=== PATIENT | female | born 1940 | race Caucasian/White ===

== ENCOUNTER 2018-11-25 14:11 | Emergency (ER) | payer OTHER ==
--- OUTSIDE RECORDS SUMMARY | 2018-11-25 14:13 | XMS REPORT | Clinical Summary ---
:1940 Author Organization [facility] Address [address] [place] [address] Care Team Providers Name Role Phone Luis Arreola Primary Care Provider Allergies Active Allergy Reactions Severity Noted Date Comments Hydralazine Analogues Nausea And Vomiting, Low 04/30/2017 "Feels hot" when Other (See Comments) medication given Medications Medication Sig Dispensed Refills Start Date End Date Status aspirin 81 MG EC Take 81 mg by 0 Active tablet mouth daily. folic acid (FOLVITE) Take 400 mcg by 0 Active 800 MCG tablet mouth daily. omeprazole Take 40 mg by 0 Active (PRILOSEC) 40 MG mouth daily. capsule losartan (COZAAR) Take 1 tablet 30 tablet 1 05/06/2017 Active 100 MG tablet (100 mg total) by mouth daily. clopidogrel (PLAVIX) Take 1 tablet (75 30 tablet 1 05/06/2017 Active 75 mg tablet mg total) by mouth daily. amLODIPine (NORVASC) Take 1 tablet (10 30 tablet 1 05/06/2017 05/06/2018 10 MG tablet mg total) by mouth daily. atorvastatin Take 1 tablet (40 30 tablet 1 05/06/2017 05/06/2018 (LIPITOR) 40 MG mg total) by tablet mouth nightly. carvedilol (COREG) Take 1 tablet (25 60 tablet 1 05/06/2017 05/06/2018 25 MG tablet mg total) by mouth 2 (two) times daily. ferrous sulfate 325 Take 1 tablet 60 tablet 1 05/06/2017 05/06/2018 (65 FE) MG tablet (325 mg total) by mouth 2 (two) times daily. ranolazine (RANEXA) Take 1 tablet 60 tablet 1 05/06/2017 05/06/2018 500 MG 12 hr tablet (500 mg total) by mouth 2 (two) times daily. nitroglycerin 1 pill under 90 tablet 1 05/06/2017 05/06/2018 (NITROSTAT) 0.4 MG tongue every 5min SL tablet prn chest pain.No more than 3 doses in 15min.Call 911 if pain is unrelieved 5min after 1st dose. 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 Last Filed Vital Signs Not on file Plan of Treatment Not on file Implants Implanted Type Area Dope Mixer Device Identifier Shelf Model / Expiration Serial / Date Lot [employer] Synergy Stents- N/A: [employer] 09/29/2017 [id number] / Implanted: Qty: 1 on 04/30/2017 by Arleen Olivia MD [employer] / y [id number] [employer] Synergy Stents- N/A: [employer] [id number] 09/29/2017 [id number] / Implanted: Qty: 1 on 04/30/2017 by Alreen Olivia MD [employer] / y [id number] [employer] Synergy Stents- N/A: [employer] [id number] 09/25/2017 [id number] / Implanted: Qty: 1 on 04/30/2017 by Arleen Olivia MD [employer] / y [id number] Results Not on fileafter 11/24/2017 Insurance Payer Benefit Plan / Group Subscriber ID Type Phone Address MEDICARE MEDICARE A B xxxxxxxxxx Medicare MCR GENERIC MEDICARE xxxxxxxxxxxx Medigap SUPPLEMENT/INDIVIDUAL SUPPLEMENT Advance Directives For more information, please contact:[address] [phone] Code Status Date Activated Date Inactivated Comments Full Code 04/30/2017 11:17 AM 05/06/2017 4:36 PM This code status was determined by: Patient Full Code 04/28/2017 5:16 PM 04/30/2017 11:17 AM This code status was determined by: Patient
--- OUTSIDE RECORDS SUMMARY | 2018-11-25 14:14 | XMS REPORT ---
:1940 [facility] Address [address] [place] [address] Care Team Providers Name Role Phone ANN-MARIEBEATRICE Unavailable Unavailable Problems This patient has no known problems. Allergies, Adverse Reactions, Alerts This patient has no known allergies or adverse reactions. Medications This patient has no known medications. Results Test Description Test Time Test Comments Text Results Atomic Results Result Comments MAGNESIUM 2017-05-04 06:53:00 Test Item Value Reference Range Comments MAGNESIUM (BEAKER) (test yurq=274) 2.1 mg/dL 1.6-2.6 BASIC METABOLIC [id number] 06:53:00 Test Item Value Reference Range Comments SODIUM (BEAKER) (test 140 meq/L 136-145 efkl=706) POTASSIUM (BEAKER) (test 3.5 meq/L 3.5-5.1 zoiq=845) CHLORIDE (BEAKER) (test 107 meq/L 98-107 dvco=933) CO2 (BEAKER) (test 26 meq/L 22-29 hagy=970) BLOOD UREA NITROGEN 11 mg/dL 7-21 (BEAKER) (test posy=714) CREATININE (BEAKER) (test 0.58 mg/dL 0.57-1.25 pfaz=450) GLUCOSE RANDOM (BEAKER) 98 mg/dL 70-105 (test urxn=549) CALCIUM (BEAKER) (test 8.5 mg/dL 8.4-10.2 bxhq=117) EGFR (BEAKER) (test 101 mL/min/1.73 sq m ESTIMATED GFR IS NOT ctci=2983) ACCURATE CREATININE CLEARANCE IN PREDICTING GLOMERULAR FILTRATION RATE. ESTIMATED GFR IS NOT APPLICABLE FOR DIALYSIS PATIENTS. CBC (HEMOGRAM ONLY)2017-05-04 06:15:00 Test Item Value Reference Range Comments WHITE BLOOD CELL COUNT (BEAKER) (test ewgz=905) 5.1 K/ L 3.5-10.5 RED BLOOD CELL COUNT (BEAKER) (test znwt=173) 2.94 M/ L 3.93-5.22 HEMOGLOBIN (BEAKER) (test deax=785) 8.9 GM/DL 11.2-15.7 HEMATOCRIT (BEAKER) (test mvaz=894) 25.9 % 34.1-44.9 MEAN CORPUSCULAR VOLUME (BEAKER) (test mcga=659) 88.1 fL 79.4-94.8 MEAN CORPUSCULAR HEMOGLOBIN (BEAKER) (test 30.3 pg 25.6-32.2 rfwb=535) MEAN CORPUSCULAR HEMOGLOBIN CONC (BEAKER) (test 34.4 GM/DL 32.2-35.5 dvim=753) RED CELL DISTRIBUTION WIDTH (BEAKER) (test 13.1 % 11.7-14.4 bivq=954) PLATELET COUNT (BEAKER) (test tlnw=396) 232 K/CU MM 150-450 MEAN PLATELET VOLUME (BEAKER) (test lsem=008) 10.7 fL 9.4-12.3 NUCLEATED RED BLOOD CELLS (BEAKER) (test 0 /100 WBC 0-0 oxcq=496) TROPONIN [id number] 15:33:00 Test Item Value Reference Range Comments TROPONIN I (BEAKER) (test tozo=872) 5.88 ng/mL 0.00-0.03 Effective 08/08/2014: Reference Range ChangeNew: 0.00-0.03 Previous 0.00- 0.15Troponin I (TnI) levels must be interpreted in the context of the presenting symptoms and the clinical findings. Elevated TnI levels indicate myocardial damage, but are not specific for ischemic heart disease. Elevated TnI levels are seen in patients with other cardiac conditions (including myocarditis and congestive heartfailure), and slight TnI elevations occur in patients with other conditions, including sepsis, renalfailure, acidosis, acute neurological disease, and persistent tachyarrhythmia.BASIC METABOLIC [id number] 15:31:00 Test Item Value Reference Range Comments SODIUM (BEAKER) (test 136 meq/L 136-145 uhod=542) POTASSIUM (BEAKER) (test 3.4 meq/L 3.5-5.1 tjeb=712) CHLORIDE (BEAKER) (test 103 meq/L 98-107 eewk=491) CO2 (BEAKER) (test 26 meq/L 22-29 fhbf=498) BLOOD UREA NITROGEN 19 mg/dL 7-21 (BEAKER) (test ybxj=175) CREATININE (BEAKER) (test 0.64 mg/dL 0.57-1.25 trid=831) GLUCOSE RANDOM (BEAKER) 106 mg/dL 70-105 (test zlgy=744) CALCIUM (BEAKER) (test 8.4 mg/dL 8.4-10.2 tazn=687) EGFR (BEAKER) (test 90 mL/min/1.73 sq m ESTIMATED GFR IS NOT ocgv=7168) ACCURATE CREATININE CLEARANCE IN PREDICTING GLOMERULAR FILTRATION RATE. ESTIMATED GFR IS NOT APPLICABLE FOR DIALYSIS PATIENTS. CREATINE KINASE (CK), TOTAL AND [id number] 15:31:00 Test Item Value Reference Range Comments CREATINE KINASE TOTAL (BEAKER) (test zssu=848) 228 U/L 29-200 CREATINE KINASE-MB (BEAKER) (test onpq=061) 4.0 ng/mL 0.0-6.6 CREATINE KINASE-MB INDEX (BEAKER) (test nuip=024) 1.8 % Effective 08/08/2014: CK-MB Reference Range ChangeNew: 0.0-6.6 Previous: 0.0- 4.9CK-MB Reference Range:<6.7 Normal6.7-10.0 Borderline>10.0 AbnormalPLATELET AGGREGATION: DRUG [id number] 14:43:00 Test Item Value Reference Range Comments STRONG ADP RESULT(BEAKER) (test 9 % 70-94 xopk=1399) WEAK ADP RESULT(BEAKER) (test 13 % 60-91 awro=6056) ARACHADONIC ACID RESULT(BEAKER) 6 % 63-89 (test mcgl=4004) PLATELET AGG DRUG INTERPRETATION Decreased response to (BEAKER) (test tene=9242) arachidonic acid suggests aspirin-like effect. PLATELET AGG DRUG INTERPRETATION Decreased response to ADP (BEAKER) (test kqbm=822236) suggest a V6W04-fxsxhidvt drug effect. [id number] (BEAKER) Beka Whyte MD (electronic (test joqe=4034) signature) PLATELET COUNT AGG (BEAKER) 203 K/CU MM 150-450 (test kvnc=4302) TROPONIN [id number] 00:49:00 Test Item Value Reference Range Comments TROPONIN I (BEAKER) (test xlaz=307) 9.43 ng/mL 0.00-0.03 Effective 08/08/2014: Reference Range ChangeNew: 0.00-0.03 Previous 0.00- 0.15Troponin I (TnI) levels must be interpreted in the context of the presenting symptoms and the clinical findings. Elevated TnI levels indicate myocardial damage, but are not specific for ischemic heart disease. Elevated TnI levels are seen in patients with other cardiac conditions (including myocarditis and congestive heartfailure), and slight TnI elevations occur in patients with other conditions, including sepsis, renalfailure, acidosis, acute neurological disease, and persistent tachyarrhythmia.CREATINE KINASE (CK), TOTAL AND [id number] 00:42:00 Test Item Value Reference Range Comments CREATINE KINASE TOTAL (THELMAAKER) (test kapc=467) 416 U/L 29-200 CREATINE KINASE-MB (BEAKER) (test dlpa=060) 22.6 ng/mL 0.0-6.6 CREATINE KINASE-MB INDEX (BEAKER) (test jefj=986) 5.4 % Effective 08/08/2014: CK-MB Reference Range ChangeNew: 0.0-6.6 Previous: 0.0- 4.9CK-MB Reference Range:<6.7 Normal6.7-10.0 Borderline>10.0 AbnormalTROPONIN [id number] 17:51:00 Test Item Value Reference Range Comments TROPONIN I (THELMAAKER) (test ykyu=160) 10.38 ng/mL 0.00-0.03 Effective 08/08/2014: Reference Range ChangeNew: 0.00-0.03 Previous 0.00- 0.15Troponin I (TnI) levels must be interpreted in the context of the presenting symptoms and the clinical findings. Elevated TnI levels indicate myocardial damage, but are not specific for ischemic heart disease. Elevated TnI levels are seen in patients with other cardiac conditions (including myocarditis and congestive heartfailure), and slight TnI elevations occur in patients with other conditions, including sepsis, renalfailure, acidosis, acute neurological disease, and persistent tachyarrhythmia.CREATINE KINASE (CK), TOTAL AND [id number] 17:50:00 Test Item Value Reference Range Comments CREATINE KINASE TOTAL (BEAKER) (test howo=184) 696 U/L 29-200 CREATINE KINASE-MB (BEAKER) (test flra=272) 52.7 ng/mL 0.0-6.6 CREATINE KINASE-MB INDEX (BEAKER) (test ynbs=362) 7.6 % Effective 08/08/2014: CK-MB Reference Range ChangeNew: 0.0-6.6 Previous: 0.0- 4.9CK-MB Reference Range:<6.7 Normal6.7-10.0 Borderline>10.0 AbnormalPLATELET AGGREGATION: DRUG [id number] 15:59:00 Test Item Value Reference Range Comments STRONG ADP RESULT(BEAKER) (test 35 % 70-94 vccb=0172) WEAK ADP RESULT(BEAKER) (test 33 % 60-91 empa=1318) ARACHADONIC ACID RESULT(BEAKER) 14 % 63-89 (test uxbn=1220) PLATELET AGG DRUG INTERPRETATION Decreased response to (BEAKER) (test bgkl=7789) arachidonic acid suggests aspirin-like effect. PLATELET AGG DRUG INTERPRETATION Decreased response to ADP (BEAKER) (test hxrm=003793) suggest a N6I14-cubldjztv drug effect. [id number] [facility] Beka Whyte MD (electronic (test iuxr=0675) signature) PLATELET COUNT AGG (BEAKER) 288 K/CU MM 150-450 (test itsv=0134) PLATELET AGGREGATION: DRUG [id number] 15:58:00 Test Item Value Reference Range Comments STRONG ADP RESULT(BEAKER) (test 23 % 70-94 yeyz=2375) WEAK ADP RESULT(BEAKER) (test 20 % 60-91 jkwu=0232) ARACHADONIC ACID RESULT(BEAKER) 15 % 63-89 (test xupz=8832) PLATELET AGG DRUG INTERPRETATION Decreased response to (BEAKER) (test pdqy=0449) arachidonic acid suggests aspirin-like effect. PLATELET AGG DRUG INTERPRETATION Decreased response to ADP (BEAKER) (test wpzq=910090) suggest a Y4Z93-zaltekuoe drug effect. [id number] (BEAKER) Beka Whyte MD (electronic (test spig=8359) signature) PLATELET COUNT AGG (BEAKER) 235 K/CU MM 150-450 (test moif=3061) POCT-GLUCOSE [id number] 11:52:00 Test Item Value Reference Range Comments POC-GLUCOSE METER (BEAKER) 90 mg/dL 70-110 TESTED AT [facility] [address] (test uzjj=3726) [facility] [address] TROPONIN [id number] 09:56:00 Test Item Value Reference Range Comments TROPONIN I (BEAKER) (test mwhg=429) 15.16 ng/mL 0.00-0.03 Effective 08/08/2014: Reference Range ChangeNew: 0.00-0.03 Previous 0.00- 0.15Troponin I (TnI) levels must be interpreted in the context of the presenting symptoms and the clinical findings. Elevated TnI levels indicate myocardial damage, but are not specific for ischemic heart disease. Elevated TnI levels are seen in patients with other cardiac conditions (including myocarditis and congestive heartfailure), and slight TnI elevations occur in patients with other conditions, including sepsis, renalfailure, acidosis, acute neurological disease, and persistent tachyarrhythmia.CREATINE KINASE (CK), TOTAL AND [id number] 09:56:00 Test Item Value Reference Range Comments CREATINE KINASE TOTAL (BEAKER) (test qxcb=808) 1205 U/L 29-200 CREATINE KINASE-MB (BEAKER) (test uppa=947) 98.4 ng/mL 0.0-6.6 CREATINE KINASE-MB INDEX (BEAKER) (test qwcg=181) 8.2 % Effective 08/08/2014: CK-MB Reference Range ChangeNew: 0.0-6.6 Previous: 0.0- 4.9CK-MB Reference Range:<6.7 Normal6.7-10.0 Borderline>10.0 AbnormalCOMPREHENSIVE METABOLIC [id number] 09:04:00 Test Item Value Reference Range Comments TOTAL PROTEIN (BEAKER) 6.2 gm/dL 6.0-8.3 (test wygi=567) ALBUMIN (BEAKER) (test 3.5 g/dL 3.5-5.0 bamf=7304) ALKALINE PHOSPHATASE 49 U/L 40-150 (BEAKER) (test zkui=559) BILIRUBIN TOTAL (BEAKER) 0.8 mg/dL 0.2-1.2 (test vhjw=688) SODIUM (BEAKER) (test 136 meq/L 136-145 ivlj=258) POTASSIUM (BEAKER) (test 3.5 meq/L 3.5-5.1 kqqs=604) CHLORIDE (BEAKER) (test 107 meq/L 98-107 dwow=564) CO2 (BEAKER) (test 23 meq/L 22-29 zchf=698) BLOOD UREA NITROGEN 22 mg/dL 7-21 (BEAKER) (test gxlk=482) CREATININE (BEAKER) (test 0.75 mg/dL 0.57-1.25 shub=989) GLUCOSE RANDOM (BEAKER) 95 mg/dL 70-105 (test bvtm=803) CALCIUM (BEAKER) (test 8.5 mg/dL 8.4-10.2 vutm=743) AST (SGOT) (BEAKER) (test 133 U/L 5-34 ikrl=451) ALT (SGPT) (BEAKER) (test 35 U/L 6-55 mcxy=201) EGFR (BEAKER) (test 75 mL/min/1.73 sq m ESTIMATED GFR IS NOT nmua=0651) ACCURATE CREATININE CLEARANCE IN PREDICTING GLOMERULAR FILTRATION RATE. ESTIMATED GFR IS NOT APPLICABLE FOR DIALYSIS PATIENTS. CBC (HEMOGRAM ONLY)2017-05-01 06:45:00 Test Item Value Reference Range Comments WHITE BLOOD CELL COUNT (BEAKER) (test gmtx=962) 9.4 K/ L 3.5-10.5 RED BLOOD CELL COUNT (BEAKER) (test dzys=442) 3.17 M/ L 3.93-5.22 HEMOGLOBIN (BEAKER) (test cjcj=878) 9.4 GM/DL 11.2-15.7 HEMATOCRIT (BEAKER) (test nbhh=323) 28.4 % 34.1-44.9 MEAN CORPUSCULAR VOLUME (BEAKER) (test iswr=470) 89.6 fL 79.4-94.8 MEAN CORPUSCULAR HEMOGLOBIN (BEAKER) (test 29.7 pg 25.6-32.2 perv=798) MEAN CORPUSCULAR HEMOGLOBIN CONC (BEAKER) (test 33.1 GM/DL 32.2-35.5 juty=603) RED CELL DISTRIBUTION WIDTH (BEAKER) (test 13.2 % 11.7-14.4 ucef=533) PLATELET COUNT (BEAKER) (test zgbs=961) 228 K/CU MM 150-450 MEAN PLATELET VOLUME (BEAKER) (test xcjf=542) 10.9 fL 9.4-12.3 NUCLEATED RED BLOOD CELLS (BEAKER) (test 0 /100 WBC 0-0 htva=927) TROPONIN [id number] 02:16:00 Test Item Value Reference Range Comments TROPONIN I (BEAKER) (test bugd=984) 17.09 ng/mL 0.00-0.03 Effective 08/08/2014: Reference Range ChangeNew: 0.00-0.03 Previous 0.00- 0.15Troponin I (TnI) levels must be interpreted in the context of the presenting symptoms and the clinical findings. Elevated TnI levels indicate myocardial damage, but are not specific for ischemic heart disease. Elevated TnI levels are seen in patients with other cardiac conditions (including myocarditis and congestive heartfailure), and slight TnI elevations occur in patients with other conditions, including sepsis, renalfailure, acidosis, acute neurological disease, and persistent tachyarrhythmia.CREATINE KINASE (CK), TOTAL AND [id number] 02:04:00 Test Item Value Reference Range Comments CREATINE KINASE TOTAL (BEAKER) (test prxo=741) 1515 U/L 29-200 CREATINE KINASE-MB (BEAKER) (test pimt=839) 132.5 ng/mL 0.0-6.6 CREATINE KINASE-MB INDEX (BEAKER) (test 8.7 % huhp=873) Effective 08/08/2014: CK-MB Reference Range ChangeNew: 0.0-6.6 Previous: 0.0- 4.9CK-MB Reference Range:<6.7 Normal6.7-10.0 Borderline>10.0 AbnormalTROPONIN [id number] 18:37:00 Test Item Value Reference Range Comments TROPONIN I (BEAKER) (test siqe=533) 5.50 ng/mL 0.00-0.03 Effective 08/08/2014: Reference Range ChangeNew: 0.00-0.03 Previous 0.00- 0.15Troponin I (TnI) levels must be interpreted in the context of the presenting symptoms and the clinical findings. Elevated TnI levels indicate myocardial damage, but are not specific for ischemic heart disease. Elevated TnI levels are seen in patients with other cardiac conditions (including myocarditis and congestive heartfailure), and slight TnI elevations occur in patients with other conditions, including sepsis, renalfailure, acidosis, acute neurological disease, and persistent tachyarrhythmia.CREATINE KINASE (CK), TOTAL AND [id number] 18:33:00 Test Item Value Reference Range Comments CREATINE KINASE TOTAL (BEAKER) (test heax=833) 782 U/L 29-200 CREATINE KINASE-MB (BEAKER) (test xqhv=357) 60.3 ng/mL 0.0-6.6 CREATINE KINASE-MB INDEX (BEAKER) (test aesk=051) 7.7 % Effective 08/08/2014: CK-MB Reference Range ChangeNew: 0.0-6.6 Previous: 0.0- 4.9CK-MB Reference Range:<6.7 Normal6.7-10.0 Borderline>10.0 [id number] 18:28:00 Test Item Value Reference Range Comments ACTIVATED CLOTTING TIME 125 sec TESTED AT [address] (BEAKER) (test xvvm=317) [place] [address] [id number] 16:13:00 Test Item Value Reference Range Comments ACTIVATED CLOTTING TIME 153 sec TESTED AT [address] (BEAKER) (test zaoq=116) [place] [address] CREATINE KINASE (CK), TOTAL AND [id number] 13:57:00 Test Item Value Reference Range Comments CREATINE KINASE TOTAL (BEAKER) (test ojnj=679) 88 U/L 29-200 CREATINE KINASE-MB (BEAKER) (test bszo=908) 5.2 ng/mL 0.0-6.6 CREATINE KINASE-MB INDEX (BEAKER) (test ekle=339) 5.9 % Effective 08/08/2014: CK-MB Reference Range ChangeNew: 0.0-6.6 Previous: 0.0- 4.9CK-MB Reference Range:<6.7 Normal6.7-10.0 Borderline>10.0 [id number] 13:43:00 Test Item Value Reference Range Comments ACTIVATED CLOTTING TIME 197 sec TESTED AT [address] (BANNER) (test tnez=633) [place] [address] [id number] 10:51:00 Test Item Value Reference Range Comments ACTIVATED CLOTTING TIME 296 sec TESTED AT [address] [facility] (test llgz=485) [place] [address] [id number] 10:03:00 Test Item Value Reference Range Comments ACTIVATED CLOTTING TIME 252 sec TESTED AT [address] (BANNER) (test ckha=259) [place] [address] [id number] 10:03:00 Test Item Value Reference Range Comments ACTIVATED CLOTTING TIME 709 sec TESTED AT [address] (BANNER) (test bdlb=817) [place] [address] [id number] 09:43:00 Test Item Value Reference Range Comments ACTIVATED CLOTTING TIME 202 sec TESTED AT [address] (BANNER) (test bpnq=189) [place] [address] [id number] 09:04:00 Test Item Value Reference Range Comments ACTIVATED CLOTTING TIME 257 sec TESTED AT [address] (BANNER) (test obbe=653) [place] [address] TROPONIN [id number] 08:02:00 Test Item Value Reference Range Comments TROPONIN I (BANNER) (test kalf=624) 0.16 ng/mL 0.00-0.03 Effective 08/08/2014: Reference Range ChangeNew: 0.00-0.03 Previous 0.00- 0.15Troponin I (TnI) levels must be interpreted in the context of the presenting symptoms and the clinical findings. Elevated TnI levels indicate myocardial damage, but are not specific for ischemic heart disease. Elevated TnI levels are seen in patients with other cardiac conditions (including myocarditis and congestive heartfailure), and slight TnI elevations occur in patients with other conditions, including sepsis, renalfailure, acidosis, acute neurological disease, and persistent tachyarrhythmia.[id number] 07:53:00 Test Item Value Reference Range Comments PARTIAL THROMBOPLASTIN TIME (BANNER) (test 81.9 seconds 22.5-36.0 gohu=199) LACTIC ACID, VENOUS, WHOLE [id number] 07:51:00 Test Item Value Reference Range Comments LACTATE BLOOD VENOUS (2) (BEAKER) (test 1.0 mmol/L 0.5-2.2 uhiu=4623) Effective 01/23/2016: Units/Reference Range ChangeNew: 0.5-2.2 mmol/L Previous: 5 -20 mg/dLCOMPREHENSIVE METABOLIC [id number] 05:16:00 Test Item Value Reference Range Comments TOTAL PROTEIN (BEAKER) 6.5 gm/dL 6.0-8.3 (test hpyu=553) ALBUMIN (BEAKER) (test 3.7 g/dL 3.5-5.0 eftr=1496) ALKALINE PHOSPHATASE 56 U/L 40-150 (BEAKER) (test ddmj=848) BILIRUBIN TOTAL (BEAKER) 1.0 mg/dL 0.2-1.2 (test utqq=195) SODIUM (BEAKER) (test 134 meq/L 136-145 mjgu=292) POTASSIUM (BEAKER) (test 3.6 meq/L 3.5-5.1 ibst=778) CHLORIDE (BEAKER) (test 102 meq/L 98-107 gszy=283) CO2 (BEAKER) (test 22 meq/L 22-29 qxwq=222) BLOOD UREA NITROGEN 21 mg/dL 7-21 (BEAKER) (test vvmv=195) CREATININE (BEAKER) (test 0.85 mg/dL 0.57-1.25 thzj=013) GLUCOSE RANDOM (BEAKER) 94 mg/dL 70-105 (test ophw=522) CALCIUM (BEAKER) (test 8.9 mg/dL 8.4-10.2 shlb=943) AST (SGOT) (BEAKER) (test 37 U/L 5-34 tkpk=880) ALT (SGPT) (BEAKER) (test 29 U/L 6-55 zkuz=094) EGFR (BEAKER) (test 65 mL/min/1.73 sq m ESTIMATED GFR IS NOT mwyr=0107) ACCURATE CREATININE CLEARANCE IN PREDICTING GLOMERULAR FILTRATION RATE. ESTIMATED GFR IS NOT APPLICABLE FOR DIALYSIS PATIENTS. CBC (HEMOGRAM ONLY)2017-04-30 04:51:00 Test Item Value Reference Range Comments WHITE BLOOD CELL COUNT (BEAKER) (test nmpu=037) 8.8 K/ L 3.5-10.5 RED BLOOD CELL COUNT (BEAKER) (test nrkh=878) 3.81 M/ L 3.93-5.22 HEMOGLOBIN (BEAKER) (test qghp=580) 11.3 GM/DL 11.2-15.7 HEMATOCRIT (BEAKER) (test duyh=988) 33.6 % 34.1-44.9 MEAN CORPUSCULAR VOLUME (BEAKER) (test vpdo=814) 88.2 fL 79.4-94.8 MEAN CORPUSCULAR HEMOGLOBIN (BEAKER) (test 29.7 pg 25.6-32.2 lzrw=775) MEAN CORPUSCULAR HEMOGLOBIN CONC (BEAKER) (test 33.6 GM/DL 32.2-35.5 uvhd=825) RED CELL DISTRIBUTION WIDTH (BEAKER) (test 12.7 % 11.7-14.4 jwwb=902) PLATELET COUNT (BEAKER) (test uppr=433) 265 K/CU MM 150-450 MEAN PLATELET VOLUME (BEAKER) (test eswv=236) 10.9 fL 9.4-12.3 NUCLEATED RED BLOOD CELLS (BEAKER) (test 0 /100 WBC 0-0 jspu=839) TROPONIN [id number] 03:12:00 Test Item Value Reference Range Comments TROPONIN I (BEAKER) (test qifo=409) 0.25 ng/mL 0.00-0.03 Effective 08/08/2014: Reference Range ChangeNew: 0.00-0.03 Previous 0.00- 0.15Troponin I (TnI) levels must be interpreted in the context of the presenting symptoms and the clinical findings. Elevated TnI levels indicate myocardial damage, but are not specific for ischemic heart disease. Elevated TnI levels are seen in patients with other cardiac conditions (including myocarditis and congestive heartfailure), and slight TnI elevations occur in patients with other conditions, including sepsis, renalfailure, acidosis, acute neurological disease, and persistent tachyarrhythmia.CREATINE KINASE (CK), TOTAL AND [id number] 03:07:00 Test Item Value Reference Range Comments CREATINE KINASE TOTAL (BEAKER) (test pfcv=104) 46 U/L 29-200 CREATINE KINASE-MB (BEAKER) (test jlgv=020) 2.7 ng/mL 0.0-6.6 CREATINE KINASE-MB INDEX (BEAKER) (test hmho=435) 5.9 % Effective 08/08/2014: CK-MB Reference Range ChangeNew: 0.0-6.6 Previous: 0.0- 4.9CK-MB Reference Range:<6.7 Normal6.7-10.0 Borderline>10.0 [id number] 21:56:00 Test Item Value Reference Range Comments PARTIAL THROMBOPLASTIN TIME (BEAKER) (test 32.4 seconds 22.5-36.0 uane=578) Prior to initiating heparinCREATINE KINASE (CK), TOTAL AND [id number] 14:11:00 Test Item Value Reference Range Comments CREATINE KINASE TOTAL (BEAKER) (test gjsv=512) 35 U/L 29-200 CREATINE KINASE-MB (BEAKER) (test yqsy=000) 1.3 ng/mL 0.0-6.6 CREATINE KINASE-MB INDEX (BEAKER) (test ogyr=971) 3.7 % Effective 08/08/2014: CK-MB Reference Range ChangeNew: 0.0-6.6 Previous: 0.0- 4.9CK-MB Reference Range:<6.7 Normal6.7-10.0 Borderline>10.0 AbnormalTROPONIN [id number] 14:11:00 Test Item Value Reference Range Comments TROPONIN I (BEAKER) (test rjte=744) 0.05 ng/mL 0.00-0.03 Effective 08/08/2014: Reference Range ChangeNew: 0.00-0.03 Previous 0.00- 0.15Troponin I (TnI) levels must be interpreted in the context of the presenting symptoms and the clinical findings. Elevated TnI levels indicate myocardial damage, but are not specific for ischemic heart disease. Elevated TnI levels are seen in patients with other cardiac conditions (including myocarditis and congestive heartfailure), and slight TnI elevations occur in patients with other conditions, including sepsis, renalfailure, acidosis, acute neurological disease, and persistent tachyarrhythmia.[id number] 13:56:00 Test Item Value Reference Range Comments PARTIAL THROMBOPLASTIN TIME (BEAKER) (test 28.2 seconds 22.5-36.0 vtoc=761) Prior to initiating heparinPLATELET [id number] 13:50:00 Test Item Value Reference Range Comments PLATELET COUNT (BEAKER) (test uwnx=253) 297 K/CU MM 150-450 HEMOGLOBIN [id number] 13:50:00 Test Item Value Reference Range Comments HEMOGLOBIN A1C (BEAKER) (test aqsb=400) 4.9 % 4.3-6.1 PLATELET AGGREGATION: FUNCTION [id number] 09:03:00 Test Item Value Reference Range Comments WEAK ADP RESULT(BEAKER) (test 24 % 60-91 qzyi=4096) PLATELET FUNCTION SCREEN 0-39% indicates marked platelet INTERP (BEAKER) (test dysfunction sowu=1207) [id number] Beka Whyte MD (electronic (BEAKER) (test omyu=1128) signature) PLATELET COUNT AGG (BEAKER) 273 K/CU MM 150-450 (test ixpr=1384) PLATELET AGGREGATION: FUNCTION [id number] 08:44:00 Test Item Value Reference Range Comments WEAK ADP RESULT(BEAKER) (test 23 % 60-91 yghx=3192) PLATELET FUNCTION SCREEN 0-39% indicates marked platelet INTERP (BEAKER) (test dysfunction vnne=9668) [id number] Beka Whyte MD (electronic (BEAKER) (test ciru=9746) signature) PLATELET COUNT AGG (BEAKER) 277 K/CU MM 150-450 (test cihg=0642) for patients on clopidogrel in past two weeksCOMPREHENSIVE METABOLIC [id number] 06:10:00 Test Item Value Reference Range Comments TOTAL PROTEIN (BEAKER) 7.0 gm/dL 6.0-8.3 (test nawt=131) ALBUMIN (BEAKER) (test 3.9 g/dL 3.5-5.0 ptjt=7573) ALKALINE PHOSPHATASE 62 U/L 40-150 (BEAKER) (test krds=446) BILIRUBIN TOTAL (BEAKER) 1.2 mg/dL 0.2-1.2 (test gxnd=059) SODIUM (BEAKER) (test 134 meq/L 136-145 uwxm=403) POTASSIUM (BEAKER) (test 3.5 meq/L 3.5-5.1 crlj=973) CHLORIDE (BEAKER) (test 99 meq/L 98-107 oaud=201) CO2 (BEAKER) (test 26 meq/L 22-29 iacf=728) BLOOD UREA NITROGEN 17 mg/dL 7-21 (BEAKER) (test fnlh=402) CREATININE (BEAKER) (test 0.69 mg/dL 0.57-1.25 ohkl=763) GLUCOSE RANDOM (BEAKER) 83 mg/dL 70-105 (test mada=767) CALCIUM (BEAKER) (test 9.1 mg/dL 8.4-10.2 ovym=027) AST (SGOT) (BEAKER) (test 20 U/L 5-34 egdr=118) ALT (SGPT) (BEAKER) (test 15 U/L 6-55 yawo=219) EGFR (BEAKER) (test 82 mL/min/1.73 sq m ESTIMATED GFR IS NOT gwfa=7575) ACCURATE CREATININE CLEARANCE IN PREDICTING GLOMERULAR FILTRATION RATE. ESTIMATED GFR IS NOT APPLICABLE FOR DIALYSIS PATIENTS. PROTHROMBIN [id number] 06:00:00 Test Item Value Reference Range Comments PROTIME (BEAKER) (test hpxs=980) 13.6 seconds 11.7-14.7 INR (BEAKER) (test jqkj=575) 1.1 <=5.9 RECOMMENDED COUMADIN/WARFARIN INR THERAPY RANGESSTANDARD DOSE: 2.0 - 3.0 Includes: PROPHYLAXIS forvenous thrombosis, systemic embolization; TREATMENT for venous thrombosis and/or pulmonary embolus.HIGH RISK: Target INR is 2.5-3.5 for patients with mechanical heart valves.CBC (HEMOGRAM ONLY)2017-04-29 05:55:00 Test Item Value Reference Range Comments WHITE BLOOD CELL COUNT (BEAKER) (test ecde=330) 5.5 K/ L 3.5-10.5 RED BLOOD CELL COUNT (BEAKER) (test ovsa=742) 4.14 M/ L 3.93-5.22 HEMOGLOBIN (BEAKER) (test puwx=840) 12.4 GM/DL 11.2-15.7 HEMATOCRIT (BEAKER) (test vbeu=094) 36.1 % 34.1-44.9 MEAN CORPUSCULAR VOLUME (BEAKER) (test bvgf=990) 87.2 fL 79.4-94.8 MEAN CORPUSCULAR HEMOGLOBIN (BEAKER) (test 30.0 pg 25.6-32.2 nlmr=153) MEAN CORPUSCULAR HEMOGLOBIN CONC (BEAKER) (test 34.3 GM/DL 32.2-35.5 ylir=735) RED CELL DISTRIBUTION WIDTH (BEAKER) (test 12.4 % 11.7-14.4 oawr=893) PLATELET COUNT (BEAKER) (test xdbu=283) 249 K/CU MM 150-450 MEAN PLATELET VOLUME (BEAKER) (test jyui=809) 10.7 fL 9.4-12.3 NUCLEATED RED BLOOD CELLS (BEAKER) (test 0 /100 WBC 0-0 etgl=609) BASIC METABOLIC [id number] 18:22:00 Test Item Value Reference Range Comments SODIUM (BEAKER) (test 134 meq/L 136-145 gqsh=788) POTASSIUM (BEAKER) (test 3.7 meq/L 3.5-5.1 wwra=375) CHLORIDE (BEAKER) (test 98 meq/L 98-107 hxkv=870) CO2 (BEAKER) (test 31 meq/L 22-29 edtd=930) BLOOD UREA NITROGEN 13 mg/dL 7-21 (BEAKER) (test qtoa=514) CREATININE (BEAKER) (test 0.68 mg/dL 0.57-1.25 soyn=704) GLUCOSE RANDOM (BEAKER) 89 mg/dL 70-105 (test beut=056) CALCIUM (BEAKER) (test 9.2 mg/dL 8.4-10.2 kgxn=785) EGFR (BEAKER) (test 84 mL/min/1.73 sq m ESTIMATED GFR IS NOT cdrx=2374) ACCURATE CREATININE CLEARANCE IN PREDICTING GLOMERULAR FILTRATION RATE. ESTIMATED GFR IS NOT APPLICABLE FOR DIALYSIS PATIENTS. PROTHROMBIN TIME/[id number] 18:06:00 Test Item Value Reference Range Comments PROTIME (BEAKER) (test avdb=808) 13.0 seconds 11.7-14.7 INR (BEAKER) (test djei=382) 1.0 <=5.9 RECOMMENDED COUMADIN/WARFARIN INR THERAPY RANGESSTANDARD DOSE: 2.0 - 3.0 Includes: PROPHYLAXIS forvenous thrombosis, systemic embolization; TREATMENT for venous thrombosis and/or pulmonary embolus.HIGH RISK: Target INR is 2.5-3.5 for patients with mechanical heart valves.[id number] 18:06:00 Test Item Value Reference Range Comments PARTIAL THROMBOPLASTIN TIME (BEAKER) (test 30.2 seconds 22.5-36.0 ufby=447) CBC W/PLT COUNT & AUTO [id number] 17:58:00 Test Item Value Reference Range Comments WHITE BLOOD CELL COUNT (BEAKER) (test uezn=164) 6.3 K/ L 3.5-10.5 RED BLOOD CELL COUNT (BEAKER) (test ymbp=167) 3.98 M/ L 3.93-5.22 HEMOGLOBIN (BEAKER) (test owmu=055) 11.9 GM/DL 11.2-15.7 HEMATOCRIT (BEAKER) (test pdpu=390) 34.6 % 34.1-44.9 MEAN CORPUSCULAR VOLUME (BEAKER) (test xgml=982) 86.9 fL 79.4-94.8 MEAN CORPUSCULAR HEMOGLOBIN (BEAKER) (test 29.9 pg 25.6-32.2 yubz=141) MEAN CORPUSCULAR HEMOGLOBIN CONC (BEAKER) (test 34.4 GM/DL 32.2-35.5 tmfc=408) RED CELL DISTRIBUTION WIDTH (BEAKER) (test 12.2 % 11.7-14.4 ftma=451) PLATELET COUNT (BEAKER) (test kuwv=750) 260 K/CU MM 150-450 MEAN PLATELET VOLUME (BEAKER) (test ppee=400) 10.4 fL 9.4-12.3 NUCLEATED RED BLOOD CELLS (BEAKER) (test 0 /100 WBC 0-0 frto=996) NEUTROPHILS RELATIVE PERCENT (BEAKER) (test 58 % vdpd=305) LYMPHOCYTES RELATIVE PERCENT (BEAKER) (test 33 % wzwj=528) MONOCYTES RELATIVE PERCENT (BEAKER) (test 7 % ytnp=557) EOSINOPHILS RELATIVE PERCENT (BEAKER) (test 1 % cetm=310) BASOPHILS RELATIVE PERCENT (BEAKER) (test 0 % rixh=219) NEUTROPHILS ABSOLUTE COUNT (BEAKER) (test 3.62 K/ L 1.56-6.13 pleh=047) LYMPHOCYTES ABSOLUTE COUNT (BEAKER) (test 2.08 K/ L 1.18-3.74 ldrw=919) MONOCYTES ABSOLUTE COUNT (BEAKER) (test 0.44 K/ L 0.24-0.36 gksp=127) EOSINOPHILS ABSOLUTE COUNT (BEAKER) (test 0.09 K/ L 0.04-0.36 juwp=907) BASOPHILS ABSOLUTE COUNT (BEAKER) (test 0.02 K/ L 0.01-0.08 dciw=428) IMMATURE GRANULOCYTES-RELATIVE PERCENT (BEAKER) 0 % 0-1 (test nrnq=0297)
--- NOTE | 2018-11-25 17:19 | RAD REPORT ---
EXAM DESCRIPTION: Demond Parker (2 Views)11/25/2018 4:38 pm CLINICAL HISTORY: Cough COMPARISON: 2017 FINDINGS: The lungs are hyperaerated. The lungs appear clear of acute infiltrate. The heart is normal size IMPRESSION: No acute abnormalities displayed
--- NOTE | 2018-11-25 19:00 | ER ---
Nurse's Notes [facility] Name: Teresa Aguilar Age: 78 yrs Sex: Female : 1940 Arrival Date: 11/25/2018 Time: 14:13 Bed 16 Private MD: Luis Arreola Diagnosis: Bronchitis, not specified as acute or chronic;Acute upper respiratory infection, unspecified Presentation: 11/25 14:22 Presenting complaint: Productive cough, SOB, body aches, SOB, chills, and N/V. Not hb tolerating fluids. Transition of care: patient was not received from another setting of care. Onset of symptoms was November 24, 2018. Risk Assessment: Do you want to hurt yourself or someone else? Patient reports no desire to harm self or others. Care prior to arrival: None. 14:22 Method Of Arrival: Ambulatory hb 14:22 Acuity: HUSEYIN 3 hb 18:25 Initial Sepsis Screen: Does the patient meet any 2 criteria? No. Patient's initial aj1 sepsis screen is negative. Does the patient have a suspected source of infection? No. Patient's initial sepsis screen is negative. Historical: - Allergies: 14:24 No Known Allergies; hb - Home Meds: 14:24 losartan Oral [Active]; Metoprolol Tartrate Oral [Active]; hb - PMHx: 14:24 Hypertension; Myocardial infarction; hb - PSHx: 14:24 Heart stents; hb - Immunization history:: Adult Immunizations up to date. - Social history:: Smoking status: Patient/guardian denies using tobacco. - Ebola Screening: : No symptoms or risks identified at this time. Screenin:30 Abuse screen: Denies threats or abuse. Denies injuries from another. Nutritional aj1 screening: No deficits noted. Tuberculosis screening: No symptoms or risk factors identified. 19:15 Fall Risk None identified. rr5 Assessment: 16:30 General: Appears in no apparent distress. uncomfortable, Behavior is calm, cooperative, aj1 appropriate for age. Pain: Denies pain. Neuro: Level of Consciousness is awake, alert, obeys commands, Oriented to person, place, time, situation. Cardiovascular: Patient's skin is warm and dry. Respiratory: Reports shortness of breath cough that is productive, Airway is patent Respiratory effort is even, unlabored, Respiratory pattern is regular, symmetrical. GI: Abdomen is non-distended, Reports nausea, vomiting. : No signs and/or symptoms were reported regarding the genitourinary system. EENT: No signs and/or symptoms were reported regarding the EENT system. Derm: No signs and/or symptoms reported regarding the dermatologic system. Skin is pink, warm \T\ dry. normal. Musculoskeletal: No signs and/or symptoms reported regarding the musculoskeletal system. Circulation, motion, and sensation intact. 17:21 Reassessment: Patient appears in no apparent distress at this time. No changes from aj1 previously documented assessment. Patient and/or family updated on plan of care and expected duration. Pain level reassessed. Patient is alert, oriented x 3, equal unlabored respirations, skin warm/dry/pink. 18:25 Reassessment: Patient appears in no apparent distress at this time. No changes from aj1 previously documented assessment. Patient and/or family updated on plan of care and expected duration. Pain level reassessed. Patient is alert, oriented x 3, equal unlabored respirations, skin warm/dry/pink. 19:15 Reassessment: Patient appears in no apparent distress at this time. Patient is alert, rr5 oriented x 3, equal unlabored respirations, skin warm/dry/pink. received patient from arcenio DUMONT, patient is for discharge, dr. hastings at bedside explaining the plan.discharge instruction given and explained without complaints made. Patient states symptoms have improved. Vital Signs: 14:23 BP 162 / 77; Pulse 70; Resp 16; Temp 99.3(TE); Pulse Ox 96% on R/A; Pain 3/10; hb 17:18 BP 143 / 58; Pulse 65; Resp 18; Pulse Ox 97% on R/A; aj1 18:25 BP 147 / 68; Pulse 68; Resp 18; Pulse Ox 97% on R/A; aj1 19:00 BP 159 / 76; Pulse 65; Resp 19; Pulse Ox 99% ; rr5 ED Course: 14:13 Patient arrived in ED. rg4 14:13 Luis Arreola MD is Private Physician. rg4 14:23 Triage completed. hb 14:24 Arm band placed on. hb 15:56 Nishant Hastings MD is Attending Physician. kdr 16:24 Lupe Aiken, JULIA is Primary Nurse. aj1 16:30 Patient has correct armband on for positive identification. Bed in low position. Call aj1 light in reach. Side rails up X 1. 16:30 No provider procedures requiring assistance completed. aj1 16:37 Chest Pa And Lat (2 Views) XRAY In Process Unspecified. EDMS 18:59 Luis Arreola MD is Referral Physician. kdr 19:15 Patient did not have IV access during this emergency room visit. rr5 Administered Medications: No medications were administered Outcome: 18:59 Discharge ordered by MD. kdr 19:18 Discharged to home ambulatory, with family. rr5 19:18 Discharge instructions given to patient, Instructed on discharge instructions, follow up and referral plans. medication usage, Demonstrated understanding of instructions, follow-up care, medications, Prescriptions given X 4. 19:18 Condition: stable rr5 19:20 Patient left the ED. aa1 Signatures: Dispatcher [employer] EDMD Lupe Aiken RN RN aj1 Zunilda Vasquez RN RN aa1 Nishant Hastings MD MD [facility] Latha Oviedo RN RN hb Garcia, Rubi rg4 Moses Shipman RN RN rr5
--- NOTE | 2018-11-25 19:00 | EDPHYS ---
Physician Documentation [facility] Name: Teresa Aguilar Age: 78 yrs Sex: Female : 1940 Arrival Date: 11/25/2018 Time: 14:13 Bed 16 Private MD: Luis Arreola ED Physician Nishant Alvarez HPI: 11/26 06:53 This 78 yrs old Female presents to ER via Ambulatory with complaints of kdr Cough, Vomiting. 06:53 The patient or guardian reports cough, that is intermittent, described as mild, kdr difficulty breathing. Onset: The symptoms/episode began/occurred gradually, 2 day(s) ago. Severity of symptoms: At their worst the symptoms were mild, moderate, just prior to arrival, in the emergency department the symptoms are unchanged. Modifying factors: The symptoms are alleviated by nothing, the symptoms are aggravated by exertion. Associated signs and symptoms: Pertinent positives: earache, General malaise and nausea. The patient has experienced similar episodes in the past, a few times, Normally her doctor gives her Amoxicillin and cough medication. The patient has not recently seen a physician. Historical: - Allergies: 11/25 14:24 No Known Allergies; hb - Home Meds: 14:24 losartan Oral [Active]; Metoprolol Tartrate Oral [Active]; hb - PMHx: 14:24 Hypertension; Myocardial infarction; hb - PSHx: 14:24 Heart stents; hb - Immunization history:: Adult Immunizations up to date. - Social history:: Smoking status: Patient/guardian denies using tobacco. - Ebola Screening: : No symptoms or risks identified at this time. ROS: 11/26 06:53 Constitutional: Negative for fever, chills, and weight loss, Eyes: Negative for injury, kdr pain, redness, and discharge, ENT: Negative for injury, pain, and discharge, Neck: Negative for injury, pain, and swelling, Cardiovascular: Negative for chest pain, palpitations, and edema, Abdomen/GI: Negative for abdominal pain, nausea, vomiting, diarrhea, and constipation, Back: Negative for injury and pain, : Negative for injury, bleeding, discharge, and swelling, MS/Extremity: Negative for injury and deformity, Skin: Negative for injury, rash, and discoloration, Neuro: Negative for headache, weakness, numbness, tingling, and seizure activity. Respiratory: Positive for cough, with no reported sputum, dyspnea on exertion, shortness of breath, wheezing. Abdomen/GI: Positive for nausea, Negative for vomiting, diarrhea, constipation, abdominal cramps, abdominal distension. Exam: 06:53 Constitutional: This is a well developed, well nourished patient who is awake, alert, kdr and in no acute distress. Head/Face: Normocephalic, atraumatic. Eyes: Pupils equal round and reactive to light, extra-ocular motions intact. Lids and lashes normal. Conjunctiva and sclera are non-icteric and not injected. Cornea within normal limits. Periorbital areas with no swelling, redness, or edema. Neck: Trachea midline, no thyromegaly or masses palpated, and no cervical lymphadenopathy. Supple, full range of motion without nuchal rigidity, or vertebral point tenderness. No Meningismus. Chest/axilla: Normal chest wall appearance and motion. Nontender with no deformity. No lesions are appreciated. Cardiovascular: Regular rate and rhythm with a normal S1 and S2. No gallops, murmurs, or rubs. Normal PMI, no JVD. No pulse deficits. Respiratory: Lungs have equal breath sounds bilaterally, clear to auscultation and percussion. No rales, rhonchi or wheezes noted. No increased work of breathing, no retractions or nasal flaring. Abdomen/GI: Soft, non-tender, with normal bowel sounds. No distension or tympany. No guarding or rebound. No evidence of tenderness throughout. Back: No spinal tenderness. No costovertebral tenderness. Full range of motion. Skin: Warm, dry with normal turgor. Normal color with no rashes, no lesions, and no evidence of cellulitis. MS/ Extremity: Pulses equal, no cyanosis. Neurovascular intact. Full, normal range of motion. Neuro: Awake and alert, GCS 15, oriented to person, place, time, and situation. Cranial nerves II-XII grossly intact. Motor strength 5/5 in all extremities. Sensory grossly intact. Cerebellar exam normal. Normal gait. Psych: Awake, alert, with orientation to person, place and time. Behavior, mood, and affect are within normal limits. Vital Signs: 11/25 14:23 BP 162 / 77; Pulse 70; Resp 16; Temp 99.3(TE); Pulse Ox 96% on R/A; Pain 3/10; hb 17:18 BP 143 / 58; Pulse 65; Resp 18; Pulse Ox 97% on R/A; aj1 18:25 BP 147 / 68; Pulse 68; Resp 18; Pulse Ox 97% on R/A; aj1 19:00 BP 159 / 76; Pulse 65; Resp 19; Pulse Ox 99% ; rr5 MDM: 18:59 Patient medically screened. kdr 11/26 06:53 Data reviewed: vital signs, nurses notes, lab test result(s), radiologic studies. kdr Counseling: I had a detailed discussion with the patient and/or guardian regarding: the historical points, exam findings, and any diagnostic results supporting the discharge/admit diagnosis, lab results, radiology results, the need for outpatient follow up. ED course: The patient was taking PO without problem. 11/25 14:22 Order name: Flu hb 11/25 14:22 Order name: Influenza Screen (A ; Complete Time: 15:14 EDMS 11/25 15:14 Order name: Chest Pa And Lat (2 Views) XRAY; Complete Time: 17:33 snw Administered Medications: No medications were administered Disposition: 11/25/18 18:59 Discharged to Home. Impression: Bronchitis, not specified as acute or chronic, Acute upper respiratory infection, unspecified. - Condition is Stable. - Discharge Instructions: How to Use an Inhaler, Upper Respiratory Infection, Adult, Acute Bronchitis, [id number]. - Prescriptions for Amoxicillin 500 mg Oral Capsule - take 1 capsule by ORAL route every 8 hours for 10 days; 30 tablet. Zofran 4 mg Oral Tablet - take 1 tablet by ORAL route every 12 hours As needed; 16 tablet. Tessalon Perles 100 mg Oral Capsule - take 1 capsule by ORAL route every 8 hours As needed; 20 capsule. Albuterol Sulfate 90 mcg/actuation - inhale 1-2 puff by INHALATION route every 4-6 hours; 1 Inhaler. - Medication Reconciliation Form, Thank You Letter, Antibiotic Education form. - Follow up: Luis Arreola MD; When: 2 - 3 days; Reason: If symptoms return, Further diagnostic work-up, Recheck today's complaints, Continuance of care, Re-evaluation by your physician. - Problem is new. - Symptoms have improved. Signatures: Dispatcher [employer] EDSC Zunilda Vasquez RN RN aa1 Nishant Alvarez MD MD kdr Divya Chung, BIOINFORMATICS RESEARCH TECHNICIAN-C BIOINFORMATICS RESEARCH TECHNICIAN-Csnw Latha Oviedo, RN RN Corrections: (The following items were deleted from the chart) 11/25 19:20 18:59 11/25/2018 18:59 Discharged to Home. Impression: Bronchitis, not specified as aa1 acute or chronic; Acute upper respiratory infection, unspecified. Condition is Stable. Forms are Medication Reconciliation Form, Thank You Letter, Antibiotic Education, Prescription Opioid Use. Follow up: Luis Arreola; When: 2 - 3 days; Reason: If symptoms return, Further diagnostic work-up, Recheck today's complaints, Continuance of care, Re-evaluation by your physician. Problem is new. Symptoms have improved. kdr
[2018-11-25 20:36] VITALS: TEMP 99.3
[2018-11-25 20:37] VITALS: O2SAT 97
[2018-11-25 20:39] VITALS: BP 147/68
== END 2018-11-25 19:20 | disposition home or self-care (01) ==
LOC: ER 14:11
DX: J40 Bronchitis, not specified as acute or chronic (principal); J06.9 Acute upper respiratory infection, unspecified; I10 Essential (primary) hypertension; I25.2 Old myocardial infarction; Z95.818 Presence of other cardiac implants and grafts
CPT/HCPCS: 71046; 87804; 99283

== ENCOUNTER 2020-12-18 11:06 | Emergency (ER) | payer OTHER ==
--- OUTSIDE RECORDS SUMMARY | 2020-12-18 11:10 | XMS REPORT | Continuity of Care Document ---
:1940 Author Organization [facility] t Address [address] [place] [address] Care Team Providers Name Role Phone Elba PAIGE Primary Care Physician LUCIANA JACOBSEN Attending Clinician Unavailable LUCIANA JACOBSEN Admitting Clinician Unavailable Problems Condition Condition Condition Status Onset Resolution Last Treating Co mments Source Name Details Category Date Date Treatment Clinician Date NSTEMI NSTEMI Disease Active [facility] - elevated elevated 00:00: Medica l myocardial myocardial 00 Ce nter infarction infarction ) ) Hypertensi Hypertensi Disease Active [facility]-29 - 00:00: Medical 00 Center 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 Coronary Coronary Disease [facility] - disease disease 00:00: Medical Center Allergies, Adverse Reactions, Alerts Allergy Allergy Status Severity Reaction(s) Onset Inactive Treating Comm ents Source Name Type Date Date Clinician Hydralaz Drug Active Nausea And "Feels [facility] Vomiting, 8-10 hot" when Megan kes - Analogue nce Other (See 00:00: medicatio M lizet s Comments) 00 n given Center Social History Social Habit Start Date Stop Date Quantity Comments Source Sex Assigned At [facility] Alcohol intake 2017-05-01 2017-05-01 [facility]:00 non-drinker of Medical Ce nter alcohol (finding) Smoking Status Start Date Stop Date Source Former smoker 2017-05-01 00:00:00 2017-05-01 00:00:[address] [facility] Center Medications Ordered Filled Start Stop Current Ordering Indication Dosage Frequency Signature Comments Components Source Medication Medication Date Date Medication? Clinician (SIG) Name Name aspirin 81 Yes 81mg QD Take [address] MG EC 8-16 by mouth [facility] - tablet 14:36: daily. [place] [address] Center folic acid Yes 400ug QD Take [address] (FOLVITE) 8-16 mcg by [facility] - 800 MCG 14:36: mouth Medical tablet 37 daily. Center omeprazole Yes 40mg QD Take [address] (PRILOSEC) 8-16 by mouth [facility] - 40 MG 14:36: daily. Medical capsule 37 Center losartan Yes 100mg QD Take [address] [facility] [address] (COZAAR) 8-16 tablet [facility] - 100 MG 00:00: (100 mg Medical tablet 00 total) by Center mouth daily. clopidogrel Yes 75mg QD Take [address] [address] (PLAVIX) 75 8-16 tablet (75 Megan kes - mg tablet 00:00: mg total) Med ical 00 by mouth Center daily. Procedures This patient has no known procedures. Results Test Description Test Time Test Comments Results Result Comments Source MAGNESIUM 2017-05-04 06:53:00 Test Item Value Reference Range Interpretation Comme nts MAGNESIUM (BEAKER) (test code = 627) 2.1 mg/dL 1.6-2.6 BASIC METABOLIC [id number] 06:53:00 Test Item Value Reference Range Interpretation Comments SODIUM (BEAKER) 140 meq/L 136-145 (test code = 381) POTASSIUM (BEAKER) 3.5 meq/L 3.5-5.1 (test code = 379) CHLORIDE (BEAKER) 107 meq/L 98-107 (test code = 382) CO2 (BEAKER) (test 26 meq/L 22-29 code = 355) BLOOD UREA NITROGEN 11 mg/dL 7-21 (BEAKER) (test code = 354) CREATININE (BEAKER) 0.58 mg/dL 0.57-1.25 (test code = 358) GLUCOSE RANDOM 98 mg/dL 70-105 (BEAKER) (test code = 652) CALCIUM (BEAKER) 8.5 mg/dL 8.4-10.2 (test code = 697) EGFR (BEAKER) (test 101 mL/min/1.73 ESTIM ATED GFR IS code = 1092) sq m NOT ACCURATE CREATININE CLEARANCE IN PREDICTING GLOMERULAR FILTRATION RATE . ESTIMATED GFR I S NOT APPLICABLE FOR DIALYSIS PATIEN TS. CBC (HEMOGRAM ONLY)2017-05-04 06:15:00 Test Item Value Reference Range Interpretation Comments WHITE BLOOD CELL COUNT (BEAKER) 5.1 K/ L 3.5-10.5 (test code = 775) RED BLOOD CELL COUNT (BEAKER) 2.94 M/ L 3.93-5.22 L (test code = 761) HEMOGLOBIN (BEAKER) (test code = 8.9 GM/DL 11.2-15.7 L 410) HEMATOCRIT (BEAKER) (test code = 25.9 % 34.1-44.9 L 411) MEAN CORPUSCULAR VOLUME (BEAKER) 88.1 fL 79.4-94.8 (test code = 753) MEAN CORPUSCULAR HEMOGLOBIN 30.3 pg 25.6-32.2 (BEAKER) (test code = 751) MEAN CORPUSCULAR HEMOGLOBIN CONC 34.4 GM/DL 32.2-35.5 (BEAKER) (test code = 752) RED CELL DISTRIBUTION WIDTH 13.1 % 11.7-14.4 (BEAKER) (test code = 412) PLATELET COUNT (BEAKER) (test 232 K/CU MM 150-450 code = 756) MEAN PLATELET VOLUME (BEAKER) 10.7 fL 9.4-12.3 (test code = 754) NUCLEATED RED BLOOD CELLS 0 /100 WBC 0-0 (BEAKER) (test code = 413) TROPONIN [id number] 15:33:00 Test Item Value Reference Range Interpretation Comments TROPONIN I (BEAKER) (test code = 5.88 ng/mL 0.00-0.03 HH 397) Effective 08/08/2014: Reference Range ChangeNew: 0.00-0.03 Previous [...] acute neurological disease, and persistent tachyarrhythmia.BASIC METABOLIC [id number] 15:31:00 Test Item Value Reference Range Interpretation Comments SODIUM (BEAKER) 136 meq/L 136-145 (test code = 381) POTASSIUM (BEAKER) 3.4 meq/L 3.5-5.1 L (test code = 379) CHLORIDE (BEAKER) 103 meq/L 98-107 (test code = 382) CO2 (BEAKER) (test 26 meq/L 22-29 code = 355) BLOOD UREA NITROGEN 19 mg/dL 7-21 (BEAKER) (test code = 354) CREATININE (BEAKER) 0.64 mg/dL 0.57-1.25 (test code = 358) GLUCOSE RANDOM 106 mg/dL 70-105 H (BEAKER) (test code = 652) CALCIUM (BEAKER) 8.4 mg/dL 8.4-10.2 (test code = 697) EGFR (BEAKER) (test 90 mL/min/1.73 ESTIMA WILSON GFR IS code = 1092) sq m NOT ACCURATE CREATININE CLEARANCE IN PREDICTING GLOMERULAR FILTRATION RATE . ESTIMATED GFR I S NOT APPLICABLE FOR DIALYSIS PATIEN TS. CREATINE KINASE (CK), TOTAL AND [id number] 15:31:00 Test Item Value Reference Range Interpretation Comments CREATINE KINASE TOTAL (BEAKER) 228 U/L 29-200 H (test code = 380) CREATINE KINASE-MB (BEAKER) (test 4.0 ng/mL 0.0-6.6 code = 750) CREATINE KINASE-MB INDEX (BEAKER) 1.8 % (test code = 395) Effective 08/08/2014: CK-MB Reference Range ChangeNew: 0.0-6.6 Previous: 0.0-4.9CK-MB Reference Range:<6.7 Normal6.7-10.0 Borderline>10.0 AbnormalPLATELET AGGREGATION: DRUG [id number] 14:43:00 Test Item Value Reference Range Interpretation Comments STRONG ADP 9 % 70-94 L RESULT(BEAKER) (test code = 2137) WEAK ADP RESULT(BEAKER) 13 % 60-91 L (test code = 2135) ARACHADONIC ACID 6 % 63-89 L RESULT(BEAKER) (test code = 2138) PLATELET AGG DRUG Decreased response to INTERPRETATION (BEAKER) arachidonic acid (test code = 2408) suggests aspirin-like effect. PLATELET AGG DRUG Decreased response to INTERPRETATION (BEAKER) ADP suggest a (test code = 865348) [id number] drug effect. [id number] Beka Whyte MD (BEAKER) (test code = (electronic 2621) signature) PLATELET COUNT AGG 203 K/CU MM 150-450 (BEAKER) (test code = 2656) TROPONIN [id number] 00:49:00 Test Item Value Reference Range Interpretation Comments TROPONIN I (BEAKER) (test code = 9.43 ng/mL 0.00-0.03 HH 397) Effective 08/08/2014: Reference Range ChangeNew: 0.00-0.03 Previous [...] and persistent tachyarrhythmia.CREATINE KINASE (CK), TOTAL AND MB 2017-05-02 00:42:00 Test Item Value Reference Range Interpretation Comments CREATINE KINASE TOTAL (BEAKER) 416 U/L 29-200 H (test code = 380) CREATINE KINASE-MB (BEAKER) (test 22.6 ng/mL 0.0-6.6 H code = 750) CREATINE KINASE-MB INDEX (BEAKER) 5.4 % (test code = 395) Effective 08/08/2014: CK-MB Reference Range ChangeNew: 0.0-6.6 Previous: 0.0-4.9CK-MB Reference Range:<6.7 Normal6.7-10.0 Borderline>10.0 AbnormalTROPONIN [id number] 17:51:00 Test Item Value Reference Range Interpretation Comments TROPONIN I (BEAKER) (test code = 10.38 ng/mL 0.00-0.03 HH 397) Effective 08/08/2014: Reference Range ChangeNew: 0.00-0.03 Previous [...] and persistent tachyarrhythmia.CREATINE KINASE (CK), TOTAL AND MB 2017-05-01 17:50:00 Test Item Value Reference Range Interpretation Comments CREATINE KINASE TOTAL (BEAKER) 696 U/L 29-200 H (test code = 380) CREATINE KINASE-MB (BEAKER) (test 52.7 ng/mL 0.0-6.6 H code = 750) CREATINE KINASE-MB INDEX (BEAKER) 7.6 % (test code = 395) Effective 08/08/2014: CK-MB Reference Range ChangeNew: 0.0-6.6 Previous: 0.0-4.9CK-MB Reference Range:<6.7 Normal6.7-10.0 Borderline>10.0 AbnormalPLATELET AGGREGATION: DRUG [id number] 15:59:00 Test Item Value Reference Range Interpretation Comments STRONG ADP 35 % 70-94 L RESULT(BEAKER) (test code = 2137) WEAK ADP RESULT(BEAKER) 33 % 60-91 L (test code = 2135) ARACHADONIC ACID 14 % 63-89 L RESULT(BEAKER) (test code = 2138) PLATELET AGG DRUG Decreased response to INTERPRETATION (BEAKER) arachidonic acid (test code = 2408) suggests aspirin-like effect. PLATELET AGG DRUG Decreased response to INTERPRETATION (BEAKER) ADP suggest a (test code = 615504) [id number] drug effect. [id number] Beka Whyte MD (BEAKER) (test code = (electronic 2621) signature) PLATELET COUNT AGG 288 K/CU MM 150-450 (BEAKER) (test code = 2656) PLATELET AGGREGATION: DRUG [id number] 15:58:00 Test Item Value Reference Range Interpretation Comments STRONG ADP 23 % 70-94 L RESULT(BEAKER) (test code = 2137) WEAK ADP RESULT(BEAKER) 20 % 60-91 L (test code = 2135) ARACHADONIC ACID 15 % 63-89 L RESULT(BEAKER) (test code = 2138) PLATELET AGG DRUG Decreased response to INTERPRETATION (BEAKER) arachidonic acid (test code = 2408) suggests aspirin-like effect. PLATELET AGG DRUG Decreased response to INTERPRETATION (BEAKER) ADP suggest a (test code = 534260) [id number]-[id number] drug effect. [id number] Beka Whyte MD (BANNER) (test code = (electronic 6321) signature) PLATELET COUNT AGG 235 K/CU MM 150-450 (AKER) (test code = 2656) POCT-GLUCOSE [id number] 11:52:00 Test Item Value Reference Range Interpretation Comments POC-GLUCOSE METER 90 mg/dL 70-110 TESTED AT [facility] [address] (BANNER) (test code = [place] [employer] [address] 1538) TROPONIN [id number] 09:56:00 Test Item Value Reference Range Interpretation Comments TROPONIN I (AKER) (test code = 15.16 ng/mL 0.00-0.03 397) Effective 08/08/2014: Reference Range ChangeNew: 0.00-0.03 Previous [...] and persistent tachyarrhythmia.CREATINE KINASE (CK), TOTAL AND MB 2017-05-01 09:56:00 Test Item Value Reference Range Interpretation Comments CREATINE KINASE TOTAL (BEAKER) 1205 U/L 29-200 H (test code = 380) CREATINE KINASE-MB (BEAKER) (test 98.4 ng/mL 0.0-6.6 H code = 750) CREATINE KINASE-MB INDEX (BEAKER) 8.2 % (test code = 395) Effective 08/08/2014: CK-MB Reference Range ChangeNew: 0.0-6.6 Previous: 0.0-4.9CK-MB Reference Range:<6.7 Normal6.7-10.0 Borderline>10.0 AbnormalCOMPREHENSIVE METABOLIC [id number] 09:04:00 Test Item Value Reference Range Interpretation Comments TOTAL PROTEIN 6.2 gm/dL 6.0-8.3 (BEAKER) (test code = 770) ALBUMIN (BEAKER) 3.5 g/dL 3.5-5.0 (test code = 1145) ALKALINE PHOSPHATASE 49 U/L 40-150 (BEAKER) (test code = 346) BILIRUBIN TOTAL 0.8 mg/dL 0.2-1.2 (BEAKER) (test code = 377) SODIUM (BEAKER) (test 136 meq/L 136-145 code = 381) POTASSIUM (BEAKER) 3.5 meq/L 3.5-5.1 (test code = 379) CHLORIDE (BEAKER) 107 meq/L 98-107 (test code = 382) CO2 (BEAKER) (test 23 meq/L 22-29 code = 355) BLOOD UREA NITROGEN 22 mg/dL 7-21 H (BEAKER) (test code = 354) CREATININE (BEAKER) 0.75 mg/dL 0.57-1.25 (test code = 358) GLUCOSE RANDOM 95 mg/dL 70-105 (BEAKER) (test code = 652) CALCIUM (BEAKER) 8.5 mg/dL 8.4-10.2 (test code = 697) AST (SGOT) (BEAKER) 133 U/L 5-34 H (test code = 353) ALT (SGPT) (BEAKER) 35 U/L 6-55 (test code = 347) EGFR (BEAKER) (test 75 mL/min/1.73 ESTIMA WILSON GFR IS code = 1092) sq m NOT ACCURATE CREATININE CLEARANCE IN PREDICTING GLOMERULAR FILTRATION RATE . ESTIMATED GFR I S NOT APPLICABLE FOR DIALYSIS PATIEN TS. CBC (HEMOGRAM ONLY)2017-05-01 06:45:00 Test Item Value Reference Range Interpretation Comments WHITE BLOOD CELL COUNT (BEAKER) 9.4 K/ L 3.5-10.5 (test code = 775) RED BLOOD CELL COUNT (BEAKER) 3.17 M/ L 3.93-5.22 L (test code = 761) HEMOGLOBIN (BEAKER) (test code = 9.4 GM/DL 11.2-15.7 L 410) HEMATOCRIT (BEAKER) (test code = 28.4 % 34.1-44.9 L 411) MEAN CORPUSCULAR VOLUME (BEAKER) 89.6 fL 79.4-94.8 (test code = 753) MEAN CORPUSCULAR HEMOGLOBIN 29.7 pg 25.6-32.2 (BEAKER) (test code = 751) MEAN CORPUSCULAR HEMOGLOBIN CONC 33.1 GM/DL 32.2-35.5 (BEAKER) (test code = 752) RED CELL DISTRIBUTION WIDTH 13.2 % 11.7-14.4 (BEAKER) (test code = 412) PLATELET COUNT (BEAKER) (test 228 K/CU MM 150-450 code = 756) MEAN PLATELET VOLUME (BEAKER) 10.9 fL 9.4-12.3 (test code = 754) NUCLEATED RED BLOOD CELLS 0 /100 WBC 0-0 (BEAKER) (test code = 413) TROPONIN [id number] 02:16:00 Test Item Value Reference Range Interpretation Comments TROPONIN I (BEAKER) (test code = 17.09 ng/mL 0.00-0.03 HH 397) Effective 08/08/2014: Reference Range ChangeNew: 0.00-0.03 Previous [...] and persistent tachyarrhythmia.CREATINE KINASE (CK), TOTAL AND MB 2017-05-01 02:04:00 Test Item Value Reference Range Interpretation Comments CREATINE KINASE TOTAL (BEAKER) 1515 U/L 29-200 H (test code = 380) CREATINE KINASE-MB (BEAKER) (test 132.5 ng/mL 0.0-6.6 H code = 750) CREATINE KINASE-MB INDEX (THELMAAKER) 8.7 % (test code = 395) Effective 08/08/2014: CK-MB Reference Range ChangeNew: 0.0-6.6 Previous: 0.0-4.9CK-MB Reference Range:<6.7 Normal6.7-10.0 Borderline>10.0 AbnormalTROPONIN [id number] 18:37:00 Test Item Value Reference Range Interpretation Comments TROPONIN I (GLENROY) (test code = 5.50 ng/mL 0.00-0.03 HH 397) Effective 08/08/2014: Reference Range ChangeNew: 0.00-0.03 Previous [...] and persistent tachyarrhythmia.CREATINE KINASE (CK), TOTAL AND MB 2017-04-30 18:33:00 Test Item Value Reference Range Interpretation Comments CREATINE KINASE TOTAL (GLENROY) 782 U/L 29-200 H (test code = 380) CREATINE KINASE-MB (GLENROY) (test 60.3 ng/mL 0.0-6.6 H code = 750) CREATINE KINASE-MB INDEX (GLENROY) 7.7 % (test code = 395) Effective 08/08/2014: CK-MB Reference Range ChangeNew: 0.0-6.6 Previous: 0.0-4.9CK-MB Reference Range:<6.7 Normal6.7-10.0 Borderline>10.0 [id number] 18:28:00 Test Item Value Reference Range Interpretation Comments ACTIVATED CLOTTING TIME 125 sec TEST ED AT [place] [address] (GLENROY) (test code = [place] [address]) [id number] 16:13:00 Test Item Value Reference Range Interpretation Comments ACTIVATED CLOTTING TIME 153 sec TEST ED AT [place] [address] (BANNER) (test code = [place] [address]) [address] CREATINE KINASE (CK), TOTAL AND [id number] 13:57:00 Test Item Value Reference Range Interpretation Comments CREATINE KINASE TOTAL (BANNER) 88 U/L 29-200 (test code = 380) CREATINE KINASE-MB (BANNER) (test 5.2 ng/mL 0.0-6.6 code = 750) CREATINE KINASE-MB INDEX (BANNER) 5.9 % (test code = 395) Effective 08/08/2014: CK-MB Reference Range ChangeNew: 0.0-6.6 Previous: 0.0-4.9CK-MB Reference Range:<6.7 Normal6.7-10.0 Borderline>10.0 [id number] 13:43:00 Test Item Value Reference Range Interpretation Comments ACTIVATED CLOTTING TIME 197 sec TEST ED AT [place] [address] (BANNER) (test code = [place] [facility]) [id number] 10:51:00 Test Item Value Reference Range Interpretation Comments ACTIVATED CLOTTING TIME 296 sec TEST ED AT [place] [address] (BANNER) (test code = [place] [address]) [address] [id number] 10:03:00 Test Item Value Reference Range Interpretation Comments ACTIVATED CLOTTING TIME 252 sec TEST ED AT [place] [address] (BANNER) (test code = [place] [address]) [address] [id number] 10:03:00 Test Item Value Reference Range Interpretation Comments ACTIVATED CLOTTING TIME 709 sec TEST ED AT [place] [address] (BANNER) (test code = [place] [address]) [address] [id number] 09:43:00 Test Item Value Reference Range Interpretation Comments ACTIVATED CLOTTING TIME 202 sec TEST ED AT [place] [address] (BANNER) (test code = [place] [address]) [address] [id number] 09:04:00 Test Item Value Reference Range Interpretation Comments ACTIVATED CLOTTING TIME 257 sec TEST ED AT [place] [address] (BANNER) (test code = [place] [address]) [address] TROPONIN [id number] 08:02:00 Test Item Value Reference Range Interpretation Comments TROPONIN I (BEAKER) (test code = 0.16 ng/mL 0.00-0.03 H 397) Effective 08/08/2014: Reference Range ChangeNew: 0.00-0.03 Previous [...] renalfailure, acidosis, acute neurological disease, and persistent tachyarrhythmia.[id number] 07:53:00 Test Item Value Reference Range Interpretation Comments PARTIAL THROMBOPLASTIN TIME 81.9 seconds 22.5-36.0 H (BEAKER) (test code = 760) LACTIC ACID, VENOUS, WHOLE [id number] 07:51:00 Test Item Value Reference Range Interpretation Comments LACTATE BLOOD VENOUS (2) (BEAKER) 1.0 mmol/L 0.5-2.2 (test code = 2872) Effective 01/23/2016: Units/Reference Range ChangeNew: 0.5-2.2 mmol/L Previous: 5-20 mg/dLCOMPREHENSIVE METABOLIC [id number] 05:16:00 Test Item Value Reference Range Interpretation Comments TOTAL PROTEIN 6.5 gm/dL 6.0-8.3 (BEAKER) (test code = 770) ALBUMIN (BEAKER) 3.7 g/dL 3.5-5.0 (test code = 1145) ALKALINE PHOSPHATASE 56 U/L 40-150 (BEAKER) (test code = 346) BILIRUBIN TOTAL 1.0 mg/dL 0.2-1.2 (BEAKER) (test code = 377) SODIUM (BEAKER) (test 134 meq/L 136-145 L code = 381) POTASSIUM (BEAKER) 3.6 meq/L 3.5-5.1 (test code = 379) CHLORIDE (BEAKER) 102 meq/L 98-107 (test code = 382) CO2 (BEAKER) (test 22 meq/L 22-29 code = 355) BLOOD UREA NITROGEN 21 mg/dL 7-21 (BEAKER) (test code = 354) CREATININE (BEAKER) 0.85 mg/dL 0.57-1.25 (test code = 358) GLUCOSE RANDOM 94 mg/dL 70-105 (BEAKER) (test code = 652) CALCIUM (BEAKER) 8.9 mg/dL 8.4-10.2 (test code = 697) AST (SGOT) (BEAKER) 37 U/L 5-34 H (test code = 353) ALT (SGPT) (BEAKER) 29 U/L 6-55 (test code = 347) EGFR (BEAKER) (test 65 mL/min/1.73 ESTIMA WILSON GFR IS code = 1092) sq m NOT ACCURATE CREATININE CLEARANCE IN PREDICTING GLOMERULAR FILTRATION RATE . ESTIMATED GFR I S NOT APPLICABLE FOR DIALYSIS PATIEN TS. CBC (HEMOGRAM ONLY)2017-04-30 04:51:00 Test Item Value Reference Range Interpretation Comments WHITE BLOOD CELL COUNT (BEAKER) 8.8 K/ L 3.5-10.5 (test code = 775) RED BLOOD CELL COUNT (BEAKER) 3.81 M/ L 3.93-5.22 L (test code = 761) HEMOGLOBIN (BEAKER) (test code = 11.3 GM/DL 11.2-15.7 410) HEMATOCRIT (BEAKER) (test code = 33.6 % 34.1-44.9 L 411) MEAN CORPUSCULAR VOLUME (BEAKER) 88.2 fL 79.4-94.8 (test code = 753) MEAN CORPUSCULAR HEMOGLOBIN 29.7 pg 25.6-32.2 (BEAKER) (test code = 751) MEAN CORPUSCULAR HEMOGLOBIN CONC 33.6 GM/DL 32.2-35.5 (BEAKER) (test code = 752) RED CELL DISTRIBUTION WIDTH 12.7 % 11.7-14.4 (BEAKER) (test code = 412) PLATELET COUNT (BEAKER) (test 265 K/CU MM 150-450 code = 756) MEAN PLATELET VOLUME (BEAKER) 10.9 fL 9.4-12.3 (test code = 754) NUCLEATED RED BLOOD CELLS 0 /100 WBC 0-0 (BEAKER) (test code = 413) TROPONIN [id number] 03:12:00 Test Item Value Reference Range Interpretation Comments TROPONIN I (BEAKER) (test code = 0.25 ng/mL 0.00-0.03 HH 397) Effective 08/08/2014: Reference Range ChangeNew: 0.00-0.03 Previous [...] and persistent tachyarrhythmia.CREATINE KINASE (CK), TOTAL AND MB 2017-04-30 03:07:00 Test Item Value Reference Range Interpretation Comments CREATINE KINASE TOTAL (BEAKER) 46 U/L 29-200 (test code = 380) CREATINE KINASE-MB (BEAKER) (test 2.7 ng/mL 0.0-6.6 code = 750) CREATINE KINASE-MB INDEX (BEAKER) 5.9 % (test code = 395) Effective 08/08/2014: CK-MB Reference Range ChangeNew: 0.0-6.6 Previous: 0.0-4.9CK-MB Reference Range:<6.7 Normal6.7-10.0 Borderline>10.0 [id number] 21:56:00 Test Item Value Reference Range Interpretation Comments PARTIAL THROMBOPLASTIN TIME 32.4 seconds 22.5-36.0 (BEAKER) (test code = 760) Prior to initiating heparinCREATINE KINASE (CK), TOTAL AND [id number] 14:11:00 Test Item Value Reference Range Interpretation Comments CREATINE KINASE TOTAL (BEAKER) 35 U/L 29-200 (test code = 380) CREATINE KINASE-MB (BEAKER) (test 1.3 ng/mL 0.0-6.6 code = 750) CREATINE KINASE-MB INDEX (BEAKER) 3.7 % (test code = 395) Effective 08/08/2014: CK-MB Reference Range ChangeNew: 0.0-6.6 Previous: 0.0-4.9CK-MB Reference Range:<6.7 Normal6.7-10.0 Borderline>10.0 AbnormalTROPONIN [id number] 14:11:00 Test Item Value Reference Range Interpretation Comments TROPONIN I (BEAKER) (test code = 0.05 ng/mL 0.00-0.03 H 397) Effective 08/08/2014: Reference Range ChangeNew: 0.00-0.03 Previous [...] renalfailure, acidosis, acute neurological disease, and persistent tachyarrhythmia.[id number] 13:56:00 Test Item Value Reference Range Interpretation Comments PARTIAL THROMBOPLASTIN TIME 28.2 seconds 22.5-36.0 (BEAKER) (test code = 760) Prior to initiating heparinPLATELET [id number] 13:50:00 Test Item Value Reference Range Interpretation Comments PLATELET COUNT (BEAKER) (test 297 K/CU MM 150-450 code = 756) HEMOGLOBIN [id number] 13:50:00 Test Item Value Reference Range Interpretation Comments HEMOGLOBIN A1C (BEAKER) (test code = 4.9 % 4.3-6.1 368) PLATELET AGGREGATION: FUNCTION [id number] 09:03:00 Test Item Value Reference Range Interpretation Comments WEAK ADP 24 % 60-91 L RESULT(BEAKER) (test code = 2135) PLATELET FUNCTION 0-39% indicates marked SCREEN INTERP platelet dysfunction (BEAKER) (test code = 2173) [id number] Beka Whyte MD (BEAKER) (test code = (electronic signature) 0775) PLATELET COUNT AGG 273 K/CU MM 150-450 (BEAKER) (test code = 2656) PLATELET AGGREGATION: FUNCTION [id number] 08:44:00 Test Item Value Reference Range Interpretation Comments WEAK ADP 23 % 60-91 L RESULT(BEAKER) (test code = 2135) PLATELET FUNCTION 0-39% indicates marked SCREEN INTERP platelet dysfunction (BEAKER) (test code = 2173) [id number] Beka Whyte MD (BEAKER) (test code = (electronic signature) 1513) PLATELET COUNT AGG 277 K/CU MM 150-450 (BEAKER) (test code = 3601) for patients on clopidogrel in past two weeksCOMPREHENSIVE METABOLIC PANEL 2017-04-29 06:10:00 Test Item Value Reference Range Interpretation Comments TOTAL PROTEIN 7.0 gm/dL 6.0-8.3 (BEAKER) (test code = 770) ALBUMIN (BEAKER) 3.9 g/dL 3.5-5.0 (test code = 1145) ALKALINE PHOSPHATASE 62 U/L 40-150 (BEAKER) (test code = 346) BILIRUBIN TOTAL 1.2 mg/dL 0.2-1.2 (BEAKER) (test code = 377) SODIUM (BEAKER) (test 134 meq/L 136-145 L code = 381) POTASSIUM (BEAKER) 3.5 meq/L 3.5-5.1 (test code = 379) CHLORIDE (BEAKER) 99 meq/L 98-107 (test code = 382) CO2 (BEAKER) (test 26 meq/L 22-29 code = 355) BLOOD UREA NITROGEN 17 mg/dL 7-21 (BEAKER) (test code = 354) CREATININE (BEAKER) 0.69 mg/dL 0.57-1.25 (test code = 358) GLUCOSE RANDOM 83 mg/dL 70-105 (BEAKER) (test code = 652) CALCIUM (BEAKER) 9.1 mg/dL 8.4-10.2 (test code = 697) AST (SGOT) (BEAKER) 20 U/L 5-34 (test code = 353) ALT (SGPT) (BEAKER) 15 U/L 6-55 (test code = 347) EGFR (BEAKER) (test 82 mL/min/1.73 ESTIMA WILSON GFR IS code = 1092) sq m NOT ACCURATE CREATININE CLEARANCE IN PREDICTING GLOMERULAR FILTRATION RATE . ESTIMATED GFR I S NOT APPLICABLE FOR DIALYSIS PATIEN TS. PROTHROMBIN TIME/[id number] 06:00:00 Test Item Value Reference Range Interpretation Comments PROTIME (BEAKER) (test code = 13.6 seconds 11.7-14.7 759) INR (BEAKER) (test code = 370) 1.1 <=5.9 RECOMMENDED COUMADIN/WARFARIN INR THERAPY RANGESSTANDARD DOSE: 2.0 - 3.0 Includes: PROPHYLAXIS forvenous thrombosis, systemic embolization; TREATMENT for venous thrombosis and/or pulmonary embolus.HIGH RISK: Target INR is 2.5-3.5 for patients with mechanical heart valves.CBC (HEMOGRAM ONLY)2017-04-29 05:55:00 Test Item Value Reference Range Interpretation Comments WHITE BLOOD CELL COUNT (BEAKER) 5.5 K/ L 3.5-10.5 (test code = 775) RED BLOOD CELL COUNT (BEAKER) 4.14 M/ L 3.93-5.22 (test code = 761) HEMOGLOBIN (BEAKER) (test code = 12.4 GM/DL 11.2-15.7 410) HEMATOCRIT (BEAKER) (test code = 36.1 % 34.1-44.9 411) MEAN CORPUSCULAR VOLUME (BEAKER) 87.2 fL 79.4-94.8 (test code = 753) MEAN CORPUSCULAR HEMOGLOBIN 30.0 pg 25.6-32.2 (BEAKER) (test code = 751) MEAN CORPUSCULAR HEMOGLOBIN CONC 34.3 GM/DL 32.2-35.5 (BEAKER) (test code = 752) RED CELL DISTRIBUTION WIDTH 12.4 % 11.7-14.4 (BEAKER) (test code = 412) PLATELET COUNT (BEAKER) (test 249 K/CU MM 150-450 code = 756) MEAN PLATELET VOLUME (BEAKER) 10.7 fL 9.4-12.3 (test code = 754) NUCLEATED RED BLOOD CELLS 0 /100 WBC 0-0 (BEAKER) (test code = 413) BASIC METABOLIC [id number] 18:22:00 Test Item Value Reference Range Interpretation Comments SODIUM (BEAKER) 134 meq/L 136-145 L (test code = 381) POTASSIUM (BEAKER) 3.7 meq/L 3.5-5.1 (test code = 379) CHLORIDE (BEAKER) 98 meq/L 98-107 (test code = 382) CO2 (BEAKER) (test 31 meq/L 22-29 H code = 355) BLOOD UREA NITROGEN 13 mg/dL 7-21 (BEAKER) (test code = 354) CREATININE (BEAKER) 0.68 mg/dL 0.57-1.25 (test code = 358) GLUCOSE RANDOM 89 mg/dL 70-105 (BEAKER) (test code = 652) CALCIUM (BEAKER) 9.2 mg/dL 8.4-10.2 (test code = 697) EGFR (BEAKER) (test 84 mL/min/1.73 ESTIMA WILSON GFR IS code = 1092) sq m NOT ACCURATE CREATININE CLEARANCE IN PREDICTING GLOMERULAR FILTRATION RATE . ESTIMATED GFR I S NOT APPLICABLE FOR DIALYSIS PATIEN TS. PROTHROMBIN [id number] 18:06:00 Test Item Value Reference Range Interpretation Comments PROTIME (BEAKER) (test code = 13.0 seconds 11.7-14.7 759) INR (BEAKER) (test code = 370) 1.0 <=5.9 RECOMMENDED COUMADIN/WARFARIN INR THERAPY RANGESSTANDARD DOSE: 2.0 - 3.0 Includes: PROPHYLAXIS forvenous thrombosis, systemic embolization; TREATMENT for venous thrombosis and/or pulmonary embolus.HIGH RISK: Target INR is 2.5-3.5 for patients with mechanical heart valves.[id number] 18:06:00 Test Item Value Reference Range Interpretation Comments PARTIAL THROMBOPLASTIN TIME 30.2 seconds 22.5-36.0 (BEAKER) (test code = 760) CBC W/PLT COUNT & AUTO [id number] 17:58:00 Test Item Value Reference Range Interpretation Comments WHITE BLOOD CELL COUNT (BEAKER) 6.3 K/ L 3.5-10.5 (test code = 775) RED BLOOD CELL COUNT (BEAKER) 3.98 M/ L 3.93-5.22 (test code = 761) HEMOGLOBIN (BEAKER) (test code = 11.9 GM/DL 11.2-15.7 410) HEMATOCRIT (BEAKER) (test code = 34.6 % 34.1-44.9 411) MEAN CORPUSCULAR VOLUME (BEAKER) 86.9 fL 79.4-94.8 (test code = 753) MEAN CORPUSCULAR HEMOGLOBIN 29.9 pg 25.6-32.2 (BEAKER) (test code = 751) MEAN CORPUSCULAR HEMOGLOBIN CONC 34.4 GM/DL 32.2-35.5 (BEAKER) (test code = 752) RED CELL DISTRIBUTION WIDTH 12.2 % 11.7-14.4 (BEAKER) (test code = 412) PLATELET COUNT (BEAKER) (test 260 K/CU MM 150-450 code = 756) MEAN PLATELET VOLUME (BEAKER) 10.4 fL 9.4-12.3 (test code = 754) NUCLEATED RED BLOOD CELLS 0 /100 WBC 0-0 (BEAKER) (test code = 413) NEUTROPHILS RELATIVE PERCENT 58 % (BEAKER) (test code = 429) LYMPHOCYTES RELATIVE PERCENT 33 % (BEAKER) (test code = 430) MONOCYTES RELATIVE PERCENT 7 % (BEAKER) (test code = 431) EOSINOPHILS RELATIVE PERCENT 1 % (BEAKER) (test code = 432) BASOPHILS RELATIVE PERCENT 0 % (BEAKER) (test code = 437) NEUTROPHILS ABSOLUTE COUNT 3.62 K/ L 1.56-6.13 (BEAKER) (test code = 670) LYMPHOCYTES ABSOLUTE COUNT 2.08 K/ L 1.18-3.74 (BEAKER) (test code = 414) MONOCYTES ABSOLUTE COUNT (BEAKER) 0.44 K/ L 0.24-0.36 H (test code = 415) EOSINOPHILS ABSOLUTE COUNT 0.09 K/ L 0.04-0.36 (BEAKER) (test code = 416) BASOPHILS ABSOLUTE COUNT (BEAKER) 0.02 K/ L 0.01-0.08 (test code = 417) IMMATURE GRANULOCYTES-RELATIVE 0 % 0-1 PERCENT (BEAKER) (test code = 2391)
[2020-12-18] MEDS ORDERED: CLINDAMYCIN 600MG/D5W 600 MG/50 ML BAG IV ONE (11:56)
[2020-12-18] MEDS ORDERED: LIDOCAINE 1% W/EPI 1:100,000 MDV 20 ML VIAL ONE (11:56)
--- NOTE | 2020-12-18 12:03 | RAD REPORT ---
EXAM DESCRIPTION: RAD - Tib Fib Right - 12/18/2020 11:53 am CLINICAL HISTORY: wound ?FB Laceration, pain COMPARISON: <Comparisons> FINDINGS: Soft tissue laceration is seen along the superior posterior calf. No fracture evident. No radiopaque foreign body seen.
[2020-12-18 12:33] LABS: Absolute Lymphocytes (CBC) 1.5 K/uL (0.7-4.9); Basophils % 0.5 % (0-1.3); Hematocrit 37.1 % (36.0-45.0); Lymphocytes % 28.2 % (15.3-44.8); MPV 9.9 fL (7.6-11.3); RBC Red Blood Cell Count 4.19 M/uL (3.86-4.86)
[2020-12-18] MEDS ORDERED: ONDANSETRON 4 MG/2 ML VIAL ONE (12:46)
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
[2020-12-18 12:57] LABS: ALT/SGPT 24 U/L (12-78); AST/SGOT 17 U/L (15-37); Alkaline Phosphatase 93 U/L (45-117); BUN Blood Urea Nitrogen 17 mg/dL (7-18); Bicarbonate 27 mmol/L (21-32); Bilirubin Total 0.6 mg/dL (0.2-1.0); Glucose Level 102 mg/dL (74-106); Potassium 4.1 mmol/L (3.5-5.1); Protein, Total 7.7 g/dL (6.4-8.2); Sodium Level 141 mmol/L (136-145)
[2020-12-18] MEDS ORDERED: KETOROLAC 30 MG/ML INJ ONE (13:10)
[2020-12-18 14:17] VITALS: TEMP 97.9
[2020-12-18 14:20] VITALS: BP 134/59; O2SAT 98
== END 2020-12-18 14:06 | disposition home or self-care (01) ==
LOC: ER 11:06
PROC: 0JQN0ZZ Repair Right Lower Leg Subcutaneous Tissue and Fascia, Open Approach (ICD-10-PCS; principal; 2020-12-18)
DX: S81.831A Puncture wound without foreign body, right lower leg, initial encounter (principal); W40.8XXA Explosion of other specified explosive materials, initial encounter; Y93.89 Activity, other specified; Y92.9 Unspecified place or not applicable; Z88.5 Allergy status to narcotic agent; Z95.818 Presence of other cardiac implants and grafts; I10 Essential (primary) hypertension; I25.2 Old myocardial infarction
CPT/HCPCS: 85025; 36415; 80053; 73590; 12002; J2405; 96365; 96375; 99284

== ENCOUNTER 2021-09-09 03:14 | Inpatient (IN) | payer OTHER ==
--- OUTSIDE RECORDS SUMMARY | 2021-09-09 03:17 | XMS REPORT | Continuity of Care Document ---
:1940 Author Organization [facility] t Address [address] [place] [address] Care Team Providers Name Role Phone LUCIANA JACOBSEN Attending Clinician Unavailable LUCIANA JACOBSEN Admitting Clinician Unavailable Problems This patient has no known problems. Allergies, Adverse Reactions, Alerts This patient has no known allergies or adverse reactions. Medications This patient has no known medications. Procedures This patient has no known procedures. Results Test Description Test Time Test Comments Results Result Comments Source MAGNESIUM 2017-05-04 06:53:00 Test Item Value Reference Range Interpretation Comme nts MAGNESIUM (BEAKER) (test code = 627) 2.1 mg/dL 1.6-2.6 BASIC METABOLIC [id number] 06:53:00 Test Item Value Reference Range Interpretation [...] GFR I S NOT APPLICABLE FOR DIALYSIS INGRIS TS. CBC (HEMOGRAM ONLY)2017-05-04 06:15:00 Test Item [...] 0-0 (BEAKER) (test code = 413) TROPONIN [id number] 15:33:00 Test Item Value Reference Range Interpretation [...] acute neurological disease, and persistent tachyarrhythmia.BASIC METABOLIC [id number] 15:31:00 Test Item Value Reference Range Interpretation [...] PATIEN TS. CREATINE KINASE (CK), TOTAL AND [id number] 15:31:00 Test Item Value Reference Range Interpretation Comments CREATINE KINASE TOTAL (BEAKER) 228 U/L 29-200 H (test code = 380) CREATINE KINASE-MB (BEAKER) (test 4.0 ng/mL 0.0-6.6 code = 750) CREATINE KINASE-MB INDEX (BEAKER) 1.8 % (test code = 395) Effective 08/08/2014: CK-MB Reference Range ChangeNew: 0.0-6.6 Previous: 0.0-4.9CK-MB Reference Range:<6.7 Normal6.7-10.0 Borderline>10.0 AbnormalPLATELET AGGREGATION: DRUG [id number] 14:43:00 Test Item Value Reference Range Interpretation [...] (BEAKER) ADP suggest a (test code = 092667) [id number] drug effect. [id number] Beka Whyte MD (BEAKER) (test code = (electronic 2621) signature) PLATELET COUNT AGG 203 K/CU MM 150-450 (GLENROY) (test code = 2656) TROPONIN [id number] 00:49:00 Test Item Value Reference Range Interpretation Comments TROPONIN I (GLENROY) (test code = 9.43 ng/mL 0.00-0.03 397) Effective 08/08/2014: Reference Range [...] Range Interpretation Comments CREATINE KINASE TOTAL (GLENROY) 416 U/L 29-200 H (test code = 380) CREATINE KINASE-MB (GLENROY) (test 22.6 ng/mL 0.0-6.6 H code = 750) CREATINE KINASE-MB INDEX (GLENROY) 5.4 % (test code = 395) Effective 08/08/2014: CK-MB Reference Range ChangeNew: 0.0-6.6 Previous: 0.0-4.9CK-MB Reference Range:<6.7 Normal6.7-10.0 Borderline>10.0 AbnormalTROPONIN [id number] 17:51:00 Test Item Value Reference Range Interpretation Comments TROPONIN I (GLENROY) (test code = 10.38 ng/mL 0.00-0.03 397) Effective 08/08/2014: Reference Range [...] Reference Range:<6.7 Normal6.7-10.0 Borderline>10.0 AbnormalPLATELET AGGREGATION: DRUG [id number] 15:59:00 Test Item Value Reference Range Interpretation Comments STRONG ADP 35 % 70-94 L RESULT(BEAKER) (test code = 7) WEAK ADP RESULT(BEAKER) 33 % 60-91 L (test code = 2135) ARACHADONIC ACID 14 % 63-89 L RESULT(BEAKER) (test code = 2138) PLATELET AGG DRUG Decreased response to INTERPRETATION (BEAKER) arachidonic acid (test code = 2408) suggests aspirin-like effect. PLATELET AGG DRUG Decreased response to INTERPRETATION (BEAKER) ADP suggest a (test code = 540760) O5J70-thfyafxqv drug effect. [id number] Beka Whyte MD (BEAKER) (test code = (electronic 2621) signature) PLATELET COUNT AGG 288 K/CU MM 150-450 (BEAKER) (test code = 2656) PLATELET AGGREGATION: DRUG [id number] 15:58:00 Test Item Value Reference Range Interpretation Comments STRONG ADP 23 % 70-94 L RESULT(BEAKER) (test code = 7) WEAK ADP RESULT(BEAKER) 20 % 60-91 L (test code = 2135) ARACHADONIC ACID 15 % 63-89 L RESULT(BEAKER) (test code = 2138) PLATELET AGG DRUG Decreased response to INTERPRETATION (BEAKER) arachidonic acid (test code = 2408) suggests aspirin-like effect. PLATELET AGG DRUG Decreased response to INTERPRETATION (BEAKER) ADP suggest a (test code = 784399) E3R98-bcgofggno drug effect. [id number] Beka Whyte MD ([facility]) (test code = (electronic 2621) signature) PLATELET COUNT AGG 235 K/CU MM 150-450 ([facility]) (test code = 2656) POCT-GLUCOSE [id number] 11:52:00 Test Item Value Reference Range Interpretation Comments POC-GLUCOSE METER 90 mg/dL 70-110 TESTED AT [facility] [address] ([facility]) (test code = [place] [facility] [address] 1538) TROPONIN [id number] 09:56:00 Test Item Value Reference Range Interpretation Comments TROPONIN I ([facility]) (test code = 15.16 ng/mL 0.00-0.03 HH 397) Effective 08/08/2014: Reference [...] Reference Range Interpretation Comments CREATINE KINASE TOTAL ([facility]) 1205 U/L 29-200 H (test code = 380) CREATINE KINASE-MB ([facility]) (test 98.4 ng/mL 0.0-6.6 H code = 750) CREATINE KINASE-MB INDEX ([facility]) 8.2 % (test code = 395) Effective 08/08/2014: CK-MB Reference Range ChangeNew: 0.0-6.6 Previous: 0.0-4.9CK-MB Reference Range:<6.7 Normal6.7-10.0 Borderline>10.0 AbnormalCOMPREHENSIVE METABOLIC [id number] 09:04:00 Test Item Value Reference Range Interpretation [...] 0-0 (BEAKER) (test code = 413) TROPONIN [id number] 02:16:00 Test Item Value Reference Range Interpretation [...] code = 750) CREATINE KINASE-MB INDEX (BEAKER) 8.7 % (test code = 395) Effective 08/08/2014: CK-MB Reference Range ChangeNew: 0.0-6.6 Previous: 0.0-4.9CK-MB Reference Range:<6.7 Normal6.7-10.0 Borderline>10.0 AbnormalTROPONIN [id number] 18:37:00 Test Item Value Reference Range Interpretation Comments TROPONIN I (BEAKER) (test code = 5.50 ng/mL 0.00-0.03 397) Effective 08/08/2014: Reference Range [...] Range Interpretation Comments CREATINE KINASE TOTAL (BEAKER) 782 U/L 29-200 H (test code = 380) CREATINE KINASE-MB (BEAKER) (test 60.3 ng/mL 0.0-6.6 H code = 750) CREATINE KINASE-MB INDEX (BEAKER) 7.7 % (test code = 395) Effective 08/08/2014: CK-MB Reference Range ChangeNew: 0.0-6.6 Previous: 0.0-4.9CK-MB Reference Range:<6.7 Normal6.7-10.0 Borderline>10.0 [id number] 18:28:00 Test Item Value Reference Range Interpretation Comments ACTIVATED CLOTTING TIME 125 sec TEST ED AT [place] [address] ([facility]) (test code = [place] [address]) [id number] 16:13:00 Test Item Value Reference Range Interpretation Comments ACTIVATED CLOTTING TIME 153 sec TEST ED AT [place] [address] ([facility]) (test code = [place] [address]) [id number] CREATINE KINASE (CK), TOTAL AND [id number] 13:57:00 Test Item Value Reference Range Interpretation Comments CREATINE KINASE TOTAL (BEAKER) 88 U/L 29-200 (test code = 380) CREATINE KINASE-MB (BEAKER) (test 5.2 ng/mL 0.0-6.6 code = 750) CREATINE KINASE-MB INDEX (BEAKER) 5.9 % (test code = 395) Effective 08/08/2014: CK-MB Reference Range ChangeNew: 0.0-6.6 Previous: 0.0-4.9CK-MB Reference Range:<6.7 Normal6.7-10.0 Borderline>10.0 [id number] 13:43:00 Test Item Value Reference Range Interpretation Comments ACTIVATED CLOTTING TIME 197 sec TEST ED AT [place] [address] ([facility] (test code = [place] [address]) [id number] 10:51:00 Test Item Value Reference Range Interpretation Comments ACTIVATED CLOTTING TIME 296 sec TEST ED AT [place] [address] ([facility]) (test code = [place] [address]) [id number] 10:03:00 Test Item Value Reference Range Interpretation Comments ACTIVATED CLOTTING TIME 252 sec TEST ED AT [place] [address] ([facility]) (test code = [place] [address]) [id number] 10:03:00 Test Item Value Reference Range Interpretation Comments ACTIVATED CLOTTING TIME 709 sec TEST ED AT [place] [address] ([facility]) (test code = [address] [place] [address]) [id number] 09:43:00 Test Item Value Reference Range Interpretation Comments ACTIVATED CLOTTING TIME 202 sec TEST ED AT [place] [address] ([facility]) (test code = [place] [address]) [id number] 09:04:00 Test Item Value Reference Range Interpretation Comments ACTIVATED CLOTTING TIME 257 sec TEST ED AT [place] [address] ([facility]) (test code = [place] [address]) [id number] TROPONIN [id number] 08:02:00 Test Item Value Reference Range Interpretation Comments TROPONIN I ([facility]) (test code = 0.16 ng/mL 0.00-0.03 H [...] renalfailure, acidosis, acute neurological disease, and persistent tachyarrhythmia.[id number] 07:53:00 Test Item Value Reference Range Interpretation Comments PARTIAL THROMBOPLASTIN TIME 81.9 seconds 22.5-36.0 H (BEAKER) (test code = 760) LACTIC ACID, VENOUS, WHOLE [id number] 07:51:00 Test Item Value Reference Range Interpretation Comments LACTATE BLOOD VENOUS (2) (BEAKER) 1.0 mmol/L 0.5-2.2 (test code = 2872) Effective 01/23/2016: Units/Reference Range ChangeNew: 0.5-2.2 mmol/L Previous: 5-20 mg/dLCOMPREHENSIVE METABOLIC [id number] 05:16:00 Test Item Value Reference Range Interpretation [...] 0-0 (BEAKER) (test code = 413) TROPONIN [id number] 03:12:00 Test Item Value Reference Range Interpretation [...] 0.0-6.6 Previous: 0.0-4.9CK-MB Reference Range:<6.7 Normal6.7-10.0 Borderline>10.0 [id number] 21:56:00 Test Item Value Reference Range Interpretation Comments PARTIAL THROMBOPLASTIN TIME 32.4 seconds 22.5-36.0 (BEAKER) (test code = 760) Prior to initiating heparinCREATINE KINASE (CK), TOTAL AND [id number] 14:11:00 Test Item Value Reference Range Interpretation Comments CREATINE KINASE TOTAL (BEAKER) 35 U/L 29-200 (test code = 380) CREATINE KINASE-MB (BEAKER) (test 1.3 ng/mL 0.0-6.6 code = 750) CREATINE KINASE-MB INDEX (BEAKER) 3.7 % (test code = 395) Effective 08/08/2014: CK-MB Reference Range ChangeNew: 0.0-6.6 Previous: 0.0-4.9CK-MB Reference Range:<6.7 Normal6.7-10.0 Borderline>10.0 AbnormalTROPONIN [id number] 14:11:00 Test Item Value Reference Range Interpretation [...] renalfailure, acidosis, acute neurological disease, and persistent tachyarrhythmia.[id number] 13:56:00 Test Item Value Reference Range Interpretation Comments PARTIAL THROMBOPLASTIN TIME 28.2 seconds 22.5-36.0 (BEAKER) (test code = 760) Prior to initiating heparinPLATELET [id number] 13:50:00 Test Item Value Reference Range Interpretation Comments PLATELET COUNT (BEAKER) (test 297 K/CU MM 150-450 code = 756) HEMOGLOBIN [id number] 13:50:00 Test Item Value Reference Range Interpretation Comments HEMOGLOBIN A1C (BEAKER) (test code = 4.9 % 4.3-6.1 368) PLATELET AGGREGATION: FUNCTION [id number] 09:03:00 Test Item Value Reference Range Interpretation Comments WEAK ADP 24 % 60-91 L RESULT(BEAKER) (test code = 2135) PLATELET FUNCTION 0-39% indicates marked SCREEN INTERP platelet dysfunction (BEAKER) (test code = 2173) [id number] Beka Whyte MD (BEAKER) (test code = (electronic signature) 2622) PLATELET COUNT AGG 273 K/CU MM 150-450 (BEAKER) (test code = 2656) PLATELET AGGREGATION: FUNCTION [id number] 08:44:00 Test Item Value Reference Range Interpretation Comments WEAK ADP 23 % 60-91 L RESULT(BEAKER) (test code = 2135) PLATELET FUNCTION 0-39% indicates marked SCREEN INTERP platelet dysfunction (BEAKER) (test code = 2173) [id number] Beka Whyte MD (BEAKER) (test code = (electronic signature) 2622) PLATELET COUNT AGG 277 K/CU MM 150-450 (BEAKER) (test code = 2656) for patients on clopidogrel in past two [...] NOT APPLICABLE FOR DIALYSIS PATIEN TS. PROTHROMBIN TIME/[id number] 06:00:00 Test Item Value Reference Range Interpretation [...] (BEAKER) (test code = 413) BASIC METABOLIC [id number] 18:22:00 Test Item Value Reference Range Interpretation [...] NOT APPLICABLE FOR DIALYSIS PATIEN TS. PROTHROMBIN TIME/[id number] 18:06:00 Test Item Value Reference Range Interpretation Comments PROTIME (BEAKER) (test code = 13.0 seconds 11.7-14.7 759) INR (BEAKER) (test code = 370) 1.0 <=5.9 RECOMMENDED COUMADIN/WARFARIN INR THERAPY RANGESSTANDARD DOSE: 2.0 - 3.0 Includes: PROPHYLAXIS forvenous thrombosis, systemic embolization; TREATMENT for venous thrombosis and/or pulmonary embolus.HIGH RISK: Target INR is 2.5-3.5 for patients with mechanical heart valves.[id number] 18:06:00 Test Item Value Reference Range Interpretation Comments PARTIAL THROMBOPLASTIN TIME 30.2 seconds 22.5-36.0 (BEAKER) (test code = 760) CBC W/PLT COUNT & AUTO [id number] 17:58:00 Test Item Value Reference Range Interpretation [...] % 0-1 PERCENT (BEAKER) (test code = 2165)
[2021-09-09 04:22] LABS: Protime INR 2.19
[2021-09-09 04:23] LABS: Absolute Lymphocytes (CBC) 1.1 K/uL (0.7-4.9); Basophils % 0.4 % (0-1.3); Hematocrit 43.1 % (36.0-45.0); Lymphocytes % 9.9 % (15.3-44.8); RBC Red Blood Cell Count 4.91 M/uL (3.86-4.86)
[2021-09-09] MEDS ORDERED: METOCLOPRAMIDE 10 MG/2mL INJ ONE (04:35)
[2021-09-09 04:45] LABS: Albumin 4.4 g/dL (3.4-5.0); Bilirubin Direct 0.2 mg/dL (0-0.2); Bilirubin Total 0.7 mg/dL (0.2-1.0); Magnesium 2.1 mg/dL (1.8-2.4); Potassium 3.7 mmol/L (3.5-5.1); Protein, Total 8.5 g/dL (6.4-8.2); Troponin (Emerg Dept Use Only) 0.03 ng/mL (0.0-0.045)
[2021-09-09 04:59] LABS: SARS-COV-2 RT PCR NEGATIVE (NEGATIVE)
--- NOTE | 2021-09-09 05:15 | ER ---
Nurse's Notes [facility] Name: Teresa Aguilar Age: 81 yrs Sex: Female : 1940 Arrival Date: 09/09/2021 Time: 03:23 Bed 17 Private MD: Diagnosis: Acute systolic (congestive) heart failure Presentation: 09/09 03:34 Chief complaint:. Chief complaint: Patient states: Reports cough x2 days w/ worsening mk SOB that started tonight. EMS states: Pt called EMS for SOB, when EMS arrived pt's SpO2 was 93-94%, placed on 2L NC, pt's SpO2 increased to 96-97%. Coronavirus screen: Vaccine status: Patient reports receiving the 2nd dose of the covid vaccine. Coronavirus screen: Vaccine status:. Ebola Screen: Patient negative for fever greater than or equal to 101.5 degrees Fahrenheit, and additional compatible Ebola Virus Disease symptoms. Initial Sepsis Screen: Does the patient meet any 2 criteria? RR > 20 per min. HR > 90 bpm. Does the patient have a suspected source of infection? No. Patient's initial sepsis screen is negative. Risk Assessment: Do you want to hurt yourself or someone else? Patient reports no desire to harm self or others. Onset of symptoms was October 09, 2020. 03:34 Method Of Arrival: EMS: [facility] 03:34 Acuity: HUSEYIN 2 03:34 Acuity: HUSEYIN 2 03:40 Acuity: HUSEYIN 2 Triage Assessment: 03:50 Respiratory: Onset: The symptoms/episode began/occurred gradually. 03:50 Respiratory: the patient has moderate shortness of breath. Historical: - Home Meds: 04:39 isosorbide mononitrate 30 mg oral Tb24 1 tab once daily [Active]; docusate sodium 50 mg mk Oral cap 1 cap once daily [Active]; atorvastatin 10 mg oral tab 1 tab once daily [Active]; losartan 100 mg oral tab 1 tab once daily [Active]; amlodipine 10 mg oral tab 1 tab once daily [Active]; Xarelto 20 mg oral tab 1 tab once daily [Active]; Coreg 3.125 mg Oral tab 1 tab 2 times per day [Active]; diphenhydramine HCl 25 mg Oral tab 1 tab every 4-6 hours for allergic reaction [Active]; omeprazole 40 mg oral cpDR 1 cap once daily [Active]; aspirin 81 mg Oral chew 1 tab once daily [Active]; - PMHx: 04:39 Atrial fibrillation; mk - Immunization history:: Adult Immunizations up to date, Client reports receiving the 2nd dose of the Covid vaccine. - Social history:: Smoking status: Patient denies any tobacco usage or history of. Screenin:39 Abuse screen: Denies threats or abuse. Nutritional screening: No deficits noted. Tuberculosis screening: No symptoms or risk factors identified. Fall Risk No fall in past 12 months (0 pts). No secondary diagnosis (0 pts). IV access (20 points). Ambulatory Aid- None/Bed Rest/Nurse Assist (0 pts). Gait- Weak (10 pts.). Mental Status- Oriented to own ability (0 pts). Total Pino Fall Scale indicates Low Risk Score (25-44 pts). Fall prevention measures have been instituted. Side Rails Up X 2 Placed close to Nursing Station Frequent Obs/Assesments occuring Family Present and informed to notify staff if they need to leave bedside. Assessment: 03:25 Pain: Denies pain. Cardiovascular: Rhythm is irregular. Respiratory: Airway is patent mk Respiratory effort is even, unlabored, Breath sounds are clear. 03:25 General: Appears distressed, uncomfortable, Behavior is cooperative. Pain: Denies pain. mk Neuro: Level of Consciousness is awake, alert, obeys commands, Oriented to person, place, time, situation, Sales Operations Consultant are equal bilaterally Moves all extremities. Gait is unsteady. Cardiovascular: Denies chest pain, Heart tones S1 S2 present Capillary refill < 3 seconds Patient's skin is warm and dry. Pulses are 2+ in right radial artery, right dorsalis pedis artery, left radial artery and left dorsalis pedis artery Rhythm is irregular. Cardiovascular: Parent/caregiver reports patient has had shortness of breath. Respiratory: Airway Trachea midline Respiratory effort is labored, Respiratory pattern is tachypnea Breath sounds are clear. Respiratory: Reports shortness of breath at rest since tonight cough that is non-productive, since 2 days GI: Bowel sounds present X 4 quads. Abd is soft and non tender X 4 quads. : No signs and/or symptoms were reported regarding the genitourinary system. Derm: Skin is intact, is fragile, Skin is dry, Skin is pink, warm \\T\\ dry. Skin temperature is warm. Musculoskeletal: Range of motion: intact in all extremities. 04:22 Reassessment: Patient and/or family updated on plan of care and expected duration. Pain mk level reassessed. Patient is alert, oriented x 3, equal unlabored respirations, skin warm/dry/pink. Patient states feeling better. 05:42 Reassessment: Vital signs stable. The patient continues to be nauseated. . sv1 05:55 Reassessment: The patient is to be admitted. Report was called to Gregg DALEY . sv1 06:11 Reassessment: To be admitted to med surg. Tolerated IV meds well. Report called to sv1 Gregg DUMONT. Ttransported via wheelchair. Vital Signs: 03:34 BP 117 / 70; Pulse 80; Resp 18; Temp 98.7; Pulse Ox 100% on 2 lpm NC; mk 03:43 Weight 48.99 kg; mk 03:45 BP 150 / 97; Pulse 118; Resp 19; Pulse Ox 98% on 2 lpm NC; mk 04:00 BP 133 / 88; Pulse 114; Resp 22; Pulse Ox 100% on 2 lpm NC; mk 04:15 BP 157 / 99; Pulse 112; Resp 22; Pulse Ox 100% on 2 lpm NC; mk 04:45 BP 141 / 82; Pulse 112; Resp 16; Pulse Ox 100% on 1 lpm NC; mk 05:37 BP 130 / 107; Pulse 106; Resp 30; Temp 98.0; Pulse Ox 96% 2 lpm ; sv1 Norm Coma Score: 03:45 Eye Response: spontaneous(4). Verbal Response: oriented(5). Motor Response: obeys mk commands(6). Total: 15. 04:00 Eye Response: spontaneous(4). Verbal Response: oriented(5). Motor Response: obeys mk commands(6). Total: 15. 04:15 Eye Response: spontaneous(4). Verbal Response: oriented(5). Motor Response: obeys mk commands(6). Total: 15. 04:45 Eye Response: spontaneous(4). Verbal Response: oriented(5). Motor Response: obeys mk commands(6). Total: 15. ED Course: 03:23 Patient arrived in ED. lp1 03:24 Jake Marion JULIA is Primary Nurse. sv1 03:24 Sid Hughes MD is Attending Physician. mh7 03:37 XRAY Chest (1 view) In Process Unspecified. EDMS 03:39 Triage completed. mk 03:50 Patient has correct armband on for positive identification. Allergy band placed. Placed mk in gown. Bed in low position. Call light in reach. Side rails up X 1. personnel monitor on. Pulse ox on. NIBP on. Assisted to bedside commode. 04:09 Basic Metabolic Panel Sent. mk 04:09 CBC with Diff Sent. mk 04:10 LFT's Sent. mk 04:10 Magnesium Sent. mk 04:10 NT PRO-BNP Sent. mk 04:10 PT-INR Sent. mk 04:10 Troponin (emerg Dept Use Only) Sent. mk 04:12 COVID-19/FLU A+B/RSV (Document "Date of Onset" if Symptomatic) Sent. mk 04:12 CBC with Automated Diff Sent. mk 04:12 Basic Metabolic Panel Sent. mk 04:33 COVID-19/FLU A+B/RSV (Document "Date of Onset" if Symptomatic) Sent. sv1 05:13 Erich Reeves is Hospitalizing Provider. mh7 05:33 No provider procedures requiring assistance completed. mk 05:33 Arm band placed on. mk 06:13 Patient admitted, IV remains in place. sv1 Administered Medications: 04:43 Drug: Reglan (metoCLOPramide) 10 mg Route: IVP; Site: left antecubital; sv1 06:10 Follow up: Response: No adverse reaction; Nausea unchanged sv1 06:09 Drug: Lasix (furosemide) 20 mg Route: IVP; Site: left forearm; sv1 06:10 Follow up: Response: No adverse reaction sv1 06:09 Drug: Zofran (Ondansetron) 4 mg Route: IVP; Site: left forearm; sv1 06:11 Follow up: Response: No adverse reaction sv1 Outcome: 05:14 Decision to Hospitalize by Provider. mh7 05:55 Admitted to Med/surg accompanied by tech. sv1 05:55 Condition: unchanged 05:55 Instructed on the need for admit. 06:15 Patient left the ED. sv1 Signatures: Dispatcher MedHo EDNM Kim Davis RN RN lp1 Sid Hughes MD MD mh7 Jake Marion RN RN sv1 Magali Mckeon RN RN Corrections: (The following items were deleted from the chart) 03:40 03:34 Acuity: HUSEYIN 4 [facility] 04:46 04:39 PMHx: Hypertension; [facility] 04:46 04:39 PMHx: Myocardial infarction; [facility] 04:46 04:39 PMHx: acid reflux; [facility] 05:32 03:25 Cardiovascular: Rhythm is regular [facility] 05:36 03:00 Respiratory: Onset: The symptoms/episode began/occurred gradually, [facility] 05:37 04:45 BP 141 / 82; Pulse 112bpm; Resp 16bpm; Pulse Ox 100% 2 lpm Nasal Cannula; [facility]
--- NOTE | 2021-09-09 05:15 | EDPHYS ---
Physician Documentation [facility] Name: Teresa Aguilar Age: 81 yrs Sex: Female : 1940 Arrival Date: 09/09/2021 Time: 03:23 Bed 17 Private MD: ED Physician Sid Hughes HPI: 09/09 03:26 This 81 yrs old Female presents to ER via Unassigned with complaints of Shortness Of mh7 Breath. 03:26 The patient has shortness of breath at rest, with light activity. Onset: The mh7 symptoms/episode began/occurred yesterday. Duration: The symptoms are intermittent, with no pattern. The patient's shortness of breath is aggravated by coughing, light activity, is alleviated by inhaler. Associated signs and symptoms: Pertinent negatives: chest pain, non-productive cough, diaphoresis, dizziness, fever, hemoptysis, loss of consciousness, nausea, numbness in extremities, visual changes, vomiting. Severity of symptoms: At their worst the symptoms were moderate last night, in the emergency department the symptoms have improved moderately. Historical: - Home Meds: 04:39 isosorbide mononitrate 30 mg oral Tb24 1 tab once daily [Active]; docusate sodium 50 mg mk Oral cap 1 cap once daily [Active]; atorvastatin 10 mg oral tab 1 tab once daily [Active]; losartan 100 mg oral tab 1 tab once daily [Active]; amlodipine 10 mg oral tab 1 tab once daily [Active]; Xarelto 20 mg oral tab 1 tab once daily [Active]; Coreg 3.125 mg Oral tab 1 tab 2 times per day [Active]; diphenhydramine HCl 25 mg Oral tab 1 tab every 4-6 hours for allergic reaction [Active]; omeprazole 40 mg oral cpDR 1 cap once daily [Active]; aspirin 81 mg Oral chew 1 tab once daily [Active]; - PMHx: 04:39 Atrial fibrillation; mk - Immunization history:: Adult Immunizations up to date, Client reports receiving the 2nd dose of the Covid vaccine. - Social history:: Smoking status: Patient denies any tobacco usage or history of. ROS: 03:26 Constitutional: Negative for fever, chills, and weight loss, Eyes: Negative for injury, mh7 pain, redness, and discharge, ENT: Negative for injury, pain, and discharge, Neck: Negative for injury, pain, and swelling, Cardiovascular: Negative for chest pain, palpitations, and edema, Abdomen/GI: Negative for abdominal pain, nausea, vomiting, diarrhea, and constipation, Back: Negative for injury and pain, : Negative for injury, bleeding, discharge, and swelling, MS/Extremity: Negative for injury and deformity, Skin: Negative for injury, rash, and discoloration, Neuro: Negative for headache, weakness, numbness, tingling, and seizure, Psych: Negative for depression, anxiety, suicide ideation, homicidal ideation, and hallucinations, Allergy/Immunology: Negative for hives, rash, and allergies, Endocrine: Negative for neck swelling, polydipsia, polyuria, polyphagia, and marked weight changes, Hematologic/Lymphatic: Negative for swollen nodes, abnormal bleeding, and unusual bruising. Exam: 03:26 Constitutional: This is a well developed, well nourished patient who is awake, alert, mh7 and in no acute distress. Head/Face: Normocephalic, atraumatic. Eyes: Pupils equal round and reactive to light, extra-ocular motions intact. Lids and lashes normal. Conjunctiva and sclera are non-icteric and not injected. Cornea within normal limits. Periorbital areas with no swelling, redness, or edema. Neck: Trachea midline, no thyromegaly or masses palpated, and no cervical lymphadenopathy. Supple, full range of motion without nuchal rigidity, or vertebral point tenderness. No Meningismus. Chest/axilla: Normal chest wall appearance and motion. Nontender with no deformity. No lesions are appreciated. Cardiovascular: Regular rate and rhythm with a normal S1 and S2. No gallops, murmurs, or rubs. Normal PMI, no JVD. No pulse deficits. Abdomen/GI: Soft, non-tender, with normal bowel sounds. No distension or tympany. No guarding or rebound. No evidence of tenderness throughout. Back: No spinal tenderness. No costovertebral tenderness. Full range of motion. Skin: Warm, dry with normal turgor. Normal color with no rashes, no lesions, and no evidence of cellulitis. MS/ Extremity: Pulses equal, no cyanosis. Neurovascular intact. Full, normal range of motion. Neuro: Awake and alert, GCS 15, oriented to person, place, time, and situation. Cranial nerves II-XII grossly intact. Motor strength 5/5 in all extremities. Sensory grossly intact. Cerebellar exam normal. Normal gait. Psych: Awake, alert, with orientation to person, place and time. Behavior, mood, and affect are within normal limits. 03:26 Respiratory: the patient does not display signs of respiratory distress, Respirations: prolonged exhalation, that is mild, Breath sounds: rhonchi, that are mild, are scattered. Vital Signs: 03:34 BP 117 / 70; Pulse 80; Resp 18; Temp 98.7; Pulse Ox 100% on 2 lpm NC; mk 03:43 Weight 48.99 kg; mk 03:45 BP 150 / 97; Pulse 118; Resp 19; Pulse Ox 98% on 2 lpm NC; mk 04:00 BP 133 / 88; Pulse 114; Resp 22; Pulse Ox 100% on 2 lpm NC; mk 04:15 BP 157 / 99; Pulse 112; Resp 22; Pulse Ox 100% on 2 lpm NC; mk 04:45 BP 141 / 82; Pulse 112; Resp 16; Pulse Ox 100% on 1 lpm NC; mk 05:37 BP 130 / 107; Pulse 106; Resp 30; Temp 98.0; Pulse Ox 96% 2 lpm ; sv1 [place] Coma Score: 03:45 Eye Response: spontaneous(4). Verbal Response: oriented(5). Motor Response: obeys mk commands(6). Total: 15. 04:00 Eye Response: spontaneous(4). Verbal Response: oriented(5). Motor Response: obeys mk commands(6). Total: 15. 04:15 Eye Response: spontaneous(4). Verbal Response: oriented(5). Motor Response: obeys mk commands(6). Total: 15. 04:45 Eye Response: spontaneous(4). Verbal Response: oriented(5). Motor Response: obeys mk commands(6). Total: 15. MDM: 05:12 Differential diagnosis: Anemia Anxiety Reaction asthma, Bronchitis CHF exacerbation, mh7 Chronic Obstructive Pulmonary Disease Myocardial Infarction pneumonia, Psychogenic pulmonary edema, reactive airway disease. Data reviewed: vital signs, nurses notes, old medical records, lab test result(s), cardiac enzymes, CBC, electrolytes, EKG, radiologic studies, plain films. Data interpreted: Pulse oximetry: on 2L(s) per nasal canula, is 100 %. Interpretation: acceptable. Counseling: I had a detailed discussion with the patient and/or guardian regarding: the historical points, exam findings, and any diagnostic results supporting the discharge/admit diagnosis, the presence of at least one elevated blood pressure reading (>120/80) during this emergency department visit, lab results, radiology results, the need for further work-up and treatment in the hospital. 05:14 Patient medically screened. [facility] 09/09 03:24 Order name: Basic Metabolic Panel [facility] 09/09 03:24 Order name: CBC with Diff [facility] 09/09 03:24 Order name: LFT's; Complete Time: 04:53 [facility] 09/09 03:24 Order name: Magnesium; Complete Time: 04:53 [facility] 09/09 03:24 Order name: NT PRO-BNP; Complete Time: 04:53 [facility] 09/09 03:24 Order name: PT-INR; Complete Time: 04:33 [facility] 09/09 03:24 Order name: Troponin (emerg Dept Use Only); Complete Time: 04:53 [facility] 09/09 03:24 Order name: XRAY Chest (1 view) [facility] 09/09 03:25 Order name: Basic Metabolic Panel; Complete Time: 04:53 [facility] 09/09 03:25 Order name: CBC with Automated Diff; Complete Time: 04:27 [facility] 09/09 03:25 Order name: COVID-19/FLU A+B/RSV (Document "Date of Onset" if Symptomatic); Complete [facility] Time: 05:12 09/09 03:24 Order name: EKG; Complete Time: 03:25 [facility] 09/09 03:24 Order name: Cardiac monitoring; Complete Time: 04:09 [facility] 09/09 03:24 Order name: EKG - Nurse/Tech; Complete Time: 04:09 [facility] 09/09 03:24 Order name: IV Saline Lock; Complete Time: 04:09 [facility] 09/09 03:24 Order name: Labs collected and sent; Complete Time: 04:09 [facility] 09/09 03:24 Order name: O2 Per Protocol; Complete Time: 04:10 [facility] 09/09 03:24 Order name: O2 Sat Monitoring; Complete Time: 04:10 [facility] Administered Medications: 04:43 Drug: Reglan (metoCLOPramide) 10 mg Route: IVP; Site: left antecubital; sv1 06:10 Follow up: Response: No adverse reaction; Nausea unchanged sv1 06:09 Drug: Lasix (furosemide) 20 mg Route: IVP; Site: left forearm; sv1 06:10 Follow up: Response: No adverse reaction sv1 06:09 Drug: Zofran (Ondansetron) 4 mg Route: IVP; Site: left forearm; sv1 06:11 Follow up: Response: No adverse reaction sv1 Disposition Summary: 09/09/21 05:14 Hospitalization Ordered Hospitalization Status: Inpatient Admission [facility] Provider: Erich Reeves [facility] Location: Telemetry/MedSurg (Inpatient) [facility] Condition: Stable [facility] Problem: new [facility] Symptoms: have improved [facility] Bed/Room Type: Standard [facility] Room Assignment: 219(09/09/21 05:25) Diagnosis - Acute systolic (congestive) heart failure [facility] Forms: - Medication Reconciliation Form [facility] - SBAR form [facility] Signatures: Dispatcher [employer] Yarely Augustin RN RN Sid Hughes MD MD 7 Gagandeep Aiken PA PA ej Villicano, Steven, RN RN sv1 Magali Mckeon RN RN Corrections: (The following items were deleted from the chart) 04:46 04:39 PMHx: Hypertension; mk 04:46 04:39 PMHx: Myocardial infarction; [facility] 04:46 04:39 PMHx: acid reflux; [facility] 05:25 05:14 [facility] mw
--- NOTE | 2021-09-09 05:42 | P.HP ---
Certification for Inpatient Patient admitted to: Inpatient With expected LOS: >2 Midnights Patient will require the following post-hospital care: None Practitioner: I am a practitioner with admitting privileges, knowledge of patient current condition, hospital course, and medical plan of care. Services: Services provided to patient in accordance with Admission requirements found in Title 42 Section 412.3 of the Code of Federal Regulations Patient History Date of Service: 09/09/21 Primary Care Provider: [place] Reason for admission: CHF exacerbation History of Present Illness: Ms. Aguilar is an 81 yo F with CAD, HTN, atrial fibrillation on xarelto who presents with SOB beginning this evening, waking her from her sleep. She thought she was having an asthma attack but had no relief with albuterol inhaler or with benadryl. She also reports cough, wheezing, palpitations, nausea and vomiting. She says she has never been diagnosed with CHF, has had normal ECHOs in the past, and last saw her toe puller in March. BNP 976. CXR shows volume overload. Allergies No Known Allergies Allergy (Verified 01/07/21 12:05) Home Medications: Clopidogrel Bisulfate [Plavix] 75 mg PO DAILY 12/17/12 Omeprazole [Prilosec] 40 mg PO DAILY 04/27/17 Atorvastatin Calcium [Lipitor] 40 mg PO BEDTIME tab 04/28/17 Amlodipine [Norvasc*] 1 tab PO DAILY 01/07/21 Carvedilol [Coreg] 1 tab PO BID 01/07/21 Losartan Potassium 1 tab PO DAILY 01/07/21 - Past Medical/Surgical History Diabetic: No -: HTN -: High cholesterol -: GERD -: atrial fibrillation on xarelto -: history of ID -: heart stents 2016 - Family History Family History: Reviewed- Non-Contributory - Social History Smoking Status: Never smoker Alcohol use: No CD- Drugs: No Caffeine use: Yes Place of Residence: Home Review of Systems 10-point ROS is otherwise unremarkable General: Unremarkable Eyes: Unremarkable ENT: Unremarkable Respiratory: Cough, Shortness of Breath, Wheezing Cardiovascular: Palpitations, Orthopnea Gastrointestinal: Nausea, Vomiting Genitourinary: Unremarkable Musculoskeletal: Unremarkable Integumentary: Unremarkable Neurological: Unremarkable Lymphatics: Unremarkable Physical Examination - Physical Exam General: Alert, In no apparent distress HEENT: Atraumatic, PERRLA, Mucous membr. moist/pink, EOMI, Sclerae nonicteric Neck: Supple, 2+ carotid pulse no bruit, No LAD, Without JVD or thyroid abnormality Respiratory: Diminished, Crackles/rales Cardiovascular: Normal S1 S2, Irregular heart rate/rhythm Gastrointestinal: Normal bowel sounds, No tenderness Musculoskeletal: No tenderness Integumentary: No rashes Neurological: Normal speech, Normal strength at 5/5 x4 extr, Normal tone, Normal affect Lymphatics: No axilla or inguinal lymphadenopathy - Studies Laboratory Data (last 24 hrs) 09/09/21 04:10: PT 25.4 H, INR 2.19 09/09/21 04:10: WBC 10.60, Hgb 14.1, Hct 43.1, Plt Count 238 09/09/21 04:10: Sodium 142, Potassium 3.7, BUN 15, Creatinine 0.66, Glucose 117 H, Magnesium 2.1, Total Bilirubin 0.7, AST 25, ALT 33, Alkaline Phosphatase 102 Assessment and Plan - Problems (Diagnosis) (1) Atrial fibrillation Current Visit: Yes Status: Chronic Qualifiers: Atrial fibrillation type: unspecified Qualified Code(s): I48.91 - Unspecified atrial fibrillation (2) HTN (hypertension) Current Visit: Yes Status: Chronic Qualifiers: Hypertension type: primary hypertension Qualified Code(s): I10 - Essential (primary) hypertension (3) Volume overload Current Visit: Yes Status: Acute Qualifiers: Hypervolemia type: unspecified Qualified Code(s): E87.70 - Fluid overload, unspecified (4) CAD (coronary artery disease) Onset Date: 04/27/17 Current Visit: No Status: Chronic Qualifiers: Coronary Disease-Associated Artery/Lesion type: [place] artery [place] vs. transplanted heart: [place] heart Associated angina: without angina Qualified Code(s): I25.10 - Atherosclerotic heart disease of [place] coronary artery without angina pectoris - Plan on tele ECHO pending continue IV lasix daily weights, fluid restriction, low sodium diet reconcile and continue home medications, restart home xarelto breathing treatments and O2 as needed continue antiemetics as needed Discharge Plan: Home Plan to discharge in: 48 Hours - Advance Directives Does patient have a Living Will: No Does patient have a Durable POA for Healthcare: No - Code Status/Comfort Care Code Status Assessed: Yes (full code ) Critical Care: No Time Spent Managing Pts Care (In Minutes): 70
[2021-09-09] MEDS ORDERED: FUROSEMIDE 20 MG/ 2ML VIAL ONE (06:01)
[2021-09-09] MEDS ORDERED: ONDANSETRON 4 MG/2 ML VIAL ONE (06:01)
[2021-09-09] MEDS ORDERED: LORAZEPAM 0.5 MG TABLET PO ONE (06:03)
[2021-09-09] MEDS ORDERED: ACETAMINOPHEN 500 MG TAB PO PRN (06:03)
[2021-09-09] MEDS: LEVALBUTEROL 1.25 MG/3 ML NEB NEB SCH ×3 (07:48→20:05)
[2021-09-09] MEDS: IPRATROPIUM BROM 0.5MG/2.5ML NEB SCH ×3 (07:48→20:05)
--- NOTE | 2021-09-09 07:57 | RAD REPORT ---
EXAM DESCRIPTION: RAD - Chest Single View - 09/09/2021 3:38 am CLINICAL HISTORY: SOB COMPARISON: Chest Pa And Lat (2 Views) dated 11/25/2018; Chest Pa And Lat (2 Views) dated 09/19/2017; Chest Single View dated 04/26/2017; CHEST SINGLE VIEW dated 12/18/2012 FINDINGS: Lines: None. Lungs: No evidence of edema or pneumonia. Large lung volumes likely representing emphysema. Pleural: No significant pleural effusions or pneumothorax. Cardiac: Mild cardiomegaly. Bones: No acute fractures. Other: IMPRESSION: No acute cardiopulmonary disease.
--- NOTE | 2021-09-09 08:08 | EKG ---
Test Date: 2021-09-09 Test Time: 03:25:17 Electrical High Tension Tester: AMELIE MEASUREMENT RESULTS: Intervals: Rate: 108 MO: QRSD: 82 QT: 318 QTc: 426 [place]: P: MO: QRS: 81 T: -85 INTERPRETIVE STATEMENTS: Atrial fibrillation with rapid ventricular response ST & T wave abnormality, consider inferior ischemia ST & T wave abnormality, consider anterolateral ischemia Abnormal ECG Compared to ECG 09/19/2017 16:06:56 ST (T wave) deviation now present Sinus bradycardia no longer present Atrial premature complex(es) no longer present T-wave abnormality no longer present Possible ischemia still present Electronically Signed On 09-09-21 08:08:04 FULL STACK JAVA DEVELOPER by Oskar Garcia
[2021-09-09] MEDS: FUROSEMIDE 20 MG/ 2ML VIAL IV SCH ×2 (08:32→17:04)
[2021-09-09] MEDS: carvediloL 25 MG TAB PO SCH ×3 (08:36→20:47)
[2021-09-09] MEDS ORDERED: ONDANSETRON 4 MG/2 ML VIAL IV PRN (12:00)
[2021-09-09] MEDS ORDERED: INFLUENZA VACCINE (for 6+ mo) 0.5 ML DOSE IMVAC ONE (12:00)
--- NOTE | 2021-09-09 13:28 | P.PN ---
Date of Service: 09/09/21 Patient seen and examined. Patient still complaining of shortness of breath but feels much better compared to yesterday. Lung auscultation: Diminished but clear. Diagnosis: Acute diastolic heart failure-new onset Rapid atrial fibrillation. Plan: Continue IV Lasix Obtain echocardiogram. Wean off oxygen as tolerated. Blood pressure control. Cardiology consult.
--- NOTE | 2021-09-09 14:18 | ECHO ---
HEIGHT: 5 ft 2 in WEIGHT: 108 lb 0 oz DATE OF STUDY: 09/09/[address]: Gagandeep Aiken 2-DIMENSIONAL: YES M.MODE: YES DOPPLER: YES COLOR FLOW: YES TDS: PORTABLE: DEFINITY: BUBBLE STUDY: DIAGNOSIS: VOLUME OVERLOAD CARDIAC HISTORY: CATHERIZATION: YES SURGERY: NO PROSTHETIC VALVE: NO PACEMAKER: NO MEASUREMENTS (cm) DIASTOLIC (NORMALS) SYSTOLIC (NORMALS) IVSd 0.9 (0.6-1.2) LA Diam 3.6 (1.9-4.0) LVEF 55-60% LVIDd 3.9 (3.5-5.7) LVIDs 2.4 (2.0-3.5) %FS 39% LVPWd 0.9 (0.6-1.2) Ao Diam 2.4 (2.0-3.7) 2 DIMENSIONAL ASSESSMENT: RIGHT ATRIUM: NORMAL LEFT ATRIUM: ENLARGED RIGHT VENTRICLE: NORMAL LEFT VENTRICLE: NORMAL TRICUSPID VALVE: MODERATE TRICUSPID REGURGITATION MITRAL VALVE: MITRAL ANNULAR CALCIFICATION, MODERATE MITRAL REGURGITATION PULMONIC VALVE: NORMAL AORTIC VALVE: NORMAL PERICARDIAL EFFUSION: NONE AORTIC ROOT: NORMAL LEFT VENTRICULAR WALL MOTION: NORMAL DOPPLER/COLOR FLOW: SEE BELOW COMMENTS: NORMAL LEFT VENTRICULAR EJECTION FRACTION 55-60%. NORMAL WALL MOTION. DIASTOLIC DYSFUNCTION. LEFT ATRIAL ENLARGEMENT. MODERATE MITRAL AND TRICUSPID REGURGITATION. TECHNOLOGIST: KATHY JAVIER
[2021-09-09] MEDS: ATORVASTATIN 40 MG TAB PO SCH (20:46)
[2021-09-09] MEDS: DIPHENHYDRAMINE 25 MG TAB/CAP PO SCH (20:46)
[2021-09-09] MEDS: DOCUSATE NA/SENNA CONC 1 TAB PO SCH (20:47)
[2021-09-09] MEDS ORDERED: HOME MED 1 EA UNK (Diphenhydramine Hcl [Benadryl Allergy] 25 MG Tablet) PO SCH (21:00)
[2021-09-10] MEDS: IPRATROPIUM BROM 0.5MG/2.5ML NEB SCH ×3 (02:57→13:30)
[2021-09-10] MEDS: LEVALBUTEROL 1.25 MG/3 ML NEB NEB SCH ×3 (02:57→13:30)
[2021-09-10 04:33] LABS: Absolute Lymphocytes (CBC) 1.5 K/uL (0.7-4.9); Basophils % 0.3 % (0-1.3); Hematocrit 36.1 % (36.0-45.0); Lymphocytes % 13.7 % (15.3-44.8); MPV 9.1 fL (7.6-11.3); RBC Red Blood Cell Count 4.11 M/uL (3.86-4.86)
[2021-09-10 04:58] LABS: Albumin 3.1 g/dL (3.4-5.0); Bilirubin Total 1.4 mg/dL (0.2-1.0); Phosphorus 3.5 mg/dL (2.5-4.9); Potassium 3.4 mmol/L (3.5-5.1); Protein, Total 6.7 g/dL (6.4-8.2); Thyroid Stimulating Hormone 1.07 uIU/mL (0.360-3.740)
[2021-09-10] MEDS ORDERED: POTASSIUM CL SA 10 MEQ TAB PO ONE (06:00)
[2021-09-10] MEDS: PANTOPRAZOLE 40MG TABLET PO SCH (08:13)
[2021-09-10] MEDS: ISOSORBIDE MONO SR 30 MG TAB PO SCH (08:13)
[2021-09-10] MEDS: FUROSEMIDE 20 MG/ 2ML VIAL IV SCH ×2 (08:13→17:10)
[2021-09-10] MEDS: AMLODIPINE 10 MG TAB PO SCH (08:59)
[2021-09-10] MEDS: carvediloL 25 MG TAB PO SCH ×2 (08:59→21:06)
[2021-09-10] MEDS ORDERED: HOME MED 1 EA UNK (Omeprazole [Prilosec] 40 MG Capsule.Dr) PO SCH (09:00)
[2021-09-10] MEDS ORDERED: LOSARTAN POTASSIUM 50 MG TABLET PO SCH (09:00)
[2021-09-10] MEDS ORDERED: HOME MED 1 EA UNK (Losartan Potassium [Losartan Potassium] 100 MG Tablet) PO SCH (09:00)
--- NOTE | 2021-09-10 12:12 | CON ---
Date of Consultation: 09/10/2021 Reason For Consultation: CHF exacerbation. History Of Present Illness: An 81-year-old female with history of coronary artery disease, hypertens ion, atrial fibrillation, on anticoagulation, who woke up from sleep due to orthopnea and shortness o f breath, has lower extremity edema. She was wheezing. Denies having chest pain. Evaluated in the emergency room. She was volume overload, started on Lasix. She feels much better. No chest pain. Past Medical History: As outlined above. Medications: Refer to reconciliation sheet for detailed list. Allergies: NO KNOWN DRUG ALLERGIES. Family History: No premature coronary artery disease or cancer. Social History: Does not smoke or drink. Does not use any drugs. Review of Systems: All systems reviewed and they were negative except for what mentioned in HPI. Physical Examination: Vital Signs: Temperature is 99.0, heart rate 109, breathing at 18, blood pressure is 94/51, saturati ng 93%. General: Pleasant elderly female, in no apparent distress. Head and Neck: Pupils are equal, reactive to light. Intact eye movements. No JVD. No cervical lym phadenopathy. Neck: Supple. Thyroid is not enlarged. Lungs: Rhonchi in the bases. No accessory muscle use or muscle retraction. Heart: Irregularly irregular. No extra sounds. Abdomen: Soft, nontender. Bowel sounds positive. No organomegaly. No masses or hernia. No rigidi ty or rebound. Extremities: No clubbing or cyanosis. No edema. Skin: No rash. Neuro: Alert, awake, oriented x3. No acute focal deficits appreciated. Lymph Nodes: No cervical or axillary lymphadenopathy. Investigations: Labs were reviewed. Creatinine 0.03. NT-proBNP is 976. Chest x-ray with no acute abnormality. Assessment And Recommendations: 1.Acute on chronic diastolic heart failure exacerbation. Echo was reviewed and normal ejection frac tion. Feels better already with diuresis. I will switch her back to oral Lasix 40 mg once daily and discontinue the amlodipine to allow better blood pressure, to use agents to control her atrial fibri llation. 2.Atrial fibrillation. Rate is borderline elevated. I recommend to discontinue amlodipine once her blood pressure is better to initiate sotalol at 80 mg q.12 hours. Monitor EKG daily. Continue Xare lto. SR/MODL Voice ID: [id number] Report ID: [id number]
[2021-09-10] MEDS: RIVAROXABAN 20 MG TABLET PO SCH (17:10)
[2021-09-10] MEDS: DIPHENHYDRAMINE 25 MG TAB/CAP PO SCH (21:05)
[2021-09-10] MEDS: ATORVASTATIN 40 MG TAB PO SCH (21:05)
[2021-09-10] MEDS: DOCUSATE NA/SENNA CONC 1 TAB PO SCH (21:05)
[2021-09-11] MEDS: LEVALBUTEROL 1.25 MG/3 ML NEB NEB PRN ×3 (02:10→19:55)
[2021-09-11] MEDS: IPRATROPIUM BROM 0.5MG/2.5ML NEB PRN ×3 (02:10→19:55)
[2021-09-11 04:17] LABS: Potassium 3.6 mmol/L (3.5-5.1)
[2021-09-11] MEDS ORDERED: POTASSIUM CL SA 10 MEQ TAB PO ONE (06:00)
[2021-09-11 06:36] LABS: Urine Appearance CLOUDY (Clear); Urine Bilirubin NEGATIVE (Negative); Urine Blood TRACE (Negative); Urine Color YELLOW (Yellow); Urine Glucose NEGATIVE (Negative); Urine Protein NEGATIVE (Negative)
[2021-09-11 06:43] LABS: Urine Microscopic Reflex ORDER UMIC
[2021-09-11 06:51] LABS: Urine Bacteria <20 /HPF (<20); Urine Mucus 1+ /HPF (NONE SEEN)
--- NOTE | 2021-09-11 08:39 | RAD REPORT ---
EXAM DESCRIPTION: RAD - Chest Pa And Lat (2 Views) - 09/11/2021 6:27 am CLINICAL HISTORY: f/u Chest pain. COMPARISON: Chest Single View dated 09/09/2021; Chest Pa And Lat (2 Views) dated 11/25/2018; Chest Pa And Lat (2 Views) dated 09/19/2017; Chest Single View dated 04/26/2017 FINDINGS: The lungs are mildly emphysematous but clear. The heart is mildly enlarged in size. No dis placed fractures. Aortic atherosclerosis. IMPRESSION: Prominent COPD.
[2021-09-11] MEDS: ISOSORBIDE MONO SR 30 MG TAB PO SCH (09:00)
[2021-09-11] MEDS: carvediloL 25 MG TAB PO SCH ×2 (09:00→20:29)
[2021-09-11] MEDS: AMLODIPINE 10 MG TAB PO SCH (09:00)
[2021-09-11] MEDS: FUROSEMIDE 20 MG/ 2ML VIAL IV SCH (09:01)
[2021-09-11] MEDS: PANTOPRAZOLE 40MG TABLET PO SCH (09:01)
--- NOTE | 2021-09-11 10:03 | PN ---
When seen tonight, the patient feels considerably better. She has not required oxygen over the past few hours. Diuresed considerable amount. However, she states the cough now has become slightly more progressive and occasionally discolored. I will repeat the chest x-ray and obtain sputum, although the dyspnea is obviously from an episode of CHF. The possibility of some bronchial involvement as we ll. Depending on the results, we will determine disposition. HR/MODL Voice ID: [id number] Report ID: [id number]
[2021-09-11] MEDS: SOTALOL HCL 80 MG TAB PO SCH (16:50)
[2021-09-11] MEDS: RIVAROXABAN 20 MG TABLET PO SCH (16:50)
[2021-09-11] MEDS: ATORVASTATIN 40 MG TAB PO SCH (20:28)
[2021-09-11] MEDS: DOCUSATE NA/SENNA CONC 1 TAB PO SCH (20:28)
[2021-09-11] MEDS: DIPHENHYDRAMINE 25 MG TAB/CAP PO SCH (20:28)
[2021-09-12 04:07] LABS: BUN Blood Urea Nitrogen 17 mg/dL (7-18); Bicarbonate 30 mmol/L (21-32); Glucose Level 105 mg/dL (74-106); Potassium 3.2 mmol/L (3.5-5.1); Sodium Level 139 mmol/L (136-145)
[2021-09-12] MEDS: SOTALOL HCL 80 MG TAB PO SCH (06:22)
[2021-09-12 06:56] VITALS: BMI 18.1
[2021-09-12] MEDS: carvediloL 25 MG TAB PO SCH (08:37)
[2021-09-12] MEDS: ISOSORBIDE MONO SR 30 MG TAB PO SCH (08:38)
[2021-09-12] MEDS: PANTOPRAZOLE 40MG TABLET PO SCH (08:38)
[2021-09-12] MEDS ORDERED: POTASSIUM 25 MEQ EFFERV TAB PO ONE (09:00)
[2021-09-12] MEDS ORDERED: FUROSEMIDE 40 MG TABLET PO SCH (09:00)
--- NOTE | 2021-09-12 11:10 | PN ---
Date of Progress Note: 09/12/2021 The patient feels somewhat better today. She has had some episodes of nausea and the cough is still somewhat productive. Discussed with Dr. Peterson. She will be discharged to start on her Betapace 80 mg b.i.d. and hold her amlodipine. Lasix 20 mg will also be added to her regimen, to continue on her inhaler and follow up with me in 1 week and Cardiology in 2 weeks. HR/MODL Voice ID: [id number] Report ID: [id number]
[2021-09-12] MEDS: LEVALBUTEROL 1.25 MG/3 ML NEB NEB PRN (12:34)
[2021-09-12] MEDS: IPRATROPIUM BROM 0.5MG/2.5ML NEB PRN (12:34)
[2021-09-12 16:11] VITALS: BP 100/63; TEMP 98.2
[2021-09-12] MEDS: RIVAROXABAN 20 MG TABLET PO SCH (16:13)
[2021-09-12 16:15] VITALS: O2SAT 93
[2021-09-13] MEDS ORDERED: RIVAROXABAN 15 MG TABLET PO SCH (17:00)
== END 2021-09-12 17:15 | disposition home or self-care (01) | DRG 291 ==
LOC: ER 03:14 → ERHOLD 05:30 → 2ND 06:01
PROVIDERS: ADMIT Family Medicine; ATTEND Family Medicine
DX: I11.0 Hypertensive heart disease with heart failure (principal); I50.31 Acute diastolic (congestive) heart failure; I48.91 Unspecified atrial fibrillation; I25.10 Atherosclerotic heart disease of native coronary artery without angina pectoris; K21.9 Gastro-esophageal reflux disease without esophagitis; Z79.01 Long term (current) use of anticoagulants; I25.2 Old myocardial infarction; Z20.822 Contact with and (suspected) exposure to COVID-19
CPT/HCPCS: 0241U; 36415; 71045; 71046; 80048; 80053; 80061; 80076; 81003; 81015; 83735; 83880; 84100; 84132; 84439; 84443; 84484; 85025; 85610; 87077; 87086; 87088; 87186; 93005; 93306; 94640; 94760; 99285; J1940; J2405; J2765

== ENCOUNTER 2022-01-14 18:20 | Emergency (ER) | payer OTHER ==
--- OUTSIDE RECORDS SUMMARY | 2022-01-14 18:25 | XMS REPORT | Continuity of Care Document ---
:1940 Author Organization [facility] t Address [address] [place] [address] Care Team Providers Name Role Phone [place] Primary Care Physician Hayley GR Attending Clinician Unavailable Attila PAIGE, A Attending Clinician Only, Test Attending Clinician Unavailable Doctor Unassigned, Name Attending Clinician Unavailable Pob, Lab Main Attending Clinician Unavailable LUCIANA JACOBSEN Attending Clinician Unavailable ATTILA, Hayley Admitting Clinician Unavailable Attila PAIGE, A Admitting Clinician LUCIANA JACOBSEN Admitting Clinician Unavailable Payers Payer Name Policy Type Policy Number Effective Date Expiration Date S rosita MEDICARE PART A [id number] 2004 \\T\\ B 00:00:00 ALEXANDER [id number] 2019 00:00:00 Problems This patient has no known problems. Allergies, Adverse Reactions, Alerts Allergy Allergy Status Severity Reaction(s) Onset Inactive Treating Comm ents Source Name Type Date Date Clinician HYDRALAZ DRUG Active N/V Univers INE INGREDI 3-28 ity of 00:00: [address] Branch Hydralaz Propensi Active Nausea "gave me Univ ers ine ty to and/or 3-28 a massive ity of adverse Vomiting 00:00: heart [place] reaction 00 attack" Medical s Branch NO KNOWN Drug Active Univers ALLERGIE Class ity of [facility] [place] [facility] Social History Social Habit Start Date Stop Date Quantity Comments Source Exposure to 2021-12-03 2022-01-02 Not sure [facility] SARS-CoV-2 (event) 00:00:00 11:59:00 Medica l Branch Tobacco use and 2021-12-16 2021-12-16 Never used [facility] exposure 00:00:00 00:00:00 [facility] Branch Sex Ass[birth year] [facility] 00:00:00 00:00:00 Medical Branch Smoking Status Start Date Stop Date Source Unknown if ever smoked [facility] Never smoker [facility] Medications Ordered Filled Start Stop Current Ordering Indication Dosage Frequency Signature Comments Components Source Medication Medication Date Date Medication? Clinician (SIG) Name Name neomycin-po Yes PRN, Univer s lymyxin-dex 20 Starting ity of amethasone 16:33: on Thu [place] (MAXITROL) 01/08/22 at Med ical 3.5 1133, Branch mg/g-10,000 Until unit/g-0.1 Discontinu % ed, ophthalmic Routine, ointment Intra-op neomycin-po 2021- No PRN, Unive rs lymyxin-dex 01-08 Starting ity of amethasone 16:33: 19:29 [place] (MAX[place]ROL[place] 00 :35 01/08/22 at Med ical 3.5 1133, Branch mg/g-10,000 Until Thu unit/g-0.1 01/08/22 at % 1429, ophthalmic Routine, ointment Intra-op dexamethaso Yes PRN, Univer s ne 20 Starting ity of (DECADRON 16:32: on Thu PHOSPHATE) 01/08/22 at Med ical injection 1132, Branch Until Discontinu ed, Routine, Intra-op sodium 0 Yes PRN, Univers chloride 20 Starting ity of (NS) 16:32: on Thu [place] injection 01/08/22 at Medi idris 1132, Branch Until Discontinu ed, Routine, Intra-op ceFAZolin Yes PRN, Univers (ANCEF) 20 Starting ity of injection 16:32: on Thu 00 01/08/22 at Medical 1132, Branch Until Discontinu ed, SVEN, Intra-op dexamethaso 2021- No PRN, Unive rs ne 4-20 04-20 Starting ity of (DECADRON 16:32: 19:29 on Thu [place] PHOSPHATE) 00 :35 01/08/22 at [facility] ical injection 1132, Branch Until Thu01/08/22 at 1429, Routine, Intra-op sodium 2021- No PRN, Univers chloride 01-08 Starting ity of (NS) 16:32: 19:29 on Thu [place] injection 00 :35 01/08/22 at [facility] idris 1132, Branch Until Thu01/08/22 at 1429, Routine, Intra-op ceFAZolin 2021- No PRN, Univers (ANCEF) 01-08 Starting ity of injection 16:32: 19:29 on Thu [place] 00 :35 01/08/22 at [facility] 1132, Branch Until Thu01/08/22 at 1429, SVEN, Intra-op carbachoL Yes PRN, Univers (MIOSTAT) 01-08 Starting ity of 0.01 % 16:30: on Thu [place] intraocular 00 01/08/22 at Nc dical injection 1130, Branch Until Discontinu ed, Routine, Intra-op DUOVISC Yes PRN, Univers (DUOVISC 01-08 Starting ity of VISCO 16:30: on Thu ELASTIC) 3 00 01/08/22 at [facility] ical %-4 %(0.5 1130, Branch mL) 1 % Until (0.55 mL) Discontinu intraocular ed, injection Routine, Intra-op carbachoL 2021- No PRN, Univers (MIOSTAT) 01-08 Starting ity o f 0.01 % 16:30: 19:29 on Thu [place] intraocular 00 :35 01/08/22 at N[place] dical injection 1130, Branch Until Thu01/08/22 at 1429, Routine, Intra-op DUOVISC 2021- No PRN, Univers (DUOVISC 01-08 Starting ity of VISCO 16:30: 19:29 on Thu [place] ELASTIC) 3 00 :35 01/08/22 at [facility] ical %-4 %(0.5 1130, Branch mL) 1 % Until Wed (0.55 mL) 01/08/22 at intraocular 1429, injection Routine, Intra-op EPINEPHrine Yes PRN, Univer s 1:1,000 (1 4-20 Starting ity o f mg/mL) 16:27: on Thu (ADRENALIN) 00 01/08/22 at [place] dical injection 1127, Branch Until Discontinu ed, Routine, Intra-op balanced Yes PRN, Univers salt irrig 4-20 Starting ity o f soln comb1 16:27: on Thu [place] (BSS PLUS) 00 01/08/22 at [facility] ical ophthalmic 1127, Branch solution Until 500 mL bag Discontinu ed, Routine, Intra-op EPINEPHrine 2021- No PRN, Unive rs 1:1,000 (1 4-20 04-20 Starting ity of mg/mL) 16:27: 19:29 on Thu (ADRENALIN) 00 :35 01/08/22 at [place] dical injection 1127, Branch Until Thu01/08/22 at 1429, Routine, Intra-op balanced 2021- No PRN, Univers salt irrig 4-20 04-20 Starting ity of soln comb1 16:27: 19:29 on Thu [place] (BSS PLUS) 00 :35 01/08/22 at [facility] ical ophthalmic 1127, Branch solution Until Thu 500 mL bag 01/08/22 at 1429, Routine, Intra-op water for 0 Yes PRN, Univers irrigation 4-20 Starting ity o f irrigation 16:24: on Thu [place] solution 00 01/08/22 at Medic al 1124, Branch Until Discontinu ed, Routine, Intra-op water for 2021- No PRN, Univers irrigation 4-20 04-20 Starting ity of irrigation 16:24: 19:29 on Thu [place] solution 00 :35 01/08/22 at Medic al 1124, Branch Until Thu01/08/22 at 1429, Routine, Intra-op Hyaluronida 0 Yes PRN, Univer s se, Human 4-20 Starting ity of Recomb. 16:20: on Thu [place] (HYLENEX) 00 01/08/22 at [facility] idris injection 1120, Branch Until Discontinu ed, Routine, Intra-op Hyaluronida 0 202- No PRN, Unive rs se, Human 4-20 04-20 Starting ity o f Recomb. 16:20: 19:29 on Thu (HYLENEX) 00 :35 01/08/22 at [facility] idris injection 1120, Branch Until Thu01/08/22 at 1429, Routine, Intra-op eye block Yes PRN, Univers syringe 11 4-20 Starting ity o f mL 16:18: on Thu01/08/22 at [facility] 1118, Branch Until Discontinu ed, Intra-op eye block 2021- No PRN, Univers syringe 11 01-08-20 Starting ity of mL 16:18: 19:29 on Thu 00 :35 01/08/22 at [facility] 1118, Branch Until Thu01/08/22 at 1429, Intra-op cyclopent 2021- No .5mL 0.5 mL, Univ ers 1%-tropic 01-0820 Right Eye, ity of 1%-phenyl 13:45: 13:44 ONCE, 1 [place] 2.5%-ketor 00 :00 dose, On Medic al 0.5% Thu Branch (MYDRIATIC 01/08/22 at #5) 0845, ophthalmic Routine, solution DSU Pre-op syringe 0.5 mL lactated 2021- No 1000mL at 42 Unive rs ringers IV 01-08 04-20 mL/hr, ity of infusion 13:45: 13:44 1,000 mL, [place] 1,000 mL 00 :00 IV Medical Infusion, Branch ONCE, 1 dose, On Thu01/08/22 at 0845, Routine, DSU Pre-op cyclopent 2021- No .5mL 0.5 mL, Univ ers 1%-tropic 01-08-20 Right Eye, ity of 1%-phenyl 13:45: 13:44 ONCE, 1 [place] 2.5%-ketor 00 :00 dose, On Medic al 0.5% Thu Branch (MYDRIATIC 01/08/22 at #5) 0845, ophthalmic Routine, solution DSU Pre-op syringe 0.5 mL lactated 2021- No 1000mL at 42 Unive rs ringers IV 4-20 04-20 mL/hr, ity of infusion 13:45: 13:44 1,000 mL, [place] 1,000 mL 00 :00 IV Medical Infusion, Branch ONCE, 1 dose, On Thu01/08/22 at 0845, Routine, DSU Pre-op amLODIPine Yes 10mg Take 10 mg U nivers 10 mg 4-20 by mouth ity of tablet 12:29: daily. [address] Branch atorvastati Yes 40mg Take 40 mg Univers n 40 mg 4-20 by mouth ity of tablet 12:29: at [place] [address] bedtime. Medical Branch carvediloL Yes 12.5mg Take 12.5 Univers 12.5 mg 4-20 mg by ity of tablet 12:29: mouth 2 [place] [address] (two) Medical times Branch daily with meals. sotaloL 80 Yes 80mg Take 80 mg U nivers mg tablet 4-20 by mouth ity of 12:29: every 12 [place] [address] (twelve) Medical hours. Branch losartan Yes 100mg Take 100 Univ ers 100 mg 4-20 mg by ity of tablet 12:29: mouth [place] [address] daily. Medical Branch omacetaxine Yes inject Univ ers mepesuccina 4-20 under the ity of te 12:29: skin. [place] (OMACETAXIN 35 Medical E SC) Branch omeprazole Yes 40mg Take 40 mg U nivers 40 mg 4-20 by mouth ity of capsule 12:29: daily. [address] furosemide Yes 20mg Take 20 mg U nivers 20 mg 4-20 by mouth ity of tablet 12:29: daily. [address] Branch rivaroxaban Yes 20mg Take 20 mg Univers (XARELTO) 4-20 by mouth. ity o f 20 mg 12:29: [place] [address] Medical Branch fluticasone 0 Yes 1{puff} Inhale 1 Univers propion-flor 4-20 Puff every it y of meteroL 12:29: 12 [place] 250-[facility] (twelve) Medical mcg/dose hours. Branch inhalation disk ALBUTEROL Yes Inhale as Uni vers INHALE 4-20 needed. ity of 12:29: [address] Branch amLODIPine Yes 10mg Take 10 mg U nivers 10 mg 4-20 by mouth ity of tablet 12:29: daily. [place] [address] Medical Branch atorvastati Yes 40mg Take 40 mg Univers n 40 mg 4-20 by mouth ity of tablet 12:29: at [place] [address] bedtime. Medical Branch carvediloL Yes 12.5mg Take 12.5 Univers 12.5 mg 4-20 mg by ity of tablet 12:29: mouth 2 [place] [address] (two) Medical times Branch daily with meals. sotaloL 80 Yes 80mg Take 80 mg U nivers mg tablet 4-20 by mouth ity of 12:29: every 12 [place] [address] (twelve) Medical hours. Branch losartan Yes 100mg Take 100 Univ ers 100 mg 4-20 mg by ity of tablet 12:29: mouth [place] [address] daily. Medical Branch omacetaxine Yes inject Univ ers mepesuccina 4-20 under the ity of te 12:29: skin. [place] (OMACETAXIN 35 Medical E SC) Branch omeprazole Yes 40mg Take 40 mg U nivers 40 mg 4-20 by mouth ity of capsule 12:29: daily. [place] [address] Medical Branch furosemide 0 Yes 20mg Take 20 mg U nivers 20 mg 4-20 by mouth ity of tablet 12:29: daily. [place] [address] Medical Branch rivaroxaban Yes 20mg Take 20 mg Univers (XARELTO) 4-20 by mouth. ity o f 20 mg 12:29: [place] [address] Medical Branch fluticasone Yes 1{puff} Inhale 1 Univers propion-flor 4-20 Puff every it y of meteroL 12:29: 12 [place] [address] (twelve) Medical mcg/dose hours. Branch inhalation disk ALBUTEROL Yes Inhale as Uni vers INHALE 4-20 needed. ity of 12:29: [place] [address] Medical Branch sotaloL 80 Yes 80mg Take 80 mg U nivers mg tablet 4-14 by mouth ity of 11:55: every 12 [place] 56 (twelve) Medical hours. Branch sotaloL 80 Yes 80mg Take 80 mg U nivers mg tablet 4-14 by mouth ity of 11:55: every 12 [place] 56 (twelve) Medical hours. Branch isosorbide 2021-0 2021- No 30mg Take 30 mg Univers dinitrate 4-14 04-14 by mouth ity o f 30 mg 11:54: 00:00 daily. [place] tablet 01 :00 Medical Branch isosorbide 2021-0 2021- No 30mg Take 30 mg Univers dinitrate 4-14 04-14 by mouth ity o f 30 mg 11:54: 00:00 daily. [place] tablet 01 :00 Medical Branch losartan 0 Yes 100mg Take 100 Univ ers 100 mg 4-14 mg by ity of tablet 11:49: mouth [place] 30 daily. Medical Branch omacetaxine Yes inject Univ ers mepesuccina 4-14 under the ity of te 11:49: skin. [place] (OMACETAXIN 30 Medical E SC) Branch omeprazole Yes 40mg Take 40 mg U nivers 40 mg 4-14 by mouth ity of capsule 11:49: daily. [place] 30 Medical Branch rivaroxaban Yes 20mg Take 20 mg Univers (XARELTO) 4-14 by mouth. ity o f 20 mg 11:49: [place] tablet 30 Medical Branch losartan Yes 100mg Take 100 Univ ers 100 mg 4-14 mg by ity of tablet 11:49: mouth [place] 30 daily. Medical Branch omacetaxine Yes inject Univ ers mepesuccina 4-14 under the ity of te 11:49: skin. [place] (OMACETAXIN 30 Medical E SC) Branch omeprazole 0 Yes 40mg Take 40 mg U nivers 40 mg 4-14 by mouth ity of capsule 11:49: daily. [place] 30 Medical Branch rivaroxaban 0 Yes 20mg Take 20 mg Univers (XARELTO) 4-14 by mouth. ity o f 20 mg 11:49: [place] tablet 30 Medical Branch amLODIPine 0 Yes 10mg Take 10 mg U nivers 10 mg 4-14 by mouth ity of tablet 11:48: daily. [place] 24 Medical Branch atorvastati 0 Yes 40mg Take 40 mg Univers n 40 mg 4-14 by mouth ity of tablet 11:48: at [place] [address] bedtime. Medical Branch carvediloL 2022-0 Yes 12.5mg Take 12.5 Univers 12.5 mg 4-14 mg by ity of tablet 11:48: mouth 2 [place] [address] (two) Medical times [place] daily with meals. furosemide Yes 20mg Take 20 mg U nivers 20 mg 4-14 by mouth ity of tablet 11:48: daily. [place] [address] Medical Branch fluticasone Yes 1{puff} Inhale 1 Univers propion-flor 4-14 Puff every it y of meteroL 11:48: 12 [place] 250-50 (twelve) Medical mcg/dose hours. Branch inhalation disk ALBUTEROL Yes Inhale as Uni vers INHALE 4-14 needed. ity of 11:48: [place] [address] Medical Branch amLODIPine Yes 10mg Take 10 mg U nivers 10 mg 4-14 by mouth ity of tablet 11:48: daily. [place] [address] Medical Branch atorvastati Yes 40mg Take 40 mg Univers n 40 mg 4-14 by mouth ity of tablet 11:48: at [place] [address] bedtime. Medical Branch carvediloL Yes 12.5mg Take 12.5 Univers 12.5 mg 4-14 mg by ity of tablet 11:48: mouth 2 [place] [address] (two) Medical times [place] daily with meals. furosemide Yes 20mg Take 20 mg U nivers 20 mg 4-14 by mouth ity of tablet 11:48: daily. [address] Branch fluticasone Yes 1{puff} Inhale 1 Univers propion-flor 4-14 Puff every it y of meteroL 11:48: 12 [place] 250[facility] (twelve) Medical mcg/dose hours. Branch inhalation disk ALBUTEROL Yes Inhale as Uni vers INHALE 4-14 needed. ity of 11:48: [place] [address] Medical Branch neomycin-po 0 Yes PRN, Univer s lymyxin-dex 3-30 Starting ity of amethasone 16:57: on Thu [place] (MAXITROL) 00 12/18/21 at Med ical 3.5 1157, Branch mg/g-10,000 Until unit/g-0.1 Discontinu % ed, ophthalmic Routine, ointment Intra-op neomycin-po 2021- No PRN, [facility] l[facility] 12-18 Starting ity of amethasone 16:57: 19:33 [place] Thu [place] (MAXITROL[place] 00 :16 12/18/21 at [facility] ical 3.5 1157, Branch mg/g-10,000 Until Thu unit/g-0.1 12/18/21 at % 1433, ophthalmic Routine, ointment Intra-op dexamethaso Yes PRN, Univer s ne 12-18 Starting ity of (DECADRON 16:56: on Thu [place] PHOSPHATE) 00 12/18/21 at [facility] ical injection 1156, Branch Until Discontinu ed, Routine, Intra-op dexamethaso 2021- No PRN, Unive rs ne 12-18 Starting ity of (DECADRON 16:56: 19:33 on Thu [place] PHOSPHATE) 00 :16 12/18/21 at [facility] ical injection 1156, Branch Until Thu12/18/21 at 1433, Routine, Intra-op sodium 0 Yes PRN, Univers chloride 12-18 Starting ity of (NS) 16:55: on Thu [place] injection 00 12/18/21 at [facility] 1155, Branch Until Discontinu ed, Routine, Intra-op ceFAZolin Yes PRN, Univers (ANCEF) 12-18 Starting ity of injection 16:55: on Wed [place] 00 12/18/21 at [facility] 1155, Branch Until Discontinu ed, SVEN, Intra-op sodium 0 2021- No PRN, Univers chloride 12-18 Starting ity of (NS) 16:55: 19:33 on Wed [place] injection 00 :16 12/18/21 at [facility] idris 1155, Branch Until Thu12/18/21 at 1433, Routine, Intra-op ceFAZolin 2021-0 2021- No PRN, Univers (ANCEF) 12-18 Starting ity of injection 16:55: 19:33 on Wed [place] 00 :16 12/18/21 at [facility] 1155, Branch Until Thu12/18/21 at 1433, SVEN, Intra-op carbachoL 2021-0 Yes PRN, Univers (MIOSTAT) 12-18 Starting ity of 0.01 % 16:54: on Thu [place] intraocular 00 12/18/21 at Nc dical injection 1154, Branch Until Discontinu ed, Routine, Intra-op carbachoL 2021- No PRN, Univers (MIOSTAT) 12-18 Starting ity o f 0.01 % 16:54: 19:33 on Thu [place] intraocular 00 :16 12/18/21 at N[place] dical injection 1154, Branch Until Thu12/18/21 at 1433, Routine, Intra-op DUOVISC Yes PRN, Univers (DUOVISC 12-18 Starting ity of VISCO 16:45: on Thu ELASTIC) 3 00 12/18/21 at [facility] ical %-4 %(0.5 1145, Branch mL) 1 % Until (0.55 mL) Discontinu intraocular ed, injection Routine, Intra-op EPINEPHrine Yes PRN, Univer s 1:1,000 (12-18 Starting ity o f mg/mL) 16:45: on Thu (ADRENALIN) 00 12/18/21 at [place] dical injection 1145, Branch Until Discontinu ed, Routine, Intra-op balanced Yes PRN, Univers salt irrig 12-18 Starting ity o f soln comb1 16:45: on Thu (BSS PLUS) 00 12/18/21 at [facility] ical ophthalmic 1145, Branch solution Until 500 mL bag Discontinu ed, Routine, Intra-op DUOVISC 2021- No PRN, Univers (DUOVISC 12-18 Starting ity of VISCO 16:45: 19:33 on Thu ELASTIC) 3 00 :16 12/18/21 at [facility] ical %-4 %(0.5 1145, Branch mL) 1 % Until Wed (0.55 mL) 12/18/21 at intraocular 1433, injection Routine, Intra-op EPINEPHrine 2021- No PRN, Unive rs 1:1,000 (1 12-18 Starting ity of mg/mL) 16:45: 19:33 on Thu (ADRENALIN) 00 :16 12/18/21 at [place] dical injection 1145, Branch Until Thu12/18/21 at 1433, Routine, Intra-op balanced 2021- No PRN, Univers salt irrig 12-18 Starting ity of soln comb1 16:45: 19:33 on Thu [place] (BSS PLUS) 00 :16 12/18/21 at [facility] ical ophthalmic 1145, Branch solution Until Thu 500 mL bag 12/18/21 at 1433, Routine, Intra-op water for Yes PRN, Univers irrigation 12-18 Starting ity o f irrigation 16:41: on Thu solution 00 12/18/21 at Medic al 1141, Branch Until Discontinu ed, Routine, Intra-op water for 2021- No PRN, Univers irrigation 12-18 Starting ity of irrigation 16:41: 19:33 on Thu [place] solution 00 :16 12/18/21 at [facility] al 1141, Branch Until Thu12/18/21 at 1433, Routine, Intra-op Hyaluronida Yes PRN, Univer s se, Human 12-18 Starting ity of Recomb. 16:37: on Thu (HYLENEX) 00 12/18/21 at [facility] injection 1137, Branch Until Discontinu ed, Routine, Intra-op eye block Yes PRN, Univers syringe 12-18 Starting ity o f mL 16:37: on Thu 00 12/18/21 at [place] [id number], Branch Until Discontinu ed, Intra-op Hyaluronida 2021- No PRN, Unive rs se, Human 12-18 Starting ity o f Recomb. 16:37: 19:33 on Thu (HYLENEX) 00 :16 12/18/21 at [facility] injection 1137, Branch Until Thu12/18/21 at 1433, Routine, Intra-op eye block 2021- No PRN, Univers syringe 11 12-18 Starting ity of mL 16:37: 19:33 on Thu 00 :16 12/18/21 at [place] [id number], Branch Until Thu12/18/21 at 1433, Intra-op lactated 2021- No 1000mL at [address] [facility] IV 12-18-30 mL/hr, ity of infusion 14:30: 14:51 1,000 mL, [place] 1,000 mL 00 :00 IV Medical Infusion, Branch ONCE, 1 dose, On Thu12/18/21 at 0930, Routine, DSU Pre-op cyclopent 2021- No .5mL 0.5 mL, Univ ers 1%-tropic 12-1830 Left Eye, ity of 1%-phenyl 14:30: 14:53 ONCE, 1 [place] 2.5%-ketor 00 :00 dose, On Medic al 0.5% Thu Branch (MYDRIATIC 12/18/21 at #5) 0930, ophthalmic Routine, solution DSU Pre-op syringe 0.5 mL lactated 2021- No 1000mL at 42 Unive rs ringers IV 12-18 03-30 mL/hr, ity of infusion 14:30: 14:51 1,000 mL, [place] 1,000 mL 00 :00 IV Medical Infusion, Branch ONCE, 1 dose, On Thu12/18/21 at 0930, Routine, DSU Pre-op cyclopent 2021- No .5mL 0.5 mL, Univ ers 1%-tropic 12-1830 Left Eye, ity of 1%-phenyl 14:30: 14:53 ONCE, 1 [place] 2.5%-ketor 00 :00 dose, On Medic al 0.5% Thu Branch (MYDRIATIC 12/18/21 at #5) 09, ophthalmic Routine, solution DSU Pre-op syringe 0.5 mL isosorbide Yes 30mg Take 30 mg U nivers dinitrate 3-30 by mouth ity of 30 mg 12:33: daily. [place] tablet 16 Medical Branch losartan Yes 100mg Take 100 Univ ers 100 mg 3-30 mg by ity of tablet 12:33: mouth [place] 16 daily. Medical Branch omacetaxine Yes inject Univ ers mepesuccina 3-30 under the ity of te 12:33: skin. [place] (OMACETAXIN 16 Medical E SC) Branch omeprazole Yes 40mg Take 40 mg U nivers 40 mg 3-30 by mouth ity of capsule 12:33: daily. [address] Branch furosemide Yes 20mg Take 20 mg U nivers 20 mg 3-30 by mouth ity of tablet 12:33: daily. [place] [address] Medical Branch rivaroxaban 0 Yes 20mg Take 20 mg Univers (XARELTO) 3-30 by mouth. ity o f 20 mg 12:33: [place] tablet 16 Medical Branch fluticasone 0 Yes 1{puff} Inhale 1 Univers propion-flor 3-30 Puff every it y of meteroL 12:33: 12 [place] 250-50 (twelve) Medical mcg/dose hours. Branch inhalation disk ALBUTEROL 0 Yes Inhale as Uni vers INHALE 3-30 needed. ity of 12:33: [place] [address] Medical Branch amLODIPine 0 Yes 10mg Take 10 mg U nivers 10 mg 3-30 by mouth ity of tablet 12:33: daily. [address] Branch atorvastati 0 Yes 40mg Take 40 mg Univers n 40 mg 3-30 by mouth ity of tablet 12:33: at [place] [address] bedtime. Medical Branch carvediloL 0 Yes 12.5mg Take 12.5 Univers 12.5 mg 3-30 mg by ity of tablet 12:33: mouth 2 [place] [address] (two) Medical times Branch daily with meals. sotaloL 160 0 Yes 80mg Take 80 mg Univers mg tablet 3-30 by mouth ity of 12:33: every 12 [place] [address] (twelve) Medical hours. Branch isosorbide 0 Yes 30mg Take 30 mg U nivers dinitrate 3-30 by mouth ity of 30 mg 12:33: daily. [place] [address] Medical Branch losartan 0 Yes 100mg Take 100 Univ ers 100 mg 3-30 mg by ity of tablet 12:33: mouth [place] [address] daily. Medical Branch omacetaxine Yes inject Univ ers mepesuccina 3-30 under the ity of te 12:33: skin. [place] (OMACETAXIN 16 Medical E SC) Branch omeprazole 0 Yes 40mg Take 40 mg U nivers 40 mg 3-30 by mouth ity of capsule 12:33: daily. [address] Branch furosemide 0 Yes 20mg Take 20 mg U nivers 20 mg 3-30 by mouth ity of tablet 12:33: daily. [address] Branch rivaroxaban Yes 20mg Take 20 mg Univers (XARELTO) 3-30 by mouth. ity o f 20 mg 12:33: [address] Branch fluticasone 0 Yes 1{puff} Inhale 1 Univers propion-flor 3-30 Puff every it y of meteroL 12:33: 12 [place] [address] 16 (twelve) Medical mcg/dose hours. Branch inhalation disk ALBUTEROL 0 Yes Inhale as Uni vers INHALE 3-30 needed. ity of 12:33: [address] Branch amLODIPine 0 Yes 10mg Take 10 mg U nivers 10 mg 3-30 by mouth ity of tablet 12:33: daily. [address] Branch atorvastati 0 Yes 40mg Take 40 mg Univers n 40 mg 3-30 by mouth ity of tablet 12:33: at [place] [address] bedtime. Medical Branch carvediloL 0 Yes 12.5mg Take 12.5 Univers 12.5 mg 3-30 mg by ity of tablet 12:33: mouth 2 [place] [address] (two) Medical times Branch daily with meals. sotaloL 160 0 Yes 80mg Take 80 mg Univers mg tablet 3-30 by mouth ity of 12:33: every 12 [place] [address] (twelve) Medical hours. Branch fluticasone Yes 1{puff} Inhale 1 Univers propion-flor 3-28 Puff every it y of meteroL 09:42: 12 [place] 250[facility] 06 (twelve) Medical mcg/dose hours. Branch inhalation disk ALBUTEROL 0 Yes Inhale as Uni vers INHALE 3-28 needed. ity of 09:42: [address] Branch omeprazole 0 Yes 40mg Take 40 mg U nivers 40 mg 3-28 by mouth ity of capsule 09:34: daily. [address] furosemide 2021-0 Yes 20mg Take 20 mg U nivers 20 mg 3-28 by mouth ity of tablet 09:34: daily. [address] rivaroxaban 0 Yes 20mg Take 20 mg Univers (XARELTO) 3-28 by mouth. ity o f 20 mg 09:34: [address] Branch amLODIPine 0 Yes 10mg Take 10 mg U nivers 10 mg 3-28 by mouth ity of tablet 09:34: daily. [place] [address] Medical Branch atorvastati Yes 40mg Take 40 mg Univers n 40 mg 3-28 by mouth ity of tablet 09:34: at [place] [address] bedtime. Medical Branch carvediloL Yes 12.5mg Take 12.5 Univers 12.5 mg 3-28 mg by ity of tablet 09:34: mouth 2 [place] [address] (two) Medical times Branch daily with meals. sotaloL 160 Yes 80mg Take 80 mg Univers mg tablet 3-28 by mouth ity of 09:34: every 12 [place] [address] (twelve) Medical hours. Branch isosorbide Yes 30mg Take 30 mg U nivers dinitrate 3-28 by mouth ity of 30 mg 09:34: daily. [place] [address] Medical Branch losartan Yes 100mg Take 100 Univ ers 100 mg 3-28 mg by ity of tablet 09:34: mouth [place] [address] daily. Medical Branch omacetaxine Yes inject Univ ers mepesuccina 3-28 under the ity of te 09:34: skin. [place] (OMACETAXIN 47 Medical E SC) Branch PROLENSA Yes 1[drp] Place 1 Univ ers 0.07 % 3-25 Drop in ity of drops 00:00: left eye [place] 00 daily. X Medical 14 days Branch ofloxacin Yes 1[drp] Place 1 Uni vers 0.3 % 3-25 Drop in ity of ophthalmic 00:00: left eye [place] solution 00 once now. Medica l Night Branch before surgery prednisoLON Yes 1[drp] Place 1 U nivers E acetate 1 3-25 Drop in ity o f % 00:00: left eye [place] ophthalmic 00 daily. Medical suspension INSTILL 1 Bran ch drops DROP INTO LEFT EYE THREE TIMES DAILY FOR 7 DAYS THEN TWICE DAILY FOR 7 DAYS THEN 1 ONCE DAILY FOR 14 DAYS PROLENSA Yes 1[drp] Place 1 Univ ers 0.07 % 3-25 Drop in ity of drops 00:00: left eye [place] 00 daily. X Medical 14 days Branch ofloxacin Yes 1[drp] Place 1 Uni vers 0.3 % 3-25 Drop in ity of ophthalmic 00:00: left eye [place] as solution 00 once now. Medica l Night Branch before surgery prednisoLON Yes 1[drp] Place 1 U nivers E acetate 1 3-25 Drop in ity o f % 00:00: left eye [place] ophthalmic 00 daily. Medical suspension INSTILL 1 Bran ch drops DROP INTO LEFT EYE THREE TIMES DAILY FOR 7 DAYS THEN TWICE DAILY FOR 7 DAYS THEN 1 ONCE DAILY FOR 14 DAYS PROLENSA Yes 1[drp] Place 1 Univ ers 0.07 % 3-25 Drop in ity of drops 00:00: left eye [place] 00 daily. X Medical 14 days Branch ofloxacin Yes 1[drp] Place 1 Uni vers 0.3 % 3-25 Drop in ity of ophthalmic 00:00: left eye [place] as solution 00 once now. Medica l Night Branch before surgery prednisoLON Yes 1[drp] Place 1 U nivers E acetate 1 3-25 Drop in ity o f % 00:00: left eye [place] ophthalmic 00 daily. Medical suspension INSTILL 1 Bran ch drops DROP INTO LEFT EYE THREE TIMES DAILY FOR 7 DAYS THEN TWICE DAILY FOR 7 DAYS THEN 1 ONCE DAILY FOR 14 DAYS PROLENSA Yes 1[drp] Place 1 Univ ers 0.07 % 3-25 Drop in ity of drops 00:00: left eye [place] 00 daily. X Medical 14 days Branch ofloxacin Yes 1[drp] Place 1 Uni vers 0.3 % 3-25 Drop in ity of ophthalmic 00:00: left eye [place] solution 00 once now. Medica l Night Branch before surgery prednisoLON Yes 1[drp] Place 1 U nivers E acetate 1 3-25 Drop in ity o f % 00:00: left eye [place] ophthalmic 00 daily. Medical suspension INSTILL 1 Bran ch drops DROP INTO LEFT EYE THREE TIMES DAILY FOR 7 DAYS THEN TWICE DAILY FOR 7 DAYS THEN 1 ONCE DAILY FOR 14 DAYS isosorbide Yes 30mg Take 30 mg U nivers mononitrate 2-09 by mouth ity of 30 mg 24 hr [place] isosorbide Yes 30mg Take 30 mg U nivers mononitrate 2-09 by mouth ity of 30 mg 24 hr 00:[place] isosorbide 2-0 Yes 30mg Take 30 mg U nivers mononitrate 2-09 by mouth ity of 30 mg 24 hr 00:[place] isosorbide 2-0 Yes 30mg Take 30 mg U nivers mononitrate 2-09 by mouth [place]y of 30 mg 24 hr 00:[place] Immunizations Ordered Filled Immunization Date Status Comments [facility] e Immunization Name Name SARS-COV-2 COVID-19 2020-12-26 Completed Unive rsity of MOD[facility]ACC[facility]COV[facility]2 COVID-19 2020-12-26 Completed Unive rsity of MODERNA VACCINE 00:00:00 [facility] SARS-COV-2 COVID-19 2020-12-26 Completed Unive rsity of MODERNA VACCINE 00:00:00 [facility] SARS-COV-2 COVID-19 2020-12-26 Completed Unive rsity of MODERNA VACCINE 00:00:00 [facility] SARS-COV-2 COVID-19 2020-12-26 Completed Unive rsity of MODERNA VACCINE 00:00:00 [facility] SARS-COV-2 COVID-19 2020-12-26 Completed Unive rsity of MODERNA VACCINE 00:00:00 [facility] SARS-COV-2 COVID-19 2020-12-26 Completed Unive rsity of MODERNA VACCINE 00:00:00 [facility] SARS-COV-2 COVID-19 2020-12-26 Completed Unive rsity of MODERNA VACCINE 00:00:00 [facility] SARS-COV-2 COVID-19 2020-12-26 Completed Unive rsity of MODERNA VACCINE 00:00:00 [facility] SARS-COV-2 COVID-19 2020-11-28 Completed Unive rsity of MODERNA VACCINE 00:00:00 [facility] Branch SARS-COV-2 COVID-19 2020-11-28 Completed Unive rsity of MODERNA VACCINE 00:00:00 [place] [facility] ical [facility] SARS-COV-2 COVID-19 2020-11-28 Completed Unive rsity of MODERNA VACCINE 00:00:00 [facility] ical Branch SARS-COV-2 COVID-19 2020-11-28 Completed Unive rsity of MODERNA VACCINE 00:00:00 [facility] SARS-COV-2 COVID-19 2020-11-28 Completed Unive rsity of MODERNA VACCINE 00:00:00 [facility] Branch SARS-COV-2 COVID-19 2020-11-28 Completed Unive rsity of MODERNA VACCINE 00:00:00 [facility] SARS-COV-2 COVID-19 2020-11-28 Completed Unive rsity of MODERNA VACCINE 00:00:00 [facility] SARS-COV-2 COVID-19 2020-11-28 Completed Unive rsity of MODERNA VACCINE 00:00:00 [facility] SARS-COV-2 COVID-19 2020-11-28 Completed Unive rsity of MODERNA VACCINE 00:00:00 [facility] Vital Signs Vital Name Observation Time Observation Value Comments Source Systolic blood 2022-01-08 17:05:00 123 mm[Hg] Univer sity of pressure [facility] Diastolic blood 2022-01-08 17:05:00 72 mm[Hg] Unive rsity of pressure [facility] Heart rate 2022-01-08 17:05:00 80 /min [facility] Respiratory rate 2022-01-08 17:05:00 18 /min [facility] [place] [facility] Oxygen saturation in 2022-01-08 17:05:00 96 /min [facility] Arterial blood by [facility] Pulse oximetry Branch Body temperature 2022-01-08 16:45:00 36.39 Thuy [facility] [place] [facility] Body height 2021-12-26 19:55:00 157.5 cm [facility] Body weight 2021-12-26 19:55:00 45.813 kg [facility] BMI 2021-12-26 19:55:00 18.47 kg/m2 [facility] Systolic blood 2022-01-08 13:39:00 127 mm[Hg] Univer sity of pressure [place] [facility] Diastolic blood 2022-01-08 13:39:00 67 mm[Hg] Unive rsity of pressure [place] [facility] Heart rate 2022-01-08 13:39:00 72 /min [facility] [place] [facility] Body temperature 2022-01-08 13:39:00 36.67 Thuy [facility] [place] [facility] Respiratory rate 2022-01-08 13:39:00 17 /min [facility] [place] [facility] Oxygen saturation in 2022-01-08 13:39:00 97 /min University of Arterial blood by [facility] idris Pulse oximetry Branch Body height 2021-12-26 19:55:00 157.5 cm [facility] [place] [facility] Body weight 2021-12-26 19:55:00 45.813 kg [facility] [place] [facility] BMI 2021-12-26 19:55:00 18.47 kg/m2 [facility] [place] [facility] Systolic blood 2021-12-18 17:18:00 106 mm[Hg] Univer sity of pressure [facility] Diastolic blood 2021-12-18 17:18:00 75 mm[Hg] Unive rsity of pressure [facility] Heart rate 2021-12-18 17:18:00 71 /min [facility] [place] [facility] Respiratory rate 2021-12-18 17:18:00 15 /min [facility] [place] [facility] Oxygen saturation in 2021-12-18 17:18:00 98 /min University of Arterial blood by [facility] Pulse oximetry Branch Body temperature 2021-12-18 17:03:00 36.39 Thuy [facility] [place] [facility] Body height 2021-12-17 14:00:00 157.5 cm [facility] [place] [facility] Body weight 2021-12-17 14:00:00 45.813 kg [facility] [place] [facility] BMI 2021-12-17 14:00:00 18.47 kg/m2 [facility] Systolic blood 2021-12-18 14:31:00 122 mm[Hg] Univer sity of pressure [place] [facility] Diastolic blood 2021-12-18 14:31:00 95 mm[Hg] Unive rsity of pressure [place] [facility] Heart rate 2021-12-18 14:31:00 87 /min [facility] [place] [facility] Body temperature 2021-12-18 14:31:00 36.39 [facility] Respiratory rate 2021-12-18 14:31:00 13 /min [facility] Oxygen saturation in 2021-12-18 14:31:00 100 /min [facility] blood by [facility] Pulse oximetry [place] Body height 2021-12-17 14:00:00 157.5 cm [facility] Body weight 2021-12-17 14:00:00 45.813 kg [facility] BMI 2021-12-17 14:00:00 18.47 kg/m2 [facility] Procedures Procedure Date / Time Performing Source Performed Clinician PHACOEMULSIFICATION OF 2022-01-08 Abraham Gr [facility] CATARACT WITH INTRAOCULAR 16:10:00 [facility] LENS IMPLANT ASSIGNMENT OF BENEFITS 2022-01-06 Doctor Unassigned, [facility] 15:04:04 [place] [facility] PHACOEMULSIFICATION OF 2021-12-18 Abraham Gr [facility] CATARACT WITH INTRAOCULAR 16:27:00 [facility] [place] LENS IMPLANT ASSIGNMENT OF BENEFITS 2021-12-13 Doctor Unassigned, [facility] 19:32:47 [place] [facility] Encounters Start End Encounter Admission Attending Care Care Encounter Source Date/Time Date/Time Type Type Clinicians Facility Department ID 2022-01-08 2022-01-08 [facility] [id number] Univers 08:32:00 12:15:00 ABRAHAM rivera [facility] 2022-01-08 2022-01-08 Hospital [facility] [id number] Univers 08:32:00 12:15:00 Encounter Abraham JOHNSON [id number] ity of [place] 4.2.7.2.686 Brii thomas SURGICAL [id number] [facility] 071 Branch 2022-01-08 2022-01-08 Surgery [facility] [id number] Univers 10:06:00 10:46:00 Abraham JOHNSON [id number] [place] [id number] [facility] 020 Branch 2022-01-06 2022-01-06 Laboratory Only, Adc Test [facility] 1.2.840. [id number] Univers 11:30:00 11:45:00 Only Attila Abraham JOHNSON 350.1.13.1 0 ity [facility] 4.2.[place].2.[place] [id number] [facility] 353 Branch 2022-01-06 2022-01-06 Outpatient R [facility] [id number] Univers 11:30:00 11:30:00 [id number] ity [facility] 2022-01-06 2022-01-06 [facility] [id number] Univers 11:30:00 11:30:00 ABRAHAM [facility] [place] [facility] 2022-01-06 2022-01-06 Orders Doctor MOSS [id number] Univers 00:00:00 00:00:00 Only Unassigned, [place] 350.1.13.10 ity of [place] [facility] 4.2.7.2.686 [place] [id number] [facility] 009 Branch 2021-12-18 2021-12-18 [facility] [id number] Univers 09:23:00 12:33:00 Encounter Abraham JOHNSON [id number] ity of [facility] 4.2.[place].2.[place] [id number] [facility] 071 Branch 2021-12-18 2021-12-18 Outpatient [facility] [id number] Univers 09:23:00 12:33:00 ABRAHAM [facility] [place] [facility] 2021-12-18 2021-12-18 Surgery [facility] [id number] Univers 10:43:00 11:21:00 Abraham JOHNSON 350.1.13.10 ity [facility] 4.2.[place].2.[place] [id number] [facility] 020 Branch 2021-12-16 2021-12-16 Laboratory Only, Adc Test [facility] 1.2.840. 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, [facility] Lab Main [facility] 1.2.8 40.114 [id number] Univers 14:30:00 14:45:00 Visit Abraham Gr 350.1.13.1 0 ity of [place] 4.2.7.2.686 [facility] [id number] [address] 2021-12-13 2021-12-13 [facility] [id number] Univers 14:30:00 14:30:00 ABRAHAM [facility] [place] [facility] 2021-12-13 2021-12-13 Orders Doctor ISA [id number] [id number] Univers 00:00:00 00:00:00 Only Unassigned, [place] 350.1.13.10 ity of [place] [facility] 4.2.7.2.686 [place] [id number] [address] Results Test Description Test Time Test Comments Results Result Comments Source MAGNESIUM 2017-05-04 06:53:00 Test Item Value Reference Range Interpretation Comme nts MAGNESIUM (BEAKER) (test code = 627) 2.1 mg/dL 1.6-2.6 BASIC METABOLIC [id number] 06:53:00 Test Item Value Reference Range Interpretation [...] 0-0 (BEAKER) (test code = 413) TROPONIN [id number] 15:33:00 Test Item Value Reference Range Interpretation [...] acute neurological disease, and persistent tachyarrhythmia.BASIC METABOLIC [id number] 15:31:00 Test Item Value Reference Range Interpretation [...] PATIEN TS. CREATINE KINASE (CK), TOTAL AND [id number] 15:31:00 Test Item Value Reference Range Interpretation Comments CREATINE KINASE TOTAL (BEAKER) 228 U/L 29-200 H (test code = 380) CREATINE KINASE-MB (BEAKER) (test 4.0 ng/mL 0.0-6.6 code = 750) CREATINE KINASE-MB INDEX (BEAKER) 1.8 % (test code = 395) Effective 08/08/2014: CK-MB Reference Range ChangeNew: 0.0-6.6 Previous: 0.0-4.9CK-MB Reference Range:<6.7 Normal6.7-10.0 Borderline>10.0 AbnormalPLATELET AGGREGATION: DRUG [id number] 14:43:00 Test Item Value Reference Range Interpretation [...] (BEAKER) ADP suggest a (test code = 956121) M6X58-ebybvblrk drug effect. [id number] Beka Whyte MD (BEAKER) (test code = (electronic 2621) signature) PLATELET COUNT AGG 203 K/CU MM 150-450 (BEAKER) (test code = 2656) TROPONIN [id number] 00:49:00 Test Item Value Reference Range Interpretation [...] Previous: 0.0-4.9CK-MB Reference Range:<6.7 Normal6.7-10.0 Borderline>10.0 AbnormalTROPONIN [id number] 17:51:00 Test Item Value Reference Range Interpretation [...] Reference Range:<6.7 Normal6.7-10.0 Borderline>10.0 AbnormalPLATELET AGGREGATION: DRUG [id number] 15:59:00 Test Item Value Reference Range Interpretation [...] (BEAKER) ADP suggest a (test code = 463796) V6Q00-xrbvpifvi drug effect. [id number] Beka Whyte MD ([facility]) (test code = (electronic 2621) signature) PLATELET COUNT AGG 288 K/CU MM 150-450 ([facility]) (test code = 2656) PLATELET AGGREGATION: DRUG [id number] 15:58:00 Test Item Value Reference Range Interpretation Comments STRONG ADP 23 % 70-94 L RESULT([facility]) (test code = 2137) WEAK ADP RESULT([facility]) 20 % 60-91 L (test code = 2135) ARACHADONIC ACID 15 % 63-89 L RESULT(AKER) (test code = 2138) PLATELET AGG DRUG Decreased response to INTERPRETATION ([facility]) arachidonic acid (test code = 2408) suggests aspirin-like effect. PLATELET AGG DRUG Decreased response to INTERPRETATION ([facility]) ADP suggest a (test code = 692119) E6N96-pgmbbyyac drug effect. [id number] Beka Whyte MD ([facility]) (test code = (electronic 2621) signature) PLATELET COUNT AGG 235 K/CU MM 150-450 ([facility]) (test code = 2656) POCT-GLUCOSE [id number] 11:52:00 Test Item Value Reference Range Interpretation Comments POC-GLUCOSE METER 90 mg/dL 70-[address] [facility] 6720 ([facility]) (test code = CARL Rob[place] [facility] [address] 1538) TROPONIN [id number] 09:56:00 Test Item Value Reference Range Interpretation Comments TROPONIN I ([facility]) (test code = 15.16 ng/mL 0.00-0.03 397) [...] 0.0-4.9CK-MB Reference Range:<6.7 Normal6.7-10.0 Borderline>10.0 AbnormalCOMPREHENSIVE METABOLIC [id number] 09:04:00 Test Item Value Reference Range Interpretation [...] 0-0 (BEAKER) (test code = 413) TROPONIN [id number] 02:16:00 Test Item Value Reference Range Interpretation [...] Previous: 0.0-4.9CK-MB Reference Range:<6.7 Normal6.7-10.0 Borderline>10.0 AbnormalTROPONIN [id number] 18:37:00 Test Item Value Reference Range Interpretation Comments TROPONIN I (BEAKER) (test code = 5.50 ng/mL 0.00-0.03 HH [...] 0.0-6.6 Previous: 0.0-4.9CK-MB Reference Range:<6.7 Normal6.7-10.0 Borderline>10.0 [id number] 18:28:00 Test Item Value Reference Range Interpretation Comments ACTIVATED CLOTTING TIME 125 sec TEST ED AT [place] [address] ([facility]) (test code = [place] [address]) [id number] 16:13:00 Test Item Value Reference Range Interpretation Comments ACTIVATED CLOTTING TIME 153 sec TEST ED AT [place] [address] ([facility]) (test code = [place] [address]) [address] CREATINE KINASE (CK), TOTAL AND [id number] 13:57:00 Test Item Value Reference Range Interpretation Comments CREATINE KINASE TOTAL ([facility]) 88 U/L 29-200 (test code = 380) CREATINE KINASE-MB ([facility]) (test 5.2 ng/mL 0.0-6.6 code = 750) CREATINE KINASE-MB INDEX ([facility]) 5.9 % (test code = 395) Effective 08/08/2014: CK-MB Reference Range ChangeNew: 0.0-6.6 Previous: 0.0-4.9CK-MB Reference Range:<6.7 Normal6.7-10.0 Borderline>10.0 [id number] 13:43:00 Test Item Value Reference Range Interpretation Comments ACTIVATED CLOTTING TIME 197 sec TEST ED AT [place] [address] ([facility]) (test code = [place] [address]) [id number] 10:51:00 Test Item Value Reference Range Interpretation Comments ACTIVATED CLOTTING TIME 296 sec TEST ED AT [place] [address] ([facility]) (test code = [place] [address]) [id number] 10:03:00 Test Item Value Reference Range Interpretation Comments ACTIVATED CLOTTING TIME 252 sec TEST ED AT [place] [address] ([facility]) (test code = CAR[place] [address]) [id number] 10:03:00 Test Item Value Reference Range Interpretation Comments ACTIVATED CLOTTING TIME 709 sec TEST ED AT [place] [address] ([facility]) (test code = [place] [address]) [id number] 09:43:00 Test Item Value Reference Range Interpretation Comments ACTIVATED CLOTTING TIME 202 sec TEST ED AT [place] [address] ([facility]) (test code = [place] [address]) [id number] 09:04:00 Test Item Value Reference Range Interpretation Comments ACTIVATED CLOTTING TIME 257 sec TEST ED [address] [facility] 6720 ([place]) (test code = CARL Robles [facility] [address]) [id number] TROPONIN [id number] 08:02:00 Test Item Value Reference Range Interpretation Comments TROPONIN I ([place]) (test code = 0.16 ng/mL 0.00-0.03 H [...] renalfailure, acidosis, acute neurological disease, and persistent tachyarrhythmia.[id number] 07:53:00 Test Item Value Reference Range Interpretation Comments PARTIAL THROMBOPLASTIN TIME 81.9 seconds 22.5-36.0 H (BEAKER) (test code = 760) LACTIC ACID, VENOUS, WHOLE [id number] 07:51:00 Test Item Value Reference Range Interpretation Comments LACTATE BLOOD VENOUS (2) (BEAKER) 1.0 mmol/L 0.5-2.2 (test code = 2872) Effective 01/23/2016: Units/Reference Range ChangeNew: 0.5-2.2 mmol/L Previous: 5-20 mg/dLCOMPREHENSIVE METABOLIC [id number] 05:16:00 Test Item Value Reference Range Interpretation [...] 0-0 (BEAKER) (test code = 413) TROPONIN [id number] 03:12:00 Test Item Value Reference Range Interpretation [...] 0.0-6.6 Previous: 0.0-4.9CK-MB Reference Range:<6.7 Normal6.7-10.0 Borderline>10.0 [id number] 21:56:00 Test Item Value Reference Range Interpretation Comments PARTIAL THROMBOPLASTIN TIME 32.4 seconds 22.5-36.0 (BEAKER) (test code = 760) Prior to initiating heparinCREATINE KINASE (CK), TOTAL AND [id number] 14:11:00 Test Item Value Reference Range Interpretation Comments CREATINE KINASE TOTAL (BEAKER) 35 U/L 29-200 (test code = 380) CREATINE KINASE-MB (BEAKER) (test 1.3 ng/mL 0.0-6.6 code = 750) CREATINE KINASE-MB INDEX (BEAKER) 3.7 % (test code = 395) Effective 08/08/2014: CK-MB Reference Range ChangeNew: 0.0-6.6 Previous: 0.0-4.9CK-MB Reference Range:<6.7 Normal6.7-10.0 Borderline>10.0 AbnormalTROPONIN [id number] 14:11:00 Test Item Value Reference Range Interpretation [...] renalfailure, acidosis, acute neurological disease, and persistent tachyarrhythmia.[id number] 13:56:00 Test Item Value Reference Range Interpretation Comments PARTIAL THROMBOPLASTIN TIME 28.2 seconds 22.5-36.0 (BEAKER) (test code = 760) Prior to initiating heparinPLATELET [id number] 13:50:00 Test Item Value Reference Range Interpretation Comments PLATELET COUNT (BEAKER) (test 297 K/CU MM 150-450 code = 756) HEMOGLOBIN [id number] 13:50:00 Test Item Value Reference Range Interpretation Comments HEMOGLOBIN A1C (BEAKER) (test code = 4.9 % 4.3-6.1 368) PLATELET AGGREGATION: FUNCTION [id number] 09:03:00 Test Item Value Reference Range Interpretation Comments WEAK ADP 24 % 60-91 L RESULT(BEAKER) (test code = 2135) PLATELET FUNCTION 0-39% indicates marked SCREEN INTERP platelet dysfunction (BEAKER) (test code = 2173) [id number] Beka Whyte MD ([facility]) (test code = (electronic signature) 6006) PLATELET COUNT AGG 273 K/CU MM 150-450 (BEAKER) (test code = 2656) PLATELET AGGREGATION: FUNCTION [id number] 08:44:00 Test Item Value Reference Range Interpretation Comments WEAK ADP 23 % 60-91 L RESULT(BEAKER) (test code = 2135) PLATELET FUNCTION 0-39% indicates marked SCREEN INTERP platelet dysfunction (BEAKER) (test code = 2173) [id number] Beka Whyte MD (BEAKER) (test code = (electronic signature) 7926) PLATELET COUNT AGG 277 K/CU MM 150-450 [...] NOT APPLICABLE FOR DIALYSIS PATIEN TS. PROTHROMBIN [id number] 06:00:00 Test Item Value Reference Range Interpretation [...] (BEAKER) (test code = 413) BASIC METABOLIC [id number] 18:22:00 Test Item Value Reference Range Interpretation [...] NOT APPLICABLE FOR DIALYSIS PATIEN TS. PROTHROMBIN [id number] 18:06:00 Test Item Value Reference Range Interpretation Comments PROTIME (BEAKER) (test code = 13.0 seconds 11.7-14.7 759) INR (BEAKER) (test code = 370) 1.0 <=5.9 RECOMMENDED COUMADIN/WARFARIN INR THERAPY RANGESSTANDARD DOSE: 2.0 - 3.0 Includes: PROPHYLAXIS forvenous thrombosis, systemic embolization; TREATMENT for venous thrombosis and/or pulmonary embolus.HIGH RISK: Target INR is 2.5-3.5 for patients with mechanical heart valves.[id number] 18:06:00 Test Item Value Reference Range Interpretation Comments PARTIAL THROMBOPLASTIN TIME 30.2 seconds 22.5-36.0 (BEAKER) (test code = 760) CBC W/PLT COUNT & AUTO [id number] 17:58:00 Test Item Value Reference Range Interpretation [...] % 0-1 PERCENT (BEAKER) (test code = 3457)
[2022-01-14 19:10] LABS: Absolute Lymphocytes (CBC) 0.5 K/uL (0.7-4.9); Hematocrit 40.4 % (36.0-45.0); Lymphocytes % 8.7 % (15.3-44.8); MPV 8.7 fL (7.6-11.3); RBC Red Blood Cell Count 4.63 M/uL (3.86-4.86)
[2022-01-14 19:27] LABS: Albumin 3.9 g/dL (3.4-5.0); Bilirubin Total 0.8 mg/dL (0.2-1.0); Potassium 3.9 mmol/L (3.5-5.1)
[2022-01-14] MEDS ORDERED: ONDANSETRON 4 MG/2 ML VIAL ONE (19:27)
[2022-01-14] MEDS ORDERED: HYDROCODONE/CHLORPHEN 5 ML/OSYR ONE (19:27)
--- NOTE | 2022-01-14 19:53 | RAD REPORT ---
EXAM DESCRIPTION: RAD - Chest Single View - 01/14/2022 7:40 pm CLINICAL HISTORY: COUGH COMPARISON: Chest Pa And Lat (2 Views) dated 09/11/2021; Chest Single View dated 09/09/2021; Chest P a And Lat (2 Views) dated 11/25/2018; Chest Pa And Lat (2 Views) dated 09/19/2017 FINDINGS: Lines: None. Lungs: No evidence of edema or pneumonia. Pleural: No significant pleural effusions or pneumothorax. Cardiac: The heart size is within normal limits. Bones: No acute fractures. Other: IMPRESSION: No acute cardiopulmonary disease.
[2022-01-14 20:02] LABS: SARS-COV-2 RT PCR POSITIVE (NEGATIVE)
--- NOTE | 2022-01-14 20:28 | RAD REPORT ---
EXAM DESCRIPTION: CTAbdomen Pelvis W Contrast - 01/14/2022 8:02 pm CLINICAL HISTORY: abdominal pain COMPARISON: Abdomen Pelvis W Contrast dated 04/06/2019; Abdomen Pelvis W Contrast dated 02/04/2018 ; CT ABD PELVIS W CONTRAST dated 12/24/2012bdomen Pelvis W Contrast dated 04/06/2019; Abdomen Pelvi s W Contrast dated 02/04/2018; CT ABD PELVIS W CONTRAST dated 12/24/2012; CT ABD PELVIS W CONTRAST dated 02/02/2009 TECHNIQUE: CT of the abdomen and pelvis was performed. All CT scans are performed using dose optimization technique as appropriate and may include automated exposure control or mA/KV adjustment according to patient size. FINDINGS: Lower chest: Coronary artery stent. Small hiatal hernia. Liver: No acute abnormality or suspicious lesions. Biliary: No biliary ductal dilatation. Stomach: No significant focal abnormality. Duodenum: No significant focal abnormality. Pancreas: No significant abnormality. Spleen: No significant abnormality. Adrenal: No suspicious lesions. Kidney/ureter: No hydronephrosis. No renal calculi. Retroperitoneum: No retroperitoneal adenopathy. Vascular: No aneurysm. Atherosclerosis. Bowel: No significant focal abnormality. Normal appendix. Peritoneum: No ascites or free air. Bladder: Grossly unremarkable. Reproductive: No adnexal masses. Bones: No acute fracture. Multilevel degenerative changes are present in the spine. Other: n/a IMPRESSION: No acute intra-abdominal or pelvic finding. Normal appendix.
--- NOTE | 2022-01-14 20:47 | ER ---
Nurse's Notes [facility] Name: Teresa Aguilar Age: 81 yrs Sex: Female : 1940 Arrival Date: 01/14/2022 Time: 18:23 Bed 4 Private MD: Diagnosis: Coronavirus infection, unspecified Presentation: 01/14 18:47 Chief complaint: Patient states: ABD pain and vomiting since 1500 today. Coronavirus vg1 screen: Vaccine status: Patient reports receiving the 2nd dose of the covid vaccine. Client denies travel out of the [place] in the last 14 days. Ebola Screen: Patient denies exposure to infectious person. Patient denies travel to an Ebola-affected area in the 21 days before illness onset. Initial Sepsis Screen: Does the patient meet any 2 criteria? No. Patient's initial sepsis screen is negative. Does the patient have a suspected source of infection? No. Patient's initial sepsis screen is negative. Risk Assessment: Do you want to hurt yourself or someone else? Patient reports no desire to harm self or others. Onset of symptoms was January 14, 2022 at 15:00. 18:47 Method Of Arrival: Wheelchair vg1 18:47 Acuity: HUSEYIN 3 vg1 Triage Assessment: 18:48 General: Appears uncomfortable, Behavior is calm, cooperative. Pain: Complains of pain vg1 in abdomen. GI: Reports vomiting. Historical: - Allergies: 18:48 Hydrochlorothiazide; vg1 - Home Meds: 18:48 amlodipine 10 mg tab 1 tab once daily [Active]; aspirin 81 mg Oral chew 1 tab once vg1 daily [Active]; atorvastatin 10 mg Oral tab 1 tab once daily [Active]; isosorbide mononitrate 30 mg Oral Tb24 1 tab once daily [Active]; losartan 100 mg Oral tab 1 tab once daily [Active]; omeprazole 40 mg Oral cpDR 1 cap once daily [Active]; Xarelto 20 mg Oral tab 1 tab once daily [Active]; Furosemide Oral [Active]; Advair Diskus Inhl [Active]; carvedilol oral [Active]; sotalol Oral [Active]; Potassium Chloride Oral [Active]; - PMHx: 18:48 Atrial fibrillation; Congestive heart failure; Chronic obstructive lung disease; Asthma;vg1 - Immunization history:: Client reports receiving the 2nd dose of the Covid vaccine. - Social history:: Smoking status: Patient denies any tobacco usage or history of. Screenin:00 Abuse screen: Denies threats or abuse. Denies injuries from another. Nutritional bp screening: No deficits noted. Tuberculosis screening: No symptoms or risk factors identified. Fall Risk None identified. Assessment: 18:50 General: SEE TRIAGE NOTE. bp 19:29 General: Appears in no apparent distress. Pain: Denies pain. Respiratory: Reports cough as6 that is Respiratory effort is even, unlabored, Respiratory pattern is regular, symmetrical. GI: Reports nausea. Vital Signs: 18:47 BP 153 / 85; Pulse 103; Resp 16; Temp 97.6; Pulse Ox 95% on R/A; Weight 46.72 kg; vg1 Height 5 ft. 2 in. (157.48 cm); 19:30 BP 121 / 67; Pulse 99; Resp 20 S; Pulse Ox 97% on R/A; as6 21:05 BP 143 / 86; Pulse 102; Resp 18 S; Pulse Ox 97% on R/A; as6 18:47 Body Mass Index 18.84 (46.72 kg, 157.48 cm) vg1 ED Course: 18:23 Patient arrived in ED. ds1 18:47 Charlie Elena NP is PHCP. pm1 18:47 Shalom Valdez MD is Attending Physician. pm1 18:48 Triage completed. vg1 18:48 Arm band placed on. vg1 19:00 Patient has correct armband on for positive identification. Bed in low position. Call bp light in reach. Side rails up X2. 19:03 Robert Lou, JULIA is Primary Nurse. bp 19:03 Inserted saline lock: 20 gauge in right antecubital area, using aseptic technique. bp 19:41 Chest Single View XRAY In Process Unspecified. EDMS 20:05 Abdomen In Process Unspecified. EDMS 21:10 No provider procedures requiring assistance completed. IV discontinued, intact, as6 bleeding controlled, No redness/swelling at site. Pressure dressing applied. Administered Medications: 19:28 Drug: Tussionex Pennkinetic ER (chlorpheniramine-hydrocodone) Suspension 5 ml Route: PO;as6 21:06 Follow up: Response: No adverse reaction as6 19:29 Drug: Zofran (Ondansetron) 4 mg Route: IVP; Site: right antecubital; as6 21:06 Follow up: Response: No adverse reaction as6 Outcome: 20:46 Discharge ordered by . pm1 21:10 Discharged to home via wheelchair, with family. as6 21:10 Condition: stable 21:10 Discharge instructions given to patient, family, Instructed on discharge instructions, follow up and referral plans. medication usage, Demonstrated understanding of instructions, follow-up care, medications, Prescriptions given X 4. 21:11 Patient left the ED. as6 Signatures: Dispatcher [employer] EDNM AyonShana salomon ds1 Charlie Elena, RONALD [facility] pm1 Robert Lou, JULIA RN Ana Cristina Ayala RN RN vg1 Shola Blanco RN RN as6
--- NOTE | 2022-01-14 20:47 | EDPHYS ---
Physician Documentation [facility] Name: Teresa Aguilar Age: 81 yrs Sex: Female : 1940 Arrival Date: 01/14/2022 Time: 18:23 Bed 4 Private MD: ED Physician Shalom Valdez HPI: 01/14 18:47 This 81 yrs old Female presents to ER via Wheelchair with complaints of Vomiting. pm1 18:47 The patient presents to the emergency department with posttussive vomting. Onset: The pm1 symptoms/episode began/occurred at 15:00. Possible causes: unknown. The symptoms are aggravated by coughing causes vomiting The symptoms are alleviated by nothing. 18:47 Associated signs and symptoms: Pertinent positives: abdominal pain, vomiting, Pertinent pm1 negatives: diarrhea, dysuria, fever. Severity of symptoms: in the emergency department the symptoms are unchanged. Similar presentation last year. The patient has not recently seen a physician. Historical: - Allergies: 18:48 Hydrochlorothiazide; vg1 - Home Meds: 18:48 amlodipine 10 mg tab 1 tab once daily [Active]; aspirin 81 mg Oral chew 1 tab once vg1 daily [Active]; atorvastatin 10 mg Oral tab 1 tab once daily [Active]; isosorbide mononitrate 30 mg Oral Tb24 1 tab once daily [Active]; losartan 100 mg Oral tab 1 tab once daily [Active]; omeprazole 40 mg Oral cpDR 1 cap once daily [Active]; Xarelto 20 mg Oral tab 1 tab once daily [Active]; Furosemide Oral [Active]; Advair Diskus Inhl [Active]; carvedilol oral [Active]; sotalol Oral [Active]; Potassium Chloride Oral [Active]; - PMHx: 18:48 Atrial fibrillation; Congestive heart failure; Chronic obstructive lung disease; Asthma;vg1 - Immunization history:: Client reports receiving the 2nd dose of the Covid vaccine. - Social history:: Smoking status: Patient denies any tobacco usage or history of. ROS: 18:47 Constitutional: Negative for fever, chills, and weight loss, Cardiovascular: Negative pm1 for chest pain, palpitations, and edema. 18:47 Back: Negative for injury and pain, : Negative for injury, bleeding, discharge, and swelling, MS/Extremity: Negative for injury and deformity, Skin: Negative for injury, rash, and discoloration, Neuro: Negative for headache, weakness, numbness, tingling, and seizure. 18:47 Respiratory: Positive for cough, with clear sputum, Negative for shortness of breath, wheezing. 18:47 Abdomen/GI: Positive for abdominal pain, Posttussive voimting, Negative for diarrhea, constipation. 18:47 All other systems are negative. Exam: 18:47 Constitutional: This is a well developed, well nourished patient who is awake, alert, pm1 and in no acute distress. Head/Face: Normocephalic, atraumatic. 18:47 Back: No spinal tenderness. No costovertebral tenderness. Full range of motion. Skin: Warm, dry with normal turgor. Normal color with no rashes, no lesions, and no evidence of cellulitis. MS/ Extremity: Pulses equal, no cyanosis. Neurovascular intact. Full, normal range of motion. 18:47 Cardiovascular: Exam negative for acute changes, Rate: tachycardic, actual rate is 101 bpm, Rhythm: regular, Pulses: no pulse deficits are appreciated, Heart sounds: normal, Edema: is not appreciated. 18:47 Respiratory: Exam negative for acute changes, respiratory distress, shortness of breath, Breath sounds: are clear throughout. 18:47 Abdomen/GI: Inspection: abdomen appears normal, Palpation: abdomen is soft and non-tender, in all quadrants. 18:47 Neuro: Exam negative for acute changes, Orientation: is normal, Mentation: is normal, Motor: is normal, moves all fours. Vital Signs: 18:47 BP 153 / 85; Pulse 103; Resp 16; Temp 97.6; Pulse Ox 95% on R/A; Weight 46.72 kg; vg1 Height 5 ft. 2 in. (157.48 cm); 19:30 BP 121 / 67; Pulse 99; Resp 20 S; Pulse Ox 97% on R/A; as6 21:05 BP 143 / 86; Pulse 102; Resp 18 S; Pulse Ox 97% on R/A; as6 18:47 Body Mass Index 18.84 (46.72 kg, 157.48 cm) vg1 MDM: 18:48 Patient medically screened. rn 20:24 Data reviewed: vital signs. Data interpreted: Pulse oximetry: on room air is 97 %. pm1 Interpretation: normal. 20:44 Counseling: I had a detailed discussion with the patient and/or guardian regarding: the pm1 historical points, exam findings, and any diagnostic results supporting the discharge/admit diagnosis, lab results, radiology results, the need for outpatient follow up, to return to the emergency department if symptoms worsen or persist or if there are any questions or concerns that arise at home. 20:48 ED course: Patient with history of COPD and is reporting wheezing. She took breathing pm1 treatment prior to arrival. Therefore will discharge home with steroids, azithromycin, and cough expectorant/suppressant. 01/14 18:46 Order name: CBC with Diff; Complete Time: 19:17 rn 01/14 18:46 Order name: CMP; Complete Time: 19:28 rn 01/14 18:46 Order name: Lipase; Complete Time: 19:28 rn 01/14 18:56 Order name: COVID-19/FLU A+B (Document "Date of Onset" if Symptomatic); Complete Time: pm1 20:11 01/14 18:46 Order name: IV Saline Lock; Complete Time: 19:03 rn 01/14 18:46 Order name: Labs collected and sent; Complete Time: 19:03 rn 01/14 18:47 Order name: Cardiac monitoring; Complete Time: 19:07 rn 01/14 18:55 Order name: Chest Single View XRAY; Complete Time: 20:11 pm1 01/14 18:57 Order name: Abdomen ; Complete Time: 20:32 EDMS Administered Medications: 19:28 Drug: Tussionex Pennkinetic ER (chlorpheniramine-hydrocodone) Suspension 5 ml Route: PO;as6 21:06 Follow up: Response: No adverse reaction as6 19:29 Drug: Zofran (Ondansetron) 4 mg Route: IVP; Site: right antecubital; as6 21:06 Follow up: Response: No adverse reaction as6 Disposition Summary: 01/14/22 20:46 Discharge Ordered Location: Home pm1 Problem: new pm1 Symptoms: have improved pm1 Condition: Stable pm1 Diagnosis - Coronavirus infection, unspecified pm1 Followup: pm1 - With: Emergency Department - When: As needed - Reason: Worsening of condition Followup: pm1 - With: Private Physician - When: 2 - 3 days - Reason: Recheck today's complaints, Continuance of care, Re-evaluation by your physician Discharge Instructions: - Discharge Summary Sheet pm1 - COVID-19 pm1 - COVID-19 Frequently Asked Questions pm1 - 10 Things You Can Do to Manage Your COVID-19 Symptoms at Home - [facility] pm1 - COVID-19: Quarantine vs. Isolation - [facility] pm1 Forms: - Medication Reconciliation Form pm1 - Thank You Letter pm1 - Antibiotic Education pm1 - Prescription Opioid Use pm1 Prescriptions: - ondansetron 4 mg Oral tablet,disintegrating - place 1 tablet by TRANSLINGUAL route every 8 hours As needed; 12 tablet; pm1 Refills: 0, Product Selection Permitted - Zithromax Z-Kingsley 250 mg Oral Tablet - take 1 tablet by ORAL route as directed for 5 days Day 1 - take two (2) tablets pm1 one time. Day 2, 3, 4 , 5 take one (1) tablet once daily.; 6 tablet; Refills: 0, Product Selection Permitted - Medrol (Kingsley) 4 mg Oral Tablets, Dose Pack - take 1 tablet by ORAL route as directed - follow package instructions; 1 pm1 packet; Refills: 0, Product Selection Permitted - Guaifenesin AC 10-100 mg/5 mL Oral Liquid - take 10 milliliters by ORAL route every 4 hours As needed; 240 milliliter; pm1 Refills: 0, Product Selection Permitted Signatures: Dispatcher [employer] Shalom Womack MD MD rn Attema, Lee, R D INTERN-C R D INTERN-Cla1 Charlie Elena, [employer] pm1 Ana Cristina Soni, RN RN vg1 Shola Blanco RN RN as6
[2022-01-14 23:55] VITALS: TEMP 97.6
[2022-01-14 23:56] VITALS: O2SAT 97
[2022-01-14 23:58] VITALS: BP 143/86
== END 2022-01-14 21:11 | disposition home or self-care (01) ==
LOC: ER 18:20
DX: U07.1 COVID-19 (principal); J44.9 Chronic obstructive pulmonary disease, unspecified; I50.9 Heart failure, unspecified; I48.91 Unspecified atrial fibrillation; Z79.01 Long term (current) use of anticoagulants; Z79.82 Long term (current) use of aspirin
CPT/HCPCS: 85025; 36415; 83690; 80053; 0240U; 74177; 71045; Q9967; J2405; 93005; 96374; 99284

== ENCOUNTER 2022-08-11 09:48 | Emergency (ER) | payer OTHER ==
--- OUTSIDE RECORDS SUMMARY | 2022-08-11 09:54 | XMS REPORT | Continuity of Care Document ---
:1940 Author Organization [facility] t Address [address] [place] [address] Care Team Providers Name Role Phone MAEVE COHEN Primary Care Physician Unavailable ABRAHAM GR Attending Clinician Unavailable Abraham Gr MD Attending Clinician Only, Doreen Test Attending Clinician Unavailable Doctor Unassigned, Rigby Attending Clinician Unavailable Pob, [facility] Main Attending Clinician Unavailable BEATRICE JACOBSEN Attending Clinician Unavailable ABRAHAM GR Admitting Clinician Unavailable Abraham Gr MD Admitting Clinician BEATRICE JACOBSEN Admitting Clinician Unavailable Payers Payer Name Policy Type Policy Number Effective Date Expiration Date Cristóbal becker MEDICARE PART A [id number] 2004 \\T\\ B 00:00:00 [facility] [id number] 2019 00:00:00 Problems Condition Condition Condition Status Onset Resolution Last Treating Co mments Source Name Details Category Date Date Treatment Clinician Date NSTEMI NSTEMI Disease Active [facility] (non-ST 05-02 elevated elevated 00:00: Medica l myocardial myocardial 00 Ce nter infarction infarction ) ) Hypertensi Hypertensi Disease Active [facility]-29 [facility] 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 [facility] disease [facility] 00 Center Allergies, Adverse Reactions, Alerts Allergy Allergy Status Severity Reaction(s) Onset Inactive Treating Comm ents Source Name Type Date Date Clinician HYDRALAZ DRUG Active N/V Univers INE INGREDI 3-28 ity of 00:00: [place] 00 Medical Branch Hydralaz Propensi Active Nausea "gave me Univ ers ine ty to and/or 12-16 a massive ity of adverse Vomiting 00:00: heart [place] reaction 00 attack" Medical s Branch HYDRALAZ Allergy Active Low N\\T\\V [facility] INE 8-10 [facility]UE [facility] S Center Hydralaz Drug Active Nausea And "Feels [facility] ine Intolera Vomiting, 8-10 hot" when Megan kes [employer] nce Other (See 00:00: medicatio M lizet s Comments) 00 n given Center NO KNOWN Drug Active Univers ALLERGIE Class ity of [facility] Social History Social Habit Start Date Stop Date Quantity Comments Source Exposure to 2021-12-03 2022-01-02 Not sure [facility] SARS-CoV-2 00:00:00 11:59:00 [facility] (event) Branch Tobacco use and 2021-12-16 2021-12-16 Never used Universit y of exposure 00:00:00 00:00:00 [facility] Alcohol intake 2017-05-01 2017-05-01 [facility]00 non-drinker of Medical nter alcohol (finding) Sex Assigned At [birth year] [facility] kes 00:00:00 00:00:00 [facility] Smoking Status Start Date Stop Date Source Unknown if ever smoked Universit y of [facility] Never smoker [facility] Former smoker 2017-04-28 00:00:00 2017-04-28 00:00:00 [facility] Medications Ordered Filled Start Stop Current Ordering Indication Dosage Frequency Signature Comments Components Source Medication Medication Date Date Medication? Clinician (SIG) Name Name neomycin-po Yes PRN, Univer s lymyxin-dex 4-20 Starting ity of amethasone 16:33: on Thu [place] (MAXITROL) 00 01/08/22 at [facility] ical 3.5 1133, Branch mg/g-10,000 Until unit/g-0.1 Discontinu % ed, ophthalmic Routine, ointment Intra-op neomycin-po 2021-0 2021- No PRN, Unive rs lymyxin-dex 01-08 Starting ity of amethasone 16:33: 19:29 [place] ([place] 00 :35 01/08/22 at [facility] ical 3.5 1133, Branch mg/g-10,000 Until Thu unit/g-0.1 01/08/22 at % 1429, ophthalmic Routine, ointment Intra-op dexamethaso Yes PRN, Univer ne 01-08 Starting ity of (DECADRON 16:32: on Thu PHOSPHATE) 00 01/08/22 at [facility] ical injection 1132, Branch Until Discontinu ed, Routine, Intra-op sodium 0 Yes PRN, Univers chloride 01-08 Starting ity of (NS) 16:32: on Thu injection 00 01/08/22 at [facility] 1132, Branch Until Discontinu ed, Routine, Intra-op ceFAZolin 0 Yes PRN, Univers (ANCEF) 01-08 Starting ity of injection 16:32: on Thu01/08/22 at [facility] 1132, Branch Until Discontinu ed, SVEN, Intra-op dexamethaso 2021-0 2021- No PRN, Unive rs ne 01-08 Starting ity of (DECADRON 16:32: 19:29 on Thu [place] PHOSPHATE) 00 :35 01/08/22 at [facility] ical injection 1132, Branch Until Thu01/08/22 at 1429, Routine, Intra-op sodium 2021-0 2021- No PRN, Univers chloride 01-08 Starting ity of (NS) 16:32: 19:29 on Thu [place] injection 00 :35 01/08/22 at [facility] idris 1132, Branch Until Thu01/08/22 at 1429, Routine, Intra-op ceFAZolin 2021-0 2021- No PRN, Univers (ANCEF) 01-08 Starting ity of injection 16:32: 19:29 on Thu [place] 00 :35 01/08/22 at Medical 1132, Branch Until Thu01/08/22 at 1429, SVEN, Intra-op carbachoL Yes PRN, Univers (MIOSTAT) 20 Starting ity of 0.01 % 16:30: on Thu [place] intraocular 00 01/08/22 at Or dical injection 1130, Branch Until Discontinu ed, Routine, Intra-op DUOVISC Yes PRN, Univers (DUOVISC 20 Starting ity of VISCO 16:30: on Thu [place] ELASTIC) 3 00 01/08/22 at Med ical %-4 %(0.5 1130, Branch mL) 1 % Until (0.55 mL) Discontinu intraocular ed, injection Routine, Intra-op carbachoL 2021- No PRN, Univers (MIOSTAT) 01-0820 Starting ity o f 0.01 % 16:30: 19:29 on Thu [place] intraocular 00 :35 01/08/22 at Or dical injection 1130, Branch Until Thu01/08/22 at 1429, Routine, Intra-op DUOVISC 2021- No PRN, Univers (DUOVISC 01-0820 Starting ity of VISCO 16:30: 19:29 on Thu [place] ELASTIC) 3 00 :35 01/08/22 at Med ical %-4 %(0.5 1130, Branch mL) 1 % Until Wed (0.55 mL) 01/08/22 at intraocular 1429, injection Routine, Intra-op EPINEPHrine Yes PRN, Univer s 1:1,000 (1 01-08 Starting ity o f mg/mL) 16:27: on Thu (ADRENALIN) 00 01/08/22 at Or dical injection 1127, Branch Until Discontinu ed, Routine, Intra-op balanced Yes PRN, Univers salt irrig 01-08 Starting ity o f soln comb1 16:27: on Thu (BSS PLUS) 00 01/08/22 at [facility] ical ophthalmic 1127, Branch solution Until 500 mL bag Discontinu ed, Routine, Intra-op EPINEPHrine 0 2021- No PRN, Unive rs 1:1,000 (1 01-08-20 Starting ity of mg/mL) 16:27: 19:29 on Thu [place] (ADRENALIN) 00 :35 01/08/22 at Or dical injection 1127, Branch Until Thu01/08/22 at 1429, Routine, Intra-op balanced 2021-0 2021- No PRN, Univers salt irrig 01-08-20 Starting ity of soln comb1 16:27: 19:29 [place] (BSS PLUS) 00 :35 01/08/22 at [facility] ical ophthalmic 1127, Branch solution Until Thu 500 mL bag 01/08/22 at 1429, Routine, Intra-op water for Yes PRN, Univers irrigation 4-20 Starting ity o f irrigation 16:24: on Thu [place] solution 00 01/08/22 at [facility] 1124, Branch Until Discontinu ed, Routine, Intra-op water for 2021- No PRN, Univers irrigation 01-08-20 Starting ity of irrigation 16:24: 19:29 on Thu [place] solution 00 :35 01/08/22 at [facility] al 1124, Branch Until Thu01/08/22 at 1429, Routine, Intra-op Hyaluronida Yes PRN, Univer s se, Human 4-20 Starting ity of Recomb. 16:20: on Thu [place] (HYLENEX) 00 01/08/22 at [facility] injection 1120, Branch Until Discontinu ed, Routine, Intra-op Hyaluronida 0 2021- No PRN, Unive rs se, Human 01-08-20 Starting ity o f Recomb. 16:20: 19:29 on Thu [place] (HYLENEX) 00 :35 01/08/22 at [facility] injection 1120, Branch Until Thu01/08/22 at 1429, Routine, Intra-op eye block 2021-0 Yes PRN, Univers syringe 11 -20 Starting ity o f mL 16:18: on Thu [place] 00 01/08/22 at [place] [id number], Branch Until Discontinu ed, Intra-op eye block 2021-0 2021- No PRN, Univers syringe 11 -20 -20 Starting ity of mL 16:18: 19:29 on Thu [place] 00 :35 01/08/22 at Medical 1118, Branch Until Thu01/08/22 at 1429, Intra-op cyclopent 2021- No .5mL 0.5 mL, Univ ers 1%-tropic 4-20 04-20 Right Eye, ity of 1%-phenyl 13:45: 13:44 [...] No .5mL 0.5 mL, Univ ers 1%-tropic 4- 04-20 Right Eye, ity of 1%-phenyl 13:45: 13:44 ONCE, 1 [place] 2.5%-ketor 00 :00 dose, On Medic al 0.5% [facility] Branch (MYDRIATIC 01/08/22 at #5) 0845, ophthalmic [...] by mouth ity of tablet 12:29: daily. [address] Branch atorvastati Yes 40mg Take 40 mg Univers n 40 mg 4-20 by mouth ity of tablet 12:29: at [place] [address] bedtime. Medical Branch carvediloL Yes 12.5mg Take 12.5 Univers 12.5 mg 4-20 mg by ity of tablet 12:29: mouth 2 [place] [address] (two) Medical times Branch daily with meals. sotaloL 80 Yes 80mg Take 80 mg U nivers mg tablet 4-20 by mouth ity of 12:29: every 12 [place] [address] (twelve) Medical hours. Branch losartan Yes 100mg Take 100 Univ ers 100 mg 4-20 mg by ity of tablet 12:29: mouth [place] 35 daily. Medical Branch omacetaxine Yes inject Univ ers mepesuccina 4-20 under the ity of te 12:29: skin. [place] (OMACETAXIN 35 Medical E SC) Branch omeprazole Yes 40mg Take 40 mg U nivers 40 mg 4-20 by mouth ity of capsule 12:29: daily. [address] Branch furosemide Yes 20mg Take 20 mg U nivers 20 mg 4-20 by mouth ity of tablet 12:29: daily. [address] rivaroxaban Yes 20mg Take 20 mg Univers (XARELTO) 4-20 by mouth. ity o f 20 mg 12:29: [place] [address] Medical Branch fluticasone Yes 1{puff} Inhale 1 Univers propion-flor 4-20 Puff every it y of meteroL 12:29: 12 [place] 250[facility] (twelve) Medical mcg/dose hours. Branch inhalation disk ALBUTEROL Yes Inhale as Uni vers INHALE 4-20 needed. ity of 12:29: [place] [address] Medical Branch amLODIPine Yes 10mg Take 10 mg U nivers 10 mg 4-20 by mouth ity of tablet 12:29: daily. [place] [address] Medical Branch atorvastati Yes 40mg Take 40 mg Univers n 40 mg 4-20 by mouth ity of tablet 12:29: at [place] [address] bedtime. Medical Branch carvediloL Yes 12.5mg Take 12.5 Univers 12.5 mg 4-20 mg by ity of tablet 12:29: mouth 2 [place] [address] (two) Medical times [place] daily with meals. sotaloL 80 Yes 80mg Take 80 mg U nivers mg tablet 4-20 by mouth ity of 12:29: every 12 [place] [address] (twelve) Medical hours. Branch losartan Yes 100mg Take 100 Univ ers 100 mg 4-20 mg by ity of tablet 12:29: mouth [place] 35 daily. Medical Branch omacetaxine Yes inject Univ ers mepesuccina 4-20 under the ity of te 12:29: skin. [place] (OMACETAXIN 35 Medical E SC) Branch omeprazole Yes 40mg Take 40 mg U nivers 40 mg 4-20 by mouth ity of capsule 12:29: daily. [place] [address] Medical Branch furosemide 0 Yes 20mg Take 20 mg U nivers 20 mg 4-20 by mouth ity of tablet 12:29: daily. [place] [address] Medical Branch rivaroxaban 0 Yes 20mg Take 20 mg Univers (XARELTO) 4-20 by mouth. ity o f 20 mg 12:29: [place] tablet 35 Medical Branch fluticasone Yes 1{puff} Inhale 1 Univers propion-flor 4-20 Puff every it y of meteroL 12:29: 12 [place] 250-50 35 (twelve) Medical mcg/dose hours. Branch inhalation disk ALBUTEROL Yes Inhale as Uni vers INHALE 4-20 needed. ity of 12:29: [place] [address] Medical Branch sotaloL 80 Yes 80mg Take 80 mg U nivers mg tablet 4-14 by mouth ity of 11:55: every 12 [place] 56 (twelve) Medical hours. Branch sotaloL 80 Yes 80mg Take 80 mg U nivers mg tablet 4-14 by mouth ity of 11:55: every 12 [place] 56 (twelve) Medical hours. Branch isosorbide 2021- No 30mg Take 30 mg Univers dinitrate 4-14 04-14 by mouth ity o f 30 mg 11:54: 00:00 daily. [place] tablet 01 :00 Medical Branch isosorbide 2021- No 30mg Take 30 mg Univers dinitrate 4-14 04-14 by mouth ity o f 30 mg 11:54: 00:00 daily. [place] tablet 01 :00 Medical Branch losartan Yes 100mg Take 100 Univ ers 100 mg 4-14 mg by ity of tablet 11:49: mouth [place] 30 daily. Medical Branch omacetaxine 2022-0 Yes inject Univ ers mepesuccina 4-14 under the ity of te 11:49: skin. [place] (OMACETAXIN 30 Medical E SC) Branch omeprazole 0 Yes 40mg Take 40 mg U nivers 40 mg 4-14 by mouth ity of capsule 11:49: daily. [address] rivaroxaban Yes 20mg Take 20 mg Univers (XARELTO) 4-14 by mouth. ity o f 20 mg 11:49: [place] tablet 30 Medical Branch losartan 0 Yes 100mg Take 100 Univ ers 100 mg 4-14 mg by ity of tablet 11:49: mouth [place] 30 daily. Medical Branch omacetaxine Yes inject Univ ers mepesuccina 4-14 under the ity of te 11:49: skin. [place] (OMACETAXIN 30 Medical E SC) [place] omeprazole Yes 40mg Take 40 mg U nivers 40 mg 4-14 by mouth ity of capsule 11:49: daily. [address] rivaroxaban Yes 20mg Take 20 mg Univers (XARELTO) 4-14 by mouth. ity o f 20 mg 11:49: [facility] 30 [facility] Branch amLODIPine Yes 10mg Take 10 mg U nivers 10 mg 4-14 by mouth ity of tablet 11:48: daily. [address] atorvastati Yes 40mg Take 40 mg Univers n 40 mg 4-14 by mouth ity of tablet 11:48: at [place] [address] bedtime. Medical Branch carvediloL Yes 12.5mg Take 12.5 Univers 12.5 mg 4-14 mg by ity of tablet 11:48: mouth 2 [place] [address] (two) Medical times Branch daily with meals. furosemide Yes 20mg Take 20 mg U nivers 20 mg 4-14 by mouth ity of tablet 11:48: daily. [address] fluticasone Yes 1{puff} Inhale 1 Univers propion-flor 4-14 Puff every it y of meteroL 11:48: 12 [place] 250[facility] (twelve) Medical mcg/dose hours. Branch inhalation disk ALBUTEROL Yes Inhale as Uni vers INHALE 4-14 needed. ity of 11:48: [address] amLODIPine Yes 10mg Take 10 mg U nivers 10 mg 4-14 by mouth ity of tablet 11:48: daily. [place] [address] Medical Branch atorvastati Yes 40mg Take 40 mg Univers n 40 mg 4-14 by mouth ity of tablet 11:48: at [place] [address] bedtime. Medical Branch carvediloL Yes 12.5mg Take 12.5 Univers 12.5 mg 4-14 mg by ity of tablet 11:48: mouth 2 [place] [address] (two) Medical times Branch daily with meals. furosemide Yes 20mg Take 20 mg U nivers 20 mg 4-14 by mouth ity of tablet 11:48: daily. [address] fluticasone Yes 1{puff} Inhale 1 Univers propion-flor 4-14 Puff every it y of meteroL 11:48: 12 [place] [facility] (twelve) Medical mcg/dose hours. [place] inhalation disk ALBUTEROL Yes Inhale as Uni vers INHALE 4-14 needed. ity of 11:48: [address] ne[facility]-po Yes [facility]N, [facility]30 Starting ity of amethasone 16:57: on Thu (MAXITROL) 00 12/18/21 at Med ical 3.5 1157, Branch mg/g-10,000 Until unit/g-0.1 Discontinu % ed, ophthalmic Routine, ointment Intra-op neomycin-po 2021- No [facility]N, [facility]30 -30 Starting ity of amethasone 16:57: 19:33 on Thu s (MAXITROL) 00 :16 12/18/21 at Med ical 3.5 1157, Branch mg/g-10,000 Until Thu unit/g-0.1 12/18/21 at % 1433, ophthalmic Routine, ointment Intra-op dexamethaso Yes PRN, Univer s ne 3-30 Starting ity of (DECADRON 16:56: on Thu [place] PHOSPHATE) 00 12/18/21 at Med ical injection 1156, Branch Until Discontinu ed, Routine, Intra-op dexamethaso 2021-2021- No PRN, Unive rs ne 12-18 Starting ity of (DECADRON 16:56: 19:33 on Thu PHOSPHATE) 00 :16 12/18/21 at [facility] ical injection 1156, Branch Until Thu12/18/21 at 1433, Routine, Intra-op sodium 0 Yes PRN, Univers chloride 12-18 Starting ity of (NS) 16:55: on Thu injection 00 12/18/21 at [facility] 1155, Branch Until Discontinu ed, Routine, Intra-op ceFAZolin Yes PRN, Univers (ANCEF) 12-18 Starting ity of injection 16:55: on Thu 00 12/18/21 at [facility] 1155, Branch Until Discontinu ed, SVEN, Intra-op sodium 2021- No PRN, Univers chloride 12-18 Starting ity of (NS) 16:55: 19:33 on Thu injection 00 :16 12/18/21 at [facility] 1155, Branch Until Thu12/18/21 at 1433, Routine, Intra-op ceFAZolin 2021- No PRN, Univers (ANCEF) 12-18 Starting ity of injection 16:55: 19:33 on Thu [place] 00 :16 12/18/21 at [facility] 1155, Branch Until Thu12/18/21 at 1433, SVEN, Intra-op carbachoL Yes PRN, Univers (MIOSTAT) 12-18 Starting ity of 0.01 % 16:54: on Thu [place] intraocular 00 12/18/21 at Or dical injection 1154, Branch Until Discontinu ed, Routine, Intra-op carbachoL 2021- No PRN, Univers (MIOSTAT) 12-18 Starting ity o f 0.01 % 16:54: 19:33 on Thu [place] intraocular 00 :16 12/18/21 at Or dical injection 1154, Branch Until Thu12/18/21 at 1433, Routine, Intra-op DUOVISC Yes PRN, Univers (DUOVISC 12-18 Starting ity of VISCO 16:45: on Thu [place] ELASTIC) 3 00 12/18/21 at [facility] ical %-4 %(0.5 1145, Branch mL) 1 % Until (0.55 mL) Discontinu intraocular ed, injection Routine, Intra-op EPINEPHrine Yes PRN, Univer s 1:1,000 (1 30 Starting ity o f mg/mL) 16:45: on Thu (ADRENALIN) 00 12/18/21 at Or dical injection 1145, Branch Until Discontinu ed, Routine, Intra-op balanced Yes PRN, Univers salt irrig 3-30 Starting ity o f soln comb1 16:45: on Thu (BSS PLUS) 00 12/18/21 at [facility] ical ophthalmic 1145, Branch solution Until 500 mL bag Discontinu ed, Routine, Intra-op DUOVISC 2021- No PRN, Univers (DUOVISC 12-18 Starting ity of VISCO 16:45: 19:33 on Thu ELASTIC) 3 00 :16 12/18/21 at [facility] ical %-4 %(0.5 1145, Branch mL) 1 % Until Wed (0.55 mL) 12/18/21 at intraocular 1433, injection Routine, Intra-op EPINEPHrine 2021- No PRN, Unive rs 1:1,000 (1 12-18 Starting ity of mg/mL) 16:45: 19:33 on Thu (ADRENALIN) 00 :16 12/18/21 at Or dical injection 1145, Branch Until 12/18/21 at 1433, Routine, Intra-op balanced 2021- No PRN, Univers salt irrig 12-18 Starting ity of soln comb1 16:45: 19:33 on Thu [place] (BSS PLUS) 00 :16 12/18/21 at [facility] ical ophthalmic 1145, Branch solution Until Wed 500 mL bag 12/18/21 at 1433, Routine, Intra-op water for Yes PRN, Univers irrigation 30 Starting ity o f irrigation 16:41: on Thu [place] solution 00 12/18/21 at Medic al 1141, Branch Until Discontinu ed, Routine, Intra-op water for 2021- No PRN, Univers irrigation 12-18 Starting ity of irrigation 16:41: 19:33 on Thu [place] solution 00 :16 12/18/21 at Medic al 1141, Branch Until Thu12/18/21 at 1433, Routine, Intra-op Hyaluronida Yes PRN, Univer s se, Human 12-18 Starting ity of Recomb. 16:37: on Thu (HYLENEX) 12/18/21 at [facility] injection 1137, Branch Until Discontinu ed, Routine, Intra-op eye block Yes PRN, Univers syringe 12-18 Starting ity o f mL 16:37: on Thu12/18/21 at [place] [id number], Branch Until Discontinu ed, Intra-op Hyaluronida 2021- No PRN, Unive rs se, Human 12-18 Starting ity o f Recomb. 16:37: 19:33 on Thu (HYLENEX) 00 :16 12/18/21 at [facility] injection 1137, Branch Until Thu12/18/21 at 1433, Routine, Intra-op eye block 2021- No PRN, Univers syringe 11 12-18 Starting ity of mL 16:37: 19:33 on Thu 00 :16 12/18/21 at [place] [id number], Branch Until Thu12/18/21 at 1433, Intra-op lactated 2021- No 1000mL at 42 Unive rs ringers IV 12-18 mL/hr, ity of infusion 14:30: 14:51 1,000 mL, [place] 1,000 mL 00 :00 IV Medical Infusion, Branch ONCE, 1 dose, On Thu12/18/21 at 0930, Routine, DSU Pre-op cyclopent 2021- No .5mL 0.5 mL, Univ ers 1%-tropic 12-18 Left Eye, ity of 1%-phenyl 14:30: 14:53 ONCE, 1 [place] 2.5%-ketor 00 :00 dose, On Medic al 0.5% Thu Branch (MYDRIATIC 12/18/21 at #5) 0930, ophthalmic Routine, solution DSU Pre-op syringe 0.5 mL lactated 2021- No 1000mL at 42 Unive rs ringers IV 3-30 03-30 mL/hr, ity of infusion 14:30: 14:51 1,000 mL, [place] 1,000 mL 00 :00 IV Medical Infusion, Branch ONCE, 1 dose, On Thu12/18/21 at 0930, Routine, DSU Pre-op cyclopent 2021- No .5mL 0.5 mL, Univ ers 1%-tropic 330 03-30 Left Eye, ity of 1%-phenyl 14:30: 14:53 ONCE, 1 [place] 2.5%-ketor 00 :00 dose, On Medic al 0.5% Thu Branch (MYDRIATIC 12/18/21 at #5) 0930, ophthalmic Routine, solution DSU Pre-op syringe 0.5 mL isosorbide Yes 30mg Take 30 mg U nivers dinitrate 3-30 by mouth ity of 30 mg 12:33: daily. [address] losartan 0 Yes 100mg Take 100 Univ ers 100 mg 3-30 mg by ity of tablet 12:33: mouth [place] 16 daily. Medical Branch omacetaxine Yes inject Univ ers mepesuccina 3-30 under the ity of te 12:33: skin. [place] (OMACETAXIN 16 Medical E SC) [place] omeprazole Yes 40mg Take 40 mg U nivers 40 mg 3-30 by mouth ity of capsule 12:33: daily. [address] furosemide 0 Yes 20mg Take 20 mg U nivers 20 mg 3-30 by mouth ity of tablet 12:33: daily. [address] Branch rivaroxaban 0 Yes 20mg Take 20 mg Univers (XARELTO) 3-30 by mouth. ity o f 20 mg 12:33: [place] tablet 16 Medical Branch fluticasone 0 Yes 1{puff} Inhale 1 Univers propion-flor 3-30 Puff every it y of meteroL 12:33: 12 [place] 250-50 16 (twelve) Medical mcg/dose hours. Branch inhalation disk ALBUTEROL 0 Yes Inhale as Uni vers INHALE 3-30 needed. ity of 12:33: [address] Branch amLODIPine 0 Yes 10mg Take 10 mg U nivers 10 mg 3-30 by mouth ity of tablet 12:33: daily. [place] [address] Medical Branch atorvastati Yes 40mg Take 40 mg Univers n 40 mg 3-30 by mouth ity of tablet 12:33: at [place] [address] bedtime. Medical Branch carvediloL 0 Yes 12.5mg Take 12.5 Univers 12.5 mg 3-30 mg by ity of tablet 12:33: mouth 2 [place] [address] (two) Medical times Branch daily with meals. sotaloL 160 Yes 80mg Take 80 mg Univers mg tablet 3-30 by mouth ity of 12:33: every 12 [place] [address] (twelve) Medical hours. Branch isosorbide 0 Yes 30mg Take 30 mg U nivers dinitrate 3-30 by mouth ity of 30 mg 12:33: daily. [address] Branch losartan 0 Yes 100mg Take 100 Univ ers 100 mg 3-30 mg by ity of tablet 12:33: mouth [place] [address] daily. Medical Branch omacetaxine Yes inject Univ ers mepesuccina 3-30 under the ity of te 12:33: skin. [place] (OMACETAXIN 16 Medical E SC) Branch omeprazole Yes 40mg Take 40 mg U nivers 40 mg 3-30 by mouth ity of capsule 12:33: daily. [address] furosemide Yes 20mg Take 20 mg U nivers 20 mg 3-30 by mouth ity of tablet 12:33: daily. [address] rivaroxaban 0 Yes 20mg Take 20 mg Univers (XARELTO) 3-30 by mouth. ity o f 20 mg 12:33: [place] tablet Medical Branch fluticasone 0 Yes 1{puff} Inhale 1 Univers propion-flor 3-30 Puff every it y of meteroL 12:33: 12 [place] [address] (twelve) Medical mcg/dose hours. Branch inhalation disk ALBUTEROL 0 Yes Inhale as Uni vers INHALE 3-30 needed. ity of 12:33: [address] amLODIPine 0 Yes 10mg Take 10 mg U nivers 10 mg 3-30 by mouth ity of tablet 12:33: daily. [place] 16 Medical Branch atorvastati 0 Yes 40mg Take 40 mg Univers n 40 mg 3-30 by mouth ity of tablet 12:33: at [place] [address] bedtime. Medical Branch carvediloL 0 Yes 12.5mg Take 12.5 Univers 12.5 mg 3-30 mg by ity of tablet 12:33: mouth 2 [place] [address] (two) Medical times [place] daily with meals. sotaloL 160 0 Yes 80mg Take 80 mg Univers mg tablet 3-30 by mouth ity of 12:33: every 12 [place] 16 (twelve) Medical hours. Branch fluticasone 0 Yes 1{puff} Inhale 1 Univers propion-flor 3-28 Puff every it y of meteroL 09:42: 12 [place] [address] (twelve) Medical mcg/dose hours. Branch inhalation disk ALBUTEROL 0 Yes Inhale as Uni vers INHALE 3-28 needed. ity of 09:42: [place] [address] Medical Branch omeprazole 0 Yes 40mg Take 40 mg U nivers 40 mg 3-28 by mouth ity of capsule 09:34: daily. [place] [address] Medical Branch furosemide 2021-0 Yes 20mg Take 20 mg U nivers 20 mg 3-28 by mouth ity of tablet 09:34: daily. [place] [address] Medical Branch rivaroxaban 0 Yes 20mg Take 20 mg Univers (XARELTO) 3-28 by mouth. ity o f 20 mg 09:34: [place] [address] Medical Branch amLODIPine 0 Yes 10mg Take 10 mg U nivers 10 mg 3-28 by mouth ity of tablet 09:34: daily. [place] [address] Medical Branch atorvastati 0 Yes 40mg Take 40 mg Univers n 40 mg 3-28 by mouth ity of tablet 09:34: at [place] [address] bedtime. Medical Branch carvediloL 0 Yes 12.5mg Take 12.5 Univers 12.5 mg 3-28 mg by ity of tablet 09:34: mouth 2 [place] [address] (two) Medical times [place] daily with meals. sotaloL 160 0 Yes 80mg Take 80 mg Univers mg tablet 3-28 by mouth ity of 09:34: every 12 [place] [address] (twelve) Medical hours. Branch isosorbide 2022-0 Yes 30mg Take 30 mg U nivers dinitrate 3-28 by mouth ity of 30 mg 09:34: daily. [place] tablet 47 Medical Branch losartan Yes 100mg Take 100 Univ ers 100 mg 3-28 mg by ity of tablet 09:34: mouth [place] 47 daily. Medical Branch omacetaxine Yes inject Univ ers mepesuccina 3-28 under the ity of te 09:34: skin. [place] (OMACETAXIN [address] [facility] [address] [place]) Branch PROLENSA [...] 24 [place] [facility] isosorbide Yes 30mg Take 30 mg U nivers mononitrate 2-09 by mouth ity of 30 mg 24 hr [place] [facility] isosorbide Yes 30mg Take 30 mg U nivers mononitrate 2-09 by mouth ity of 30 mg 24 hr 00:[place] [facility] isosorbide Yes 30mg Take 30 mg U nivers mononitrate 2-09 by mouth [place] of 30 mg 24 hr [place] 00 [facility] aspirin 81 Yes 81mg QD Take [address] MG EC 8-16 [facility] tablet 14:36: daily. [address] folic acid Yes 400ug QD Take [address] (FOLVITE) 8-16 mcg by [facility] 800 MCG 14:36: mouth Medical tablet 37 daily. [place] omeprazole Yes 40mg QD Take [address] (PRILOSEC) 8-16 by mouth [facility] 40 MG 14:36: daily. Medical capsule 37 Center losartan 0 Yes 100mg QD Take [address] [facility] (COZAAR) 8-16 tablet [facility] 100 MG 00:00: (100 mg Medical tablet 00 total) by Center mouth daily. clopidogrel Yes 75mg QD Take [address] [facility] (PLAVIX) 75 8-16 tablet (75 Megan kes mg tablet 00:00: mg total) Med ical 00 by mouth Center daily. Immunizations Ordered Filled Immunization Date Status Comments [facility] Immunization Name Name SARS-COV-2 COVID-19 2020-12-26 Completed Unive rsity of MODERNA VACCINE 00:00:00 [facility] ica Branch SARS-COV-2 COVID-19 2020-12-26 Completed Unive rsity of MODERNA VACCINE 00:00:00 [facility] Branch SARS-COV-2 COVID-19 2020-12-26 Completed Unive rsity of MODERNA VACCINE 00:00:[facility] SARS-COV-2 COVID-19 2020-12-26 Completed Unive rsity of MODERNA VACCINE 00:00:00 [facility] Branch SARS-COV-2 COVID-19 2020-12-26 Completed Unive rsity of MODERNA VACCINE 00:00:00 [facility] Branch SARS-COV-2 COVID-19 2020-12-26 Completed Unive rsity of MODERNA VACCINE 00:00:00 [facility] SARS-COV-2 COVID-19 2020-12-26 Completed Unive rsity of MODERNA VACCINE 00:00:00 [facility] ical Branch SARS-COV-2 COVID-19 2020-12-26 Completed Unive rsity of MODERNA VACCINE 00:00:00 [facility] ica Branch SARS-COV-2 COVID-19 2020-12-26 Completed Unive rsity of MODERNA VACCINE 00:00:00 [facility] SARS-COV-2 COVID-19 2020-11-28 Completed Unive rsity of MODERNA VACCINE 00:00:00 [facility] Branch SARS-COV-2 COVID-19 2020-11-28 Completed Unive rsity of MODERNA VACCINE 00:00:00 [facility] SARS-COV-2 COVID-19 2020-11-28 Completed Unive rsity of MODERNA VACCINE 00:00:00 [facility] SARS-COV-2 COVID-19 2020-11-28 Completed Unive rsity of MODERNA VACCINE 00:00:00 [facility] SARS-COV-2 COVID-19 2020-11-28 Completed Unive rsity of MODERNA VACCINE 00:00:00 [facility] SARS-COV-2 COVID-19 2020-11-28 Completed Unive rsity of MODERNA VACCINE 00:00:00 [facility] SARS-COV-2 COVID-19 2020-11-28 Completed Unive rsity of MODERNA VACCINE 00:00:00 [facility] SARS-COV-2 COVID-19 2020-11-28 Completed Unive rsity of MODERNA VACCINE 00:00:00 [facility] SARS-COV-2 COVID-19 2020-11-28 Completed Unive rsity of MODERNA VACCINE 00:00:00 [facility] Vital Signs Vital Name Observation Time Observation Value Comments Source Systolic blood 2022-01-08 17:05:00 123 mm[Hg] Univer sity of pressure [facility] Diastolic blood 2022-01-08 17:05:00 72 mm[Hg] Unive rsity of pressure [facility] Heart rate 2022-01-08 17:05:00 80 /min [facility] Respiratory rate 2022-01-08 17:05:00 18 /min Univ ersity [facility] Oxygen saturation in 2022-01-08 17:05:00 96 /min [facility] Arterial blood by [facility] Pulse oximetry [place] Body temperature 2022-01-08 16:45:00 36.39 Thuy Univ ersity of [facility] Body height 2021-12-26 19:55:00 157.5 cm [facility] Body weight 2021-12-26 19:55:00 45.813 kg [facility] BMI 2021-12-26 19:55:00 18.47 kg/m2 [facility] [place] [facility] Systolic blood 2022-01-08 13:39:00 127 mm[Hg] Univer sity of pressure [facility] Diastolic blood 2022-01-08 13:39:00 67 mm[Hg] Unive rsity of pressure [place] [facility] Heart rate 2022-01-08 13:39:00 72 /min [facility] [place] [facility] Body temperature 2022-01-08 13:39:00 36.67 Thuy [facility] [place] [facility] Respiratory rate 2022-01-08 13:39:00 17 /min [facility] [place] [facility] Oxygen saturation in 2022-01-08 13:39:00 97 /min University of Arterial blood by [employer] Pulse oximetry Branch Body height 2021-12-26 19:55:00 157.5 cm [facility] [place] [facility] Body weight 2021-12-26 19:55:00 45.813 kg [facility] [place] [facility] BMI 2021-12-26 19:55:00 18.47 kg/m2 [facility] [place] [facility] Systolic blood 2021-12-18 17:18:00 106 mm[Hg] Univer sity of pressure [place] [facility] Diastolic blood 2021-12-18 17:18:00 75 mm[Hg] Unive rsity of pressure [place] [facility] Heart rate 2021-12-18 17:18:00 71 /min [facility] [place] [facility] Respiratory rate 2021-12-18 17:18:00 15 /min Univ [facility] [place] [facility] Oxygen saturation in 2021-12-18 17:18:00 98 /min University of Arterial blood by [place] [employer] Pulse oximetry Branch Body temperature 2021-12-18 17:03:00 36.39 Thuy Univ [facility] [place] [facility] Body height 2021-12-17 14:00:00 157.5 cm [facility] [place] [facility] Body weight 2021-12-17 14:00:00 45.813 kg [facility] [place] [facility] BMI 2021-12-17 14:00:00 18.47 kg/m2 [facility] [place] [facility] Systolic blood 2021-12-18 14:31:00 122 mm[Hg] Univer sity of pressure [place] [facility] Diastolic blood 2021-12-18 14:31:00 95 mm[facility]Hg] [facility] Heart rate 2021-12-18 14:31:00 87 /min [facility] Body temperature 2021-12-18 14:31:00 36.39 Thuy [facility] 2021-12-18 14:31:00 13 /min [facility] Oxygen saturation in 2021-12-18 14:31:00 100 /min [facility] Arterial blood by [facility] Pulse oximetry [place] Body height 2021-12-17 14:00:00 157.5 cm [facility] Body weight 2021-12-17 14:00:00 45.813 kg [facility] BMI 2021-12-17 14:00:00 18.47 kg/m2 [facility] Procedures Procedure Date / Time Performing Source Performed Clinician PHACOEMULSIFICATION OF 2022-01-08 Abraham Gr [facility] CATARACT WITH INTRAOC[facility]ENEF[facility] 2022-01-06 Doctor Unassigned, [facility] 15:04:04 Rigby [facility] PHACOEMULSIFICATION OF 2021-12-18 Abarham Gr [facility] CATARACT WITH INTRAOCULAR 16:27:00 Medica l [place] LENS IMPLANT ASSIGNMENT OF BENEFITS 2021-12-13 Doctor Unassigned, [facility] 19:32:47 Rigby [facility] Encounters Start End Encounter Admission Attending Care Care Encounter Source Date/Time Date/Time Type Type Clinicians Facility Department ID 2022-01-08 2022-01-08 Outpatient R ATTILA [facility] [id number] Univers 08:32:00 12:15:00 ABRAHAM rivera [facility] 2022-01-08 2022-01-08 Hospital Attila [facility] [id number] Univers 08:32:00 12:15:00 Encounter Abraham [facility] [id number] [facility] [id number] Brii thomas SURGICAL [id number] [facility] CENTER 071 Branch 2022-01-08 2022-01-08 Surgery [facility] [id number] Univers 10:06:00 10:46:00 Abraham Hardy FLAKITOPEG [id number] ity of [place] [id number] [facility] 020 Branch 2022-01-06 2022-01-06 Laboratory Only, Adc Test [facility] [id number]. [id number] Univers 11:30:00 11:45:00 Only Abraham Gr FLAKITOPEG 350.1.13.1 0 it[place] [id number] [facility] 353 Branch 2022-01-06 2022-01-06 Outpatient R [facility] [id number] Univers 11:30:00 11:30:00 [facility] 2022-01-06 2022-01-06 Orders Doctor MOSS [id number] Univers 00:00:00 00:00:00 Only Unassigned, [place] 350.1.13.10 ity of [place] [facility] 4.2.7.2.686 [place] as [id number] [facility] 009 Branch 2021-12-18 2021-12-18 Hospital [facility] [id number] Univers 09:23:00 12:33:00 Encounter Abraham JOHNSON [id number] ity [facility] [place] [id number] [facility] 071 Branch 2021-12-18 2021-12-18 Outpatient R [facility] OPH [id number] Univers 09:23:00 12:33:00 [facility] 2021-12-18 2021-12-18 Surgery [facility] [id number] Univers 10:43:00 11:21:00 Abraham Hardy ELIZABETH [id number] ity of [facility] 4[place].2.[place] [id number] [facility] 020 Branch 2021-12-16 2021-12-16 Laboratory Only, Adc Test [facility] 1.2.840. [id number] [facility] 11:30:00 11:45:00 Only Abraham Gr 350.1.13.1 0 ity of [facility] 4.2.7.2.686 [facility] [id number] [address] 2021-12-16 2021-12-16 [facility] [id number] Univers 11:30:00 11:30:00 ABRAHAM tal [facility] 2021-12-13 2021-12-13 [employer] Valery, Doreen Lab Main [facility] [id number] Univers 14:30:00 14:45:00 Visit Abraham Gr 350.1.13.1 0 ity [facility] 4.2.7.2.686 [facility] [id number] [address] 2021-12-13 2021-12-13 [facility] [id number] [facility] 14:30:00 14:30:00 ABRAHAM [facility] 2021-12-13 2021-12-13 Orders Doctor ISA [id number] [facility] 00:00:00 00:00:00 Only Unassigned, [place] 350.1.13.10 ity of [place] [facility] 4.2.7.2.686 [facility] [id number] [address] Results Test Description Test Time Test Comments Results Result Comments Source MAGNESIUM 2017-05-04 06:53:00 Test Item Value Reference Range Interpretation Comme nts MAGNESIUM (BEAKER) (test code = 627) 2.1 mg/dL 1.6-2.6 BASIC METABOLIC [id number] 06:53:00 Test Item Value Reference Range Interpretation [...] 0-0 (BEAKER) (test code = 413) TROPONIN [id number] 15:33:00 Test Item Value Reference Range Interpretation Comments TROPONIN I (BEAKER) (test code = 5.88 ng/mL 0.00-0.03 HH 397) Effective 08/08/2014: Reference Range ChangeNew: 0.00-0.03 Previous 0.00- 0.15Troponin I (TnI) levelsmust be interpreted in the context of the presenting symptoms and the clinical findings. Elevated TnI levels indicate myocardial damage, but are not specific for ischemic heart disease. Elevated TnI levels are seen in patients with other cardiac conditions (including myocarditis and congestive heart failure), and slight TnI elevations occur in patients with other conditions, including sepsis, renal failure, acidosis, acute neurological disease, and persistent tachyarrhythmia.BASIC METABOLIC [id number] 15:31:00 Test Item Value Reference Range Interpretation [...] PATIEN TS. CREATINE KINASE (CK), TOTAL AND [id number] 15:31:00 Test Item Value Reference Range Interpretation Comments CREATINE KINASE TOTAL (BEAKER) 228 U/L 29-200 H (test code = 380) CREATINE KINASE-MB (BEAKER) (test 4.0 ng/mL 0.0-6.6 code = 750) CREATINE KINASE-MB INDEX (BEAKER) 1.8 % (test code = 395) Effective 08/08/2014: CK-MB Reference Range ChangeNew: 0.0-6.6 Previous: 0.0-4.9CK-MB Reference Range:<6.7 Normal6.7-10.0 Borderline>10.0 Abnormal PLATELET AGGREGATION: DRUG [id number] 14:43:00 Test Item Value Reference Range Interpretation [...] (BEAKER) ADP suggest a (test code = 854893) M8A53-oivfhvozt drug effect. [id number] Beka Whyte MD (BEAKER) (test code = (electronic 262) signature) PLATELET COUNT AGG 203 K/CU MM 150-450 (BEAKER) (test code = 2656) TROPONIN [id number] 00:49:00 Test Item Value Reference Range Interpretation Comments TROPONIN I (BEAKER) (test code = 9.43 ng/mL 0.00-0.03 HH 397) Effective 08/08/2014: Reference Range ChangeNew: 0.00-0.03 Previous 0.00- 0.15Troponin I (TnI) levelsmust be interpreted in the context of the presenting symptoms and the clinical findings. Elevated TnI levels indicate myocardial damage, but are not specific for ischemic heart disease. Elevated TnI levels are seen in patients with other cardiac conditions (including myocarditis and congestive heart failure), and slight TnI elevations occur in patients with other conditions, including sepsis, renal failure, acidosis, acute neurological disease, and persistent tachyarrhythmia.CREATINE [...] 0.0-6.6 Previous: 0.0-4.9CK-MB Reference Range:<6.7 Normal6.7-10.0 Borderline>10.0 Abnormal TROPONIN [id number] 17:51:00 Test Item Value Reference Range Interpretation Comments TROPONIN I (BEAKER) (test code = 10.38 ng/mL 0.00-0.03 397) Effective 08/08/2014: Reference Range ChangeNew: 0.00-0.03 Previous 0.00- 0.15Troponin I (TnI) levelsmust be interpreted in the context of the presenting symptoms and the clinical findings. Elevated TnI levels indicate myocardial damage, but are not specific for ischemic heart disease. Elevated TnI levels are seen in patients with other cardiac conditions (including myocarditis and congestive heart failure), and slight TnI elevations occur in patients with other conditions, including sepsis, renal failure, acidosis, acute neurological disease, and persistent tachyarrhythmia.CREATINE [...] 0.0-6.6 Previous: 0.0-4.9CK-MB Reference Range:<6.7 Normal6.7-10.0 Borderline>10.0 Abnormal PLATELET AGGREGATION: DRUG [id number] 15:59:00 Test Item Value Reference Range Interpretation [...] (BEAKER) ADP suggest a (test code = 338231) Q8N26-unjwpwrxs drug effect. [id number] Beka Whyte MD (BEAKER) (test code = (electronic 2621) signature) PLATELET COUNT AGG 288 K/CU MM 150-450 (BEAKER) (test code = 2656) PLATELET AGGREGATION: DRUG [id number] 15:58:00 Test Item Value Reference Range Interpretation Comments STRONG ADP 23 % 70-94 L RESULT(AKER) (test code = 2137) WEAK ADP RESULT(AKER) 20 % 60-91 L (test code = 2135) ARACHADONIC ACID 15 % 63-89 L RESULT(AKER) (test code = 2138) PLATELET AGG DRUG Decreased response to INTERPRETATION (BEAKER) arachidonic acid (test code = 2408) suggests aspirin-like effect. PLATELET AGG DRUG Decreased response to INTERPRETATION (BEAKER) ADP suggest a (test code = 079005) T9R46-wrcdcvzhr drug effect. [id number] Beka Whyte MD ([facility]) (test code = (electronic 2621) signature) PLATELET COUNT AGG 235 K/CU MM 150-450 ([facility]) (test code = 2656) POCT-GLUCOSE [id number] 11:52:00 Test Item Value Reference Range Interpretation Comments POC-GLUCOSE METER 90 mg/dL 70-110 TESTED AT [facility] 6720 ([facility]) (test code = [facility] [address] 1538) TROPONIN [id number] 09:56:00 Test Item Value Reference Range Interpretation Comments TROPONIN I ([facility]) (test code = 15.16 ng/mL 0.00-0.03 397) Effective 08/08/2014: Reference Range ChangeNew: 0.00-0.03 Previous 0.00- 0.15Troponin I (TnI) levelsmust be interpreted in the context of the presenting symptoms and the clinical findings. Elevated TnI levels indicate myocardial damage, but are not specific for ischemic heart disease. Elevated TnI levels are seen in patients with other cardiac conditions (including myocarditis and congestive heart failure), and slight TnI elevations occur in patients with other conditions, including sepsis, renal failure, acidosis, acute neurological disease, and persistent tachyarrhythmia.CREATINE KINASE (CK), TOTAL AND MB 2017-05-01 09:56:00 Test Item Value Reference Range Interpretation Comments CREATINE KINASE TOTAL ([facility]) 1205 U/L 29-200 H (test code = 380) CREATINE KINASE-MB (AKER) (test 98.4 ng/mL 0.0-6.6 H code = 750) CREATINE KINASE-MB INDEX (BEAKER) 8.2 % (test code = 395) Effective 08/08/2014: CK-MB Reference Range ChangeNew: 0.0-6.6 Previous: 0.0-4.9CK-MB Reference Range:<6.7 Normal6.7-10.0 Borderline>10.0 Abnormal COMPREHENSIVE METABOLIC [id number] 09:04:00 Test Item Value Reference Range Interpretation [...] 0-0 (BEAKER) (test code = 413) TROPONIN [id number] 02:16:00 Test Item Value Reference Range Interpretation Comments TROPONIN I (BEAKER) (test code = 17.09 ng/mL 0.00-0.03 HH 397) Effective 08/08/2014: Reference Range ChangeNew: 0.00-0.03 Previous 0.00- 0.15Troponin I (TnI) levelsmust be interpreted in the context of the presenting symptoms and the clinical findings. Elevated TnI levels indicate myocardial damage, but are not specific for ischemic heart disease. Elevated TnI levels are seen in patients with other cardiac conditions (including myocarditis and congestive heart failure), and slight TnI elevations occur in patients with other conditions, including sepsis, renal failure, acidosis, acute neurological disease, and persistent tachyarrhythmia.CREATINE [...] 0.0-6.6 Previous: 0.0-4.9CK-MB Reference Range:<6.7 Normal6.7-10.0 Borderline>10.0 Abnormal TROPONIN [id number] 18:37:00 Test Item Value Reference Range Interpretation Comments TROPONIN I ([place]) (test code = 5.50 ng/mL 0.00-0.03 HH 397) Effective 08/08/2014: Reference Range ChangeNew: 0.00-0.03 Previous 0.00- 0.15Troponin I (TnI) levelsmust be interpreted in the context of the presenting symptoms and the clinical findings. Elevated TnI levels indicate myocardial damage, but are not specific for ischemic heart disease. Elevated TnI levels are seen in patients with other cardiac conditions (including myocarditis and congestive heart failure), and slight TnI elevations occur in patients with other conditions, including sepsis, renal failure, acidosis, acute neurological disease, and persistent tachyarrhythmia.CREATINE [...] 0.0-6.6 Previous: 0.0-4.9CK-MB Reference Range:<6.7 Normal6.7-10.0 Borderline>10.0 Abnormal [id number] 18:28:00 Test Item Value Reference Range Interpretation Comments ACTIVATED CLOTTING TIME 125 sec TEST ED AT [facility] 4541 ([place]) (test code = [place] [address]) [address] [id number] 16:13:00 Test Item Value Reference Range Interpretation Comments ACTIVATED CLOTTING TIME 153 sec TEST ED AT [place] [address] ([facility]) (test code = [place] [address]) [address] CREATINE KINASE (CK), TOTAL AND [id number] 13:57:00 Test Item Value Reference Range Interpretation Comments CREATINE KINASE TOTAL ([facility]) 88 U/L 29-200 (test code = 380) CREATINE KINASE-MB ([facility]) (test 5.2 ng/mL 0.0-6.6 code = 750) CREATINE KINASE-MB INDEX ([facility]) 5.9 % (test code = 395) Effective 08/08/2014: CK-MB Reference Range ChangeNew: 0.0-6.6 Previous: 0.0-4.9CK-MB Reference Range:<6.7 Normal6.7-10.0 Borderline>10.0 Abnormal [id number] 13:43:00 Test Item Value Reference Range Interpretation Comments ACTIVATED CLOTTING TIME 197 sec TEST ED AT [place] [address] ([facility]) (test code = [place] [facility] [address]) [address] [id number] 10:51:00 Test Item Value Reference Range Interpretation Comments ACTIVATED CLOTTING TIME 296 sec TEST ED AT [place] [address] ([facility]) (test code = [place] [address]) [address] [id number] 10:03:00 Test Item Value Reference Range Interpretation Comments ACTIVATED CLOTTING TIME 252 sec TEST ED AT [place] [address] ([facility]) (test code = [place] [facility] 441) [address] [id number] 10:03:00 Test Item Value Reference Range Interpretation Comments ACTIVATED CLOTTING TIME 709 sec TEST ED AT [place] [address] ([facility]) (test code = [place] [address]) [address] [id number] 09:43:00 Test Item Value Reference Range Interpretation Comments ACTIVATED CLOTTING TIME 202 sec TEST ED AT [place] [address] ([facility]) (test code = [place] [address]) [address] [id number] 09:04:00 Test Item Value Reference Range Interpretation Comments ACTIVATED CLOTTING TIME 257 sec TEST ED AT [place] [address] ([facility]) (test code = [place] [address]) [address] TROPONIN [id number] 08:02:00 Test Item Value Reference Range Interpretation Comments TROPONIN I (BEAKER) (test code = 0.16 ng/mL 0.00-0.03 H 397) Effective 08/08/2014: Reference Range ChangeNew: 0.00-0.03 Previous 0.00- 0.15Troponin I (TnI) levelsmust be interpreted in the context of the presenting symptoms and the clinical findings. Elevated TnI levels indicate myocardial damage, but are not specific for ischemic heart disease. Elevated TnI levels are seen in patients with other cardiac conditions (including myocarditis and congestive heart failure), and slight TnI elevations occur in patients with other conditions, including sepsis, renal failure, acidosis, acute neurological disease, and persistent tachyarrhythmia.[id number] 07:53:00 Test Item Value Reference Range Interpretation Comments PARTIAL THROMBOPLASTIN TIME 81.9 seconds 22.5-36.0 H (BEAKER) (test code = 760) LACTIC ACID, VENOUS, WHOLE [id number] 07:51:00 Test Item Value Reference Range Interpretation Comments LACTATE BLOOD VENOUS (2) (BEAKER) 1.0 mmol/L 0.5-2.2 (test code = 2872) Effective 01/23/2016: Units/Reference Range ChangeNew: 0.5-2.2 mmol/L Previous: 5- 20 mg/dLCOMPREHENSIVE METABOLIC [id number] 05:16:00 Test Item Value Reference Range Interpretation [...] 0-0 (BEAKER) (test code = 413) TROPONIN [id number] 03:12:00 Test Item Value Reference Range Interpretation Comments TROPONIN I (BEAKER) (test code = 0.25 ng/mL 0.00-0.03 HH 397) Effective 08/08/2014: Reference Range ChangeNew: 0.00-0.03 Previous 0.00- 0.15Troponin I (TnI) levelsmust be interpreted in the context of the presenting symptoms and the clinical findings. Elevated TnI levels indicate myocardial damage, but are not specific for ischemic heart disease. Elevated TnI levels are seen in patients with other cardiac conditions (including myocarditis and congestive heart failure), and slight TnI elevations occur in patients with other conditions, including sepsis, renal failure, acidosis, acute neurological disease, and persistent tachyarrhythmia.CREATINE [...] 0.0-6.6 Previous: 0.0-4.9CK-MB Reference Range:<6.7 Normal6.7-10.0 Borderline>10.0 Abnormal [id number] 21:56:00 Test Item Value Reference Range Interpretation Comments PARTIAL THROMBOPLASTIN TIME 32.4 seconds 22.5-36.0 (BEAKER) (test code = 760) Prior to initiating heparinCREATINE KINASE (CK), TOTAL AND [id number] 14:11:00 Test Item Value Reference Range Interpretation Comments CREATINE KINASE TOTAL (BEAKER) 35 U/L 29-200 (test code = 380) CREATINE KINASE-MB (BEAKER) (test 1.3 ng/mL 0.0-6.6 code = 750) CREATINE KINASE-MB INDEX (BEAKER) 3.7 % (test code = 395) Effective 08/08/2014: CK-MB Reference Range ChangeNew: 0.0-6.6 Previous: 0.0-4.9CK-MB Reference Range:<6.7 Normal6.7-10.0 Borderline>10.0 Abnormal TROPONIN [id number] 14:11:00 Test Item Value Reference Range Interpretation Comments TROPONIN I (BEAKER) (test code = 0.05 ng/mL 0.00-0.03 H 397) Effective 08/08/2014: Reference Range ChangeNew: 0.00-0.03 Previous 0.00- 0.15Troponin I (TnI) levelsmust be interpreted in the context of the presenting symptoms and the clinical findings. Elevated TnI levels indicate myocardial damage, but are not specific for ischemic heart disease. Elevated TnI levels are seen in patients with other cardiac conditions (including myocarditis and congestive heart failure), and slight TnI elevations occur in patients with other conditions, including sepsis, renal failure, acidosis, acute neurological disease, and persistent tachyarrhythmia.[id number] 13:56:00 Test Item Value Reference Range Interpretation Comments PARTIAL THROMBOPLASTIN TIME 28.2 seconds 22.5-36.0 (BEAKER) (test code = 760) Prior to initiating heparinPLATELET [id number] 13:50:00 Test Item Value Reference Range Interpretation Comments PLATELET COUNT (BEAKER) (test 297 K/CU MM 150-450 code = 756) HEMOGLOBIN [id number] 13:50:00 Test Item Value Reference Range Interpretation Comments HEMOGLOBIN A1C (BEAKER) (test code = 4.9 % 4.3-6.1 368) PLATELET AGGREGATION: FUNCTION [id number] 09:03:00 Test Item Value Reference Range Interpretation Comments WEAK ADP 24 % 60-91 L RESULT(BEAKER) (test code = 2135) PLATELET FUNCTION 0-39% indicates marked SCREEN INTERP platelet dysfunction (BEAKER) (test code = 2173) [id number] Beka Whyte MD (BEAKER) (test code = (electronic signature) 9108) PLATELET COUNT AGG 273 K/CU MM 150-450 (BEAKER) (test code = 2656) PLATELET AGGREGATION: FUNCTION [id number] 08:44:00 Test Item Value Reference Range Interpretation Comments WEAK ADP 23 % 60-91 L RESULT(BEAKER) (test code = 2135) PLATELET FUNCTION 0-39% indicates marked SCREEN INTERP platelet dysfunction (BEAKER) (test code = 2173) [id number] Beka Whyte MD (BEAKER) (test code = (electronic signature) 7356) PLATELET COUNT AGG 277 K/CU MM 150-450 (BEAKER) (test code = 4832) for patients on clopidogrel in past two [...] NOT APPLICABLE FOR DIALYSIS PATIEN TS. PROTHROMBIN [id number] 06:00:00 Test Item Value Reference Range Interpretation Comments PROTIME (BEAKER) (test code = 13.6 seconds 11.7-14.7 759) INR (BEAKER) (test code = 370) 1.1 <=5.9 RECOMMENDED COUMADIN/WARFARIN INR THERAPY RANGESSTANDARD DOSE: 2.0 - 3.0 Includes: PROPHYLAXIS for venous thrombosis, systemic embolization; TREATMENT for venous thrombosis [...] (BEAKER) (test code = 413) BASIC METABOLIC [id number] 18:22:00 Test Item Value Reference Range Interpretation [...] I S NOT APPLICABLE FOR DIALYSIS PATIEN [id number] 18:06:00 Test Item Value Reference Range Interpretation Comments PARTIAL THROMBOPLASTIN TIME 30.2 seconds 22.5-36.0 (BEAKER) (test code = 760) PROTHROMBIN [id number] 18:06:00 Test Item Value Reference Range Interpretation Comments PROTIME (BEAKER) (test code = 13.0 seconds 11.7-14.7 759) INR (BEAKER) (test code = 370) 1.0 <=5.9 RECOMMENDED COUMADIN/WARFARIN INR THERAPY RANGESSTANDARD DOSE: 2.0 - 3.0 Includes: PROPHYLAXIS for venous thrombosis, systemic embolization; TREATMENT for venous thrombosis and/or pulmonary embolus.HIGH RISK: Target INR is 2.5-3.5 for patients with mechanical heart valves.CBC W/PLT COUNT & AUTO [id number] 17:58:00 Test Item Value Reference Range Interpretation [...] % 0-1 PERCENT (BEAKER) (test code = 5943)
[2022-08-11] MEDS ORDERED: PROMETHAZINE 25 MG TABLET ONE (10:36)
[2022-08-11] MEDS ORDERED: FENTANYL CITR 100 MCG/2 ML ONE (10:36)
--- NOTE | 2022-08-11 11:11 | RAD REPORT ---
EXAM DESCRIPTION: CT - CTHCSPWOC - 08/11/2022 10:54 am CLINICAL HISTORY: fall on xarelto, head and neck injury COMPARISON: No comparisons TECHNIQUE: Axial 5 mm thick images of the head were obtained. Axial 2 mm thick images of the cervic al spine were obtained with sagittal and coronal reconstruction images generated and reviewed. All CT scans are performed using dose optimization technique as appropriate and may include automated exposure control or mA/KV adjustment according to patient size. FINDINGS: No intracranial hemorrhage, mass, edema or acute intracranial finding. No suspicion for ac sonal infarction. No extra-axial fluid collections. Mastoid air cells and paranasal sinuses are clear. No globe or orbit abnormality seen. Atrophy and chronic ischemic changes are minimal for age. Ventric les are in proportion to any volume loss. Patient has dense arterial tree calcifications. Cervical body height and alignment are normal. Significant disc space narrowing is present C3-4 throu gh C6-7. Endplate spurring and uncovertebral joint hypertrophy are present. Facet joint degenerative changes are present. Mild bilateral foraminal encroachment present at C4-5 and C5-6. No fracture or a cute bony abnormality. Central canal detail is inherently limited. No paraspinal mass or hematoma. IMPRESSION: No intracranial hemorrhage is present. There are no acute intracranial findings. Prominent cervical spine degenerative change as detailed. No fracture or acute finding. Negative CT cervical spine examination for acute or significant finding.
--- NOTE | 2022-08-11 11:15 | RAD REPORT ---
EXAM DESCRIPTION: RAD - Elbow Left 3 View - 08/11/2022 10:44 am CLINICAL HISTORY: Pain, fall COMPARISON: None. FINDINGS: The three-view examination could not be optimally positioned due to patient pain. No fracture is identified and no elevated posterior fat pad. There is no dislocation or periosteal re action noted. No foreign body or other soft tissue abnormality. IMPRESSION: Negative left elbow examination.
--- NOTE | 2022-08-11 11:30 | ER ---
Nurse's Notes [facility] Name: Teresa Aguilar Age: 82 yrs Sex: Female : 1940 Arrival Date: 08/11/2022 Time: 09:52 Bed 4 Private MD: Luis Arreola Diagnosis: Fall on same level from slipping, tripping and stumbling with subsequent striking against object;Contusion of left elbow Presentation: 08/11 10:17 Chief complaint: Patient states: fell from standing at 3:30am, hit head on a chair and jh5 hit left elbow, walked my dog, used my left arm, went to sleep and woke up about 7:30 and was in terrible pain in my left arm that wont go away. Coronavirus screen: Vaccine status: Patient reports receiving the 2nd dose of the covid vaccine. Client denies travel out of the [place] in the last 14 days. Ebola Screen: Patient negative for fever greater than or equal to 101.5 degrees Fahrenheit, and additional compatible Ebola Virus Disease symptoms Patient denies exposure to infectious person. Patient denies travel to an Ebola-affected area in the 21 days before illness onset. Initial Sepsis Screen: Does the patient meet any 2 criteria? No. Patient's initial sepsis screen is negative. Does the patient have a suspected source of infection? No. Patient's initial sepsis screen is negative. Risk Assessment: Do you want to hurt yourself or someone else? Patient reports no desire to harm self or others. Onset of symptoms. 10:17 Method Of Arrival: Wheelchair jh5 10:17 Acuity: HUSEYIN 3 jh5 12:00 Care prior to arrival: None. Mechanism of Injury: Fall. Trauma event details: Injury kr3 occurred in the [facility]. Triage Assessment: 10:23 General: Appears uncomfortable, slender, well groomed, well developed, well nourished, jh5 Behavior is calm, cooperative, appropriate for age. Pain: Complains of pain in left arm. Trauma Activation: Alert Physician: ED Physician; Name: ; Notified At: ; Arrived At: Physician: General Surgeon; Name: ; Notified At: ; Arrived At: Physician: Radiology; Name: ; Notified At: ; Arrived At: Physician: Respiratory; Name: ; Notified At: ; Arrived At: Physician: Lab; Name: ; Notified At: ; Arrived At: Historical: - Allergies: 10:23 hydrochlorothiazide; jh5 - PMHx: 10:23 Asthma; Atrial fibrillation; Chronic obstructive lung disease; Congestive heart failure;jh5 - Immunization history:: Adult Immunizations up to date. - Social history:: Smoking status: Patient/guardian denies using tobacco, the patient reports quitting approximately 60 years ago. - Immunization history: Last tetanus immunization: unknown. Screenin:59 Abuse screen: Denies threats or abuse. Nutritional screening: No deficits noted. kr3 Tuberculosis screening: No symptoms or risk factors identified. Fall Risk Fall in past 12 months (25 points). Total [place] Fall Scale indicates Low Risk Score (25-44 pts). Fall prevention measures have been instituted. Side Rails Up X 2 Frequent Obs/Assesments occuring Family Present and informed to notify staff if they need to leave bedside As available Patient and Family Educated on Fall Prevention Program and strategies. Primary Survey: 10:25 NO uncontrolled hemorrhage observed. Breathing/Chest: Spontaneous respiratory effort, kr3 equal unlabored respirations, breath sounds clear bilaterally, regular pattern, symmetrical chest rise and fall. Circulation: No external hemorrhage present. Regular and strong central pulse, skin warm/dry/normal color. Disability Client is alert. Exposure/Environment: A warming method has been applied: A warm blanket has been provided to the patient. 12:00 Reassessment Breathing: Spontaneous respiratory effort, equal unlabored respirations, kr3 breath sounds clear bilaterally, regular pattern with symmetrical chest rise and fall. Circulation: No external hemorrhage noted. Regular and strong central pulse, skin warm/dry/normal color. Disability: Alert. Assessment: 10:31 General: Appears in no apparent distress. uncomfortable, Behavior is calm, cooperative, kr3 appropriate for age. Pain: Complains of pain in left arm, left elbow and left shoulder. Neuro: Level of Consciousness is awake, alert, obeys commands. Cardiovascular: Patient's skin is warm and dry. Respiratory: Airway is patent Respiratory effort is even, unlabored, Respiratory pattern is regular, symmetrical. GI: No signs and/or symptoms were reported involving the gastrointestinal system. : No signs and/or symptoms were reported regarding the genitourinary system. EENT: No signs and/or symptoms were reported regarding the EENT system. Derm: Skin is thin, Skin is pink, warm \T\ dry. Musculoskeletal: Range of motion: limited in left shoulder, left elbow and left wrist. Vital Signs: 10:17 BP 127 / 89; Pulse 88; Resp 16; Temp 98.9; Pulse Ox 100% ; Weight 46.27 kg; Height 5 jh5 ft. 2 in. (157.48 cm); Pain 10/10; 11:00 BP 124 / 85; Pulse 72; Resp 16; Pulse Ox 100% on R/A; kr3 11:57 BP 136 / 75; Pulse 73; Resp 17; Pulse Ox 100% on R/A; kr3 10:17 Body Mass Index 18.66 (46.27 kg, 157.48 cm) jh5 [place] Coma Score: 11:59 Eye Response: spontaneous(4). Verbal Response: oriented(5). Motor Response: obeys kr3 commands(6). Total: 15. Trauma Score (Adult): 11:59 Eye Response: spontaneous(1); Verbal Response: oriented(1); Motor Response: obeys kr3 commands(2); Systolic BP: > 89 mm Hg(4); Respiratory Rate: 10 to 29 per min(4); Norm Score: 15; Trauma Score: 12 ED Course: 09:52 Patient arrived in ED. rg4 09:52 Luis Arreola MD is Private Physician. rg4 09:57 Divya Vega FNP-C is [facility]. snw 09:57 Eitan Friedman MD is Attending Physician. snw 10:23 Triage completed. jh5 10:23 Arm band placed on right wrist. jh5 10:26 Lilibeth Best, JULIA is Primary Nurse. kr3 10:30 Bed in low position. Call light in reach. Side rails up X 1. kr3 10:45 Elbow Left 3 View XRAY In Process Unspecified. EDMS 10:55 CT Head C Spine In Process Unspecified. EDMS 11:29 Luis Arreola MD is Referral Physician. snw 12:00 No provider procedures requiring assistance completed. Patient did not have IV access kr3 during this emergency room visit. 12:01 Patient maintains SpO2 saturation greater than 95% on room air. kr3 12:02 Thermoregulation: warm blanket given to patient. kr3 Administered Medications: 10:47 Drug: fentaNYL (PF) 25 mcg Route: IM; Site: right deltoid; kr3 12:02 Follow up: Response: No adverse reaction; RASS: Alert and Calm (0) kr3 10:47 Drug: Phenergan (promethazine) 25 mg Route: PO; kr3 12:02 Follow up: Response: No adverse reaction kr3 11:45 Drug: Decadron (dexamethasone) 10 mg {Note: orally w/ juice.} Route: IM; Site: Other; kr3 12:02 Follow up: Response: No adverse reaction kr3 Medication: 12:02 VIS not applicable for this client. kr3 Intake: 11:59 PO: 90ml (Juice); Total: 90ml. kr3 Outcome: 11:29 Discharge ordered by . snw 12:01 Discharged to home ambulatory. kr3 12:01 Condition: stable 12:01 Discharge instructions given to patient, Instructed on discharge instructions, follow up and referral plans. medication usage, Demonstrated understanding of instructions, follow-up care, medications, Prescriptions given X 1. 12:01 Patient's length of stay was not longer than 2 hours. kr3 12:03 Patient left the ED. kr3 Signatures: Dispatcher [employer] EDMS Divya Vega FNP-C SOCIAL SECURITY ASSESSOR-Janae Jeffries rg4 Rebecca Yost, RN RN jh5 Lilibeth Best RN RN kr3 Corrections: (The following items were deleted from the chart) 11:57 11:56 NO uncontrolled hemorrhage observed kr3 kr3 11:57 11:56 Breathing/Chest: Spontaneous respiratory effort, equal unlabored respirations, kr3 breath sounds clear bilaterally, regular pattern, symmetrical chest rise and fall. kr3 11:57 11:56 Circulation: No external hemorrhage present. Regular and strong central pulse, kr3 skin warm/dry/normal color. kr3 11:57 11:56 Disability Client is alert. kr3 kr3 11:57 11:56 Exposure/Environment: A warming method has been applied: A warm blanket has been kr3 provided to the patient. kr3
--- NOTE | 2022-08-11 11:30 | EDPHYS ---
Physician Documentation [facility] Name: Teresa Aguilar Age: 82 yrs Sex: Female : 1940 Arrival Date: 08/11/2022 Time: 09:52 Bed 4 Private MD: Luis Arreola ED Physician Eitan Friedman HPI: 08/11 10:29 This 82 yrs old Female presents to ER via Wheelchair with complaints of Fall Injury, snw Arm Pain, Shoulder Pain. 10:29 Details of fall: The patient fell from an upright position, while standing. Onset: The snw symptoms/episode began/occurred suddenly, at 03:30, and became persistent. Associated injuries: The patient sustained injury to the head, left elbow, contusion, decreased range of motion, painful injury. Severity of symptoms: At their worst the symptoms were moderate. The patient has not recently seen a physician. 10:32 pt is on xarelto. She was letting her Dog off the bed at 0330 and fell. Pt went back to snw sleep for about 4 hours. Unable to extend left elbow since. Historical: - Allergies: 10:23 hydrochlorothiazide; jh5 - PMHx: 10:23 Asthma; Atrial fibrillation; Chronic obstructive lung disease; Congestive heart failure;5 - Immunization history:: Adult Immunizations up to date. - Social history:: Smoking status: Patient/guardian denies using tobacco, the patient reports quitting approximately 60 years ago. - Immunization history: Last tetanus immunization: unknown. ROS: 10:29 Constitutional: Negative for fever, chills, and weight loss, Eyes: Negative for injury, snw pain, redness, and discharge, ENT: Negative for injury, pain, and discharge, Neck: Negative for injury, pain, and swelling, Cardiovascular: Negative for chest pain, palpitations, and edema, Respiratory: Negative for shortness of breath, cough, wheezing, and pleuritic chest pain. 10:29 Back: Negative for injury and pain, : Negative for injury, bleeding, discharge, and swelling. 10:29 Skin: Negative for injury, rash, and discoloration, Neuro: Negative for headache, weakness, numbness, tingling, and seizure, Psych: Negative for depression, anxiety, suicide ideation, homicidal ideation, and hallucinations. 10:29 Abdomen/GI: Positive for nausea. 10:29 MS/extremity: Positive for injury or acute deformity, contusion, decreased range of motion, pain, of the left elbow. Exam: 10:27 Constitutional: This is a well developed, well nourished patient who is awake, alert, snw and in no acute distress. Head/Face: Normocephalic, atraumatic. Eyes: Pupils equal round and reactive to light, extra-ocular motions intact. Lids and lashes normal. Conjunctiva and sclera are non-icteric and not injected. Cornea within normal limits. Periorbital areas with no swelling, redness, or edema. ENT: Nares patent. No nasal discharge, no septal abnormalities noted. Tympanic membranes are normal and external auditory canals are clear. Oropharynx with no redness, swelling, or masses, exudates, or evidence of obstruction, uvula midline. Mucous membranes moist. Neck: Trachea midline, no thyromegaly or masses palpated, and no cervical lymphadenopathy. Supple, full range of motion without nuchal rigidity, or vertebral point tenderness. No Meningismus. Chest/axilla: Normal chest wall appearance and motion. Nontender with no deformity. No lesions are appreciated. Cardiovascular: Regular rate and rhythm with a normal S1 and S2. No gallops, murmurs, or rubs. Normal PMI, no JVD. No pulse deficits. Respiratory: Lungs have equal breath sounds bilaterally, clear to auscultation and percussion. No rales, rhonchi or wheezes noted. No increased work of breathing, no retractions or nasal flaring. Abdomen/GI: Soft, non-tender, with normal bowel sounds. No distension or tympany. No guarding or rebound. No evidence of tenderness throughout. Back: No spinal tenderness. No costovertebral tenderness. Full range of motion. Skin: Warm, dry with normal turgor. Normal color with no rashes, no lesions, and no evidence of cellulitis. 10:27 Neuro: Awake and alert, GCS 15, oriented to person, place, time, and situation. Cranial nerves II-XII grossly intact. Motor strength 5/5 in all extremities. Sensory grossly intact. Cerebellar exam normal. Normal gait. Psych: Awake, alert, with orientation to person, place and time. Behavior, mood, and affect are within normal limits. 10:27 Musculoskeletal/extremity: Extremities: grossly normal except: noted in the left elbow: decreased ROM, tenderness, ROM: limited active range of motion due to pain, limited passive range of motion due to pain, in the left elbow, Circulation is intact in all extremities. Vital Signs: 10:17 BP 127 / 89; Pulse 88; Resp 16; Temp 98.9; Pulse Ox 100% ; Weight 46.27 kg; Height 5 jh5 ft. 2 in. (157.48 cm); Pain 10/10; 11:00 BP 124 / 85; Pulse 72; Resp 16; Pulse Ox 100% on R/A; kr3 11:57 BP 136 / 75; Pulse 73; Resp 17; Pulse Ox 100% on R/A; kr3 10:17 Body Mass Index 18.66 (46.27 kg, 157.48 cm) jh5 [place] Coma Score: 11:59 Eye Response: spontaneous(4). Verbal Response: oriented(5). Motor Response: obeys kr3 commands(6). Total: 15. Trauma Score (Adult): 11:59 Eye Response: spontaneous(1); Verbal Response: oriented(1); Motor Response: obeys kr3 commands(2); Systolic BP: > 89 mm Hg(4); Respiratory Rate: 10 to 29 per min(4); Norm Score: 15; Trauma Score: 12 MDM: 10:20 Patient medically screened. snw 11:24 Data reviewed: vital signs, nurses notes. Data interpreted: Pulse oximetry: on room air snw is 100 %. Interpretation: normal. Counseling: I had a detailed discussion with the patient and/or guardian regarding: the historical points, exam findings, and any diagnostic results supporting the discharge/admit diagnosis, radiology results, the need for outpatient follow up, to return to the emergency department if symptoms worsen or persist or if there are any questions or concerns that arise at home. Special discussion: Based on the patient's history, exam and DX evaluation, there is no indication for emergent intervention or inpatient TX. It is understood by the patient/guardian that if the SXs persist or worsen they need to return immediately for re-evaluation. Based on the history and exam findings, there is no indication for further emergent testing or inpatient evaluation. I discussed with the patient/guardian the need to see the primary care provider for further evaluation of the symptoms. 08/11 10:27 Order name: CT Head C Spine; Complete Time: 11:23 snw 08/11 10:29 Order name: Elbow Left 3 View XRAY; Complete Time: 11:23 snw 08/11 11:24 Order name: Sling; Complete Time: 11:55 snw Administered Medications: 10:47 Drug: fentaNYL (PF) 25 mcg Route: IM; Site: right deltoid; kr3 12:02 Follow up: Response: No adverse reaction; RASS: Alert and Calm (0) kr3 10:47 Drug: Phenergan (promethazine) 25 mg Route: PO; kr3 12:02 Follow up: Response: No adverse reaction kr3 11:45 Drug: Decadron (dexamethasone) 10 mg {Note: orally w/ juice.} Route: IM; Site: Other; kr3 12:02 Follow up: Response: No adverse reaction kr3 Disposition: 08/12 07:26 Co-signature as Attending Physician, Eitan Friedman MD I agree with the assessment and rt plan of care. Disposition Summary: 08/11/22 11:29 Discharge Ordered Location: Home snw Condition: Stable snw Diagnosis - Fall on same level from slipping, tripping and stumbling with subsequent striking snw against object - Contusion of left elbow snw Followup: snw - With: Emergency Department - When: As needed - Reason: Worsening of condition Followup: snw - With: Luis Arreola MD - When: 2 - 3 days - Reason: Recheck today's complaints, Continuance of care, Re-evaluation by your physician Discharge Instructions: - Discharge Summary Sheet snw - Head Injury, Adult snw - Fall Prevention in the Home, Adult snw - How to Use a Sling snw - Elbow Bursitis snw Forms: - Medication Reconciliation Form snw - Thank You Letter snw - Antibiotic Education snw - Prescription Opioid Use snw Prescriptions: - Tramadol 50 mg Oral Tablet - take 1 tablet by ORAL route every 8 hours as needed; 12 tablet; Refills: 0, snw Product Selection Permitted Signatures: Dispatcher [employer] Divya Min FNP-C RIGGING LOFT REPAIRER-Csnw Rebecca Yost RN RN jh5 Lilibeth Best RN RN kr3 Eitan Friedman MD MD rt
[2022-08-11] MEDS ORDERED: dexAMETHasone 10 MG/ML VIAL ONE (11:40)
[2022-08-11 12:07] VITALS: TEMP 98.9; O2SAT 100
[2022-08-11 12:09] VITALS: BP 136/75
== END 2022-08-11 12:03 | disposition home or self-care (01) ==
LOC: ER 09:48
DX: S50.02XA Contusion of left elbow, initial encounter (principal); W01.10XA Fall on same level from slipping, tripping and stumbling with subsequent striking against unspecified object, initial encounter; Z88.8 Allergy status to other drugs, medicaments and biological substances
CPT/HCPCS: 70450; 72125; 73080; Q0169; J3010; J1100; 96372; 99284

== ENCOUNTER → 2023-07-02 | Day surgery (SDC) | payer OTHER ==
[~2023-07-02] MED LIST: LIDOCAINE 2% MPF 5 ML VIAL ONE; NA CHLORIDE 0.9% 500 ML ONE; propofoL 200 MG/20 ML VIAL IV ONE
--- NOTE | 2023-07-02 12:46 | TEE ---
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 TRANSESOPHAGEAL ECHOCARDIOGRAM PROBE INSERTED, NO DIFFICULTY 2. SEVERE MITRAL REGURGITATION 3. NORMAL LEFT VENTRICULAR EJECTION FRACTION 55-60% TECHNOLOGIST: REBEKA TEIXEIRA
--- NOTE | 2023-07-02 22:11 | OP ---
Date of Procedure: 07/02/2023 Surgeon: BENITA BEARD Procedure Performed: Transesophageal echocardiogram. Indication: Mitral valve regurgitation. Description Of Procedure: After risks, benefits, alternatives were explained, patient agreed to proc edure and signed informal consent. Anesthesia block performed and then SINA probe was inserted withou t difficulty and patient was found to have severe eccentric mitral valve regurgitation. The probe wa s removed. The patient sent to Recovery in stable condition. Conclusion: Severe mitral valve regurgitation. Plan: Mitral valve repair. /NURIA Voice ID: [id number] Report ID: [id number]
== END ==
LOC: EKG 10:16
PROVIDERS: ATTEND Internal Medicine
DX: I34.0 Nonrheumatic mitral (valve) insufficiency (principal); I48.11 Longstanding persistent atrial fibrillation; I25.10 Atherosclerotic heart disease of native coronary artery without angina pectoris; I65.23 Occlusion and stenosis of bilateral carotid arteries; I10 Essential (primary) hypertension; Z79.01 Long term (current) use of anticoagulants; Z79.899 Other long term (current) drug therapy; Z87.891 Personal history of nicotine dependence
CPT/HCPCS: 93312; Q9966; J2704; J2001; J7040

== ENCOUNTER 2023-07-27 06:58 | Day surgery (SDC) | payer OTHER ==
[2023-07-23 14:22] LABS: Protime INR 1.49
[2023-07-23 14:24] LABS: Absolute Lymphocytes (CBC) 1.6 K/uL (0.7-4.9); Hematocrit 40.4 % (36.0-45.0); Lymphocytes % 32.3 % (15.3-44.8); Platelets 241 thou/uL (152-406); RBC Red Blood Cell Count 4.59 M/uL (3.86-4.86)
[2023-07-23 14:30] LABS: Potassium 3.6 mEq/L (3.5-5.1)
--- NOTE | 2023-07-23 20:51 | RAD REPORT ---
EXAM DESCRIPTION: RAD - Chest Pa And Lat (2 Views) - 07/23/2023 2:15 pm CLINICAL HISTORY: pre op left heart cath. Hypertension COMPARISON: Chest Pa And Lat (2 Views) dated 11/24/2022; Chest Single View dated 01/14/2022; Chest Pa A nd Lat (2 Views) dated 09/11/2021; Chest Single View dated 09/09/2021 TECHNIQUE: PA and lateral views of the chest were obtained. FINDINGS: The lungs are clear. Heart size is normal and central vasculature is within normal limits. Dense mitral valve calcifications. Diffuse hyperinflation. No pleural effusion or pneumothorax seen. No acute bony finding noted. IMPRESSION: No acute cardiopulmonary process.
[2023-07-27] MEDS ORDERED: NA CHLORIDE 0.9% 500 ML ONE (07:43)
[2023-07-27 07:45] VITALS: TEMP 98; O2SAT 98
[2023-07-27] MEDS ORDERED: FENTANYL CITR 100 MCG/2 ML ONE (08:01)
[2023-07-27] MEDS ORDERED: CLOPIDOGREL 75 MG TABLET ONE (08:02)
[2023-07-27] MEDS ORDERED: VERAPAMIL HCL 10 MG/4 ML VIAL IV ONE (08:02)
[2023-07-27] MEDS ORDERED: MIDAZOLAM HCL 2 MG/2 ML INJ ONE (08:02)
[2023-07-27] MEDS ORDERED: HEPARIN 5000 UNIT/ML 1 ML VIAL ONE (08:02)
[2023-07-27] MEDS ORDERED: ASPIRIN 325 MG TAB ONE (08:03)
[2023-07-27] MEDS ORDERED: ATROPINE SULF 1 MG/10 ML SYR IV ONE (08:03)
[2023-07-27] MEDS ORDERED: TICAGRELOR 90 MG TABLET PO ONE (08:03)
[2023-07-27] MEDS ORDERED: HEPARIN 10,000 UNIT/10 ML VIAL IV ONE (08:03)
[2023-07-27 13:31] VITALS: BP 119/60
--- NOTE | 2023-08-01 14:51 | EKG ---
Test Date: 2023-07-23 Test Time: 13:58:21 Managing Cognitive Engineer: SVETLANA MEASUREMENT RESULTS: Intervals: Rate: 82 WV: QRSD: 78 QT: 428 QTc: 500 Kemp: P: WV: QRS: 91 T: -52 INTERPRETIVE STATEMENTS: Atrial fibrillation Rightward axis T wave abnormality, consider inferior ischemia or digitalis effect Prolonged QT Abnormal ECG Compared to ECG 01/14/2022 18:53:54 Right-axis deviation now present T-wave abnormality now present ST (T wave) deviation no longer present Possible ischemia still present Electronically Signed On 08-01-23 14:25:[address]PER[address] by Jaziel Peterson
== END 2023-07-27 13:45 | disposition home or self-care (01) ==
LOC: CCL 06:58
PROVIDERS: ATTEND Internal Medicine
DX: I25.10 Atherosclerotic heart disease of native coronary artery without angina pectoris (principal); T82.855A Stenosis of coronary artery stent, initial encounter; I34.0 Nonrheumatic mitral (valve) insufficiency; I65.29 Occlusion and stenosis of unspecified carotid artery; I48.91 Unspecified atrial fibrillation; I10 Essential (primary) hypertension; E78.5 Hyperlipidemia, unspecified; I25.2 Old myocardial infarction; Z87.891 Personal history of nicotine dependence; Z79.899 Other long term (current) drug therapy; Z79.82 Long term (current) use of aspirin; Z79.01 Long term (current) use of anticoagulants
CPT/HCPCS: 36415; 71046; 76937; 80048; 85025; 85610; 85730; 93005; 93454; 93458; C1893; J0461; J1644; J2250; J3010; J7040; Q9966

== ENCOUNTER 2023-08-28 16:24 | Inpatient (IN) | payer OTHER ==
--- NOTE | 2023-08-28 17:14 | RAD REPORT ---
EXAM DESCRIPTION: RAD - Chest Single View - 08/28/2023 5:00 pm CLINICAL HISTORY: COPD Chest pain. COMPARISON: Chest Single View dated 07/27/2023; Chest Pa And Lat (2 Views) dated 07/23/2023; Chest Pa And Lat (2 Views) dated 11/24/2022; Chest Single View dated 01/14/2022 FINDINGS: Portable technique limits examination quality. The lungs are grossly clear. The heart is mildly enlarged in size. No displaced fractures. IMPRESSION: No acute intrathoracic process suspected.
[2023-08-28 17:54] LABS: Absolute Lymphocytes (CBC) 0.9 K/uL (0.7-4.9); Hematocrit 36.2 % (36.0-45.0); Lymphocytes % 17.2 % (15.3-44.8); MCV 87.4 fL (80-100); MPV 8.4 fL (7.6-11.3); Platelets 243 thou/uL (152-406); RBC Red Blood Cell Count 4.14 M/uL (3.86-4.86)
[2023-08-28] MEDS ORDERED: METHYLPREDNISOLONE 125 MG INJ ONE (18:19)
[2023-08-28] MEDS ORDERED: ALBUTEROL 2.5 MG/3 ML NEB SOL ONE (18:19)
[2023-08-28] MEDS ORDERED: IPRATROPIUM BROM 0.5MG/2.5ML ONE (18:19)
[2023-08-28 18:27] LABS: Bilirubin Direct 0.2 mg/dL (0-0.2); Bilirubin Indirect, Calculated 0.6 mg/dL (0.2-0.8); Bilirubin Total 0.8 mg/dL (0.2-1.0); Potassium 4.3 mEq/L (3.5-5.1)
[2023-08-28 18:28] LABS: Magnesium 2.1 mg/dL (1.6-2.4)
[2023-08-28 18:29] LABS: Troponin High Sensitivity 98.3 pg/mL (<58.9)
--- NOTE | 2023-08-28 19:36 | ER ---
Nurse's Notes [facility] Name: Teresa Aguilar Age: 83 yrs Sex: Female : 1940 Arrival Date: 08/28/2023 Time: 16:24 Bed 4 Private MD: Diagnosis: COVID-19;COPD exacerbation;Elevated troponin Presentation: 08/28 16:37 Chief complaint: Patient states: Diagnosed with COVID yesterday and was prescribed cm10 Paxlovid. Pt states that she is having shortness of breath and wanted to come get checked out. Coronavirus screen: Vaccine status: Patient reports receiving the 2nd dose of the covid vaccine. Client denies travel out of the [place] in the last 14 days. Ebola Screen: Patient denies travel to an Ebola-affected area in the 21 days before illness onset. No symptoms or risks identified at this time. Initial Sepsis Screen: Does the patient meet any 2 criteria? No. Patient's initial sepsis screen is negative. Does the patient have a suspected source of infection? No. Patient's initial sepsis screen is negative. Risk Assessment: Do you want to hurt yourself or someone else? Patient reports no desire to harm self or others. Onset of symptoms was August 28, 2023. 16:37 Method Of Arrival: Ambulatory 10 16:37 Acuity: HUSEYIN 3 cm10 Historical: - Allergies: 16:36 hydrochlorothiazide; cm10 - PMHx: 16:36 Asthma; Chronic obstructive lung disease; Congestive heart failure; Atrial fibrillation;cm10 - PSHx: 16:36 Mitral Valve (Atrial fibrillation); cm10 - Immunization history:: Adult Immunizations up to date. - Social history:: Smoking status: Patient denies any tobacco usage or history of. - Family history:: not pertinent. Screenin:00 Abuse screen: Denies threats or abuse. Denies injuries from another. Nutritional jw7 screening: No deficits noted. Tuberculosis screening: No symptoms or risk factors identified. 19:00 [facility] ED Fall Risk Assessment (Adult) History of falling in the last 3 months, jw7 including since admission Yes- single mechanical fall (1 pt) Confusion or Disorientation No (0 pts) Intoxicated or Sedated No (0 pts) Impaired Gait No (0 pts) Mobility Assist Device Used No (0 pt) Altered Elimination No (0 pt) Score/Fall Risk Level 0 - 2 = Low Risk Oriented to surroundings, Maintained a safe environment. Assessment: 19:28 General: Appears in no apparent distress. comfortable, Behavior is calm, cooperative. jb4 Pain: Denies pain. Neuro: Level of Consciousness is awake, alert, obeys commands, Oriented to person, place, time, situation. Cardiovascular: Patient's skin is warm and dry. Respiratory: Airway is patent Respiratory effort is even, unlabored, Respiratory pattern is regular, symmetrical. GI: No signs and/or symptoms were reported involving the gastrointestinal system. : No signs and/or symptoms were reported regarding the genitourinary system. EENT: No signs and/or symptoms were reported regarding the EENT system. Derm: Skin is intact, Skin is pink, warm \T\ dry. Musculoskeletal: Circulation, motion, and sensation intact. Range of motion: intact in all extremities. 20:00 Reassessment: Patient appears in no apparent distress at this time. Patient and/or jb4 family updated on plan of care and expected duration. Pain level reassessed. Patient is alert, oriented x 3, equal unlabored respirations, skin warm/dry/pink. 21:17 Reassessment: Pt resting in bed with eyes closed, respirations are even and unlabored jb4 with no s/s of pain or distress noted. Vital Signs: 16:37 BP 152 / 84; Pulse 104; Resp 18; Temp 97.5; Pulse Ox 93% ; Weight 45.36 kg; Height 5 cm10 ft. 2 in. ; Pain 0/10; 18:27 BP 128 / 89; Pulse 86; Resp 18; Pulse Ox 100% on Nebulizer Mask; kd3 19:28 BP 140 / 99; Pulse 93; Resp 16; Pulse Ox 96% ; jb4 20:30 BP 119 / 89; Pulse 93; Resp 16; Pulse Ox 95% on R/A; jb4 21:00 BP 121 / 95; Pulse 96; Resp 16 S; Pulse Ox 96% on R/A; jw7 16:37 Body Mass Index 18.29 (45.36 kg, 157.48 cm) cm10 16:37 Pain Scale: Adult cm10 ED Course: 16:33 Patient arrived in ED. cm10 16:34 Eitan Friedman MD is Attending Physician. rt 16:39 Triage completed. cm10 16:39 Arm band placed on Patient placed in waiting room. cm10 17:02 XRAY Chest (1 view) In Process Unspecified. EDMS 17:42 Gifty Greer, RN is Primary Nurse. kd3 17:49 Basic Metabolic Panel Sent. bc6 17:49 CBC with Diff Sent. bc6 17:49 LFT's Sent. bc6 17:49 Magnesium Sent. bc6 17:49 NT PRO-BNP Sent. bc6 17:49 Troponin HS Sent. bc6 17:49 Inserted saline lock: 20 gauge in left antecubital area, using aseptic technique. Blood bc6 collected. 19:00 Patient has correct armband on for positive identification. Bed in low position. Call jw7 light in reach. 19:35 Loi Carey MD is Hospitalizing Provider. rt 20:34 No provider procedures requiring assistance completed. jw7 21:41 Provided Education on: need for admit. jw7 21:41 Patient admitted, IV remains in place. jw7 Administered Medications: 18:27 Drug: DuoNeb Nebulize (3:1) (2.5 mg - 0.5 mg) 3 ml Nebulizer once Route: Nebulizer; kd3 21:40 Follow up: Response: No adverse reaction jw7 18:27 Drug: MethylPrednisoLONE IVP 125 mg IVP once Route: IVP; Site: left antecubital; kd3 21:40 Follow up: Response: No adverse reaction jw7 Medication: 20:34 VIS not applicable for this client. jw7 Outcome: 19:36 Decision to Hospitalize by Provider. rt 21:41 Admitted to Tele accompanied by nurse, via wheelchair, jw7 21:41 Condition: stable 21:41 Instructed on the need for admit, Demonstrated understanding of instructions, 21:43 Patient left the ED. jw7 Signatures: Dispatcher [employer] EDMS Yung Jaramillo RN RN jb4 Gifty Greer, RN RN kd3 Lala Walden RN RN jw7 Eitan Friedman MD MD rt Ryann Lorenzo bc6 Asha Dinh, RN RN cm10 Corrections: (The following items were deleted from the chart) 21:42 21:41 [facility] ED Fall Risk Assessment (Adult) History of falling in the last 3 months, jw7 including since admission Yes- single mechanical fall (1 pt) Confusion or Disorientation No (0 pts) Intoxicated or Sedated No (0 pts) Impaired Gait No (0 pts) Mobility Assist Device Used No (0 pt) Altered Elimination No (0 pt) Score/Fall Risk Level 0 - 2 = Low Risk Oriented to surroundings, Maintained a safe environment, jw7
--- NOTE | 2023-08-28 19:36 | EDPHYS ---
Physician Documentation [facility] Name: Teresa Aguilar Age: 83 yrs Sex: Female : 1940 Arrival Date: 08/28/2023 Time: 16:24 Bed 4 Private MD: ED Physician Eitan Friedman HPI: 08/28 17:02 This 83 yrs old Female presents to ER via Ambulatory with complaints of Shortness Of rt Breath, COVID+. 17:02 Patient with history of COPD presents to the ED after testing positive for COVID, rt having worsening dyspnea, worse with walking. The patient has been sick for the past 3 days. She is currently on Paxlovid. Denies other acute complaints, symptoms are moderate in severity, no other aggravating or getting factors.. Historical: - Allergies: 16:36 hydrochlorothiazide; cm10 - PMHx: 16:36 Asthma; Chronic obstructive lung disease; Congestive heart failure; Atrial fibrillation;cm10 - PSHx: 16:36 Mitral Valve (Atrial fibrillation); cm10 - Immunization history:: Adult Immunizations up to date. - Social history:: Smoking status: Patient denies any tobacco usage or history of. - Family history:: not pertinent. ROS: 17:02 Constitutional: Negative for fever, chills, and weight loss, Cardiovascular: Negative rt for chest pain, palpitations, and edema, Abdomen/GI: Negative for abdominal pain, nausea, vomiting, diarrhea, and constipation, MS/Extremity: Negative for injury and deformity, Skin: Negative for injury, rash, and discoloration, Neuro: Negative for headache, weakness, numbness, tingling, and seizure, Psych: Negative for depression, anxiety, suicide ideation, homicidal ideation, and hallucinations, 17:02 Respiratory: Positive for cough, shortness of breath, wheezing, Exam: 17:02 Constitutional: This is a well developed, well nourished patient who is awake, alert, rt and in no acute distress. Head/Face: Normocephalic, atraumatic. Chest/axilla: Normal chest wall appearance and motion. Nontender with no deformity. No lesions are appreciated. Cardiovascular: Regular rate and rhythm with a normal S1 and S2. No gallops, murmurs, or rubs. Normal PMI, no JVD. No pulse deficits. Abdomen/GI: Soft, non-tender, with normal bowel sounds. No distension or tympany. No guarding or rebound. No evidence of tenderness throughout. Skin: Warm, dry with normal turgor. Normal color with no rashes, no lesions, and no evidence of cellulitis. MS/ Extremity: Pulses equal, no cyanosis. Neurovascular intact. Full, normal range of motion. Neuro: Awake and alert, GCS 15, oriented to person, place, time, and situation. Cranial nerves II-XII grossly intact. Motor strength 5/5 in all extremities. Sensory grossly intact. Cerebellar exam normal. Normal gait. Psych: Awake, alert, with orientation to person, place and time. Behavior, mood, and affect are within normal limits. 17:02 Respiratory: Wheezes and coarse breath sounds heard on all lung [place], no respiratory distress, 18:05 ECG was reviewed by the Attending Physician. rt Vital Signs: 16:37 BP 152 / 84; Pulse 104; Resp 18; Temp 97.5; Pulse Ox 93% ; Weight 45.36 kg; Height 5 cm10 ft. 2 in. ; Pain 0/10; 18:27 BP 128 / 89; Pulse 86; Resp 18; Pulse Ox 100% on Nebulizer Mask; kd3 19:28 BP 140 / 99; Pulse 93; Resp 16; Pulse Ox 96% ; jb4 20:30 BP 119 / 89; Pulse 93; Resp 16; Pulse Ox 95% on R/A; jb4 21:00 BP 121 / 95; Pulse 96; Resp 16 S; Pulse Ox 96% on R/A; jw7 16:37 Body Mass Index 18.29 (45.36 kg, 157.48 cm) cm10 16:37 Pain Scale: Adult cm10 MDM: 16:39 Patient medically screened. rt 19:56 Differential diagnosis: COVID, COPD exacerbation, pneumonia, pneumothorax, ACS, CHF. rt Data reviewed: vital signs, nurses notes, lab test result(s), EKG, radiologic studies. Consideration of Admission/Observation Patient was admitted/placed on observation. Management of patient was discussed with the following: Hospitalist: Agrees to admit. I considered the following discharge prescriptions or medication management in the emergency department Medications were administered in the Emergency Department. See MAR. Independent interpretation of the following test(s) in the Emergency Department X-Ray: My interpretation is No pneumonia seen on interpretation of x-ray images. Test considered but Not performed: CT: Low suspicion for PE, CT angiogram not indicated. Counseling: I had a detailed discussion with the patient and/or guardian regarding the historical points, exam findings, and any diagnostic results supporting the discharge/admit diagnosis, lab results, radiology results, the need for further work-up and treatment in the hospital. Response to treatment: the patient's symptoms have markedly improved after treatment. 08/28 16:47 Order name: Basic Metabolic Panel; Complete Time: 18:31 rt 08/28 16:47 Order name: CBC with Diff; Complete Time: 18:31 rt 08/28 16:47 Order name: LFT's; Complete Time: 18:31 rt 08/28 16:47 Order name: Magnesium; Complete Time: 18:31 rt 08/28 16:47 Order name: NT PRO-BNP; Complete Time: 18:31 rt 08/28 16:47 Order name: Troponin HS; Complete Time: 18:31 rt 08/28 20:37 Order name: Urinalysis w/ reflexes EDMS 08/28 20:37 Order name: CBC with Automated Diff EDMS 08/28 20:37 Order name: CBC with Automated Diff EDMS 08/28 20:37 Order name: Comprehensive Metabolic Panel EDMS 08/28 20:37 Order name: Comprehensive Metabolic Panel EDMS 08/28 16:47 Order name: XRAY Chest (1 view); Complete Time: 17:18 rt 08/28 16:47 Order name: EKG; Complete Time: 16:47 rt 08/28 16:47 Order name: Cardiac monitoring; Complete Time: 17:49 rt 08/28 16:47 Order name: EKG - Nurse/Tech; Complete Time: 17:49 rt 08/28 16:47 Order name: IV Saline Lock; Complete Time: 17:49 rt 08/28 16:47 Order name: Labs collected and sent; Complete Time: 17:49 rt 08/28 16:47 Order name: O2 Per Protocol; Complete Time: 18:27 rt 08/28 16:47 Order name: O2 Sat Monitoring; Complete Time: 18:27 rt EC:05 Rate is 85 beats/min. Rhythm is irregularly irregular, A fib with No ectopy, rt Nonspecific ST-T wave changes, unchanged compared to prior EKG. QRS Morris is Normal. QRS interval is normal. QT interval is normal. Administered Medications: 18:27 Drug: DuoNeb Nebulize (3:1) (2.5 mg - 0.5 mg) 3 ml Nebulizer once Route: Nebulizer; kd3 21:40 Follow up: Response: No adverse reaction jw7 18:27 Drug: MethylPrednisoLONE IVP 125 mg IVP once Route: IVP; Site: left antecubital; kd3 21:40 Follow up: Response: No adverse reaction jw7 Disposition Summary: 08/28/23 19:36 Hospitalization Ordered Notes: Hospitalization Status: Observation rt Provider: Loi Carey rt Location: Telemetry/MedSurg (observation) rt Condition: Stable rt Problem: new rt Symptoms: have improved rt Bed/Room Type: Standard rt Room Assignment: 414(08/28/23 21:12) jr12 Diagnosis - COVID-19 rt - COPD exacerbation rt - Elevated troponin rt Forms: - Medication Reconciliation Form rt - SBAR form rt - Leadership Thank You Letter rt Signatures: Dispatcher [employer] Gifty Astorga RN RN kd3 Eitan Friedman MD MD rt Asha Dinh RN RN cm10 Molly Montenegro jr12 Lala Walden RN jw7 Corrections: (The following items were deleted from the chart) 21:12 19:36 rt jr12
[2023-08-28] MEDS ORDERED: ALBUTEROL 2.5 MG/3 ML NEB SOL NEB PRN (20:32)
[2023-08-28] MEDS ORDERED: ACETAMINOPHEN 500 MG TAB PO PRN (20:32)
[2023-08-28] MEDS ORDERED: ONDANSETRON 4 MG/2 ML VIAL IV PRN (20:32)
--- NOTE | 2023-08-28 20:41 | P.HP ---
Certification for Inpatient Patient admitted to: Inpatient With expected LOS: >2 Midnights Practitioner: I am a practitioner with admitting privileges, knowledge of patient current condition, hospital course, and medical plan of care. Services: Services provided to patient in accordance with Admission requirements found in Title 42 Section 412.3 of the Code of Federal Regulations Patient History Date of Service: 08/28/23 Reason for admission: Shortness of breath History of Present Illness: 83 yrs old female with past medical history of COPD, hypertension, hyperlipidemia, history of CAD, atrial fibrillation on Xarelto,history of mitral valve regurgitation status post mitral valve clipping who came to ER with shortness of breath. She states that her is a residential resident who was tested positive for COVID initially and she subsequently was tested positive for COVID and was started on Paxlovid for the last few days. But she started having shortness of breath which has been progressively worsened over the last 2 to 3 days and has been associated with generalized weakness and brought to ER. Denies any chest pain. Associated with generalized body pain and nausea but no vomiting. No diarrhea. Patient was assessed in the ER and was admitted for further management of acute respiratory failure due to COVID/COPD exacerbation/NSTEMI Allergies No Known Allergies Allergy (Verified 07/23/23 13:41) Home medications list reviewed: Yes Home Medications: Omeprazole [Prilosec] 40 mg PO DAILY 04/27/17 Atorvastatin Calcium [Lipitor] 40 mg PO BEDTIME tab 04/28/17 Amlodipine [Norvasc*] 1 tab PO DAILY 01/07/21 Carvedilol [Coreg] 12.5 mg PO BID 01/07/21 Losartan Potassium 1 tab PO DAILY 01/07/21 Isosorbide Mononitrate [Isosorbide Mononitrate ER] 30 mg PO DAILY 09/09/21 Rivaroxaban [Xarelto] 20 mg PO DAILY 09/09/21 Albuterol Sulfate [Proair Digihaler] 2 puff IH Q6H 07/28/23 Fluticasone/Salmeterol [Advair 250-50 Diskus] 1 puff IH BID 07/28/23 Furosemide 20 mg PO DAILY 07/28/23 Sotalol HCl [Sotalol AF] 80 mg PO BID 07/28/23 - Past Medical/Surgical History Diabetic: No Past Medical History: Reviewed- Non-Contributory -: HTN -: High cholesterol -: GERD -: atrial fibrillation on xarelto -: history of GA Past Surgical History: Reviewed- Non-Contributory -: heart stents 2017 - Family History Family History: Reviewed- Non-Contributory - Family History Mother -: Cancer - Social History Smoking Status: Never smoker Alcohol use: No CD- Drugs: No Caffeine use: Yes Review of Systems 10-point ROS is otherwise unremarkable General: Sweats, Weakness, Malaise Eyes: Unremarkable ENT: Unremarkable Respiratory: Cough, Shortness of Breath, SOB with Excertion, Sputum Cardiovascular: Unremarkable Gastrointestinal: Nausea, Unremarkable Genitourinary: Unremarkable Musculoskeletal: Unremarkable Integumentary: Unremarkable Neurological: Unremarkable Physical Examination - Vital Signs Temperature: 98.7 F Blood Pressure: 138/78 Pulse: 78 Respirations: 18 Pulse Ox (%): 92 - Physical Exam General: Alert, Oriented x3, Mild distress HEENT: Atraumatic, Normocephalic Neck: Supple, No Thyromegaly Respiratory: Diminished, Crackles/rales, Expiratory wheezes Cardiovascular: Irregular heart rate/rhythm, Systolic murmur Capillary refill: <2 Seconds Gastrointestinal: Soft and benign, W/out hepatosplenomegaly, W/out hepatomegaly Musculoskeletal: No clubbing, No swelling Integumentary: No rashes, No breakdown Neurological: Normal speech, Normal strength at 5/5 x4 extr, Sensation intact, Cranial nerves 3-12 intact, Normal affect Lymphatics: No axilla or inguinal lymphadenopathy - Studies Laboratory Data (last 24 hrs) 08/28/23 08/28/23 17:45 17:45 WBC 5.30 Hgb 12.1 Hct 36.2 Plt Count 243 Sodium 143 Potassium 4.3 BUN 14 Creatinine 0.83 Glucose 99 Magnesium 2.1 Total Bilirubin 0.8 AST 32 ALT 26 Alkaline Phosphatase 98 Assessment and Plan - Problems (Diagnosis) (1) Acute hypoxic respiratory failure Current Visit: Yes Status: Acute Plan: Monitor under telemetry Oxygen supplementation Continue supportive management X-ray findings noted (2) COPD exacerbation Current Visit: Yes Status: Acute Plan: Started on bronchodilators Will add on Solu-Medrol Continue home medications and titrate as needed including bronchodilators and inhaled steroids (3) Pneumonia due to COVID-19 virus Current Visit: Yes Status: Acute Plan: Started on steroids Will monitor CBC and CMP in a.m. Will hold back on IV antibiotics for now Antitussives (4) NSTEMI (non-ST elevated myocardial infarction) Current Visit: Yes Status: Acute Plan: NSTEMI possible type II Monitor under telemetry We will trend cardiac enzymes Continue home medications Patient recently had an echocardiogram Cardiology following as outpatient Will get a cardiology consult if the troponins trending higher (5) Atrial fibrillation Current Visit: No Status: Chronic Plan: Monitor on telemetry Continue home medications including Xarelto Rate control with beta-nicole Qualifiers: Atrial fibrillation type: unspecified Qualified Code(s): I48.91 - Unspecified atrial fibrillation (6) CAD (coronary artery disease) Onset Date: 04/27/17 Current Visit: No Status: Chronic Plan: Monitor under telemetry Continue home medications Qualifiers: Coronary Disease-Associated Artery/Lesion type: [place] artery [place] vs. transplanted heart: [place] heart Associated angina: without angina Qualified Code(s): I25.10 - Atherosclerotic heart disease of [place] coronary artery without angina pectoris (7) GERD (gastroesophageal reflux disease) Onset Date: 04/27/17 Current Visit: No Status: Chronic Plan: Continue PPI Qualifiers: Esophagitis presence: esophagitis presence not specified Qualified Code(s): K21.9 - Gastro-esophageal reflux disease without esophagitis (8) HTN (hypertension) Current Visit: No Status: Chronic Plan: Continue home medications Titrate as needed Qualifiers: Hypertension type: primary hypertension Qualified Code(s): I10 - Essential (primary) hypertension - Advance Directives Does patient have a Living Will: No Does patient have a Durable POA for Healthcare: Yes
[2023-08-28] MEDS: DULERA 100/5 (MOMETASONE/FORMOTEROL) INHALER IH SCH (21:00)
[2023-08-28] MEDS ORDERED: HYDRALAZINE HCL 20 MG/ML VIAL IV PRN (21:35)
[2023-08-28] MEDS ORDERED: PROMETH/COD 6.25/10MG SYRUP 5ML PO PRN (22:11)
[2023-08-28 22:28] VITALS: BMI 18.3
[2023-08-28] MEDS: carvediloL 12.5 MG TAB PO SCH (23:29)
[2023-08-28] MEDS: DOCUSATE NA 100 MG CAP PO SCH (23:29)
[2023-08-28] MEDS: RIVAROXABAN 20 MG TABLET PO SCH (23:29)
[2023-08-28] MEDS: SOTALOL HCL 80 MG TAB PO SCH (23:30)
[2023-08-28] MEDS: ATORVASTATIN 40 MG TAB PO SCH (23:30)
[2023-08-29] MEDS: METHYLPREDNISOLONE 40 MG INJ IV SCH ×3 (00:31→16:46)
[2023-08-29] MEDS: IPRATROPIUM BROM 0.5MG/2.5ML NEB SCH ×4 (00:44→19:37)
[2023-08-29 03:07] LABS: Specific Gravity 1.009 (1.005-1.030); Urine Bilirubin NEGATIVE (Negative); Urine Blood Negative (Negative); Urine Clarity Clear (Clear); Urine Color Light-Yellow (Yellow); Urine Glucose NEGATIVE (Negative); Urine Protein NEGATIVE (Negative); Urine Urobilinogen Normal (Normal); Urine pH 6.5 (5.0-7.0)
[2023-08-29] MEDS ORDERED: RIVAROXABAN 20 MG TABLET PO SCH (09:00)
[2023-08-29] MEDS ORDERED: ENOXAPARIN 40 MG/0.4 ML SQ SCH (09:00)
[2023-08-29 09:21] LABS: Albumin 3.4 g/dL (3.4-5.0); Bilirubin Total 0.6 mg/dL (0.2-1.0); Potassium 3.5 mEq/L (3.5-5.1); Protein, Total 6.9 g/dL (6.4-8.2)
[2023-08-29 09:23] LABS: Absolute Lymphocytes (CBC) 0.6 K/uL (0.7-4.9); Hematocrit 34.5 % (36.0-45.0); Lymphocytes % 16.8 % (15.3-44.8); MCV 87.6 fL (80-100); MPV 8.8 fL (7.6-11.3); Platelets 204 thou/uL (152-406); RBC Red Blood Cell Count 3.94 M/uL (3.86-4.86)
[2023-08-29] MEDS: DOCUSATE NA 100 MG CAP PO SCH ×2 (10:03→21:47)
[2023-08-29] MEDS: carvediloL 12.5 MG TAB PO SCH ×2 (10:03→21:46)
[2023-08-29] MEDS: DULERA 100/5 (MOMETASONE/FORMOTEROL) INHALER IH SCH ×2 (10:03→21:51)
[2023-08-29] MEDS: NIRMATRELVIR/RITONAVIR TABLET PO SCH ×2 (10:04→21:00)
[2023-08-29] MEDS: ISOSORBIDE MONO SR 30 MG TAB PO SCH (10:05)
[2023-08-29] MEDS: SOTALOL HCL 80 MG TAB PO SCH ×2 (10:05→21:46)
[2023-08-29] MEDS: LOSARTAN POTASSIUM 50 MG TABLET PO SCH (10:05)
[2023-08-29] MEDS: PANTOPRAZOLE 40MG TABLET PO SCH (10:05)
[2023-08-29] MEDS: FUROSEMIDE 20 MG TABLET PO SCH (10:06)
[2023-08-29] MEDS: AMLODIPINE 10 MG TAB PO SCH (10:06)
[2023-08-29] MEDS: RIVAROXABAN 20 MG TABLET PO SCH (10:07)
--- NOTE | 2023-08-29 10:53 | P.PN ---
Subjective Date of Service: 08/29/23 Chief Complaint: Shortness of breath Pt is resting comfortably in bed. She is not in respiratory distress. Pt started paxlovid at home. She is eager to go home. No complaints. Review of Systems 10-point ROS is otherwise unremarkable General: Unremarkable Eyes: Unremarkable ENT: Unremarkable Respiratory: Unremarkable Cardiovascular: Unremarkable Gastrointestinal: Unremarkable Genitourinary: Unremarkable Musculoskeletal: Unremarkable Integumentary: Unremarkable Neurological: Unremarkable Lymphatics: Unremarkable Physical Examination - Vital Signs Temperature: 98.4 F Blood Pressure: 122/61 Pulse: 69 Respirations: 17 Pulse Ox (%): 98 - Physical Exam General: Alert, In no apparent distress, Oriented x3 HEENT: Atraumatic, Normocephalic, PERRLA Neck: Supple, 2+ carotid pulse no bruit Respiratory: Clear to auscultation bilaterally, Normal air movement Cardiovascular: No edema, Normal pulses, Normal S1 S2 Capillary refill: <2 Seconds Gastrointestinal: Normal bowel sounds, Soft and benign, Non-distended Musculoskeletal: No clubbing, No swelling Integumentary: No rashes, No breakdown Neurological: Normal gait, Normal speech, Normal strength at 5/5 x4 extr Lymphatics: No axilla or inguinal lymphadenopathy - Studies Laboratory Data (last 24 hrs) 08/28/23 08/28/23 17:45 17:45 WBC 5.30 Hgb 12.1 Hct 36.2 Plt Count 243 Sodium 143 Potassium 4.3 BUN 14 Creatinine 0.83 Glucose 99 Magnesium 2.1 Total Bilirubin 0.8 AST 32 ALT 26 Alkaline Phosphatase 98 Assessment And Plan - Plan Acute resp failure with hypoxia: improved. Pt is off oxygen. Will continue paxlovid and follow up inflammatory marker. COVID 19 pna: Will continue paxlovid Acute COPD exacerbation: Will continue steroid, duoneb and prn oxygen. A. fib with RVR: Will continue telemetry, coreg, sotalol, and xarelto. Hx of CAD: Continue home meds GERD: protonix Htn: Continue home meds DVT ppx: xarelto Code: full Discharge Plan: Home Plan to discharge in: 24 Hours - Code Status/Comfort Care Code Status Assessed: Yes Code Status: Full Code
[2023-08-29] MEDS: ATORVASTATIN 40 MG TAB PO SCH (21:47)
[2023-08-30] MEDS: METHYLPREDNISOLONE 40 MG INJ IV SCH ×2 (00:52→08:37)
[2023-08-30] MEDS: IPRATROPIUM BROM 0.5MG/2.5ML NEB SCH ×3 (01:20→13:40)
[2023-08-30 07:56] LABS: Absolute Lymphocytes (CBC) 0.7 K/uL (0.7-4.9); Hematocrit 36.3 % (36.0-45.0); MCV 87.5 fL (80-100); MPV 8.6 fL (7.6-11.3); Platelets 232 thou/uL (152-406); RBC Red Blood Cell Count 4.15 M/uL (3.86-4.86)
[2023-08-30] MEDS: DULERA 100/5 (MOMETASONE/FORMOTEROL) INHALER IH SCH (08:00)
[2023-08-30 08:06] LABS: Potassium 3.3 mEq/L (3.5-5.1)
[2023-08-30] MEDS: RIVAROXABAN 20 MG TABLET PO SCH (08:37)
[2023-08-30] MEDS: SOTALOL HCL 80 MG TAB PO SCH (08:37)
[2023-08-30] MEDS: LOSARTAN POTASSIUM 50 MG TABLET PO SCH (08:37)
[2023-08-30] MEDS: PANTOPRAZOLE 40MG TABLET PO SCH (08:37)
[2023-08-30] MEDS: carvediloL 12.5 MG TAB PO SCH (08:37)
[2023-08-30] MEDS: ISOSORBIDE MONO SR 30 MG TAB PO SCH (08:37)
[2023-08-30] MEDS: AMLODIPINE 10 MG TAB PO SCH (08:37)
[2023-08-30] MEDS: FUROSEMIDE 20 MG TABLET PO SCH (08:38)
[2023-08-30] MEDS: DOCUSATE NA 100 MG CAP PO SCH (08:38)
[2023-08-30 09:00] LABS: Blood Morphology Comment NOTED (NOT SEEN); Ovalocytes 1+; Platelet Estimate ADEQ
[2023-08-30] MEDS ORDERED: NIRMATRELVIR/RITONAVIR TABLET PO SCH (09:00)
[2023-08-30 09:01] LABS: ACANTHOCYTE 1+
[2023-08-30 10:34] VITALS: O2SAT 100
--- NOTE | 2023-08-30 11:56 | P.DS ---
Admission Date: 08/28/23 Discharge Date: 08/30/23 Disposition: ROUTINE DISCHARGE Discharge Condition: GOOD Reason for Admission: Shortness of breath Brief History of Present Illness: 83 yrs old female with past medical history of COPD, hypertension, hyperlipidemia, history of CAD, atrial fibrillation on Xarelto,history of mitral valve regurgitation status post mitral valve clipping who came to ER with shortness of breath. She states that her is a senior care resident who was tested positive for COVID initially and she subsequently was tested positive for COVID and was started on Paxlovid for the last few days. But she started having shortness of breath which has been progressively worsened over the last 2 to 3 days and has been associated with generalized weakness and brought to ER. Denies any chest pain. Associated with generalized body pain and nausea but no vomiting. No diarrhea. Patient was assessed in the ER and was admitted for further management of acute respiratory failure due to COVID/COPD exacerbation/NSTEMI Hospital Course: Pt is an 83 yrs old female with past medical history of COPD, hypertension, hyperlipidemia, CAD, atrial fibrillation on Xarelto, and mitral valve regurgitation status post mitral valve clipping who came to ER with shortness of breath. Her is a senior care resident who tested positive for COVID initially and she subsequently tested positive for COVID. Pt started Paxlovid for a few days but the SOB worsened so she came to the ER for evaluation. Patient was admitted for management of acute respiratory failure due to COVID/COPD exacerbation/NSTEMI. Lab studies showed BNP. We admitted pt and gave solumedrol and paxlovid. The SOB resolved and pt requested to be discharged. She denied any chest pain. Pt was advised to follow up with Cardiology for further cardiac work up. Vital Signs/Physical Exam: Temp Pulse Resp BP Pulse Ox 98.3 F 88 16 130/78 100 08/30/23 08:00 08/30/23 08:38 08/30/23 08:00 08/30/23 08:38 08/30/23 08:00 Laboratory Data at Discharge: WBC 9.40 thou/uL (4.3-10.9) 08/30/23 07:34 Hgb 12.2 g/dL (12.0-15.0) 08/30/23 07:34 Hct 36.3 % (36.0-45.0) 08/30/23 07:34 Plt Count 232 thou/uL (152-406) 08/30/23 07:34 Sodium 139 mEq/L (136-145) 08/30/23 07:34 Potassium 3.3 mEq/L (3.5-5.1) L 08/30/23 07:34 BUN 18 mg/dL (7-18) 08/30/23 07:34 Creatinine 0.65 mg/dL (0.55-1.02) 08/30/23 07:34 Glucose 138 mg/dL (74-106) H 08/30/23 07:34 Magnesium 2.1 mg/dL (1.6-2.4) 08/28/23 17:45 Total Bilirubin 0.6 mg/dL (0.2-1.0) 08/29/23 08:52 AST 19 U/L (15-37) 08/29/23 08:52 ALT 22 U/L (13-56) 08/29/23 08:52 Alkaline Phosphatase 77 U/L (45-117) D 08/29/23 08:52 Home Medications: Omeprazole [Prilosec] 40 mg PO DAILY 04/27/17 Atorvastatin Calcium [Lipitor] 40 mg PO BEDTIME tab 04/28/17 Amlodipine [Norvasc*] 1 tab PO DAILY 01/07/21 Carvedilol [Coreg] 12.5 mg PO BID 01/07/21 Losartan Potassium 1 tab PO DAILY 01/07/21 Isosorbide Mononitrate [Isosorbide Mononitrate ER] 30 mg PO DAILY 09/09/21 Rivaroxaban [Xarelto] 20 mg PO DAILY 09/09/21 Albuterol Sulfate [Proair Digihaler] 2 puff IH Q6H PRN 07/28/23 Fluticasone/Salmeterol [Advair 250-50 Diskus] 1 puff IH BID 07/28/23 Furosemide 20 mg PO DAILY 07/28/23 Sotalol HCl [Sotalol AF] 80 mg PO BID 07/28/23 Guaifen W/Codeine Syrup [ROBITUSSIN A-C Syrup*] 5 ml PO Q6HR PRN 08/28/23 Physician Discharge Instructions: Continue ad jose rafael activity. Take paxlovid for 2 more days. Continue contact isolation and wear fasce mask for at least 1 week. Follow up with PCP within 1 week Followup: Luis Arreola MD [Primary Care Provider] -
[2023-08-30 12:42] VITALS: BP 98/61; TEMP 97.9
== END 2023-08-30 15:06 | disposition home or self-care (01) | DRG 177 ==
LOC: ER 16:24 → ERHOLD 20:32 → 4TH 21:22 → UNDODISIN 08-30 13:45
PROVIDERS: ADMIT Family Medicine; ATTEND Hospitalist
DX: U07.1 COVID-19 (principal); I21.4 Non-ST elevation (NSTEMI) myocardial infarction; J96.01 Acute respiratory failure with hypoxia; J12.82 Pneumonia due to coronavirus disease 2019; J44.1 Chronic obstructive pulmonary disease with (acute) exacerbation; J44.0 Chronic obstructive pulmonary disease with (acute) lower respiratory infection; I48.91 Unspecified atrial fibrillation; I10 Essential (primary) hypertension; E78.00 Pure hypercholesterolemia, unspecified; K21.9 Gastro-esophageal reflux disease without esophagitis; I25.10 Atherosclerotic heart disease of native coronary artery without angina pectoris; I25.2 Old myocardial infarction; Z88.8 Allergy status to other drugs, medicaments and biological substances; Z79.01 Long term (current) use of anticoagulants; Z79.02 Long term (current) use of antithrombotics/antiplatelets; Z79.899 Other long term (current) drug therapy
CPT/HCPCS: 36415; 71045; 80048; 80053; 80076; 81003; 83735; 83880; 84484; 85025; 93005; 94640; 94760; 96374; 99285; J2920; J2930; J3535; J7613; J7644; J8499

== ENCOUNTER → 2023-10-09 | Emergency (ER) | payer OTHER ==
[~2023-10-09] MED LIST changes: +FOLIC ACID 5 MG/ML VIAL ONE; +LABETALOL 20 MG/4ML SYRINGE IV ONE; -LIDOCAINE 2% MPF 5 ML VIAL ONE; +MECLIZINE HCL 12.5 MG TAB ONE; -NA CHLORIDE 0.9% 500 ML ONE; +POTASSIUM CL SA 10 MEQ TAB PO ONE; -propofoL 200 MG/20 ML VIAL IV ONE
--- NOTE | 2023-10-09 14:10 | RAD REPORT ---
EXAM DESCRIPTION: CT - Head Brain Wo Cont - 10/09/2023 1:30 pm CLINICAL HISTORY: DIZZINESS COMPARISON: Head C Spine Mpr Wo Con dated 08/11/2022 TECHNIQUE: Noncontrast head CT images were obtained without IV contrast. Multiplanar reformats were generated and reviewed. All CT scans are performed using dose optimization technique as appropriate and may include automated exposure control or mA/KV adjustment according to patient size. FINDINGS: No intracranial hemorrhage, mass, or edema. Midline structures are unremarkable. Normal ventricular caliber for age. New region of hypodensity involving the right basal ganglia predominantly the lentiform nucleus, may also involve the upper aspect of the internal capsule and body of the caudate. Minimal mass effect. G ray-white matter differentiation elsewhere is preserved, without evidence of acute infarct. No abnorm al extra-axial fluid collections. Mastoid air cells and visualized portions of the paranasal sinuses are clear. No acute bony findings. IMPRESSION: New region of hypodensity involving the basal ganglia region as above, concerning for ac sonal subacute ischemia. If there is persistent clinical concern, additional evaluation by stroke kali col MRI would be helpful. The findings were communicated to Faustino Page on 10/09/2023 at 14:05 hours.
--- NOTE | 2023-10-09 14:12 | RAD REPORT ---
[facility]41 [facility] CLINICAL HISTORY: SOB COMPARISON: Chest Single View dated 08/28/2023; Chest Single View dated 07/27/2023; Chest Pa And Lat ( 2 Views) dated 07/23/2023; Chest Pa And Lat (2 Views) dated 11/24/2022 TECHNIQUE: Portable AP view of the chest. FINDINGS: The lungs are clear. No pneumothorax or effusion. The cardiomediastinal contours are unrem arkable. IMPRESSION: No acute cardiopulmonary process.
--- NOTE | 2023-10-09 15:53 | RAD REPORT ---
EXAM DESCRIPTION: MRI - Brain Wo Cont - 10/09/2023 3:10 pm CLINICAL HISTORY: DIZZINESS COMPARISON: Noncontrast head CT of the same day TECHNIQUE: Multiplanar multisequence MRI of the brain performed without IV contrast. FINDINGS: Right basal ganglia region diffusion restriction with corresponding T2/FLAIR hyperintensit y involving the posterior aspect of the right lentiform nucleus extending into the internal capsule. Corresponding mild susceptibility signal abnormality in this region. Right lateral temporal cortical crescentic diffusion restriction, with corresponding T2/FLAIR, and susceptibility signal abnormalitie s as well. No evidence of acute intracranial hemorrhage or abnormal extra-axial fluid collections. Mild diffuse parenchymal volume loss. Ventricular caliber otherwise within normal for age. Midline st ructures are unremarkable. Mild periventricular and deep white matter T2/FLAIR hyperintensities, nonspecific, but suggestive of chronic small vessel ischemic changes. Mild right basal ganglia region mass effect, without significant ventricular fall sulcal effacement. No midline shift. Major vascular flow voids are preserved. Mastoid air cells are well aerated. Small mucous retention cysts in the maxillary sinuses. IMPRESSION: Diffusion restriction with signal abnormalities as above centered on the right basal ed glia region, suggestive of acute to subacute infarct, with mild petechial hemorrhagic change. Small focus of right temporal cortical acute to subacute infarct, with mild petechial hemorrhagic xin nges well.
--- NOTE | 2023-10-09 16:30 | ER ---
Nurse's Notes [facility] Name: Teresa Aguilar Age: 83 yrs Sex: Female : 1940 Arrival Date: 10/09/2023 Time: 12:37 Bed 12 Private MD: Diagnosis: Dizziness and giddiness;Nontraumatic intracerebral hemorrhage, multiple localized;Subsequent non-ST elevation (NSTEMI) myocardial infarction Presentation: 10/09 13:08 Chief complaint: Patient's son or daughter states: patient woke up dizzy this morning, ap3 and upon taking her blood pressure it is reported the blood pressure was in the 150's systolic. Patient reports yesterday she did not feel this way. patient has a recent stroke hx. Coronavirus screen: At this time, the client does not indicate any symptoms associated with coronavirus-19. Ebola Screen: No symptoms or risks identified at this time. Initial Sepsis Screen: Does the patient meet any 2 criteria? HR > 90 bpm. Does the patient have a suspected source of infection? No. Patient's initial sepsis screen is negative. Risk Assessment: Do you want to hurt yourself or someone else? Patient reports no desire to harm self or others. Onset of symptoms is unknown. 13:08 Method Of Arrival: Wheelchair ap3 13:08 Acuity: HUSEYIN 2 ap3 Triage Assessment: 13:12 General: Appears comfortable, Behavior is calm, cooperative. Pain: Denies pain. Neuro: ap3 Level of Consciousness is awake, alert, obeys commands, Oriented to person, place, time, situation, Speech is normal, Reports dizziness, weakness. Cardiovascular: Patient's skin is warm and dry. Cardiovascular: Rhythm is irregular. Respiratory: Airway is patent Respiratory effort is even, unlabored, Respiratory pattern is regular, symmetrical. Historical: - Allergies: 13:11 hydrochlorothiazide; ap3 - PMHx: 13:11 Asthma; Atrial fibrillation; Chronic obstructive lung disease; Congestive heart ap3 failure; stroke 09/13/2024 (Congestive heart failure); - Immunization history:: Client reports having NOT received the Covid vaccine. Flu vaccine is up to date. - Social history:: Smoking status: Patient denies any tobacco usage or history of. Screenin:13 Abuse screen: Denies threats or abuse. Nutritional screening: No deficits noted. ap3 Tuberculosis screening: No symptoms or risk factors identified. 18:22 [facility] ED Fall Risk Assessment (Adult) History of falling in the last 3 months, ap3 including since admission Yes- single mechanical fall (1 pt) Confusion or Disorientation No (0 pts) Intoxicated or Sedated No (0 pts) Impaired Gait Yes (1 pt). Assessment: 16:45 General: Appears in no apparent distress. Behavior is calm, cooperative, appropriate ap3 for age. Pain: Denies pain. Neuro: Level of Consciousness is awake, alert, obeys commands, Oriented to person, place, time, situation, Speech is normal. Cardiovascular: Patient's skin is warm and dry. Respiratory: Airway is patent Respiratory effort is even, unlabored, Respiratory pattern is regular, symmetrical. Vital Signs: 13:08 BP 157 / 85; Pulse 91; Resp 18; Temp 98.7; Pulse Ox 98% ; Weight 45.36 kg; ap3 16:57 BP 138 / 89; Pulse 91; Pulse Ox 100% on R/A; ap3 17:56 BP 147 / 88; Pulse 103; Pulse Ox 100% ; ap3 18:15 BP 136 / 95; Pulse 98; Pulse Ox 100% on R/A; ap3 ED Course: 12:40 Patient arrived in ED. im 13:11 Triage completed. ap3 13:13 Arm band placed on right wrist. ap3 13:14 Faustino Grey PA is PHCP. cp 13:14 Shalom Valdez MD is Attending Physician. cp 13:23 EKG done, by ED staff, reviewed by Faustino ARZATE. ap3 13:32 CT Head Brain wo Cont In Process Unspecified. EDMS 13:42 XRAY Chest (1 view) In Process Unspecified. EDMS 15:11 MRI - Brain Wo Cont In Process Unspecified. EDMS 16:19 Initial lab(s) drawn, by me, sent to lab. Inserted saline lock: 20 gauge in right aw1 antecubital area, using aseptic technique. 16:34 Dee Paredes, JULIA is Primary Nurse. ap3 16:40 Urine collected: clean catch specimen, clear. aw1 16:46 Patient has correct armband on for positive identification. Bed in low position. Call ap3 light in reach. Side rails up X2. Adult w/ patient. property assessment monitor on. Pulse ox on. NIBP on. 16:54 initiated a transfer with Ines from the [facility] transfer center. eb 17:03 connected the ED doctor auto service station attendant for [facility] [place] with Faustino ARZATE for patient transfer eb consultation. 17:05 administrative approval given by Ines Shah Rn/ patient has been accepted to [facility] ED/ Dr. Dana Vicente has accepted the patient in transfer/ report to be called to [phone]. 18:16 Provided Education on: need for transfer. ap3 18:16 No provider procedures requiring assistance completed. Patient transferred, IV remains ap3 in place. Administered Medications: 16:46 Drug: foLIC Acid IVPB 1 mg IVPB once Route: IVPB; Site: right antecubital; ap3 17:56 Follow up: IV Status: Completed infusion ap3 17:56 Drug: Labetalol IV 10 mg IV at calculated rate once over 2 mins; For SBP greater than ap3 140. Hold for HR less than 60, notify provider. Route: IV; Rate: calculated rate; Infused Over: 2 mins; Site: right antecubital; 18:21 Follow up: IV Status: Completed infusion ap3 18:15 Drug: Potassium PO Effervescent Tablet 50 mEq PO once; dissolve in 4 ounces of water or ap3 juice Route: PO; 18:21 Follow up: Response: No adverse reaction ap3 18:22 Not Given (Patient Refused): [id number] mg PO once ap3 18:22 Drug: Labetalol IV 5 mg IV at calculated rate once Route: IV; Rate: calculated rate; ap3 Site: right antecubital; Medication: 16:46 VIS not applicable for this client. ap3 Outcome: 16:30 ER care complete, transfer ordered by . mireya 18:16 Transferred by ground EMS Note: [facility] ap3 18:16 Condition: good 18:16 Discharge instructions given to patient, family, Instructed on the need for transfer, 18:22 Patient left the ED. ap3 Signatures: Dispatcher [employer] EDMS Faustino Grey PA PA cp Prokisch, Amanda, RN RN ap3 Blanca Rincon Itzel im Warren, Alyssa awJose
--- NOTE | 2023-10-09 16:30 | EDPHYS ---
Physician Documentation [facility] Name: Teresa Aguilar Age: 83 yrs Sex: Female : 1940 Arrival Date: 10/09/2023 Time: 12:37 Bed 12 Private MD: ED Physician Shalom Valdez HPI: 10/09 13:22 This 83 yrs old Female presents to ER via Wheelchair with complaints of High Blood cp Pressure and Dizziness. 13:22 The patient has elevated blood pressure and discovered this at home, with a home cp device. Onset: The symptoms/episode began/occurred this morning. 13:22 Severity of symptoms: At its worst the blood pressure was 160 mm Hg. cp 13:25 The patient presents with dizziness, feeling off balance. Context: noticed this morning cp upon awakening at 0700. 13:25 Patient's baseline: Neuro: alert and fully oriented, Motor: left-sided weakness, cp Ambulation: walks with assist only, uses walker, Speech: normal, The patient has a previous history of CVA, about 3 weeks ago with discharge from rehab about 1 week ago. Historical: - Allergies: 13:11 hydrochlorothiazide; ap3 - PMHx: 13:11 Asthma; Atrial fibrillation; Chronic obstructive lung disease; Congestive heart ap3 failure; stroke 09/13/2024 (Congestive heart failure); - Immunization history:: Client reports having NOT received the Covid vaccine. Flu vaccine is up to date. - Social history:: Smoking status: Patient denies any tobacco usage or history of. ROS: 13:25 Neuro: Positive for dizziness, weakness, of the left arm and left leg, Negative for cp altered mental status, 13:25 Cardiovascular: Negative for chest pain, edema, palpitations, cp 13:25 Eyes: Negative for injury, pain, redness, and discharge, cp 13:25 Constitutional: Negative for body aches, chills, fever, poor PO intake, 13:25 ENT: Negative for drainage from ear(s), ear pain, sore throat, difficulty swallowing, difficulty handling secretions, 13:25 Respiratory: Negative for cough, shortness of breath, wheezing, 13:25 Abdomen/GI: Negative for abdominal pain, nausea, vomiting, and diarrhea, black/tarry stool, rectal bleeding, 13:25 : Negative for urinary symptoms, cp 13:25 All other systems are negative, Exam: 13:25 ECG was reviewed by the Attending Physician. cp 13:28 Constitutional: The patient appears in no acute distress, alert, awake, cp non-diaphoretic, non-toxic, well developed, frail, 13:28 Head/Face: Normocephalic, atraumatic. cp 13:28 Eyes: Periorbital structures: appear normal, Pupils: equal, round, and reactive to light and accomodation, Extraocular movements: intact throughout, Conjunctiva: normal, no exudate, no injection, Sclera: no appreciated abnormality, Lids and lashes: appear normal, bilaterally, 13:28 ENT: External ear(s): are unremarkable, Nose: is normal, Mouth: Lips: moist, Oral mucosa: pink and intact, moist, Posterior pharynx: Airway: no evidence of obstruction, patent, 13:28 Neck: ROM/movement: is normal, is supple, without pain, no range of motions limitations, no meningismus, no nuchal rigidity, 13:28 Chest/axilla: Inspection: normal, 13:28 Cardiovascular: Rate: normal, Rhythm: irregular, 13:28 Respiratory: the patient does not display signs of respiratory distress, Respirations: normal, no use of accessory muscles, no retractions, labored breathing, is not present, Breath sounds: are clear throughout, no decreased breath sounds, no stridor, no wheezing, 13:28 Abdomen/GI: Inspection: abdomen appears normal, Palpation: abdomen is soft and non-tender, in all quadrants, 13:28 Back: pain, is absent, 13:28 Neuro: Orientation: to person, place \T\ time. Mentation: able to follow commands, Motor: moves all fours, weakness to left arm and left leg, Vital Signs: 13:08 BP 157 / 85; Pulse 91; Resp 18; Temp 98.7; Pulse Ox 98% ; Weight 45.36 kg; ap3 16:57 BP 138 / 89; Pulse 91; Pulse Ox 100% on R/A; ap3 17:56 BP 147 / 88; Pulse 103; Pulse Ox 100% ; ap3 18:15 BP 136 / 95; Pulse 98; Pulse Ox 100% on R/A; ap3 MDM: 13:20 ED course: patient is not a TNK candidate as onset of symptoms were noticed upon cp awakening at 0700 this morning. 13:30 Differential diagnosis: hypertensive crisis, Malignant HTN, CVA, intracerebral cp hemorrhage. 13:37 Patient medically screened. 16:20 Data reviewed: vital signs, nurses notes, radiologic studies, CT scan, MRI, I have cp discussed the patient's presentation/case with the attending Emergency Department Physician; and as a result, I will transfer patient for neurosurgery consult. 16:30 I considered the following discharge prescriptions or medication management in the emergency department Medications were administered in the Emergency Department. See MAR. Independent interpretation of the following test(s) in the Emergency Department EKG: See my EKG interpretation above. Test considered but Not performed: CT: head and neck angio. Care significantly affected by the following chronic conditions: Congestive Heart Failure, Chronic Obstructive Pulmonary Disease, atrial fibrillation. Counseling: I had a detailed discussion with the patient and/or guardian regarding the historical points, exam findings, and any diagnostic results supporting the discharge/admit diagnosis, radiology results, the need to transfer to another facility. 17:00 Data interpreted: monitor and storage bin tender: rate is 102 beats/min, rhythm is irregular, Pulse cp oximetry: on room air is 100 %. Interpretation: normal. 17:04 Management of patient was discussed with the following: Farm Manager: DR Villegas, neurology \T\[facility], will accept patient as transfer. 10/09 13:19 Order name: Basic Metabolic Panel; Complete Time: 17:05 10/09 17:05 Interpretation: Normal except: K 3.1; CO2 34; CRE 0.50. 10/09 13:19 Order name: CBC with Diff; Complete Time: 16:55 10/09 16:55 Interpretation: Normal except: HGB 11.8; HCT 34.6; LYM% 15.0; MN% 13.1. 10/09 12: Order name: LFT's; Complete Time: 17:05 10/09 17:05 Interpretation: Normal except: BILID 0.3; ALB 3.2; GLOB 3.8; A/G 0.8. 10/09 12: Order name: Magnesium; Complete Time: 17:05 10/09 13:19 Order name: NT PRO-BNP; Complete Time: 17:05 10/09 17:06 Interpretation: Reviewed. 01/19 13:19 Order name: PT-INR; Complete Time: 16:55 cp 10/09 16:55 Interpretation: Reviewed. 10/09 13:19 Order name: Troponin HS; Complete Time: 17:05 cp 10/09 17:05 Interpretation: Abnormal. 10/09 13:19 Order name: Urinalysis W/Microscopic; Complete Time: 18:08 cp 10/09 17:32 Order name: Urine Culture EDMS 10/09 13:19 Order name: CT Head Brain wo Cont; Complete Time: 14:11 cp 10/09 14:11 Interpretation: Report reviewed. 10/09 13:19 Order name: XRAY Chest (1 view); Complete Time: 15:40 cp 10/09 15:40 Interpretation: Report review. 10/09 14:29 Order name: MRI - Brain Wo Cont; Complete Time: 15:55 cp 10/09 16:08 Interpretation: Report reviewed. 10/09 13:19 Order name: EKG; Complete Time: 13:20 cp 10/09 13:19 Order name: Cardiac monitoring; Complete Time: 16:35 cp 10/09 13:19 Order name: EKG - Nurse/Tech; Complete Time: 13:23 cp 10/09 13:19 Order name: IV Saline Lock; Complete Time: 16:35 cp 10/09 13:19 Order name: Labs collected and sent; Complete Time: 16:35 cp 10/09 13:19 Order name: O2 Per Protocol; Complete Time: 16:35 cp 10/09 13:19 Order name: O2 Sat Monitoring; Complete Time: 16:35 cp EC:25 Rate is 102 beats/min. Rhythm is irregular. QRS interval is normal. QT interval is cp prolonged. Interpreted by me. Reviewed by me. Administered Medications: 16:46 Drug: foLIC Acid IVPB 1 mg IVPB once Route: IVPB; Site: right antecubital; ap3 17:56 Follow up: IV Status: Completed infusion ap3 17:56 Drug: Labetalol IV 10 mg IV at calculated rate once over 2 mins; For SBP greater than ap3 140. Hold for HR less than 60, notify provider. Route: IV; Rate: calculated rate; Infused Over: 2 mins; Site: right antecubital; 18:21 Follow up: IV Status: Completed infusion ap3 18:15 Drug: Potassium PO Effervescent Tablet 50 mEq PO once; dissolve in 4 ounces of water or ap3 juice Route: PO; 18:21 Follow up: Response: No adverse reaction ap3 18:22 Not Given (Patient Refused): [id number] mg PO once ap3 18:22 Drug: Labetalol IV 5 mg IV at calculated rate once Route: IV; Rate: calculated rate; ap3 Site: right antecubital; Disposition Summary: 10/09/23 16:30 Transfer Ordered Notes: Transfer Location: Other Acute Care Facility cp Reason: Higher level of care cp Condition: Stable cp Problem: new cp Symptoms: have improved cp Accepting Physician: Doctor(10/09/23 18:22) ap3 Diagnosis - Dizziness and giddiness cp - Nontraumatic intracerebral hemorrhage, multiple localized cp - Subsequent non-ST elevation (NSTEMI) myocardial infarction cp Forms: - Medication Reconciliation Form cp - SBAR form cp Addendum: 10/11/2023 07:17 Co-signature as Attending Physician, Shalom Valdez MD I reviewed the patient's care r n provided by the Advanced Practice Provider and agree with the diagnosis and treatment plan. Signatures: Dispatcher [employer] Shalom Womack MD MD rn Page, Corey, PA PA cp Prokisch, Amanda, RN RN ap3 Corrections: (The following items were deleted from the chart) 10/09 14:15 14:14 This 83 yrs old Female presents to ER via Wheelchair with complaints of High cp Blood Pressure and Dizziness. cp 15:12 13:42 MR STROKE PROTOCOL+MRI.RAD.BRZ ordered. EDLA EDMS 17:15 16:30 Doctor cp cp 18:22 17:15 Doctor cp ap3 10/10 05:48 10/09 13:25 Patient's baseline: Neuro: alert and fully oriented, Motor: left-sided cp weakness, Ambulation: walks with assist only, uses walker, Speech: normal, The patient has a previous history of CVA, about 3 weeks ago, cp
[2023-10-09 16:37] LABS: Absolute Lymphocytes (CBC) 0.9 K/uL (0.7-4.9); Hematocrit 34.6 % (36.0-45.0); MCV 85.1 fL (80-100); MPV 7.8 fL (7.6-11.3); Platelets 316 thou/uL (152-406); RBC Red Blood Cell Count 4.06 M/uL (3.86-4.86)
[2023-10-09 16:41] LABS: Protime INR 1.3
[2023-10-09 16:55] LABS: Albumin 3.2 g/dL (3.4-5.0); Bilirubin Direct 0.3 mg/dL (0-0.2); Bilirubin Indirect, Calculated 0.6 mg/dL (0.2-0.8); Bilirubin Total 0.9 mg/dL (0.2-1.0); Magnesium 1.8 mg/dL (1.6-2.4); Potassium 3.1 mEq/L (3.5-5.1)
[2023-10-09 16:59] LABS: Troponin High Sensitivity 147.2 pg/mL (<58.9)
[2023-10-09 17:27] LABS: Specific Gravity 1.013 (1.005-1.030); Urine Bacteria <20 /HPF (<20); Urine Bilirubin NEGATIVE (Negative); Urine Blood Negative (Negative); Urine Clarity Extremely Turbid (Clear); Urine Color Light-Yellow (Yellow); Urine Glucose NEGATIVE (Negative); Urine Mucus 2+ /HPF (None Seen); Urine Protein NEGATIVE (Negative); Urine Urobilinogen 1+ (Normal); Urine pH 6.5 (5.0-7.0)
[2023-10-09 19:22] VITALS: BP 136/95; O2SAT 100
[2023-10-09 19:40] VITALS: TEMP 99.3
--- NOTE | 2023-10-12 17:01 | EKG ---
Test Date: 2023-10-09 Test Time: 13:20:49 Work Checker: NAVA MEASUREMENT RESULTS: Intervals: Rate: 102 OR: QRSD: 86 QT: 384 QTc: 500 [place]: P: OR: QRS: 98 T: -86 INTERPRETIVE STATEMENTS: Atrial fibrillation with premature ventricular or aberrantly conducted complexes Lateral infarct, age undetermined ST & T wave abnormality, consider inferior ischemia or digitalis effect ST & T wave abnormality, consider anterior ischemia or digitalis effect Abnormal ECG Compared to ECG 08/28/2023 17:37:25 Ventricular premature complex(es) now present Myocardial infarct finding now present ST (T wave) deviation still present Possible ischemia still present Electronically Signed On 10-12-23 16:54:00 CRIMINAL ATTORNEY by Jaziel Peterson
== END ==
LOC: ER 12:37
DX: I61.9 Nontraumatic intracerebral hemorrhage, unspecified (principal); I22.2 Subsequent non-ST elevation (NSTEMI) myocardial infarction; I21.9 Acute myocardial infarction, unspecified; I48.91 Unspecified atrial fibrillation; I11.0 Hypertensive heart disease with heart failure; I50.9 Heart failure, unspecified; J44.9 Chronic obstructive pulmonary disease, unspecified; Z88.8 Allergy status to other drugs, medicaments and biological substances
CPT/HCPCS: 96365; 96367; 87088; 85025; 81001; 87086; 80048; 36415; 83735; 85610; 80076; 87077; 87186; 84484; 83880; 70450; 71045; 70551; 96375; 99285; J8597; 93005

== ENCOUNTER → 2023-11-13 | Emergency (ER) | payer OTHER ==
[2023-11-13 13:00] LABS: Absolute Lymphocytes (CBC) 1.2 K/uL (0.7-4.9); Hematocrit 31.5 % (36.0-45.0); Lymphocytes % 25.1 % (15.3-44.8); MCV 82.1 fL (80-100); MPV 8.6 fL (7.6-11.3); Platelets 302 thou/uL (152-406); RBC Red Blood Cell Count 3.83 M/uL (3.86-4.86)
[2023-11-13 13:10] LABS: Albumin 3.1 g/dL (3.4-5.0); Bilirubin Total 0.7 mg/dL (0.2-1.0); Potassium 3.1 mEq/L (3.5-5.1); Protein, Total 6.6 g/dL (6.4-8.2)
--- NOTE | 2023-11-13 13:58 | RAD REPORT ---
EXAM DESCRIPTION: CT - Abdomen Pelvis W Contrast - 11/13/2023 1:22 pm CLINICAL HISTORY: rectal bleeding COMPARISON: Abdomen Pelvis W Contrast dated 01/14/2022; Abdomen Pelvis W Contrast dated 04/06/2019 ; Abdomen Pelvis W Contrast dated 02/04/2018; CT ABD PELVIS W CONTRAST dated 12/24/2012; Chest Single View dated 10/09/2023 TECHNIQUE: Thin cut axial CT imaging of the abdomen and pelvis was performed following intravenous a dministration of 100 mL Isovue 300. Multiplanar reformats were generated and reviewed. All CT scans are performed using dose optimization technique as appropriate and may include automated exposure control or mA/KV adjustment according to patient size. FINDINGS: No suspicious findings in the lung bases. Incidentally noted mitral clip. The liver and spleen show numerous punctate calcifications, suggesting sequelae of prior granulomatou s infection. Few punctate calcifications along the renal parenchyma bilaterally as well, also stable. Adrenal glands, and pancreas show no suspicious findings. Gallbladder and biliary tree are also with out suspicious finding. Symmetric renal function is seen with no hydronephrosis or suspicious renal mass. No dilated bowel loops or bowel wall thickening. Diffuse mucosal hyperenhancement throughout most of the colon. Mild stool burden in the rectum. Soft tissue swelling along the anal canal with some mucos al hyperenhancement as well. 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 It is stable in appearance. No free air, free fluid or inflammatory strandi ng. No hernia, mass or bulky lymphadenopathy. The urinary bladder is without significant finding. No suspicious bony findings. IMPRESSION: Mucosal hyperenhancement throughout the colon and along the anal canal with soft tissue swelling along the anal canal. Findings may be of infectious or inflammatory nature. Allowing for this, no abnormal arterial enhancement/ blush, to suggest contrast extravasation or acti ve bleeding. Other stable findings as above.
--- NOTE | 2023-11-13 14:28 | ER ---
Nurse's Notes [facility] Name: Teresa Aguilar Age: 83 yrs Sex: Female : 1940 Arrival Date: 11/13/2023 Time: 11:59 Bed 12 Private MD: Luis Arreola Diagnosis: External hemorrhoid;Rectal bleeding Presentation: 11/13 12:07 Chief complaint: Patient states: Rectal bleeding and "hemorrhoids" pain for 1 week ll1 after straining. + rectal pain, no fever this week. Coronavirus screen: Vaccine status: Patient reports receiving the 2nd dose of the covid vaccine. Client denies travel out of the [place] in the last 14 days. At this time, the client does not indicate any symptoms associated with coronavirus-19. Ebola Screen: Patient denies travel to an Ebola-affected area in the 21 days before illness onset. Initial Sepsis Screen: Does the patient meet any 2 criteria? No. Patient's initial sepsis screen is negative. Does the patient have a suspected source of infection? No. Patient's initial sepsis screen is negative. Risk Assessment: Do you want to hurt yourself or someone else? Patient reports no desire to harm self or others. Onset of symptoms was November 06, 2023. 12:07 Method Of Arrival: Wheelchair ll1 12:07 Acuity: HUSEYIN 3 ll1 Triage Assessment: 12:12 General: Appears uncomfortable, Behavior is calm, cooperative, appropriate for age. hb Pain: Complains of pain in rectum Quality of pain is described as burning, aching. GI: Reports rectal bleeding, hemorrhoids, rectal pain. Historical: - Allergies: 12:06 hydrochlorothiazide; ll1 - Home Meds: 12:47 amlodipine 10 mg tablet 1 tab [Active]; atorvastatin 40 mg Oral tablet [Active]; hb carvedilol 12.5 mg Oral tablet [Active]; isosorbide mononitrate 30 mg Oral Tablet [Active]; Lasix 20 mg Oral tablet [Active]; losartan 100 mg Oral tablet [Active]; omeprazole 40 mg Oral capsule [Active]; Sotolol 80 mg [Active]; Xarelto 20 mg Oral tablet [Active]; - PMHx: 12:06 Asthma; Chronic obstructive lung disease; Congestive heart failure; Atrial ll1 fibrillation; stroke 09/13/2024 (Congestive heart fa); - PSHx: 12:06 mitral valve (f); ll1 - Immunization history:: Adult Immunizations up to date. - Social history:: Smoking status: Patient denies any tobacco usage or history of. - Family history:: not pertinent. Screenin:46 [facility] ED Fall Risk Assessment (Adult) Score/Fall Risk Level 3 or more points = High hb Risk Oriented to surroundings, Maintained a safe environment, Educated pt \\T\\ family on fall prevention, incl call for assistance when getting out of bed, Assessed \\T\\ reinforced patient's understanding of fall precautions, Provided non-skid footwear, Hourly rounding (assess needs \\T\\ fall precautionary measures) done, Used ambulatory aids as needed (educated on \\T\\ assisted with). Abuse screen: Denies threats or abuse. Denies injuries from another. Nutritional screening: No deficits noted. Tuberculosis screening: No symptoms or risk factors identified. Assessment: 12:46 General: Appears in no apparent distress. Behavior is calm, cooperative. Pain: Pain hb currently is 8 out of 10 on a pain scale. Neuro: Level of Consciousness is awake, alert, obeys commands, Oriented to person, place, time, situation. Cardiovascular: Patient's skin is warm and dry. Respiratory: Respiratory effort is even, unlabored, Respiratory pattern is regular, symmetrical. GI: Reports rectal bleeding, rectal pain. : No signs and/or symptoms were reported regarding the genitourinary system. EENT: No signs and/or symptoms were reported regarding the EENT system. Derm: Skin is pink, warm \\T\\ dry. Musculoskeletal: No signs and/or symptoms reported regarding the musculoskeletal system. 13:40 Reassessment: Patient appears in no apparent distress at this time. Patient and/or hb family updated on plan of care and expected duration. Pain level reassessed. Patient is alert, oriented x 3, equal unlabored respirations, skin warm/dry/pink. 14:11 Reassessment: No changes from previously documented assessment. Patient and/or family tl4 updated on plan of care and expected duration. Pain level reassessed. Patient is alert, oriented x 3, equal unlabored respirations, skin warm/dry/pink. Vital Signs: 12:07 BP 163 / 76; Pulse 87; Resp 17; Temp 97.4; Pulse Ox 98% ; Weight 40.82 kg; Height 5 ft. ll1 2 in. ; Pain 10/10; 13:30 BP 156 / 86; Pulse 86; Resp 15; Pulse Ox 100% ; hb 14:11 BP 156 / 83; Pulse 74; Resp 18; Pulse Ox 99% on R/A; Pain 0/10; tl4 15:06 BP 150 / 79; Pulse 75; Resp 18; Pulse Ox 99% on R/A; Pain 0/10; tl4 12:07 Body Mass Index 16.46 (40.82 kg, 157.48 cm) ll1 12:07 Pain Scale: Adult ll1 14:11 Pain Scale: Adult tl4 15:06 Pain Scale: Adult tl4 Vitals: 14:11 Cardiac Rhythm Assessment Regular. tl4 15:06 Cardiac Rhythm Assessment Regular. tl4 [place] Coma Score: 14:11 Eye Response: spontaneous(4). Motor Response: obeys commands(6). Verbal Response: tl4 oriented(5). Total: 15. 15:06 Eye Response: spontaneous(4). Motor Response: obeys commands(6). Verbal Response: tl4 oriented(5). Total: 15. ED Course: 12:02 Patient arrived in ED. mr 12:02 Luis Arreola MD is Private Physician. mr 12:05 Eitan Friedman MD is Attending Physician. rt 12:08 Triage completed. ll1 12:08 Arm band placed on. ll1 12:44 Inserted saline lock: 20 gauge in right antecubital area, using aseptic technique. hb Blood collected. 12:45 CBC with Diff Sent. hb 12:45 CMP Sent. hb 12:46 Patient has correct armband on for positive identification. Provided Education on: hb tests, result times. 13:04 Radiology exam delayed due to lab results not completed at this time. (BUN/Creatinine). nj 13:24 CT Abd/Pelvis - IV Contrast Only In Process Unspecified. EDMS 14:10 Humberto Figueroa, JULIA is Primary Nurse. tl4 14:12 No provider procedures requiring assistance completed. tl4 14:27 Trent Ch MD is Referral Physician. rt 15:06 IV discontinued, intact, bleeding controlled, No redness/swelling at site. Pressure tl4 dressing applied. Administered Medications: No medications were administered Medication: 12:46 VIS not applicable for this client. hb Outcome: 14:28 Discharge ordered by MD. rt 15:06 Discharged to home via wheelchair, with family, tl4 15:06 Condition: stable 15:06 Discharge instructions given to patient, family, Instructed on discharge instructions, follow up and referral plans. medication usage, Demonstrated understanding of instructions, follow-up care, medications, 15:07 Patient left the ED. tl4 Signatures: Dispatcher [employer] EDMS Micaela Levin, Reg Reg mr OviedoLatha, RN RN Fredis Abreu Lynsay, RN RN ll1 Eitan Friedman MD MD rt Humberto Figueroa RN RN tl4 Corrections: (The following items were deleted from the chart) 12:12 12:07 Chief complaint: Patient states: Rectal bleeding and "hemmroids" pain for 1 week hb after straining. + rectal pain, no fever this week. ll1
--- NOTE | 2023-11-13 14:28 | EDPHYS ---
Physician Documentation [facility] Name: Teresa Aguilar Age: 83 yrs Sex: Female : 1940 Arrival Date: 11/13/2023 Time: 11:59 Bed 12 Private MD: Luis Arreola ED Physician Eitan Friedman HPI: 11/13 17:33 This 83 yrs old Female presents to ER via Wheelchair with complaints of Rectal Bleeding.rt 17:33 Patient presents to the ED with reported rectal bleeding. The patient reports having rt hemorrhoids with straining on the toilet. Denies nausea, vomiting. States that the blood is bright red. Symptoms are moderate in severity, no other aggravating or alleviating factors.. Historical: - Allergies: 12:06 hydrochlorothiazide; ll1 - Home Meds: 12:47 amlodipine 10 mg tablet 1 tab [Active]; atorvastatin 40 mg Oral tablet [Active]; hb carvedilol 12.5 mg Oral tablet [Active]; isosorbide mononitrate 30 mg Oral Tablet [Active]; Lasix 20 mg Oral tablet [Active]; losartan 100 mg Oral tablet [Active]; omeprazole 40 mg Oral capsule [Active]; Sotolol 80 mg [Active]; Xarelto 20 mg Oral tablet [Active]; - PMHx: 12:06 Asthma; Chronic obstructive lung disease; Congestive heart failure; Atrial ll1 fibrillation; stroke 09/13/2024 (Congestive heart fa); - PSHx: 12:06 mitral valve (f); ll1 - Immunization history:: Adult Immunizations up to date. - Social history:: Smoking status: Patient denies any tobacco usage or history of. - Family history:: not pertinent. ROS: 17:33 Constitutional: Negative for fever, chills, and weight loss, Cardiovascular: Negative rt for chest pain, palpitations, and edema, Respiratory: Negative for shortness of breath, cough, wheezing, and pleuritic chest pain, MS/Extremity: Negative for injury and deformity, Skin: Negative for injury, rash, and discoloration, Neuro: Negative for headache, weakness, numbness, tingling, and seizure, Psych: Negative for depression, anxiety, suicide ideation, homicidal ideation, and hallucinations, 17:33 Abdomen/GI: Positive for rectal bleeding, Exam: 17:33 Constitutional: This is a well developed, well nourished patient who is awake, alert, rt and in no acute distress. Head/Face: Normocephalic, atraumatic. Chest/axilla: Normal chest wall appearance and motion. Nontender with no deformity. No lesions are appreciated. Cardiovascular: Regular rate and rhythm with a normal S1 and S2. No gallops, murmurs, or rubs. Normal PMI, no JVD. No pulse deficits. Respiratory: Lungs have equal breath sounds bilaterally, clear to auscultation and percussion. No rales, rhonchi or wheezes noted. No increased work of breathing, no retractions or nasal flaring. Skin: Warm, dry with normal turgor. Normal color with no rashes, no lesions, and no evidence of cellulitis. MS/ Extremity: Pulses equal, no cyanosis. Neurovascular intact. Full, normal range of motion. Neuro: Awake and alert, GCS 15, oriented to person, place, time, and situation. Cranial nerves II-XII grossly intact. Motor strength 5/5 in all extremities. Sensory grossly intact. Cerebellar exam normal. Normal gait. Psych: Awake, alert, with orientation to person, place and time. Behavior, mood, and affect are within normal limits. 17:33 Abdomen/GI: No abdominal tenderness or distention. External, tender hemorrhoids noted, no blood on rectal exam, Vital Signs: 12:07 BP 163 / 76; Pulse 87; Resp 17; Temp 97.4; Pulse Ox 98% ; Weight 40.82 kg; Height 5 ft. ll1 2 in. ; Pain 10/10; 13:30 BP 156 / 86; Pulse 86; Resp 15; Pulse Ox 100% ; hb 14:11 BP 156 / 83; Pulse 74; Resp 18; Pulse Ox 99% on R/A; Pain 0/10; tl4 15:06 BP 150 / 79; Pulse 75; Resp 18; Pulse Ox 99% on R/A; Pain 0/10; tl4 12:07 Body Mass Index 16.46 (40.82 kg, 157.48 cm) ll1 12:07 Pain Scale: Adult ll1 14:11 Pain Scale: Adult tl4 15:06 Pain Scale: Adult tl4 [place] Coma Score: 14:11 Eye Response: spontaneous(4). Motor Response: obeys commands(6). Verbal Response: tl4 oriented(5). Total: 15. 15:06 Eye Response: spontaneous(4). Motor Response: obeys commands(6). Verbal Response: tl4 oriented(5). Total: 15. MDM: 12:11 Patient medically screened. rt 17:33 Differential diagnosis: hemorrhoids, Colitis, diverticulitis. Data reviewed: vital rt signs, nurses notes, lab test result(s), radiologic studies. Consideration of Admission/Observation Escalation of care including admission/observation considered. Patient has inflammatory findings about the colon, however, she has no abdominal tenderness, stable vital signs, blood work is unremarkable. I did offer the patient admission for IV antibiotics, she states that she strongly wishes to go home, will prescribe Augmentin. Patient understands that she should return at any time if she develops worsening symptoms or changes her mind.. I considered the following discharge prescriptions or medication management in the emergency department Medications were administered in the Emergency Department. See MAR. Independent interpretation of the following test(s) in the Emergency Department CT Scan: My interpretation is No bowel obstruction syndrome interpretation of CT scan images. Care significantly affected by the following chronic conditions: Atrial fibrillation. Counseling: I had a detailed discussion with the patient and/or guardian regarding the historical points, exam findings, and any diagnostic results supporting the discharge/admit diagnosis, lab results, radiology results, the need for outpatient follow up, to return to the emergency department if symptoms worsen or persist or if there are any questions or concerns that arise at home. 11/13 12:17 Order name: CBC with Diff; Complete Time: 13:19 rt 11/13 12:17 Order name: CMP; Complete Time: 13:19 rt 11/13 12:17 Order name: CT Abd/Pelvis - IV Contrast Only; Complete Time: 14:03 rt 11/13 12:17 Order name: IV Saline Lock; Complete Time: 12:45 rt 11/13 12:17 Order name: Labs collected and sent; Complete Time: 12:45 rt Administered Medications: No medications were administered Disposition Summary: 11/13/23 14:28 Discharge Ordered Notes: Location: Home rt Problem: new rt Symptoms: have improved rt Condition: Stable rt Diagnosis - External hemorrhoid rt - Rectal bleeding rt Followup: rt - With: Trent Ch MD - When: 2 - 3 days - Reason: Discharge Instructions: - Discharge Summary Sheet rt - Hemorrhoids rt - Rectal Bleeding rt - Colitis rt Forms: - Medication Reconciliation Form rt - Thank You Letter rt - Antibiotic Education rt - Prescription Opioid Use rt - Patient Portal Instructions rt - Leadership Thank You Letter rt Prescriptions: - Anusol-HC 2.5 % Topical cream with perineal applicator - apply 1 application RECTAL route 3 times per day as needed; 21 application; rt Refills: 0, Product Selection Permitted - Augmentin 875-125 mg Oral Tablet - take 1 tablet ORAL route every 12 hours for 10 days; 20 tablet; Refills: 0, rt Product Selection Permitted Signatures: Dispatcher [employer] EDLatha Mathew RN RN Juanito Alcala RN RN ll1 Eitan Friedman MD MD rt
[2023-11-13 15:35] VITALS: BP 150/79; TEMP 97.4; O2SAT 99
== END ==
LOC: ER 11:59
DX: K64.4 Residual hemorrhoidal skin tags (principal); Z88.8 Allergy status to other drugs, medicaments and biological substances; Z79.01 Long term (current) use of anticoagulants
CPT/HCPCS: 85025; 36415; 80053; 74177; Q9967

== ENCOUNTER 2024-01-08 07:00 | Day surgery (SDC) | payer OTHER ==
[2024-01-06 13:59] LABS: Absolute Eosinophils 0.1 K/uL (0-0.5); Absolute Lymphocytes (CBC) 1.2 K/uL (0.7-4.9); Absolute Monocytes 0.4 K/uL (0.1-1.3); Absolute Neutrophil 2.2 K/uL (1.8-8.0); Basophils % 0.6 % (0-1.3); Eosinophils % 2.2 % (0-4.4); Hematocrit 34.9 % (36.0-45.0); Lymphocytes % 29.8 % (15.3-44.8); MCH 25.2 pg (27.0-35.0); MCHC 31.4 g/dL (32.0-36.0); MCV 80.2 fL (80-100); MPV 8.9 fL (7.6-11.3); Monocytes % 10.2 % (3.3-12.3); Neutrophils % 57.2 % (41.7-73.7); Nucleated Red Blood Cells % 0.1 % (0-0); Platelets 269 thou/uL (152-406); RBC Red Blood Cell Count 4.36 M/uL (3.86-4.86); Red Cell Distribution Width 19.9 % (12.1-15.2)
[2024-01-06 14:03] LABS: PT Prothrombin Time 11.4 SECONDS (9.5-12.5); PTT, Activated Partial Thromb 28.2 SECONDS (24.3-36.9); Protime INR 1.04
[2024-01-06 14:11] LABS: Anion Gap 4.4 mEq/L (5.0-15.0); Potassium 3.4 mEq/L (3.5-5.1)
[2024-01-08] MEDS ORDERED: NA CHLORIDE 0.9% 500 ML ONE (07:23)
[2024-01-08] MEDS ORDERED: propofoL 200 MG/20 ML VIAL IV ONE (07:44)
[2024-01-08] MEDS ORDERED: LIDOCAINE 1% MPF 5 ML VIAL ONE (07:44)
[2024-01-08 08:41] VITALS: TEMP 97.7; O2SAT 97
[2024-01-08 09:20] VITALS: BP 141/67
--- NOTE | 2024-01-08 18:22 | OP ---
Date of Procedure: 01/08/2024 Surgeon: BENITA BEARD Procedure Performed: Transesophageal echocardiogram. Indication: Atrial fibrillation, post Watchman placement recently. Description Of Procedure: After risks, benefits, and alternatives were explained, patient agreed to procedure and signed informed consent. Patient was brought into the OR and after proper time-out, pr opofol was administered by Anesthesia, and then SINA probe was inserted without difficulty and Watchma n was found to be in a good position with no thrombus or leak. Then SINA probe was removed. Patient was sent to recovery in stable condition. Conclusion: Successful SINA with Watchman in a good position. No leak or thrombus. SR/MODL Voice ID: [id number] Report ID: [id number]
--- NOTE | 2024-01-11 07:58 | TEE ---
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 TRANSESOPHAGEAL ECHOCARDIOGRAM WAS INSERTED, NO DIFFICULTY 2. WATCHMAN DEVICE IS SEATED WELL, NO THROMBUS, NO LEAK TECHNOLOGIST: FABIANA SCHROEDER
== END 2024-01-08 08:55 | disposition home or self-care (01) ==
LOC: CCL 07:00
PROVIDERS: ATTEND Internal Medicine
DX: I48.21 Permanent atrial fibrillation (principal); I34.0 Nonrheumatic mitral (valve) insufficiency; Z98.890 Other specified postprocedural states; I11.0 Hypertensive heart disease with heart failure; I50.9 Heart failure, unspecified; I25.10 Atherosclerotic heart disease of native coronary artery without angina pectoris; I65.23 Occlusion and stenosis of bilateral carotid arteries; I27.20 Pulmonary hypertension, unspecified; E78.5 Hyperlipidemia, unspecified; J44.9 Chronic obstructive pulmonary disease, unspecified; K21.9 Gastro-esophageal reflux disease without esophagitis; F32.A Depression, unspecified; Z87.891 Personal history of nicotine dependence; Z79.02 Long term (current) use of antithrombotics/antiplatelets; Z79.82 Long term (current) use of aspirin; Z79.899 Other long term (current) drug therapy; Z88.8 Allergy status to other drugs, medicaments and biological substances
CPT/HCPCS: 93005; 93312; 85025; 80048; 36415; 85610; 85730; J2704; J2001; J7040

== ENCOUNTER 2025-01-02 14:27 | Emergency (ER) | payer OTHER ==
--- NOTE | 2025-01-02 14:58 | RAD REPORT ---
EXAM: CT Ct Stroke Brain Wo Cont HISTORY: FALL COMPARISON: 10/09/2023 TECHNIQUE: Multiple contiguous axial images were obtained for a CT of the brain without contrast. Sag ittal and coronal reformats were performed. One or more of the following dose reduction techniques were used: Automated exposure control, adjus tment of the mA and kV according to patient size, and iterative reconstruction. Unless otherwise specified, incidental findings do not require dedicated imaging follow-up. FINDINGS: Small volume hyperdense blood products along the high right parietal sulci, centered on the postcentr al sulcus. No significant mass effect or midline shift. No evidence of hydrocephalus, other intracranial hemorrhage, or extra-axial fluid collection. Stable encephalomalacia in the right centrum semiovale bowel. Mild diffuse parenchymal volume loss, s table. The brain is otherwise normal in morphology. The calvarium is intact. Mucus retention cyst along the base of the right maxillary sinus. Left parie radha scalp hematoma. Mastoid air cells are essentially clear. IMPRESSION: Small volume subarachnoid hemorrhage along the right parietal sulci. (Scalp hematoma. THIS REPORT CONTAINS FINDINGS THAT MAY BE CRITICAL TO PATIENT CARE. The findings were verbally commun icated via telephone to Shalom Valdez MD on 01/02/2025 2:53 PM.
[2025-01-02 15:01] LABS: Absolute Basophils 0.1 K/uL (0-0.5); Absolute Eosinophils 0.1 K/uL (0-0.5); Absolute Lymphocytes (CBC) 1.9 K/uL (0.7-4.9); Absolute Monocytes 0.5 K/uL (0.1-1.3); Absolute Neutrophil 13.8 K/uL (1.8-8.0); Basophils % 0.4 % (0-1.3); Eosinophils % 0.7 % (0-4.4); Hematocrit 38.7 % (36.0-45.0); Hemoglobin 13.2 g/dL (12.0-15.0); Lymphocytes % 11.4 % (15.3-44.8); MCH 29.6 pg (27.0-35.0); MCHC 34.2 g/dL (32.0-36.0); MCV 86.6 fL (80-100); MPV 8.6 fL (7.6-11.3); Monocytes % 3.2 % (3.3-12.3); Neutrophils % 84.3 % (41.7-73.7); Nucleated Red Blood Cells % 0.1 % (0-0); Platelets 339 thou/uL (152-406); RBC Red Blood Cell Count 4.46 M/uL (3.86-4.86); Red Cell Distribution Width 14.1 % (12.1-15.2)
[2025-01-02 15:06] LABS: PT Prothrombin Time 11.8 SECONDS (10-13.0); PTT, Activated Partial Thromb 30.6 SECONDS (27.2-37.4); Protime INR 1.04
[2025-01-02] MEDS ORDERED: ONDANSETRON 4 MG/2 ML VIAL ONE (15:14)
[2025-01-02 15:15] LABS: Albumin 3.2 g/dL (3.4-5.0); Albumin/Globulin Ratio 0.7 (1.1-1.8); Anion Gap 9.4 mEq/L (5.0-15.0); Bilirubin Direct 0.2 mg/dL (0-0.2); Bilirubin Indirect, Calculated 0.4 mg/dL (0.2-0.8); Bilirubin Total 0.6 mg/dL (0.2-1.0); Globulin 4.3 g/dL (2.3-3.5); Magnesium 1.9 mg/dL (1.6-2.4); Potassium 3.4 mEq/L (3.5-5.1); Protein, Total 7.5 g/dL (6.4-8.2)
--- NOTE | 2025-01-02 15:23 | EDPHYS ---
Physician Documentation [facility] Name: Teresa Aguilar Age: 84 yrs Sex: Female : 1940 Arrival Date: 01/02/2025 Time: 14:27 Bed 8 Private MD: ED Physician Eitan Friedman HPI: 01/02 14:54 This 84 yrs old Female presents to ER via EMS with complaints of Fall Injury, Head rt Injury-Adult. 14:54 History limited due to patient with altered mental status, patient was reportedly rt gardening, and Caused her to lose her balance when she stood up causing her to hit the left side of her head. EMS was called, they state that patient has had a rapid decline in her mental state, now only oriented to person. Patient was reportedly with nausea and vomiting, received Zofran, states that she is no longer nauseated. Symptoms are severe in severity, no other aggravating or alleviating factors.. Historical: - Allergies: 14:53 hydrochlorothiazide; ss - Home Meds: 15:30 atorvastatin 80 mg oral tablet every day at bedtime [Active]; aspirin 81 mg Oral iw capsule daily [Active]; furosemide 40 mg Oral tablet daily [Active]; isosorbide mononitrate 30 mg Oral Tablet, Extended Release 24 hr daily [Active]; sotalol 80 mg Oral tablet 2 times per day [Active]; carvedilol 3.125 mg oral tablet 2 times per day [Active]; omeprazole 40 mg Oral capsule,delayed release (e.c.) daily [Active]; albuterol sulfate 90 mcg/actuation Inhl Aerosol Powder, Breath Activ.with Sensor every 4 hours [Active]; Zoloft 25 mg Oral tablet daily [Active]; Hemocyte-Plus 106 mg iron- 1 mg oral capsule daily [Active]; mirtazapine 15 mg Oral Tablet,disintegrating daily [Active]; - PMHx: 14:53 Asthma; Atrial fibrillation; Cerebrovascular accident; Chronic obstructive lung ss disease; Congestive heart failure; stroke 09/13/2024 (Congestive heart fa); - PSHx: 14:53 mitral valve; ss - Family history:: not pertinent. ROS: 14:54 Unable to obtain ROS due to altered mental status, rt Exam: 14:54 Neck: Trachea midline, no thyromegaly or masses palpated, and no cervical rt lymphadenopathy. Supple, full range of motion without nuchal rigidity, or vertebral point tenderness. No Meningismus. Chest/axilla: Normal chest wall appearance and motion. Nontender with no deformity. No lesions are appreciated. Cardiovascular: Regular rate and rhythm with a normal S1 and S2. No gallops, murmurs, or rubs. Normal PMI, no JVD. No pulse deficits. Respiratory: Lungs have equal breath sounds bilaterally, clear to auscultation and percussion. No rales, rhonchi or wheezes noted. No increased work of breathing, no retractions or nasal flaring. Abdomen/GI: Soft, non-tender, with normal bowel sounds. No distension or tympany. No guarding or rebound. No evidence of tenderness throughout. Skin: Warm, dry with normal turgor. Normal color with no rashes, no lesions, and no evidence of cellulitis. MS/ Extremity: Pulses equal, no cyanosis. Neurovascular intact. Full, normal range of motion. 14:54 Head/face: Hematoma noted to the left side of the scalp. 14:54 ECG was reviewed by the Attending Physician. 14:54 Neuro: Oriented to person only, left-sided facial droop, mild left-sided weakness, pre-existing per report, no other cranial nerve deficits, strength and sensation otherwise intact,, Vital Signs: 14:47 BP 114 / 85; Pulse 102; Resp 22; Temp 97.9; Pulse Ox 95% ; Pain 0/10; ss 15:04 BP 131 / 86; Pulse 106; Resp 16; Pulse Ox 94% on R/A; Weight 40.82 kg; Height 5 ft. 2 iw in. ; 15:42 BP 120 / 80; Pulse 81; Resp 16; Temp 98(TE); Pulse Ox 95% on R/A; Pain 5/10; iw 15:04 Body Mass Index 16.46 (40.82 kg, 157.48 cm) iw 14:47 Pain Scale: Adult ss 15:42 Pain Scale: Adult iw NIH Stroke Scale Scores: 15:03 NIHSS Score: 3 es3 15:43 NIHSS Score: 3 iw MDM: 14:42 Medical Screening Exam initiated rt 17:05 Differential diagnosis: Polytrauma, fracture, head injury, concussion, intracranial rt hemorrhage. Data reviewed: vital signs, nurses notes, lab test result(s), EKG, radiologic studies. Consideration of Admission/Observation Patient requires transfer to trauma center. I considered the following discharge prescriptions or medication management in the emergency department Medications were administered in the Emergency Department. See MAR. Independent interpretation of the following test(s) in the Emergency Department CT Scan: My interpretation is Subarachnoid hemorrhage syndrome interpretation of CT scan images. Care significantly affected by the following chronic conditions: Atrial fibrillation. Counseling: I had a detailed discussion with the patient and/or guardian regarding the historical points, exam findings, and any diagnostic results supporting the discharge/admit diagnosis, radiology results, the need to transfer to another facility. Response to treatment: There is no appreciated change of the patient's symptoms at this time. 01/02 14:49 Order name: Basic Metabolic Panel; Complete Time: 15:20 rt 01/02 14:49 Order name: CBC with Diff; Complete Time: 15:11 rt 01/02 14:49 Order name: LFT's; Complete Time: 15:20 rt 01/02 14:49 Order name: Magnesium; Complete Time: 15:20 rt 01/02 14:49 Order name: PT-INR; Complete Time: 15:11 rt 01/02 14:49 Order name: Troponin HS; Complete Time: 15:20 rt 01/02 14:49 Order name: Ptt, Activated; Complete Time: 15:11 rt 01/02 15:01 Order name: Glucose, Ancillary Testing; Complete Time: 15:11 EDMS 01/02 14:45 Order name: Ct Stroke Brain Wo Cont; Complete Time: 15:00 EDMS 01/02 14:49 Order name: XRAY Chest (1 view); Complete Time: 17:38 rt 01/02 14:49 Order name: Pelvis XRAY; Complete Time: 17:38 rt 01/02 15:11 Order name: Hip Left 2 View XRAY; Complete Time: 17:38 rt 01/02 15:11 Order name: Wrist Left (3 View) XRAY rt 01/02 15:11 Order name: Shoulder Left (2 View) XRAY; Complete Time: 17:38 rt 01/02 15:33 Order name: Elbow Left 2 View; Complete Time: 17:38 EDMS 01/02 14:49 Order name: Cardiac monitoring; Complete Time: 14:56 rt 01/02 14:49 Order name: EKG - Nurse/Tech; Complete Time: 14:56 rt 01/02 14:49 Order name: IV Saline Lock; Complete Time: 14:59 rt 01/02 14:49 Order name: Labs collected and sent; Complete Time: 14:59 rt 01/02 14:49 Order name: O2 Per Protocol; Complete Time: 14:56 rt 01/02 14:49 Order name: O2 Sat Monitoring; Complete Time: 14:56 rt EC:54 Rate is 103 beats/min. Rhythm is regular, A fib with No ectopy, ST depression in the rt lateral leads. QRS interval is normal. QT interval is normal. No Q waves. Administered Medications: 15:20 Drug: Ondansetron IVP 4 mg IVP once; over 2 minutes Route: IVP; Site: right antecubital;iw 15:40 Follow up: Response: No adverse reaction iw 15:42 Drug: Keppra IV 2000 mg IV at 2 calculated rate once Route: IV; Rate: 2 calculated iw rate; Site: right antecubital; 15:43 Follow up: IV Status: Infusion continued upon transfer iw Point of Care Testing: Blood Glucose: 15:00 Blood Glucose: 124 mg/dL; iw Ranges: Critical Glucose Levels:Adult <50 mg/dl or >400 mg/dl <40 mg/dl or >180 mg/dl Disposition Summary: 01/02/25 15:23 Transfer Ordered Notes: Transfer Location: [facility] rt Reason: Higher level of care rt Condition: Critical rt Problem: new rt Symptoms: are unchanged rt Accepting Physician: Dr. Soto(01/02/25 15:47) iw Diagnosis - Traumatic subarachnoid hemorrhage rt Discharge Instructions: - Discharge Summary Sheet iw Forms: - Medication Reconciliation Form rt - SBAR form rt Critical care time excluding procedures: 17:05 Critical care time: Bedside Care: 30 minutes, Family Intervention: 5 minutes. Total rt time: 35 minutes NIH Stroke Scale - NIH Stroke Score Date: 01/02/2025 Time: 15:03 Total Score = 3 10. Dysarthria (speech clarity - read or repeat words) - 1(Mild to Moderate) 11. Extinction and Inattention (visual/tactile/auditory/spatial/personal) - 0(No abnormality) 1a. Level of Consciousness (LOC) - 1(Not Alert) 1b. Level of Consciousness (LOC) (Month \T\ Age) - 1(One) 1c. LOC Commands (Open \T\ Closes Eyes/Avionics Repair Technician) - 0(Both) 2. Best Gaze (Lateral Gaze Paresis) - 0(Normal) 3. Visual Field Loss - 0(No visual loss) 4. Facial Palsy - 0(Normal) 5a. Left Arm: Motor (10-second hold) - 0(No drift) 5b. Right Arm: Motor (10-second hold) - 0(No drift) 6a. Left Leg: Motor (5-second hold - always test supine) - 0(No drift) 6b. Right Leg: Motor (5-second hold - always test supine) - 0(No drift) 7. Limb Ataxia (finger/nose \T\ heel/campoverde - test with eyes open) - 0(Absent) 8. Sensory Loss (pinprick arms/legs/face) - 0(Normal) 9. Best Language: Aphasia (description/naming/reading) - 0(No aphasia) Initials: es3 NIH Stroke Scale - NIH Stroke Score Date: 01/02/2025 Time: 15:43 Total Score = 3 10. Dysarthria (speech clarity - read or repeat words) - 1(Mild to Moderate) 11. Extinction and Inattention (visual/tactile/auditory/spatial/personal) - 0(No abnormality) 1a. Level of Consciousness (LOC) - 1(Not Alert) 1b. Level of Consciousness (LOC) (Month \T\ Age) - 1(One) 1c. LOC Commands (Open \T\ Closes Eyes/Avionics Repair Technician) - 0(Both) 2. Best Gaze (Lateral Gaze Paresis) - 0(Normal) 3. Visual Field Loss - 0(No visual loss) 4. Facial Palsy - 0(Normal) 5a. Left Arm: Motor (10-second hold) - 0(No drift) 5b. Right Arm: Motor (10-second hold) - 0(No drift) 6a. Left Leg: Motor (5-second hold - always test supine) - 0(No drift) 6b. Right Leg: Motor (5-second hold - always test supine) - 0(No drift) 7. Limb Ataxia (finger/nose \T\ heel/campoverde - test with eyes open) - 0(Absent) 8. Sensory Loss (pinprick arms/legs/face) - 0(Normal) 9. Best Language: Aphasia (description/naming/reading) - 0(No aphasia) Initials: iw Signatures: Dispatcher [employer] EDCoral Hogan, RN RN iw Deborah Gallagher RN RN ss Eitan Friedman MD MD rt Corrections: (The following items were deleted from the chart) 14:50 14:50 BASIC METABOLIC PANEL+C.LAB.BRZ ordered. EDMS EDMS 14:50 14:50 CBC+H.LAB.BRZ ordered. EDMS EDMS 14:50 14:50 HEPATIC FUNCTION+C.LAB.BRZ ordered. EDMS EDMS 14:50 14:50 MAGNESIUM+C.LAB.BRZ ordered. EDMS EDMS 14:50 14:50 PROTIME (+INR)+COAG.LAB.BRZ ordered. EDMS EDMS 14:50 14:50 Troponin High Sensitivity+C.LAB.BRZ ordered. EDMS EDMS 14:50 14:50 PTT, ACTIVATED+COAG.LAB.BRZ ordered. EDMS EDMS 14:50 14:50 Chest Single View+RAD.RAD.BRZ ordered. EDMS EDMS 14:50 14:50 Pelvis+RAD.RAD.BRZ ordered. EDMS EDMS 15:11 15:11 Hip Left 2 View+RAD.RAD.BRZ ordered. EDMS EDMS 15:11 15:11 Wrist Left 3 View+RAD.RAD.BRZ ordered. EDMS EDMS 15:11 15:11 Shoulder Left 2 View+RAD.RAD.BRZ ordered. EDMS EDMS 15:11 15:11 Elbow Left 3 View+RAD.RAD.BRZ ordered. EDMS EDMS 15:47 15:23 Dr. Soto rt iw
--- NOTE | 2025-01-02 15:23 | ER ---
Nurse's Notes [facility] Name: Teresa Aguilar Age: 84 yrs Sex: Female : 1940 Arrival Date: 01/02/2025 Time: 14:27 Bed 8 Private MD: Diagnosis: Traumatic subarachnoid hemorrhage Presentation: 01/02 14:30 Chief complaint: EMS states: fell from standing position. Pt initially complained of ss pain to L hip. EMS reports upon arrival to scene, family initially wanted to transport patient [facility] as that is where all of her care is received. EMS reports that after 25 minutes of being on scene, pt suddenly became confused, and reported severe nausea. Coronavirus screen: Client denies travel out of the [place] in the last 14 days. Ebola Screen: Patient denies exposure to infectious person. Patient denies travel to an Ebola-affected area in the 21 days before illness onset. 14:30 Acuity: HUSEYIN 1 ss 14:30 Method Of Arrival: EMS: [facility] 14:47 Initial Sepsis Screen: Does the patient meet any 2 criteria? No. Patient's initial ss sepsis screen is negative. Does the patient have a suspected source of infection? No. Patient's initial sepsis screen is negative. Risk Assessment: Do you want to hurt yourself or someone else? Patient reports no desire to harm self or others. Onset of symptoms was January 02, 2025. 14:47 Care prior to arrival: Medication(s) given: zofran 4 mg given IM Glucose check: 96 ss Oxygen administered. via nasal cannula. 14:47 An acute neurological deficit is present. The charge nurse has been notified. The iw patients blood glucose was checked before arriving to the hospital and was found to be normal. Stroke Activation: Physician: ED Attending; Name: Dr. Friedman; Notified At: 14:27; Arrived At: 15:00 Physician: Mid-Level Provider; Name: N/A; Notified At: 14:27; Arrived At: 14:27 Physician: [not used]; Name: ; Notified At: ; Arrived At: Physician: [not used]; Name: ; Notified At: ; Arrived At: Physician: [not used]; Name: ; Notified At: ; Arrived At: Historical: - Allergies: 14:53 hydrochlorothiazide; ss - Home Meds: 15:30 atorvastatin 80 mg oral tablet every day at bedtime [Active]; aspirin 81 mg Oral iw capsule daily [Active]; furosemide 40 mg Oral tablet daily [Active]; isosorbide mononitrate 30 mg Oral Tablet, Extended Release 24 hr daily [Active]; sotalol 80 mg Oral tablet 2 times per day [Active]; carvedilol 3.125 mg oral tablet 2 times per day [Active]; omeprazole 40 mg Oral capsule,delayed release (e.c.) daily [Active]; albuterol sulfate 90 mcg/actuation Inhl Aerosol Powder, Breath Activ.with Sensor every 4 hours [Active]; Zoloft 25 mg Oral tablet daily [Active]; Hemocyte-Plus 106 mg iron- 1 mg oral capsule daily [Active]; mirtazapine 15 mg Oral Tablet,disintegrating daily [Active]; - PMHx: 14:53 Asthma; Atrial fibrillation; Cerebrovascular accident; Chronic obstructive lung ss disease; Congestive heart failure; stroke 09/13/2024 (Congestive heart fa); - PSHx: 14:53 mitral valve; ss - Family history:: not pertinent. Screenin:00 [facility] ED Fall Risk Assessment (Adult) History of falling in the last 3 months, iw including since admission Yes- single mechanical fall (1 pt) Confusion or Disorientation Yes (5 pts) Intoxicated or Sedated No (0 pts) Impaired Gait Yes (1 pt) Mobility Assist Device Used Yes (1 pt) Altered Elimination Yes (1 pt) Score/Fall Risk Level 3 or more points = High Risk Oriented to surroundings, Maintained a safe environment. Abuse screen: Denies threats or abuse. Denies injuries from another. Nutritional screening: No deficits noted. Tuberculosis screening: No symptoms or risk factors identified. 15:03 VAN Screening: Arm Drift: Patient shows no arm weakness. Patient is VAN negative. es3 Visual Disturbance: No visual disturbance noted. Aphasia: No aphasia noted. Neglect: No neglect noted. 15:03 [place] Swallow Protocol Exclusion Criteria: Unable to remain alert for testing: Yes. es3 Assessment: 14:27 Reassessment: CODE STROKE CALLED. PT TO CT AT THIS TIME. ss 14:30 Reassessment: in CT at this time. ss 14:43 Reassessment: Dr. Friedman at bedside. iw 15:00 VAN Scoring: Arm Drift: Patients demonstrates NO arm weakness. Patient is VAN Negative. iw Visual Disturbance: No visual disturbance noted. Aphasia: No aphasia noted. Neglect: No neglect noted. [place] [facility]allow Protocol Oral Mechanism Examination Oral Mechanism Result: 3 oz Water Swallow Challenge: Pt able to drink all water without stopping, coughing, choking or throat clearing: No. 15:01 [place] [facility]allow Protocol Exclusion Criteria: Unable to remain alert for testing: Yes Brief Cognitive Screen What is your name? Normal, Where are you right now? Abnormal What year is it? Abnormal Result: FAIL MD Notified: Eitan Friedman MD. General: Appears uncomfortable, ill, Behavior is cooperative, drowsy. Pain: Complains of pain in left arm. Neuro: Level of Consciousness is awake, confused, listless, Oriented to person, Clinical Consultant are weak on left Moves all extremities. Speech is slurred. Cardiovascular: Capillary refill < 3 seconds in bilateral fingers Rhythm is regular. Respiratory: Respiratory effort is even, unlabored, Respiratory pattern is regular, symmetrical. 15:03 TNKase (Tenecteplase) Screening: Indications: No evidence of intracranial hemorrhage or iw CT of head and no evidence of peripheral hemorrhage or recent CVA: No. 15:04 [place] Swallow Protocol Exclusion Criteria: Exclusion Criteria Result: Defer \T\ Consult Brief Cognitive Screen. Vital Signs: 14:47 BP 114 / 85; Pulse 102; Resp 22; Temp 97.9; Pulse Ox 95% ; Pain 0/10; ss 15:04 BP 131 / 86; Pulse 106; Resp 16; Pulse Ox 94% on R/A; Weight 40.82 kg; Height 5 ft. 2 iw in. ; 15:42 BP 120 / 80; Pulse 81; Resp 16; Temp 98(TE); Pulse Ox 95% on R/A; Pain 5/10; iw 15:04 Body Mass Index 16.46 (40.82 kg, 157.48 cm) iw 14:47 Pain Scale: Adult ss 15:42 Pain Scale: Adult iw NIH Stroke Scale Scores: 15:03 NIHSS Score: 3 es3 15:43 NIHSS Score: 3 iw ED Course: 14:32 Patient arrived in ED. bd 14:32 Eitan Friedman MD is Attending Physician. rt 14:45 Ct Stroke Brain Wo Cont In Process Unspecified. EDMS 14:50 Initial lab(s) drawn, by me, sent to lab. Inserted saline lock: 20 gauge in right iw antecubital area, using aseptic technique. Blood collected. Flushed with 10 mL NS. 14:53 Triage completed. ss 14:53 Arm band placed on right wrist. ss 14:59 Coral Soto, RN is Primary Nurse. iw 15:05 Patient has correct armband on for positive identification. Placed in gown. Bed in low iw position. family at bedside. 15:15 initiated transfer to [facility],pt auto accepted in transfer to ER. accepted by Dr truong Soto admin approval given by Buffy Koroma. 15:30 XRAY Chest (1 view) In Process Unspecified. EDMS 15:30 Pelvis XRAY In Process Unspecified. EDMS 15:33 Elbow Left 2 View In Process Unspecified. EDMS 15:34 pt transferred by [facility]. bd 15:35 Hip Left 2 View XRAY In Process Unspecified. EDMS 15:35 Wrist Left (3 View) XRAY In Process Unspecified. EDMS 15:35 Shoulder Left (2 View) XRAY In Process Unspecified. EDMS 15:42 No provider procedures requiring assistance completed. Patient transferred, IV remains iw in place. Administered Medications: 15:20 Drug: Ondansetron IVP 4 mg IVP once; over 2 minutes Route: IVP; Site: right antecubital;iw 15:40 Follow up: Response: No adverse reaction iw 15:42 Drug: Keppra IV 2000 mg IV at 2 calculated rate once Route: IV; Rate: 2 calculated iw rate; Site: right antecubital; 15:43 Follow up: IV Status: Infusion continued upon transfer iw Medication: 15:05 VIS not applicable for this client. iw Point of Care Testing: Blood Glucose: 15:00 Blood Glucose: 124 mg/dL; iw Ranges: Outcome: 15:23 ER care complete, transfer ordered by . rt 15:43 Transferred by [facility] [employer] . to [facility], Transfer form iw completed. X-rays sent w/ patient. 15:43 Condition: stable 15:43 Discharge instructions given to family, Instructed on the need for transfer, Demonstrated understanding of instructions, 15:47 Patient left the ED. iw NIH Stroke Scale - NIH Stroke Score Date: 01/02/2025 Time: 15:03 Total Score = 3 10. Dysarthria (speech clarity - read or repeat words) - 1(Mild to Moderate) 11. Extinction and Inattention (visual/tactile/auditory/spatial/personal) - 0(No abnormality) 1a. Level of Consciousness (LOC) - 1(Not Alert) 1b. Level of Consciousness (LOC) (Month \T\ Age) - 1(One) 1c. LOC Commands (Open \T\ Closes Eyes/Truck Loader And Unloader) - 0(Both) 2. Best Gaze (Lateral Gaze Paresis) - 0(Normal) 3. Visual Field Loss - 0(No visual loss) 4. Facial Palsy - 0(Normal) 5a. Left Arm: Motor (10-second hold) - 0(No drift) 5b. Right Arm: Motor (10-second hold) - 0(No drift) 6a. Left Leg: Motor (5-second hold - always test supine) - 0(No drift) 6b. Right Leg: Motor (5-second hold - always test supine) - 0(No drift) 7. Limb Ataxia (finger/nose \T\ heel/campoverde - test with eyes open) - 0(Absent) 8. Sensory Loss (pinprick arms/legs/face) - 0(Normal) 9. Best Language: Aphasia (description/naming/reading) - 0(No aphasia) Initials: es3 NIH Stroke Scale - NIH Stroke Score Date: 01/02/2025 Time: 15:43 Total Score = 3 10. Dysarthria (speech clarity - read or repeat words) - 1(Mild to Moderate) 11. Extinction and Inattention (visual/tactile/auditory/spatial/personal) - 0(No abnormality) 1a. Level of Consciousness (LOC) - 1(Not Alert) 1b. Level of Consciousness (LOC) (Month \T\ Age) - 1(One) 1c. LOC Commands (Open \T\ Closes Eyes/Truck Loader And Unloader) - 0(Both) 2. Best Gaze (Lateral Gaze Paresis) - 0(Normal) 3. Visual Field Loss - 0(No visual loss) 4. Facial Palsy - 0(Normal) 5a. Left Arm: Motor (10-second hold) - 0(No drift) 5b. Right Arm: Motor (10-second hold) - 0(No drift) 6a. Left Leg: Motor (5-second hold - always test supine) - 0(No drift) 6b. Right Leg: Motor (5-second hold - always test supine) - 0(No drift) 7. Limb Ataxia (finger/nose \T\ heel/campoverde - test with eyes open) - 0(Absent) 8. Sensory Loss (pinprick arms/legs/face) - 0(Normal) 9. Best Language: Aphasia (description/naming/reading) - 0(No aphasia) Initials: iw Signatures: Dispatcher [employer] EDMS Madiha Julio Irene, RN RN iw Deborah Gallagher RN RN ss Eitan Friedman MD MD rt Saniya Ch, JULIA RN es3 Corrections: (The following items were deleted from the chart) 15:04 15:01 [place] Swallow Protocol Exclusion Criteria: Unable to remain alert for iw testing: Yes iw 15:06 15:04 BP 131 / 86; Pulse 106bpm; Resp 16bpm; Pulse Ox 94% RA; iw iw
[2025-01-02] MEDS ORDERED: NA CHLORIDE 0.9% 100 ML ONE (15:38)
[2025-01-02] MEDS ORDERED: LEVETIRACETAM 500 MG/5 ML VIAL IV ONE (15:38)
[2025-01-02 16:07] VITALS: BP 120/80; TEMP 98; O2SAT 95
--- NOTE | 2025-01-02 17:21 | RAD REPORT ---
EXAMINATION: ONE VIEW CHEST XR CLINICAL INDICATION: Female, 84 years old.,ams TECHNIQUE: Frontal chest projection is submitted. Examination is limited by patient positioning and t echnique. COMPARISON: 10/09/2023 FINDINGS: Hazy perihilar and basilar opacities. Blunting of the left costophrenic angle which may reflect decre ased pneumonia. No pneumothorax or other sizable effusion. The heart is normal in size. Mediastinal contours are unremarkable. IMPRESSION: Hazy perihilar and basilar opacities, may reflect mild pulmonary edema or multifocal pneumonia.
--- NOTE | 2025-01-02 17:22 | RAD REPORT ---
EXAMINATION: XR PELVIS CLINICAL INDICATION: Female, 84 years old. [facility] MAIN TRAUMA Bed Name: 8 TECHNIQUE: AP Pelvis radiograph and 2 views of the left hip were obtained. COMPARISON: No prior exam. FINDINGS: Impacted left femoral neck fracture at the head/neck junction. Normal joint alignment. No e vidence of AVN. Soft tissues are unremarkable. IMPRESSION: Impacted left femoral neck fracture at the femoral head/neck junction.
--- NOTE | 2025-01-02 17:23 | RAD REPORT ---
EXAMINATION: Hip Left 2 View CLINICAL INDICATION: Female, [address] [facility] MAIN PAIN Bed Name: 8 TECHNIQUE: 2 view radiograph of the left hip were obtained. COMPARISON: No prior exam. FINDINGS: Impacted left femoral neck fracture. Normal joint alignment. No evidence of arthropathy or other focal bone lesion. Soft tissues are unremarkable. IMPRESSION: Impacted left femoral neck fracture.
--- NOTE | 2025-01-02 17:26 | RAD REPORT ---
EXAMINATION: XR LEFT SHOULDER CLINICAL INDICATION: Female, 84 years old. PAIN TECHNIQUE: Internal and external AP view radiograph of the left shoulder were obtained. COMPARISON: No prior exam. FINDINGS: Mildly displaced and slightly impacted fracture of the left humeral surgical neck. Mild wid ening of the glenohumeral joint. Normal AC joint alignment. No evidence of significant arthropathy or other focal bone lesion. Soft tissue swelling about the shoulder. IMPRESSION: Mildly displaced and slightly impacted left humeral surgical neck fracture.
--- NOTE | 2025-01-02 17:27 | RAD REPORT ---
EXAMINATION: XR Elbow Left 2 View CLINICAL INDICATION: Female, 84 years old. PAIN TECHNIQUE: 2 view radiographs of the left elbow were obtained. COMPARISON: No prior exam. FINDINGS: No evidence of fracture or dislocation. Normal alignment. No joint effusion. No evidence of arthropathy. No suspicious focal bone lesion. Soft tissues are unremarkable. IMPRESSION: No acute or significant abnormalities.
--- NOTE | 2025-01-02 17:43 | RAD REPORT ---
EXAM: XR Wrist Left 3 View HISTORY: [facility] MAIN PAIN Bed Name: [id number] COMPARISON: None TECHNIQUE: 3 views of the left wrist. FINDINGS: Diffuse osteopenia limits evaluation. Cortical irregularities along the distal radial metap hysis best appreciated on the oblique view, could represent a subtle fracture. Joint alignment is maintained. No soft tissue swelling is seen. No significant degenerative changes are present. IMPRESSION: Possible subtle distal radial metaphysis fracture as above.
== END 2025-01-02 15:47 | disposition short-term general hospital (02) ==
LOC: ER 14:27
DX: S06.6X0A Traumatic subarachnoid hemorrhage without loss of consciousness, initial encounter (principal); R29.703 NIHSS score 3; I50.9 Heart failure, unspecified; Z86.73 Personal history of transient ischemic attack (TIA), and cerebral infarction without residual deficits; Z79.82 Long term (current) use of aspirin
CPT/HCPCS: 93005; 85025; 80048; 36415; 83735; 85610; 82947; 80076; 85730; 84484; 70450; 71045; 72170; 73502; 73070; 73030; 73110; 96375; 96374; 99285; J1953; J2405